=== PATIENT | male | born 1930 | race Caucasian/White ===

== ENCOUNTER → 2018-01-13 | Outpatient (CLI) | payer MEDICARE ==
[~2018-01-13] MED LIST: ACIDOPHILUS1 EAC1 PO; ALDACTONE25 MG PO; ALLOPURINOL100 MG PO; ASCORBIC ACID500 MG PO; BENADRYL25 M1 PO; BISAC-EVAC10 MG PR; BUMETANIDE1 MG PO; CALCIUM 500+D1 EACH PO; CARVEDILOL6.25 MG PO; CEFTRIAXON2 GM/50 ML IV; COLCHICINE PO; COREG3.125 MG PO; COUMADIN5 MG PO; DIFLUCAN100 MG PO; DIGOXIN PO; DIGOXIN125 MCG PO; DOCUSATE SODIU100 MG PO; DOK100 MG PO; ENOXAPARIN SQ; ERGOCALCIF8000 UNIT/ PO; FAMOTIDINE20 MG PO; FINASTERIDE5 MG PO; FUROSEMIDE40 MG PO; LACTULOSE20 GM/30 M PO; LIDOCAINE PATCH TOP; MAALOX ADVANCE770 ML PO; METOPROLOL TART25 MG PO; MIDODRINE HCL2.5 MG PO; MULTIVITAMINS1 EAC8 PO; NORCO 10-325 T1 EACH PO; NORCO 5-325 TA1 EACH PO; PEPCID20 MG PO; POTASSIUM CHLO20 ME1 PO; PROBIOTIC & AC1 EACH PO; RIFAMPIN300 MG PO; SENNOSIDES8.6 MG; TAMSULOSIN HCL0.4 MG PO; TORSEMIDE10 MG PO; ULTRAM 50MG50 MG PO; WARFARIN SODIUM2 MG PO; Z.0.ALDACTONE25 MG PO; Z.0.ALLOPURINOL300 M PO; Z.0.BACTRIM DS TAB1 PO; Z.0.COREG25 MG PO; Z.0.COUMADIN2.5 MG PO; Z.0.COUMADIN5 MG PO; Z.0.LEVOTHYROXINE50 PO; Z.0.PROSCAR5 MG PO; Z.0.TORSEMIDE10 MG PO; [UNRECOGNIZED DRUG - OTHER] PO; [UNRECOGNIZED DRUG - OTHER] SQ
[2018-01-13 10:52] LABS: INR 2.25; PROTHROMBIN TIME 23.4 seconds (11.9-14.5)
== END ==
LOC: LAB 10:04
PROVIDERS: ATTEND Internal Medicine Cardiovascular Disease
DX: I48.2 Chronic atrial fibrillation (principal)
CPT/HCPCS: 36415; 85610

== ENCOUNTER → 2018-02-03 | Outpatient (CLI) | payer MEDICARE ==
[2018-02-03 12:08] LABS: INR 2.52; PROTHROMBIN TIME 25.5 seconds (11.9-14.5)
== END ==
LOC: LAB 11:29
PROVIDERS: ATTEND Internal Medicine Cardiovascular Disease
DX: I48.2 Chronic atrial fibrillation (principal)
CPT/HCPCS: 36415; 85610

== ENCOUNTER → 2018-03-26 | Outpatient (CLI) | payer MEDICARE ==
[2018-03-26 12:09] LABS: INR 1.56
== END ==
LOC: LAB 11:35
PROVIDERS: ATTEND Internal Medicine Cardiovascular Disease
DX: I48.2 Chronic atrial fibrillation (principal)
CPT/HCPCS: 36415; 85610

== ENCOUNTER → 2018-04-05 | Outpatient (CLI) | payer MEDICARE ==
[2018-04-05 15:28] LABS: INR 1.68; PROTHROMBIN TIME 21.1 seconds (11.9-14.5)
== END ==
LOC: LAB 14:32
PROVIDERS: ATTEND Internal Medicine Cardiovascular Disease
DX: I48.2 Chronic atrial fibrillation (principal)
CPT/HCPCS: 36415; 85610

== ENCOUNTER → 2018-04-28 | Outpatient (CLI) | payer MEDICARE ==
[2018-04-28 12:17] LABS: INR 1.62; PROTHROMBIN TIME 20.6 seconds (11.9-14.5)
== END ==
LOC: LAB 11:31
PROVIDERS: ATTEND Internal Medicine Cardiovascular Disease
DX: I48.2 Chronic atrial fibrillation (principal)
CPT/HCPCS: 36415; 85610

== ENCOUNTER → 2018-05-28 | Outpatient (CLI) | payer MEDICARE ==
[2018-05-28 11:20] LABS: PROTHROMBIN TIME 24.2 seconds (11.9-14.5)
--- NOTE | 2018-05-28 12:51 | Diagnostic Imaging Report ---
Exam: Bilateral hip radiographs, 2 views on each side, and AP radiograph of the pelvis. Comparison: Right hip/pelvis radiographs 12/14/2016 Findings: Status post bilateral hip arthroplasty. Hardware appears intact. There is periprosthetic lucency along the shaft of the left hip femoral component, most pronounced in the medial and distal aspects. Lucency appears to be increased from partially imaged left femur on prior radiograph from 12/14/2016. No evidence of periosteal reaction. Atherosclerotic vascular calcifications. Surgical clips project over the left thigh. Diffuse osteopenia. No evidence of acute displaced fracture. Bowel gas obscures visualization of the sacrum limiting evaluation. Partially seen degenerative changes of the lower lumbar spine. Impression: No evidence of acute displaced fracture. Bilateral total hip arthroplasty changes as above. Increasing periprosthetic lucency along the femoral component of the left hip arthroplasty, which could reflect loosening in the appropriate clinical context. Infection could have a similar appearance. Signed by: Dr. Charlotte Smallwood MD on 05/28/2018 12:47 PM
== END ==
LOC: LAB 10:44
PROVIDERS: ATTEND Internal Medicine Cardiovascular Disease
DX: I48.2 Chronic atrial fibrillation (principal); Z96.643 Presence of artificial hip joint, bilateral; Z47.1 Aftercare following joint replacement surgery
CPT/HCPCS: 36415; 73521; 85610

== ENCOUNTER 2018-07-01 11:30 | Inpatient (IN) | payer MEDICARE ==
[~2018-07-01] VITALS: Ht 177.8 cm; Wt 64.0 kg
--- OUTSIDE RECORDS SUMMARY | 2018-07-01 11:37 | XMS REPORT | Continuity of Care Document ---
Author Author [facility] Interface Address Unknown Phone Unavailable Problems Problem Status Onset Date Classification Date Reported Comments Source LEFT HIP PAIN, I D Active 09/23/2015 [facility] Clostridium difficile<sup>1, 2</sup> Active 09/11/2015 Problem 05/20/2016 Problem added by Discern Expert. 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 Resolved Problem 05/20/2016 [facility] CAD - Coronary artery disease Resolved Problem 05/20/2016 [facility] [place] Gout Resolved Problem 05/20/2016 [facility] [place] Hypertension Resolved Problem 05/20/2016 [facility] Hypothyroidism Resolved Problem 05/20/2016 [facility], [facility] [place] Fracture of femur, left, closed Active Problem 05/20/2016 [facility], [place] Final: Fracture of unspecified part of neck of right femur, initial encounter for closed fracture 09/17/2015 [facility] 427 Active [facility] 427. 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 Active [facility] UNK Active [facility] PT/INR Active [facility] 402.91, 614.01 Active [facility] [place] OBS CHR BRONC W(AC) EXAC Active [facility] 403.01 Active [facility] ANGINA PECTORIS NEC/NOS Active [facility] CAD/USA,P/A ACD, AP/PPT Active [facility] COR ATH UNSP VSL NTV/GRF Active [facility] 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 Active [facility] DERMATITIS NOS Active [facility] CARDIAC DYSRHYTHMIAS NEC Active [facility] I48.2 Active [facility] CBS,PT/INR/I48.2 Active [facility] D12.5 Active [facility] ENCOUNTER FOR SCREENING FOR MALIGNANT NE Active [facility] FRACTURE OF UNSP PART OF NECK OF RIGHT F Active [facility] FRACTURE OF UNSPECIFIED PART OF BODY OF Active [facility] PAIN IN LEFT HIP Active [facility] GASTRO-ESOPHAGEAL REFLUX DISEASE WITHOUT Active [facility] OTHER FATIGUE Active [facility] HYPOTHYROIDISM, UNSPECIFIED Active [facility] I11.0, I25.10 Active [facility] N18.3/I11.0/I48.2/N40.0E03.9 Active [facility] CHRONIC KIDNEY DISEASE, STAGE 3 (MODERAT Active [facility] HYPERTENSIVE HEART DISEASE WITH HEART FA Active [facility] CHRONIC ATRIAL FIBRILLATION Active [facility] ENLARGED PROSTATE WITHOUT LOWER URINARY Active [facility] Medications Medication Details Route Status Patient Instructions Ordering Provider Order Date Source Potassium Chloride 20 MEQ Extended Release Tablet 40 mEq, 2 tab, Route: PO, Drug form: ERTAB, Daily, Dosing Weight 93.318, kg, Priority: NOW, Start date: 09/29/15 10:22:00, Duration: 30 day, Stop date: 10/29/15 9:00:00Notes: (Same as: K-Dur 20) "Do Not Crush" With food and full glass of water Inactive 09/29/2015 [facility] Rifampin 600 mg, 2 cap, Route: PO, Drug form: CAP, [id number], Dosing Weight 93.318, kg, Start date: 09/28/15 20:00:00, Duration: 30 day, Stop date: 10/27/15 20:00:00Notes: (Same as: Rifadin) No Longer Active 09/29/2015 [facility] Ceftriaxone 1 gm, Route: IVPB, [id number], Dosing Weight 93.318, kg, Start date: 09/28/15 17:30:00, Duration: 30 day, Stop date: 10/27/15 17:30:00Notes: (Same As: Rocephin). Use with 100 mL NS and infuse over 30 min MEDICATION WASTE Product Size: 1000 mg Product Wasted: ___ mg No Longer Active 09/28/2015 [facility] Acetaminophen 325 MG / Hydrocodone Bitartrate 5 MG Oral Tablet [[place] 5/325] 1 tab, PO, Q3H, PRN Pain Score 1-3, 0 Refill(s) Active 09/28/2015 [facility] Acetaminophen 325 MG / Hydrocodone Bitartrate 10 MG Oral Tablet [[place] 10/325] 1 tab, PO, Q3H, PRN Pain Score 4-6, 0 Refill(s) Active 09/28/2015 [facility] Acetaminophen 325 MG / Oxycodone Hydrochloride 10 MG Oral Tablet [Percocet 10/325] 1 tab, PO, Q3H, PRN Pain Score 7-10, 0 Refill(s) Active 09/28/2015 [facility] atropine 0.1 mg/mL injectable solution 0.5 mg=5 mL, IVP, ONCE, PRN Bradycardia, 0 Refill(s) Active 09/28/2015 [facility] hydromorphone 100 mg/100 mL-NaCl 0.9% intravenous solution 0.2 mg=0.2 mL, IV, Q2H, PRN Other -See Comment | Breakthrough Pain, level 1-5, give 15 minutes after PO pain narcotic if pain not resolved, 0 Refill(s) Active 09/28/2015 [facility] ondansetron 2 mg/mL injectable solution 4 mg=2 mL, IVP, Q6H, PRN Nausea & Vomiting, 0 Refill(s) Active 09/28/2015 [facility] rifaMPIN 300 mg oral capsule 600 mg, PO, [id number], 0 Refill(s) Active 09/28/2015 [facility] diphenhydrAMINE 25 mg oral tablet 12.5 mg=0.5 tab, PO, Q6H, PRN Itching, 0 Refill(s) Active 09/28/2015 [facility] Famotidine 20 MG Oral Tablet 20 mg=1 tab, PO, Q12H, 0 Refill(s) Active 09/28/2015 [facility] Enoxaparin 40 mg=0.4 mL, SUB-Q, [id number], 0 Refill(s) Active 09/28/2015 [facility] Please do not give Vanco prior to trough is collected Please do not give Vanco prior to trough is collected, Reminder, Drug form: MISC, Route: MISC, ONCE, 09/28/15 15:00:00, Stop date: 09/28/15 15:00:00 Inactive 09/28/2015 [facility] potassium chloride 40 mEq, 2 tab, Route: PO, Drug form: ERTAB, ONCE, Dosing Weight 93.318, kg, Start date: 09/28/15 8:35:00, Stop date: 09/28/15 8:35:00Notes: (Same as: K-Dur 20) "Do Not Crush" With food and full glass of water Inactive 09/28/2015 [facility] Pepcid 20 mg, 1 tab, Route: PO, Drug form: TAB, Q12H, Start date: 09/27/15 9:00:00, Duration: 30 day, Stop date: 10/26/15 21:00:00Notes: (Same as: Pepcid) No Longer Active 09/27/2015 [facility] Atropine 0.5 mg, 5 mL, Route: IVP, Drug form: INJ, ONCE, Dosing Weight 93.318, kg, PRN Bradycardia, Start date: 09/27/15 4:13:00 No Longer Active 09/27/2015 [facility] Nitroglycerin 0.4 MG Sublingual Tablet 0.4 mg, 1 tab, Route: SL, Drug form: TAB, Q5Min, Dosing Weight 93.318, kg, PRN Chest Pain, Start date: 09/27/15 4:13:00, Duration: 30 day, Stop date: 10/27/15 4:12:00 Inactive 09/27/2015 [facility] Vancomycin 1 gm, Route: IVPB, [id number], Dosing Weight 93.318, kg, Start date: 09/26/15 13:00:00, Duration: 30 day, Stop date: 10/25/15 16:00:00Notes: TIME CRITICAL MEDICATION (Same As: Vancocin) Infusion rate 2001 mg: infuse over 2.5 hours MEDICATION WASTE Product Size: 1000 mg Product Wasted: ___ mg No Longer Active 09/26/2015 [facility] Zofran 4 mg, 2 mL, Route: IVP, Drug form: INJ, Q6H, PRN Nausea & Vomiting, Start date: 09/25/15 18:00:00, Duration: 30 day, Stop date: 10/25/15 17:59:00Notes: (Same as: Zofran) MEDICATION WASTE Product Size: 4 mg Product Wasted: ___ mg No Longer Active 09/25/2015 [facility] cefepime 1 gm, Route: IVPB, [id number], Dosing Weight 93.318, kg, (CrCl 30 - 49 ml/min), Start date: 09/25/15 15:00:00, Duration: 30 day, Stop date: 10/25/15 3:00:00Notes: (Same As: Maxipime) MEDICATION WASTE Product Size: 1000 mg Product Wasted: ___ mg No Longer Active 09/25/2015 [facility] Lasix 80 mg, 8 mL, Route: IV, Drug form: INJ, ONCE, Dosing Weight 93.318, kg, Start date: 09/25/15 10:51:00, Stop date: 09/25/15 10:51:00Notes: (Same as: Lasix) MEDICATION WASTE Product Size: 40 mg Product Wasted: ___ mg Inactive 09/25/2015 [facility] digoxin 250 mcg (0.25 mg) oral tablet 0.25 mg, 1 tab, Route: PO, Drug form: TAB, Every Other Day, Dosing Weight 93.318, kg, Start date: 09/25/15 9:00:00, Duration: 30 day, Stop date: 10/23/15 9:00:00Notes: Take on an Empty Stomach (Same as: Lanoxin) No Longer Active 09/25/2015 [facility] Enoxaparin 40 mg, 0.4 mL, Route: SUB-Q, Drug form: INJ, [id number], Dosing Weight 93.318, kg, Start date: 09/25/15 9:00:00, Duration: 30 day, Stop date: 10/24/15 9:00:00Notes: (Same as: Lovenox) No Longer Active 09/25/2015 [facility] Vancomycin 6.67 MG/ML Injectable Solution 1 gm, Route: IVPB, Q12H, Dosing Weight 93.318, kg, Time Critical Medication, Start date: 09/25/15 1:00:00, Duration: 2 doses or times, Stop date: 09/25/15 13:00:00, Pharmacy to adjust dose for renal functionNotes: TIME CRITICAL MEDICATION (Same As: Vancocin) Infusion rate 2001 mg: infuse over 2.5 hours MEDICATION WASTE Product Size: 1000 mg Product Wasted: ___ mg Inactive 09/25/2015 [facility] Pepcid 20 mg, 2 mL, Route: IVP, Drug form: INJ, Q12H, Dosing Weight 93.318, kg, Start date: 09/24/15 21:00:00, Duration: 30 day, Stop date: 10/24/15 9:00:00Notes: (Same as: Pepcid) Can be dilute in 5-10cc NS IVP: Slow IV push over at least 2 minutes. No Longer Active 09/25/2015 [facility] Clindamycin 150 MG/ML Injectable Solution 600 mg, 50 mL, Route: IVPB, Drug form: INJ, Q6H, Dosing Weight 93.318, kg, Start date: 09/24/15 20:00:00, Duration: 3 doses or times, Stop date: 09/25/15 8:00:00 No Longer Active 09/25/2015 [facility] Propofol 10 MG/ML Injectable Suspension 1,000 mg, 100 mL, Rate: Titrate, Start Dose: 5 microgram/kg/min, Titration: 5 microgram/kg/min every 15 min, Goal(s): -1, Max Dose: 50 microgram/kg/min, Route: IV, Dosing Weight 93.318 kg, Total Volume: 100, Start date: 09/24/15 18:25:00, Duration: 30...Notes: If Diprivan - change bottle & tubing every 12 hr Per state nursing law propofol can only be given by a nurse if patient is intubated or being intubated (unless the nurse is a [employer]). Same as: Diprivan No Longer Active 09/24/2015 [facility] Zofran 4 mg, 2 mL, Route: IV, Drug form: INJ, Q6H, Dosing Weight 93.318, kg, Start date: 09/24/15 18:00:00, Duration: 4 doses or times, Stop date: 09/25/15 12:00:00Notes: (Same as: Barbara) MEDICATION WASTE Product Size: 4 mg Product Wasted: ___ mg No Longer Active 09/24/2015 [facility] metoprolol (ANES) Route: IV, Drug form: INJ, ONCE, Stop date: 09/24/15 17:04:00 Inactive 09/24/2015 [facility] neostigmine (ANES) Route: IV, Drug form: INJ, ONCE, Stop date: 09/24/15 17:04:00 Inactive 09/24/2015 [facility] glycopyrrolate (ANES) Route: IV, Drug form: INJ, ONCE, Stop date: 09/24/15 17:04:00 Inactive 09/24/2015 [facility] Docusate 100 mg, 1 cap, Route: PO, Drug form: CAP, BID, Dosing Weight 93.318, kg, Start date: 09/24/15 17:00:00, Duration: 30 day, Stop date: 10/24/15 9:00:00Notes: (Same as: Colace) (Do Not Crush) No Longer Active 09/24/2015 [facility] Diphenhydramine 12.5 mg, 0.5 tab, Route: PO, Drug form: TAB, Q6H, Dosing Weight 93.318, kg, PRN Itching, Start date: 09/24/15 16:53:00, Duration: 30 day, Stop date: 10/24/15 16:52:00 No Longer Active 09/24/2015 [facility] Acetaminophen 325 MG / Hydrocodone Bitartrate 10 MG Oral Tablet [[place] 10/325] 1 tab, Route: PO, Drug Form: TAB, Dosing Weight 93.318, kg, Q3H, PRN Pain Score 4-6, Start date: 09/24/15 16:53:00, Duration: 30 day, Stop date: 10/24/15 16:52:00Notes: Do not exceed 4gm/day of acetaminophen. (Same as: [place] 325/10) No Longer Active 09/24/2015 [facility] Dilaudid 0.5 mg, 0.5 mL, Route: IV, Drug form: INJ, Q2H, Dosing Weight 93.318, kg, PRN Other -See Comment, Start date: 09/24/15 16:53:00, Duration: 30 day, Stop date: 10/24/15 16:52:00, Breakthrough Pain, lev el 6-10, give 15 minutes after PO pain narcotic if p... No Longer Active 09/24/2015 [facility] Zofran 4 mg, Route: IV, Q6H, Dosing Weight 93.318, kg, PRN, Start date: 09/24/15 16:53:00, Duration: 30 day, Stop date: 10/24/15 16:52:00, nausea and vomiting Inactive 09/24/2015 [facility] Acetaminophen 325 MG / Hydrocodone Bitartrate 5 MG Oral Tablet [[place] 5/325] 1 tab, Route: PO, Drug Form: TAB, Dosing Weight 93.318, kg, Q3H, PRN Pain Score 1-3, Start date: 09/24/15 16:53:00, Duration: 30 day, Stop date: 10/24/15 16:52:00Notes: (Same as: [place] 325/5) Do not exceed 4gm/day of acetaminophen. No Longer Active 09/24/2015 [facility] Tranexamic Acid 1,000 mg, Route: IV, ONCE, Dosing Weight 93.318, kg, Start date: 09/24/15 16:53:00, Stop date: 09/24/15 16:53:00 Inactive 09/24/2015 [facility] Acetaminophen 325 MG / Oxycodone Hydrochloride 10 MG Oral Tablet [Percocet 10/325] 1 tab, Route: PO, Drug Form: TAB, Dosing Weight 93.318, kg, Q3H, PRN Pain Score 7-10, Start date: 09/24/15 16:53:00, Duration: 30 day, Stop date: 10/24/15 16:52:00Notes: Do not exceed 4gm/day of acetaminophen. (Same as: Percocet-10/325) No Longer Active 09/24/2015 [facility] Bisacodyl 10 mg, 1 supp, Route: WI, Drug form: SUPP, Daily, Dosing Weight 93.318, kg, PRN Constipation, Start date: 09/24/15 16:53:00, Duration: 30 day, Stop date: 10/24/15 16:52:00Notes: (Same As: Dulcolax, Bisco- Lax) No Longer Active 09/24/2015 [facility] 1/2 NS 1,000 mL 1,000 mL, Rate: 75 ml/hr, Infuse over: 13.3 hr, Route: IV, Dosing Weight 93.318 kg, Total Volume: 1,000, Start date: 09/24/15 16:53:00, Duration: 30 day, Stop date: 10/24/15 16:52:00 No Longer Active 09/24/2015 [facility] esmolol (ANES) Route: IV, Drug form: INJ, ONCE, Stop date: 09/24/15 16:30:00 Inactive 09/24/2015 [facility] phenylephrine (ANES) Route: IV, Drug form: INJ, ONCE, Stop date: 09/24/15 16:25:00 Inactive 09/24/2015 [facility] rocuronium (ANES) Route: IV, Drug form: INJ, ONCE, Stop date: 09/24/15 16:10:00 Inactive 09/24/2015 [facility] fentaNYL (ANES) Route: IV, Drug form: INJ, ONCE, Stop date: 09/24/15 15:55:00 Inactive 09/24/2015 [facility] rocuronium (ANES) Route: IV, Drug form: INJ, ONCE, Stop date: 09/24/15 15:39:00 Inactive 09/24/2015 [facility] norepinephrine (ANES) Route: IV, Drug form: INJ, ONCE, Stop date: 09/24/15 15:34:00 Inactive 09/24/2015 [facility] norepinephrine (ANES) Route: IV, Drug form: INJ, ONCE, Stop date: 09/24/15 15:13:00 Inactive 09/24/2015 [facility] clindamycin (ANES) Route: IV, Drug form: INJ, ONCE, Stop date: 09/24/15 14:41:00 Inactive 09/24/2015 [facility] ondansetron (ANES) Route: IV, Drug form: INJ, ONCE, Stop date: 09/24/15 14:41:00 Inactive 09/24/2015 [facility] Amidate (ANES) Route: IV, Drug form: INJ, ONCE, Stop date: 09/24/15 14:41:00 Inactive 09/24/2015 [facility] rocuronium (ANES) Route: IV, Drug form: INJ, ONCE, Stop date: 09/24/15 14:41:00 Inactive 09/24/2015 [facility] fentaNYL (ANES) Route: IV, Drug form: INJ, ONCE, Stop date: 09/24/15 14:41:00 Inactive 09/24/2015 [facility] lidocaine (ANES) Route: IV, Drug form: INJ, ONCE, Stop date: 09/24/15 14:41:00 Inactive 09/24/2015 [facility] Sodium Chloride 0.9% IV (ANES) (ANES) Route: IV, Total Volume: 1,000, Start date: 09/24/15 13:15:00, Stop date: 09/24/15 14:15:00 Inactive 09/24/2015 [facility] vancomycin (ANES) (ANES) Route: IV, Drug form: INJ, Start date: 09/24/15 13:06:00, Stop date: 09/24/15 14:06:00 Inactive 09/24/2015 [facility] Lactated Ringers Injection IV (ANES) (ANES) Route: IV, Total Volume: 1,000, Start date: 09/24/15 13:06:00, Stop date: 09/24/15 14:06:00 Inactive 09/24/2015 [facility] Dakins Half Strength Solution 1 appl, Route: TOP, Drug Form: SOLN, Dosing Weight 93.318, kg, Daily, NOW, Start date: 09/24/15 12:39:00, Duration: 30 day, Stop date: 10/24/15 9:00:00Notes: Note: half strength=0.25% sodium hypochlorite. No Longer Active 09/24/2015 [facility] LR IV 1,000 mL 1,000 mL, Rate: 25 ml/hr, Infuse over: 40 hr, Route: IV, Dosing Weight 93.318 kg, Total Volume: 1,000, Start date: 09/24/15 10:24:00, Duration: 2 day, Stop date: 09/26/15 10:23:00 No Longer Active 09/24/2015 [facility] Hydrochlorothiazide 25 MG Oral Tablet 25 mg, 1 tab, Route: PO, Drug form: TAB, Daily, Dosing Weight 93.318, kg, Start date: 09/24/15 9:00:00, Duration: 30 day, Stop date: 10/23/15 9:00:00Notes: (Same as: Hydrodiuril) With food. No Longer Active 09/24/2015 [facility] Furosemide 40 MG Oral Tablet [Lasix] 40 mg, 1 tab, Route: PO, Drug form: TAB, Daily, Dosing Weight 93.318, kg, Start date: 09/24/15 9:00:00, Duration: 30 day, Stop date: 10/23/15 9:00:00Notes: (Same as: Lasix) May cause GI upset. Give with food or milk. No Longer Active 09/24/2015 [facility] Finasteride 5 mg, 1 tab, Route: PO, Drug form: TAB, Daily, Dosing Weight 93.318, kg, Start date: 09/24/15 9:00:00, Duration: 30 day, Stop date: 10/23/15 9:00:00Notes: (Same as: Proscar) "Do Not Crush" Women of childbearing age should not touch or handle broken tablets No Longer Active 09/24/2015 [facility] Allopurinol 100 mg, 1 tab, Route: PO, Drug form: TAB, Daily, Dosing Weight 93.318, kg, Start date: 09/24/15 9:00:00, Duration: 30 day, Stop date: 10/23/15 9:00:00Notes: (Same as: Zyloprim) No Longer Active 09/24/2015 [facility] Vitamin D2 50,000 IntlUnit, 1 cap, Route: PO, Drug form: CAP, qWeek, Dosing Weight 93.318, kg, Start date: 09/24/15 9:00:00, Duration: 5 doses or times, Stop date: 10/22/15 9:00:00Notes: (Same as: Vitamin D) "Do Not Crush" No Longer Active 09/24/2015 [facility] Spironolactone 25 mg, 1 tab, Route: PO, Drug form: TAB, Daily, Dosing Weight 93.318, kg, Start date: 09/24/15 9:00:00, Duration: 30 day, Stop date: 10/23/15 9:00:00Notes: (Same As: Aldactone) No Longer Active 09/24/2015 [facility] Thyroxine 50 microgram, 1 tab, Route: PO, Drug form: TAB, [id number], Dosing Weight 93.318, kg, Start date: 09/24/15 6:30:00, Duration: 30 day, Stop date: 10/23/15 6:30:00Notes: Take 1 hour before or 2 hours after meal; Enteral feeds may interefere with the absorption of this medication.(Same as:Levothroid, Synthroid) No Longer Active 09/24/2015 [facility] Vancomycin 1 gm, Route: IV, ONCALL, Dosing Weight 93.318, kg, CYLINDER TESTER to OR, Start date: 09/23/15 22:00:00Notes: TIME CRITICAL MEDICATION (Same As: Vancocin) Infusion rate 2001 mg: infuse over 2.5 hours ME DICATION WASTE Product Size: 1000 mg Product Wasted: ___ mg No Longer Active 09/24/2015 [facility] Clindamycin 900 mg, 50 mL, Route: IV, Drug form: INJ, ONCALL, Dosing Weight 93.318, kg, ONCALL to OR, Start date: 09/23/15 22:00:00 No Longer Active 09/24/2015 [facility] carvedilol 6.25 mg, 2 tab, Route: PO, Drug form: TAB, Q12H, Dosing Weight 93.318, kg, Start date: 09/23/15 21:00:00, Duration: 30 day, Stop date: 10/23/15 9:00:00Notes: Give with food. (Same As: Coreg) No Longer Active 09/24/2015 [facility] Enoxaparin 40 mg, 0.4 mL, Route: SUB-Q, Drug form: INJ, [id number], Dosing Weight 93.318, kg, Start date: 09/23/15 21:00:00, Duration: 30 day, Stop date: 10/22/15 21:00:00Notes: (Same as: Lovenox) No Longer Active 09/24/2015 [facility] Metronidazole 500 MG Oral Tablet 500 mg, 1 tab, Route: PO, Drug form: TAB, [id number], Dosing Weight 93.318, kg, Start date: 09/23/15 19:00:00, Duration: 30 day, Stop date: 10/23/15 11:00:00Notes: (Same as: Flagyl) Take with food/ avoid alcohol No Longer Active 09/24/2015 [facility] Ergocalciferol [id number] UNT Oral Capsule 50,000 IntlUnit, 1 cap, Route: PO, Drug form: CAP, qWeek, Dosing Weight 93.318, kg, Start date: 09/23/15 17:00:00, Duration: 30 day, Stop date: 10/21/15 9:00:00Notes: (Same as: Vitamin D) "Do Not Crush" Inactive 09/23/2015 [facility] Vancomycin 125 mg, 2.5 mL, Route: PO, Drug form: SUSP, ABXQ6H, Dosing Weight 93.318, kg, Start date: 09/23/15 17:00:00, Stop date: 10/23/15 11:00:00Notes: TIME CRITICAL MEDICATION "DILUTE EACH DOSE WITH 30ML OF WATER OR APPLE/ORANGE JUICE PRIOR TO ADMINISTRATION" No Longer Active 09/23/2015 [facility] NovoLOG FlexPen 6 unit, 0.06 mL, Route: SUB-Q, Drug form: SOLN, TID-Before Meals, Dosing Weight 93.318, kg, PRN Blood Glucose Results, Start date: 09/23/15 16:52:00, Duration: 30 day, Stop date: 10/23/15 16:51:00Not es: Roll in palms of hands gently; Do not shake vigorously. (Same as: NovoLOG) "single patient use only" WASTE: F/P - Black; E - Municipal Trash Bin Stable for 28 days at room temperature. Expires in days from Date No Longer Active 09/23/2015 [facility] glucagon 1 mg, Route: IM, Drug form: PDR/INJ, PRN, Dosing Weight 93.318, kg, PRN Blood Glucose Results, Start date: 09/23/15 16:52:00, Duration: 30 day, Stop date: 10/23/15 16:51:00 No Longer Active 09/23/2015 [facility] Dextrose 50% Syringe 25 gm, 50 mL, Route: IVP, Drug Form: INJ, Dosing Weight 93.318, kg, PRN, PRN Blood Glucose Results, Start date: 09/23/15 16:52:00, Duration: 30 day, Stop date: 10/23/15 16:51:00 No Longer Active 09/23/2015 [facility] 1/2 NS 1,000 mL 1,000 mL, Rate: 75 ml/hr, Infuse over: 13.3 hr, Route: IV, Dosing Weight 93.318 kg, Total Volume: 1,000, Start date: 09/23/15 16:34:00, Duration: 30 day, Stop date: 10/23/15 16:33:00 No Longer Active 09/23/2015 [facility] Insulin, Aspart, Human 6 unit, Route: SUB-Q, Drug form: SOLN, TID-Before Meals, Dosing Weight 93.318, kg, PRN Blood Glucose Results, Start date: 09/23/15 16:32:00, Duration: 30 day, Stop date: 10/23/15 16:31:00 Inactive 09/23/2015 [facility] Glucagon 1 mg, Route: IM, Drug form: PDR/INJ, PRN, Dosing Weight 93.318, kg, PRN Blood Glucose Results, Start date: 09/23/15 16:32:00, Duration: 30 day, Stop date: 10/23/15 16:31:00 Inactive 09/23/2015 [facility] docusate sodium 100 mg oral capsule 100 mg, 1 cap, Route: PO, Drug form: CAP, BID, Dosing Weight 93.318, kg, PRN Constipation, Start date: 09/23/15 16:32:00, Duration: 30 day, Stop date: 10/23/15 16:31:00Notes: (Same as: Colace) (Do Not Crush) No Longer Active 09/23/2015 [facility] Bisacodyl 10 mg, 1 supp, Route: WI, Drug form: SUPP, Daily, Dosing Weight 93.318, kg, PRN Constipation, Start date: 09/23/15 16:32:00, Duration: 30 day, Stop date: 10/23/15 16:31:00Notes: (Same As: Dulcolax, Bisco- Lax) No Longer Active 09/23/2015 [facility] Trazodone Hydrochloride 50 MG Oral Tablet 50 mg, 1 tab, Route: PO, Drug form: TAB, Bedtime, Dosing Weight 93.318, kg, PRN Insomnia, Start date: 09/23/15 16:32:00, Duration: 30 day, Stop date: 10/23/15 16:31:00Notes: (Same As: Tarunyrel) No Longer Active 09/23/2015 [facility] Acetaminophen 300 MG / Codeine Phosphate 30 MG Oral Tablet 1 tab, Route: PO, Drug Form: TAB, Dosing Weight 93.318, kg, Q4H, PRN Pain Score 4-6, Start date: 09/23/15 16:31:00, Duration: 30 day, Stop date: 10/23/15 16:30:00Notes: Do not exceed 4gm/day of acetaminophen. (Same as: Tylenol with Codeine # 3) No Longer Active 09/23/2015 [facility] bisacodyl 10 mg rectal suppository 10 mg=1 supp, WI, Daily, PRN Constipation, 0 Refill(s) On Hold 09/23/2015 [facility] carvedilol 3.125 mg oral tablet 6.25 mg=2 tab, PO, Q12H, 0 Refill(s) On Hold 09/23/2015 [facility] Acetaminophen 300 MG / Codeine Phosphate 30 MG Oral Tablet 1 tab, PO, Q4H, PRN Pain Score 4-6, 0 Refill(s) On Hold 09/23/2015 [facility] allopurinol 100 mg oral tablet 100 mg=1 tab, PO, Daily, 0 Refill(s) On Hold 09/23/2015 [facility] Vancomycin 250 mg=5 mL, PO, ABXQ6H, 0 Refill(s) On Hold 09/23/2015 [facility] Trazodone Hydrochloride 50 MG Oral Tablet 50 mg=1 tab, PO, Bedtime, PRN Insomnia, 0 Refill(s) On Hold 09/23/2015 [facility] spironolactone 25 mg oral tablet 25 mg=1 tab, PO, Daily, 0 Refill(s) On Hold 09/23/2015 [facility] Insulin, Aspart, Human 15 unit, SUB-Q, TID-Before Meals, PRN Blood Glucose Results, 0 Refill(s) On Hold 09/23/2015 [facility] Hydrochlorothiazide 25 MG Oral Tablet 25 mg=1 tab, PO, Daily, 0 Refill(s) On Hold 09/23/2015 [facility] glucagon recombinant 1 mg injection 1 mg, IM, PRN, PRN Blood Glucose Results, 0 Refill(s) On Hold 09/23/2015 [facility] Furosemide 40 MG Oral Tablet [Lasix] 40 mg=1 tab, PO, Daily, 0 Refill(s) On Hold 09/23/2015 [facility] Ergocalciferol 82719 UNT Oral Capsule 50,000 IntlUnit=1 cap, PO, qWeek, 0 Refill(s) On Hold 09/23/2015 [facility] docusate sodium 100 mg oral capsule 100 mg=1 cap, PO, BID, PRN as needed for constipation, 0 Refill(s) On Hold 09/23/2015 [facility] Metronidazole 500 MG Oral Tablet 500 mg=1 tab, PO, ABXQ8H, 0 Refill(s) On Hold 09/23/2015 [facility] finasteride 5 mg oral tablet 5 mg=1 tab, PO, Daily, 0 Refill(s) On Hold 09/23/2015 [facility] levothyroxine 50 mcg (0.05 mg) oral tablet 50 microgram=1 tab, PO, Daily, 0 Refill(s) On Hold 09/23/2015 [facility] digoxin 250 mcg (0.25 mg) oral tablet 0.25 mg=1 tab, PO, Every Other Day, 0 Refill(s) On Hold 09/23/2015 [facility] Albumin Human, RESIDENTIAL 250 MG/ML Injectable Solution 25 gm, 100 mL, Route: IV, Drug form: INJ, ONCE, Dosing Weight 93.318, kg, Start date: 09/22/15 11:32:00, Stop date: 09/22/15 11:32:00Notes: Lot #: Mfg: (Same as: Plasbumin-25) "blood product derivative" WASTE: F/P - Red; E -Red MEDICATION WASTE Product Size: 25 gm Product Wasted: ___ gm Inactive 09/22/2015 [facility] heparin sodium, porcine 2500 UNT/ML Injectable Solution 5,000 unit, 1 mL, Route: SUB-Q, Drug form: INJ, Q12H, Dosing Weight 93.318, kg, Start date: 09/22/15 9:00:00, Duration: 30 day, Stop date: 10/21/15 21:00:00Notes: porcine heparin No Longer Active 09/22/2015 [facility] DO NOT GIVE HEPARIN SQ UNTIL INR <2.0 DO NOT GIVE HEPARIN SQ UNTIL INR No Longer Active 09/21/2015 [facility] potassium chloride 40 mEq, 2 tab, Route: PO, Drug form: ERTAB, BID, Dosing Weight 93.318, kg, Start date: 09/19/15 9:00:00, Duration: 3 day, Stop date: 09/21/15 17:00:00Notes: (Same as: K-Dur 20) "Do Not Crush" With food and full glass of water No Longer Active 09/19/2015 [facility] potassium chloride 40 mEq, 2 tab, Route: PO, Drug form: ERTAB, Q4H, Dosing Weight 93.318, kg, Priority: NOW, Start date: 09/19/15 7:36:00, Duration: 2 doses or times, Stop date: 09/19/15 11:30:00Notes: (Same as: K-Dur 20) "Do Not Crush" With food and full glass of water Inactive 09/19/2015 [facility] Vancomycin 250 mg, 5 mL, Route: PO, Drug form: SUSP, ABXQ6H, Dosing Weight 93.318, kg, Start date: 09/18/15 17:00:00, Duration: 30 day, Stop date: 10/18/15 11:00:00 No Longer Active 09/18/2015 [facility] Albumin Human, RESIDENTIAL 250 MG/ML Injectable Solution 25 gm, 100 mL, Route: IV, Drug form: INJ, ONCE, Dosing Weight 93.318, kg, Start date: 09/18/15 14:04:00, Stop date: 09/18/15 14:04:00Notes: Lot #: Mfg: (Same as: Plasbumin-25) "blood product derivative" WASTE: F/P - Red; E -Red MEDICATION WASTE Product Size: 25 gm Product Wasted: ___ gm Inactive 09/18/2015 [facility] pneumococcal capsular polysaccharide type 1 vaccine / pneumococcal capsular polysaccharide type 10A vaccine / pneumococcal capsular polysaccharide type 11A vaccine / pneumococcal capsular polysaccharide type 12F vaccine / pneumococcal capsular polysacchar 0.5 mL, Route: IM, Drug Form: INJ, Daily, Start date: 09/18/15 9:00:00, Duration: 1 doses or times, Stop date: 09/18/15 9:00:00Notes: (Same as: Pneumovax 23) Refrigerate Inactive 09/18/2015 [facility] Vitamin D2 50,000 IntlUnit, 1 cap, Route: PO, Drug form: CAP, qWeek, Dosing Weight 93.318, kg, Start date: 09/17/15 15:00:00, Duration: 5 doses or times, Stop date: 10/15/15 9:00:00Notes: (Same as: Vitamin D) "Do Not Crush" No Longer Active 09/17/2015 [facility] Aldactone 25 mg, 1 tab, Route: PO, Drug form: TAB, Daily, Start date: 09/17/15 14:00:00, Duration: 30 day, Stop date: 10/17/15 9:00:00Notes: (Same As: Aldactone) No Longer Active 09/17/2015 [facility] hydrochlorothiazide 25 mg oral tablet 25 mg, 1 tab, Route: PO, Drug form: TAB, Daily, Start date: 09/17/15 14:00:00, Duration: 30 day, Stop date: 10/17/15 9:00:00Notes: (Same as: Hydrodiuril) With food. No Longer Active 09/17/2015 [facility] Tylenol 650 mg, 20.3 mL, Route: PO, Drug form: LIQ, Q4H, Dosing Weight 93.318, kg, PRN Pain Score 1-3, Start date: 09/17/15 10:16:00, Duration: 30 day, Stop date: 10/17/15 10:15:00Notes: Max acetaminophen=40 00mg/day (4 gm/day). (Same as: Tylenol) No Longer Active 09/17/2015 [facility] Acetaminophen 300 MG / Codeine Phosphate 30 MG Oral Tablet 2 tab, Route: PO, Drug Form: TAB, Dosing Weight 93.318, kg, Q4H, PRN Pain Score 7-10, Start date: 09/17/15 10:15:00, Duration: 30 day, Stop date: 10/17/15 10:14:00Notes: Do not exceed 4gm/day of acetaminophen. (Same as: Tylenol with Codeine # 3) No Longer Active 09/17/2015 [facility] Furosemide 40 MG Oral Tablet [Lasix] 40 mg, 1 tab, Route: PO, Drug form: TAB, Daily, Dosing Weight 93.318, kg, Start date: 09/17/15 9:00:00, Duration: 30 day, Stop date: 10/16/15 9:00:00Notes: (Same as: Lasix) May cause GI upset. Give with food or milk. No Longer Active 09/17/2015 [facility] Hydrochlorothiazide 25 MG / Spironolactone 25 MG Oral Tablet [Aldactazide] 1 tab, Route: PO, Drug Form: TAB, Dosing Weight 93.318, kg, Daily, Start date: 09/17/15 9:00:00, Duration: 30 day, Stop date: 10/16/15 9:00:00 Inactive 09/17/2015 [facility] Lasix 20 mg, 2 mL, Route: IVP, Drug form: INJ, Daily, Dosing Weight 93.318, kg, Start date: 09/16/15 9:00:00, Duration: 30 day, Stop date: 10/15/15 9:00:00Notes: (Same as: Lasix) No Longer Active 09/16/2015 [facility] Flagyl 500 mg, 1 tab, Route: PO, Drug form: TAB, ABXQ8H, Dosing Weight 93.318, kg, Start date: 09/15/15 20:00:00, Duration: 30 day, Stop date: 10/15/15 12:00:00Notes: (Same as: Flagyl) Take with food/ avoid alcohol No Longer Active 09/16/2015 [facility] Coumadin 5 mg, 1 tab, Route: PO, Drug form: TAB, Daily, Dosing Weight 80, kg, Start date: 09/15/15 17:00:00, Duration: 30 day, Stop date: 10/14/15 17:00:00Notes: Nurse to ensure documentation of patient education per anticoagulation policy. Avoid large intake of vitamin-K containing foods diet. WASTE: F/P - P Waste Black; E - P Waste Black (Same As: Coumadin) No Longer Active 09/15/2015 [facility] Acetaminophen 300 MG / Codeine Phosphate 30 MG Oral Tablet 1 tab, Route: PO, Drug Form: TAB, Dosing Weight 93.318, kg, Q4H, PRN Pain Score 4-6, Start date: 09/15/15 10:03:00, Duration: 30 day, Stop date: 10/15/15 10:02:00Notes: Do not exceed 4gm/day of acetaminophen. (Same as: Tylenol with Codeine # 3) No Longer Active 09/15/2015 [facility] Saline Flush 0.9% 10 ml, Route: IVP, Drug Form: INJ, Dosing Weight 93.318, kg, Q12H, Start date: 09/15/15 9:00:00, Duration: 30 day, Stop date: 10/14/15 21:00:00Notes: (Same as: BD Posiflush) No Longer Active 09/15/2015 [facility] docusate sodium 100 mg oral capsule 100 mg, 1 cap, Route: PO, Drug form: CAP, BID, Dosing Weight 80, kg, PRN as needed for constipation, Start date: 09/15/15 9:00:00, Duration: 30 day, Stop date: 10/14/15 17:00:00Notes: (Same as: Colace) (Do Not Crush) No Longer Active 09/15/2015 [facility] Coreg 6.25 mg, 2 tab, Route: PO, Drug form: TAB, Q12H, Dosing Weight 80, kg, Start date: 09/15/15 9:00:00, Duration: 30 day, Stop date: 10/14/15 21:00:00Notes: Give with food. (Same As: Coreg) No Longer Active 09/15/2015 [facility] digoxin 0.25 mg, 1 tab, Route: PO, Drug form: TAB, Every Other Day, Dosing Weight 80, kg, Start date: 09/15/15 9:00:00, Duration: 30 day, Stop date: 10/13/15 9:00:00Notes: Take on an Empty Stomach (Same as: Lanoxin) No Longer Active 09/15/2015 [facility] Zyloprim 100 mg, 1 tab, Route: PO, Drug form: TAB, Daily, Dosing Weight 80, kg, Start date: 09/15/15 9:00:00, Duration: 30 day, Stop date: 10/14/15 9:00:00Notes: (Same as: Zyloprim) No Longer Active 09/15/2015 [facility] K-Dur 10 20 mEq, 1 tab, Route: PO, Drug form: ERTAB, BID, Dosing Weight 80, kg, Start date: 09/15/15 9:00:00, Stop date: 10/14/15 17:00:00Notes: (Same as: K-Dur 20) "Do Not Crush" With food and full glass of water No Longer Active 09/15/2015 [facility] Proscar 5 mg, 1 tab, Route: PO, Drug form: TAB, Daily, Dosing Weight 80, kg, Start date: 09/15/15 9:00:00, Duration: 30 day, Stop date: 10/14/15 9:00:00Notes: (Same as: Proscar) "Do Not Crush" Women of childbearing age should not touch or handle broken tablets No Longer Active 09/15/2015 [facility] Levothroid 50 microgram, 1 tab, Route: PO, Drug form: TAB, Daily, Dosing Weight 80, kg, Start date: 09/15/15 6:30:00, Duration: 30 day, Stop date: 10/14/15 6:30:00Notes: Take 1 hour before or 2 hours after meal; E nteral feeds may interefere with the absorption of this medication.(Same as:Levothroid, Synthroid) No Longer Active 09/15/2015 [facility] Flagyl 500 mg, 100 mL, Route: IVPB, Drug form: INJ, ABXQ8H, Dosing Weight 80, kg, Start date: 09/15/15 2:00:00, Duration: 30 day, Stop date: 10/14/15 18:00:00Notes: (Same as: Flagyl) Avoid alcohol. Inactive 09/15/2015 [facility] BD Normal Saline Flush 10 ml, Route: IVP, Drug Form: INJ, Dosing Weight 78.182, kg, PRN, PRN Line Flush, Start date: 09/15/15 1:52:00, Duration: 30 day, Stop date: 10/15/15 1:51:00Notes: (Same as: BD Posiflush) No Longer Active 09/15/2015 [facility] Dulcolax Laxative 10 mg, 1 supp, Route: WI, Drug form: SUPP, Daily, Dosing Weight 80, kg, PRN Constipation, Start date: 09/15/15 1:50:00, Duration: 30 day, Stop date: 10/15/15 1:49:00Notes: (Same As: Dulcolax, Bisco-Lax) No Longer Active 09/15/2015 [facility] Insulin, Aspart, Human 12 unit, 0.12 mL, Route: SUB-Q, Drug form: SOLN, TID-Before Meals, Dosing Weight 93.318, kg, PRN Blood Glucose Results, Start date: 09/15/15 0:21:00, Duration: 30 day, Stop date: 10/15/15 0:20:00Notes: Roll in palms of hands gently; Do not shake vigorously. (Same as: NovoLOG) "single patient use only" WASTE: F/P - Black; E - [employer] Trash Bin Stable for 28 days at room temperature. Expires in days from Date No Longer Active 09/15/2015 [facility] Glucagon 1 mg, Route: IM, Drug form: PDR/INJ, PRN, Dosing Weight 93.318, kg, PRN Blood Glucose Results, Start date: 09/15/15 0:21:00, Duration: 30 day, Stop date: 10/15/15 0:20:00 No Longer Active 09/15/2015 [facility] Dextrose 50% Syringe 12.5 gm, 25 mL, Route: IVP, Drug Form: INJ, Dosing Weight 93.318, kg, PRN, PRN Blood Glucose Results, Start date: 09/15/15 0:21:00, Duration: 30 day, Stop date: 10/15/15 0:20:00 No Longer Active 09/15/2015 [facility] Saline Flush 0.9% 10 ml, Route: IVP, Drug Form: INJ, Dosing Weight 93.318, kg, PRN, PRN Line Flush, Start date: 09/15/15 0:13:00, Duration: 30 day, Stop date: 10/15/15 0:12:00Notes: (Same as: BD Posiflush) Inactive 09/15/2015 [facility] Trazodone 50 mg, 1 tab, Route: PO, Drug form: TAB, Bedtime, Dosing Weight 80, kg, PRN Insomnia, Start date: 09/15/15 0:13:00, Duration: 30 day, Stop date: 10/15/15 0:12:00Notes: (Same As: Desyrel) No Longer Active 09/15/2015 [facility] Lovenox 40 mg, 0.4 mL, Route: SUB-Q, Drug form: INJ, [id number], Dosing Weight 80, kg, Start date: 09/14/15 21:00:00, Duration: 30 day, Stop date: 10/13/15 21:00:00Notes: (Same as: Lovenox) Inactive 09/15/2015 [facility] Famotidine 20 MG Oral Tablet [Pepcid] 20 mg, 1 tab, Route: PO, Drug form: TAB, Q12H, Dosing Weight 80, kg, Start date: 09/14/15 21:00:00, Duration: 30 day, Stop date: 10/14/15 9:00:00Notes: (Same as: Pepcid) Inactive 09/15/2015 [facility] metroNIDAZOLE intravenous solution 500 cb=714 mL, IVPB, ABXQ8H, 0 Refill(s) On Hold 09/14/2015 [facility] Acetaminophen 300 MG / Codeine Phosphate 30 MG Oral Tablet 1 tab, PO, Q4H, PRN Pain Score 4-6, 0 Refill(s) On Hold 09/14/2015 [facility] bisacodyl 10 mg rectal suppository 10 mg=1 supp, WI, Daily, PRN Constipation, 0 Refill(s) On Hold 09/14/2015 [facility] Acetaminophen 300 MG / Codeine Phosphate 30 MG Oral Tablet 2 tab, Route: PO, Drug Form: TAB, Dosing Weight 80, kg, Q4H, PRN Pain Score 7- 10, Start date: 09/14/15 11:19:00, Duration: 30 day, Stop date: 10/14/15 11:18:00Notes: Do not exceed 4gm/day of acetaminophen. (Same as: Tylenol with Codeine # 3) Inactive 09/14/2015 [facility] Flagyl 500 mg, 100 mL, Route: IVPB, Drug form: INJ, ABXQ8H, Dosing Weight 80, kg, Start date: 09/13/15 9:00:00, Duration: 30 day, Stop date: 10/13/15 1:00:00Notes: (Same as: Flagyl) Avoid alcohol. No Longer Active 09/13/2015 [facility] 1,000 mL 1,000 mL, Rate: 100 ml/hr, Infuse over: 10 hr, Route: IV, Dosing Weight 80 kg, Total Volume: 1,000, Start date: 09/12/15 8:03:00, Duration: 30 day, Stop date: 10/12/15 8:02:00 No Longer Active 09/12/2015 [facility] Coreg 6.25 mg, 2 tab, Route: PO, Drug form: TAB, BID, Dosing Weight 80, kg, Start date: 09/11/15 21:00:00, Duration: 30 day, Stop date: 10/11/15 9:00:00Notes: Give with food. (Same As: Coreg) No Longer Active 09/12/2015 [facility] albumin human 25 gm, 100 mL, Route: IV, Drug form: INJ, ONCE, Dosing Weight 80, kg, Start date: 09/11/15 13:45:00, Stop date: 09/11/15 13:45:00Notes: Lot #: Mfg: (Same as: Plasbumin- 25) "blood product derivative" WASTE: F/P - Red; E -Red MEDICATION WASTE Product Size: 25 gm Product Wasted: ___ gm Inactive 09/11/2015 [facility] Albumin Human, RESIDENTIAL 250 MG/ML Injectable Solution 25 gm, 100 mL, Route: IV, Drug form: INJ, ONCE, Dosing Weight 80, kg, Start date: 09/11/15 10:39:00, Stop date: 09/11/15 10:39:00Notes: Lot #: Mfg: (Same as: Plasbumin-25) "blood product derivative" WASTE: F/P - Red; E -Red MEDICATION WASTE Product Size: 25 gm Product Wasted: ___ gm Inactive 09/11/2015 [facility] Insulin, Aspart, Human 15 unit, 0.15 mL, Route: SUB-Q, Drug form: SOLN, TID-Before Meals, Dosing Weight 80, kg, PRN Blood Glucose Results, Start date: 09/11/15 10:11:00, Duration: 30 day, Stop date: 10/11/15 10:10:00Notes: Roll in palms of hands gently; Do not shake vigorously. (Same as: NovoLOG) "single patient use only" WASTE: F/P - Black; E - [employer] Trash Bin Stable for 28 days at room temperature. Expires in days from Date No Longer Active 09/11/2015 [facility] Glucagon 1 mg, Route: IM, Drug form: PDR/INJ, PRN, Dosing Weight 80, kg, PRN Blood Glucose Results, Start date: 09/11/15 10:11:00, Duration: 30 day, Stop date: 10/11/15 10:10:00 No Longer Active 09/11/2015 [facility] Dextrose 50% Syringe 12.5 gm, 25 mL, Route: IVP, Drug Form: INJ, Dosing Weight 80, kg, PRN, PRN Blood Glucose Results, Start date: 09/11/15 10:11:00, Duration: 30 day, Stop date: 10/11/15 10:10:00 No Longer Active 09/11/2015 [facility] Insulin regular 7 unit, 0.07 mL, Route: IV, Drug form: INJ, ONCE, Dosing Weight 80, kg, Start date: 09/11/15 10:07:00, Stop date: 09/11/15 10:07:00Notes: (Same as: Humulin R and NovoLIN R) WASTE: F/P - Black; E - [employer] Trash Bin (Do not shake) Inactive 09/11/2015 [facility] Docusate 100 mg, 1 cap, Route: PO, Drug form: CAP, BID, Dosing Weight 80, kg, Start date: 09/11/15 9:00:00, Duration: 30 day, Stop date: 10/10/15 17:00:00Notes: (Same as: Colace) (Do Not Crush) No Longer Active 09/11/2015 [facility] Vancomycin 6.67 MG/ML Injectable Solution 1 gm, Route: IVPB, [id number], Dosing Weight 80, kg, Time Critical Medication, Start date: 09/11/15 7:30:00, Duration: 2 doses or times, Stop date: 09/11/15 19:30:00, Pharmacy to adjust dose for renal functionNotes: TIME CRITICAL MEDICATION (Same As: Vancocin) Infusion rate 2001 mg: infuse over 2.5 hours MEDICATION WASTE Product Size: 1000 mg Product Wasted: ___ mg Inactive 09/11/2015 [facility] Warfarin 5 mg, 1 tab, Route: PO, Drug form: TAB, Daily, Dosing Weight 80, kg, Start date: 09/11/15 1:00:00, Duration: 30 day, Stop date: 10/10/15 17:00:00Notes: Nurse to ensure documentation of patient education per anticoagulation policy. Avoid large intake of vitamin-K containing foods diet. WASTE: F/P - P Waste Black; E - P Waste Black (Same As: Coumadin) No Longer Active 09/11/2015 [facility] Clindamycin 150 MG/ML Injectable Solution 600 mg, 50 mL, Route: IVPB, Drug form: INJ, ABXQ6H, Dosing Weight 80, kg, Start date: 09/11/15 1:00:00, Duration: 3 doses or times, Stop date: 09/11/15 13:00:00 Inactive 09/11/2015 [facility] Zofran 4 mg, 2 mL, Route: IV, Drug form: INJ, Q6H, Dosing Weight 80, kg, Start date: 09/11/15 0:00:00, Duration: 4 doses or times, Stop date: 09/11/15 18:00:00Notes: (Same as: Zofran) MEDICATION WASTE Product Size: 4 mg Product Wasted: ___ mg Inactive 09/11/2015 [facility] Albumin Human, RESIDENTIAL 50 MG/ML Injectable Solution 12.5 gm, 250 mL, 500 ml/hr, Route: IV, Drug Form: INJ, Dosing Weight 80, kg, ONCE, Start date: 09/10/15 22:43:00, Stop date: 09/10/15 22:43:00Notes: LOT#: Mfg: WASTE: F/P - Red; E -Red (Same as: Albuminar) "blood product derivative" Inactive 09/11/2015 [facility] neostigmine (ANES) Route: IV, Drug form: INJ, ONCE, Stop date: 09/10/15 21:35:00 Inactive 09/11/2015 [facility] ondansetron (ANES) Route: IV, Drug form: INJ, ONCE, Stop date: 09/10/15 21:35:00 Inactive 09/11/2015 [facility] furosemide (ANES) Route: IV, Drug form: INJ, ONCE, Stop date: 09/10/15 21:35:00 Inactive 09/11/2015 [facility] glycopyrrolate (ANES) Route: IV, Drug form: INJ, ONCE, Stop date: 09/10/15 21:35:00 Inactive 09/11/2015 [facility] ePHEDrine (ANES) Route: IV, Drug form: INJ, ONCE, Stop date: 09/10/15 21:32:00 Inactive 09/11/2015 [facility] phenylephrine (ANES) Route: IV, Drug form: INJ, ONCE, Stop date: 09/10/15 21:32:00 Inactive 09/11/2015 [facility] Diphenhydramine 12.5 mg, 0.5 tab, Route: PO, Drug form: TAB, Q6H, Dosing Weight 80, kg, PRN Itching, Start date: 09/10/15 21:08:00, Duration: 30 day, Stop date: 10/10/15 21:07:00 No Longer Active 09/11/2015 [facility] Bisacodyl 10 mg, 1 supp, Route: WI, Drug form: SUPP, Daily, Dosing Weight 80, kg, PRN Constipation, Start date: 09/10/15 21:08:00, Duration: 30 day, Stop date: 10/10/15 21:07:00Notes: (Same As: Dulcolax, Bisco- Lax) No Longer Active 09/11/2015 [facility] Dexamethasone 4 mg, 1 mL, Route: IV, Drug form: INJ, ONCE, Dosing Weight 80, kg, Start date: 09/10/15 21:08:00, Stop date: 09/10/15 21:08:00Notes: Concentration: 4mg/ml No Longer Active 09/11/2015 [facility] Acetaminophen 325 MG / Hydrocodone Bitartrate 5 MG Oral Tablet [[place] 5/325] 1 tab, Route: PO, Drug Form: TAB, Dosing Weight 80, kg, Q3H, PRN Pain Score 1-3, Start date: 09/10/15 21:08:00, Duration: 30 day, Stop date: 10/10/15 21:07:00Notes: Do not exceed 4gm/day of acetaminophen. (Same as: [place] 325/10) No Longer Active 09/11/2015 [facility] Dilaudid 0.5 mg, 0.5 mL, Route: IV, Drug form: INJ, Q2H, Dosing Weight 80, kg, PRN Other -See Comment, Start date: 09/10/15 21:08:00, Duration: 30 day, Stop date: 10/10/15 21:07:00, Breakthrough Pain, level 6-10, give 15 minutes after PO pain narcotic if pain... No Longer Active 09/11/2015 [facility] Zofran 4 mg, 2 mL, Route: IV, Drug form: INJ, Q6H, Dosing Weight 80, kg, PRN Nausea & Vomiting, Start date: 09/10/15 21:08:00, Duration: 30 day, Stop date: 10/10/15 21:07:00, nausea and vomitingNotes: (Same as: Zofran) MEDICATION WASTE Product Size: 4 mg Product Wasted: ___ mg No Longer Active 09/11/2015 [facility] Acetaminophen 325 MG / Hydrocodone Bitartrate 10 MG Oral Tablet [[place] 10/325] 1 tab, Route: PO, Drug Form: TAB, Dosing Weight 80, kg, Q3H, PRN Pain Score 4-6, Start date: 09/10/15 21:08:00, Duration: 30 day, Stop date: 10/10/15 21:07:00Notes: Do not exceed 4gm/day of acetaminophen. (Same as: [place] 325/10) No Longer Active 09/11/2015 [facility] Acetaminophen 325 MG / Oxycodone Hydrochloride 10 MG Oral Tablet [Percocet 10/325] 1 tab, Route: PO, Drug Form: TAB, Dosing Weight 80, kg, Q3H, PRN Pain Score 7-10, Start date: 09/10/15 21:08:00, Duration: 30 day, Stop date: 10/10/15 21:07:00Notes: Do not exceed 4gm/day of acetaminophen. (Same as: Percocet-10/325) No Longer Active 09/11/2015 [facility] 1/2 NS 1,000 mL 1,000 mL, Rate: 75 ml/hr, Infuse over: 13.3 hr, Route: IV, Dosing Weight 80 kg, Total Volume: 1,000, Start date: 09/10/15 21:08:00, Duration: 30 day, Stop date: 10/10/15 21:07:00 No Longer Active 09/11/2015 [facility] Lactated Ringers Injection IV (ANES) (ANES) Route: IV, Total Volume: 1,000, Start date: 09/10/15 20:35:00, Stop date: 09/10/15 21:35:00 Inactive 09/11/2015 [facility] rocuronium (ANES) Route: IV, Drug form: INJ, ONCE, Stop date: 09/10/15 20:21:00 Inactive 09/11/2015 [facility] propofol (ANES) Route: IV, Drug form: INJ, ONCE, Stop date: 09/10/15 20:21:00 Inactive 09/11/2015 [facility] lidocaine (ANES) Route: IV, Drug form: INJ, ONCE, Stop date: 09/10/15 20:21:00 Inactive 09/11/2015 [facility] glycopyrrolate (ANES) Route: IV, Drug form: INJ, ONCE, Stop date: 09/10/15 20:09:00 Inactive 09/11/2015 [facility] neostigmine (ANES) Route: IV, Drug form: INJ, ONCE, Stop date: 09/10/15 20:09:00 Inactive 09/11/2015 [facility] ondansetron (ANES) Route: IV, Drug form: INJ, ONCE, Stop date: 09/10/15 20:09:00 Inactive 09/11/2015 [facility] hydromorphone (ANES) Route: IV, Drug form: INJ, ONCE, Stop date: 09/10/15 20:09:00 Inactive 09/11/2015 [facility] fentaNYL (ANES) Route: IV, Drug form: INJ, ONCE, Stop date: 09/10/15 19:56:00 Inactive 09/11/2015 [facility] vancomycin (ANES) (ANES) Route: IV, Drug form: INJ, Start date: 09/10/15 19:31:00, Stop date: 09/10/15 20:31:00 Inactive 09/11/2015 [facility] Cleocin Phosphate (ANES) (ANES) Route: IV, Drug form: INJ, Start date: 09/10/15 19:11:00, Stop date: 09/10/15 20:11:00 Inactive 09/11/2015 [facility] NS 250 mL 250 mL, Rate: 25 ml/hr, Infuse over: 10 hr, Route: IV, Dosing Weight 80 kg, Total Volume: 250, Start date: 09/10/15 10:22:00, Duration: 1 day, Stop date: 09/11/15 10:21:00 Inactive 09/10/2015 [facility] Benadryl 12.5 mg, 0.25 mL, Route: IVP, Drug form: INJ, Q6H, Dosing Weight 80, kg, PRN as needed for itching, Start date: 09/10/15 9:35:00, Duration: 30 day, Stop date: 10/10/15 9:34:00Notes: (Same as: Benadryl) No Longer Active 09/10/2015 [facility] Morphine 3 mg, 1.5 mL, Route: IVP, Drug form: INJ, Q3H, Dosing Weight 78.182, kg, PRN Pain Score 7-10, Start date: 09/10/15 9:04:00, Duration: 30 day, Stop date: 10/10/15 9:03:00Notes: (Same as:MORPhine Sulfate) No Longer Active 09/10/2015 [facility] Demadex 10 mg, 1 tab, Route: PO, Drug form: TAB, Daily, Dosing Weight 80, kg, Start date: 09/10/15 9:00:00, Duration: 30 day, Stop date: 10/09/15 9:00:00Notes: (Same As: Demadex) No Longer Active 09/10/2015 [facility] Aldactone 25 mg, 1 tab, Route: PO, Drug form: TAB, Every Other Day, Dosing Weight 80, kg, Start date: 09/10/15 9:00:00, Duration: 30 day, Stop date: 10/08/15 9:00:00Notes: (Same As: Aldactone) No Longer Active 09/10/2015 [facility] Proscar 5 mg, 1 tab, Route: PO, Drug form: TAB, Daily, Dosing Weight 80, kg, Start date: 09/10/15 9:00:00, Stop date: 10/09/15 9:00:00Notes: (Same as: Proscar) "Do Not Crush" Women of childbearing age should not touch or handle broken tablets No Longer Active 09/10/2015 [facility] Digoxin 0.25 mg, 1 tab, Route: PO, Drug form: TAB, Every Other Day, Dosing Weight 80, kg, Start date: 09/10/15 9:00:00, Duration: 30 day, Stop date: 10/08/15 9:00:00Notes: Take on an Empty Stomach (Same as: Lanoxin) No Longer Active 09/10/2015 [facility] Allopurinol 100 mg, 1 tab, Route: PO, Drug form: TAB, Daily, Dosing Weight 80, kg, Start date: 09/10/15 9:00:00, Duration: 30 day, Stop date: 10/09/15 9:00:00Notes: (Same as: Zyloprim) No Longer Active 09/10/2015 [facility] Synthroid 50 microgram, 1 tab, Route: PO, Drug form: TAB, Daily, Dosing Weight 80, kg, Start date: 09/10/15 6:30:00, Duration: 30 day, Stop date: 10/09/15 6:30:00Notes: Take 1 hour before or 2 hours after meal; E nteral feeds may interefere with the absorption of this medication.(Same as:Levothroid, Synthroid) No Longer Active 09/10/2015 [facility] Vitamin K1 2.5 mg, 2.5 mL, Route: PO, Drug form: SUSP, ONCE, Dosing Weight 80, kg, Start date: 09/09/15 18:56:00, Duration: 1 doses or times, Stop date: 09/09/15 18:56:00Notes: Same as: Vitamin K, [place] Combine FILTERED phytonadione injection (total 50 mg/5 mL)with Simple Syrup (45mL) in willem bottle. Shake well prior to dispensing. Expiration: 90 days at [facility] Inactive 09/09/2015 [facility] Micro-K 10 10 mEq, 1 tab, Route: PO, Drug form: ERTAB, BID, Dosing Weight 80, kg, Start date: 09/09/15 17:00:00, Duration: 30 day, Stop date: 10/09/15 9:00:00Notes: (Same as: K-Dur 10) "Do Not Crush" With food and full glass of water No Longer Active 09/09/2015 [facility] Coreg 25 mg, 2 tab, Route: PO, Drug form: TAB, BID, Dosing Weight 80, kg, Start date: 09/09/15 17:00:00, Duration: 30 day, Stop date: 10/09/15 9:00:00Notes: Give with food. (Same As: Coreg) No Longer Active 09/09/2015 [facility] Vitamin K1 5 mg, 5 mL, Route: PO, Drug form: SUSP, ONCE, Start date: 09/09/15 13:39:00, Stop date: 09/09/15 13:39:00Notes: Same as: Vitamin K, [place] Combine FILTERED phytonadione injection (total 50 mg/5 m L)with Simple Syrup (45mL) in willem bottle. Shake well prior to dispensing. Expiration: 90 days at [facility] Inactive 09/09/2015 [facility] Vitamin K1 5 mg, 1 tab, Route: PO, Drug form: TAB, ONCE, Dosing Weight 80, kg, Start date: 09/09/15 12:05:00, Duration: 1 doses or times, Stop date: 09/09/15 12:05:00Notes: (Same as: [place]phy[place], Vitamin K) Inactive 09/09/2015 [facility] Acetaminophen 325 MG / Hydrocodone Bitartrate 5 MG Oral Tablet [[place] 5/325] 1 tab, Route: PO, Drug Form: TAB, Dosing Weight 80, kg, Q4H, PRN Pain Score 1-3, Start date: 09/09/15 10:19:00, Duration: 30 day, Stop date: 10/09/15 10:18:00Notes: (Same as: [place] 325/5) Do not exceed 4gm/day of acetaminophen. No Longer Active 09/09/2015 [facility] Acetaminophen 325 MG / Hydrocodone Bitartrate 5 MG Oral Tablet [[place] 5/325] 1 tab, Route: PO, Drug Form: TAB, Dosing Weight 80, kg, Q3H, PRN Pain Score 1-5, prn pain, Start date: 09/09/15 10:18:00, Duration: 30 day, Stop date: 10/09/15 10:17:00Notes: (Same as: [place] 325/5) Do not exceed 4gm/day of acetaminophen. Inactive 09/09/2015 [facility] Acetaminophen 325 MG / Hydrocodone Bitartrate 5 MG Oral Tablet [[place] 5/325] 1 tab, Route: PO, Drug Form: TAB, Dosing Weight 80, kg, Q3H, PRN Pain Score 1-5, prn pain, Start date: 09/09/15 9:56:00, Duration: 30 day, Stop date: 10/09/15 9:55:00Notes: (Same as: [place] 325/5) Do not exceed 4gm/day of acetaminophen. Inactive 09/09/2015 [facility] Morphine 4 mg, Route: IVP, Drug form: INJ, ONCE, Dosing Weight 78.182, kg, Priority: STAT, Start date: 09/08/15 11:04:00, Stop date: 09/08/15 11:04:00 Inactive 09/08/2015 [facility] Saline Flush 0.9% 10 ml, Route: IVP, Drug Form: INJ, Dosing Weight 78.182, kg, PRN, PRN Line Flush, Start date: 09/08/15 11:00:00, Duration: 30 day, Stop date: 10/08/15 10:59:00Notes: (Same as: BD Posiflush) No Longer Active 09/08/2015 [facility] Glucose 50 MG/ML / Sodium Chloride 0.154 MEQ/ML Injectable Solution 1,000 mL, Rate: 75 ml/hr, Infuse over: 13.3 hr, Route: IV, Dosing Weight 78.182 kg, Total Volume: 1,000, Start date: 09/08/15 11:00:00, Duration: 30 day, Stop date: 10/08/15 10:59:00 No Longer Active 09/08/2015 [facility] Morphine 4 mg, 2 mL, Route: IVP, Drug form: INJ, Q4H, Dosing Weight 78.182, kg, PRN Pain Score 7-10, Start date: 09/08/15 11:00:00, Duration: 30 day, Stop date: 10/08/15 10:59:00Notes: (Same as:MORPhine Sulfate) No Longer Active 09/08/2015 [facility] Ondansetron 4 mg, 2 mL, Route: IVP, Drug form: INJ, Q6H, Dosing Weight 78.182, kg, PRN Nausea & Vomiting, Start date: 09/08/15 11:00:00, Duration: 30 day, Stop date: 10/08/15 10:59:00Notes: (Same as: Zofran) MEDICATION WASTE Product Size: 4 mg Product Wasted: ___ mg No Longer Active 09/08/2015 [facility] Morphine 4 mg, Route: IVP, Drug form: INJ, ONCE, Dosing Weight 78.182, kg, Priority: STAT, Start date: 09/08/15 7:35:00, Stop date: 09/08/15 7:35:00 Inactive 09/08/2015 [facility] Zofran 4 mg, Route: IVP, Drug form: INJ, ONCE, Dosing Weight 78.182, kg, Priority: STAT, Start date: 09/08/15 7:20:00, Stop date: 09/08/15 7:20:00 Inactive 09/08/2015 [facility] Morphine 4 mg, Route: IVP, Drug form: INJ, ONCE, Dosing Weight 78.182, kg, Priority: STAT, Start date: 09/08/15 7:08:00, Stop date: 09/08/15 7:08:00 Inactive 09/08/2015 [facility] rosuvastatin 20 mg, Route: PO, Drug form: TAB, Bedtime, Dosing Weight 77.273, kg, Start date: 02/19/15 21:00:00, Duration: 30 day, Stop date: 03/20/15 21:00:00 Inactive 02/20/2015 [facility] Plavix 300 mg, Route: PO, Drug form: TAB, ONCE, Dosing Weight 77.273, kg, Start date: 02/19/15 10:26:00, Duration: 1 doses or times, Stop date: 02/19/15 10:26:00 Inactive 02/19/2015 [facility] Aspirin 325 MG Oral Tablet 325 mg, Route: PO, Drug form: CHEWTAB, ONCE, Dosing Weight 77.273, kg, Start date: 02/19/15 10:11:00, Stop date: 02/19/15 10:11:00 Inactive 02/19/2015 [facility] Nitroglycerin 0.4 mg, 1 tab, Route: SL, Drug form: TAB, Q5Min, Dosing Weight 77.273, kg, PRN Chest Pain, Start date: 02/19/15 10:11:00, Duration: 3 doses or times, Stop date: Limited # of timesNotes: (Same as:Nitroqu ick, Nitrostat) "Do Not Crush" Sublingual tablet No Longer Active 02/19/2015 [facility] Acetylcysteine 200 MG/ML Inhalant Solution 1,200 mg, Route: PO, BID, Dosing Weight 77.273, kg, Start date: 02/19/15 9:00:00, Duration: 30 day, Stop date: 03/20/15 17:00:00 Inactive 02/19/2015 [facility] Famotidine 20 MG Oral Tablet [Pepcid] 20 mg, 1 tab, Route: PO, Drug form: TAB, Q12H, Dosing Weight 77.273, kg, Start date: 02/19/15 9:00:00, Duration: 30 day, Stop date: 03/20/15 21:00:00Notes: (Same as: Pepcid) No Longer Active 02/19/2015 [facility] Ranexa 500 mg, PO, BID, 0 Refill(s) Active 02/19/2015 [facility] normal saline 0.9% IV 1,000 mL 1,000 mL, Rate: 50 ml/hr, Infuse over: 20 hr, Route: IV, Dosing Weight 77.273 kg, Total Volume: 1,000, Start date: 02/19/15 7:23:00, Duration: 1 day, Stop date: 02/20/15 7:22:00 No Longer Active 02/19/2015 [facility] Saline Flush 0.9% 5 ml, Route: IVP, Drug Form: INJ, Dosing Weight 77.273, kg, Q12H, Start date: 04/22/13 21:00:00, Duration: 30 day, Stop date: 05/22/13 9:00:00(Same as: BD Posiflush) Inactive [place] 04/23/2013 [facility] Saline Flush 0.9% 5 ml, Route: IVP, Drug Form: INJ, Dosing Weight 77.273, kg, PRN, PRN Line Flush, Start date: 04/22/13 11:58:00, Duration: 30 day, Stop date: 05/22/13 10:57:00(Same as: BD Posiflush) Inactive [place] 04/22/2013 [facility] acetaminophen 325 mg, 1 tab, Route: PO, Drug form: TAB, Q4H, Dosing Weight 77.273, kg, PRN Pain Score 4-6, Start date: 04/22/13 11:58:00, Duration: 30 day, Stop date: 05/22/13 11:57:00Do not exceed 4 gm/day. (Same as: Tylenol) Inactive [place] 04/22/2013 [facility] Proscar 5 mg oral tablet 5 mg, 1 tab, PO, Daily, 90 tab, Substitution Allowed, TAB Active 04/22/2013 [facility] Synthroid 50 mcg (0.05 mg) oral tablet 50 microgram, 1 tab, PO, Daily, 90 tab, Substitution Allowed, TAB Active 04/22/2013 [facility] allopurinol 100 mg oral tablet 100 mg, 1 tab, PO, Daily, Substitution Allowed, TAB Active 04/22/2013 [facility] Allergies, Adverse Reactions, Alerts Substance Category Reaction Severity Reaction type Status Date Reported Comments Source Allergy Unverified Assertion NO GENERICS Drug allergy Active [facility] Levaquin Assertion Drug allergy Active [facility] Nitroglycerin Patch Assertion Drug allergy Active [facility] penicillin Assertion Drug allergy Active [facility] Procanbid Assertion Drug allergy Active [facility] chlorhexidine containing compounds Assertion Propensity to adverse reactions to substance Active [facility] Surgical Tape<sup>1</sup> Assertion Propensity to adverse reactions to substance Active blisters [facility] Immunizations Immunization Date Given Site Status Last Updated Comments Source pneumococcal 23-valent vaccine 09/18/2015 Not Given [facility] Results Order Name Results Value Reference Range Date Interpretation Comments Source HEMATOLOGY INR 1.71 0.85 - 1.17 04/18/2016 [facility] HEMATOLOGY PT 20.4 s 12.0 - 14.7 04/18/2016 [facility] Hip 2/3 views uni DX Hip 2/3 views uni DX EXAM: XR HIP 2 VIEW DATE: 04/10/2016 1:35 PM CDT INDICATION: M79.609 Pain in unspecified limb COMPARISON: Pelvic radiograph 09/24/2015 TECHNIQUE: 2 views of the hip Laterality: Left FINDINGS: Generalized diminished bone mineral density. No acute bone abnormality. Unchanged, satisfactory appearance of left total hip arthroplasty without perihardware fracture or osteolysis. Mild arterial calcification. Multiple vascular clips. IMPRESSION: Left total hip arthroplasty without hardware complication identified. 04/10/2016 - - Read by: Sumeet Grissom MD Dictated Date/time: 04/10/16 14:42 Electronically Signed by: Sumeet Grissom MD 04/10/16 14:[address] [facility] CHEM [facility] eGFR 47 mL/min/1.73m2 03/21/2016 Result Comment: The eGFR is calculated using the CKD-EPI formula. In most young, healthy individuals the eGFR will be >90 mL/min/1.73m2. The eGFR declines with age. An eGFR of 60-89 may be normal in some populations, particularly the elderly, for whom the CKD-EPI formula has not been extensively validated. Use of the eGFR is not recommended in the following populations: Individuals with unstable creatinine concentrations, including patients and those with serious co-morbid conditions. Patients with extremes in muscle mass or diet. The data above are obtained from the National Kidney Disease Education Program (NKDEP) which additionally recommends that when the eGFR is used in patients with extremes of body mass index for purposes of drug dosing, the eGFR should be multiplied by the estimated BMI. [facility] CHEM PANEL Bili Total 0.5 mg/dL 0.2 - 1.3 03/21/2016 [facility] CHEM PANEL Alk Phos 60 unit/L 39 - 136 03/21/2016 [facility] CHEM PANEL AST 31 unit/L 0 - 37 03/21/2016 [facility] CHEM PANEL ALT 17 unit/L 0 - 65 03/21/2016 [facility] CHEM PANEL Albumin Lvl 2.8 g/dL 3.5 - 5.0 03/21/2016 [facility] CHEM PANEL Total Protein 6.3 g/dL 6.4 - 8.4 03/21/2016 [facility] CHEM PANEL Calcium Lvl 8.5 mg/dL 8.5 - 10.5 03/21/2016 [facility] CHEM PANEL CO2 26 meq/L 24 - 32 03/21/2016 [facility] CHEM PANEL Chloride Lvl 105 meq/L 95 - 109 03/21/2016 [facility] CHEM PANEL A/G Ratio 0.8 0.7 - 1.6 03/21/2016 [facility] CHEM PANEL Globulin 3.5 g/dL 2.7 - 4.2 03/21/2016 [facility] CHEM PANEL B/C Ratio 21 6 - 25 03/21/2016 [facility] CHEM PANEL AGAP 10.0 meq/L 10.0 - 20.0 03/21/2016 [facility] CHEM PANEL Sodium Lvl 137 meq/L 135 - 145 03/21/2016 [facility] CHEM PANEL Potassium Lvl 4.0 meq/L 3.5 - 5.1 03/21/2016 [facility] CHEM PANEL Creatinine Lvl 1.35 mg/dL 0.50 - 1.40 03/21/2016 [facility] CHEM PANEL BUN 29 mg/dL 7 - 22 03/21/2016 [facility] CHEM PANEL Glucose Lvl 105 mg/dL 70 - 99 03/21/2016 [facility] HEMATOLOGY INR 2.36 0.85 - 1.17 03/21/2016 [facility] HEMATOLOGY PT 26.2 s 12.0 - 14.7 03/21/2016 [facility] TOXICOLOGY Digoxin Lvl 0.6 ng/mL 0.8 - 2.0 03/21/2016 [facility] CHEM PANEL Globulin 3.8 g/dL 2.7 - 4.2 03/07/2016 [facility] CHEM PANEL A/G Ratio 0.8 0.7 - 1.6 03/07/2016 [facility] CHEM PANEL B/C Ratio 20 6 - 25 03/07/2016 [facility] CHEM PANEL AGAP 9.7 meq/L 10.0 - 20.0 03/07/2016 [facility] CHEM PANEL eGFR 45 mL/min/1.73m2 03/07/2016 Result Comment: The eGFR is calculated using the CKD-EPI formula. In most young, healthy individuals the eGFR will be >90 mL/min/1.73m2. The eGFR declines with age. An eGFR of 60-89 may be normal in some populations, particularly the elderly, for whom the CKD-EPI formula has not been extensively validated. Use of the eGFR is not recommended in the following populations: Individuals with unstable creatinine concentrations, including patients and those with serious co-morbid conditions. Patients with extremes in muscle mass or diet. The data above are obtained from the National Kidney Disease Education Program (NKDEP) which additionally recommends that when the eGFR is used in patients with extremes of body mass index for purposes of drug dosing, the eGFR should be multiplied by the estimated BMI. [facility] CHEM PANEL AST 37 unit/L 0 - 37 03/07/2016 [facility] CHEM PANEL Alk Phos 74 unit/L 39 - 136 03/07/2016 [facility] CHEM PANEL ALT 25 unit/L 0 - 65 03/07/2016 [facility] CHEM PANEL Total Protein 7.0 g/dL 6.4 - 8.4 03/07/2016 [facility] CHEM PANEL Albumin Lvl 3.2 g/dL 3.5 - 5.0 03/07/2016 [facility] CHEM PANEL CO2 30 meq/L 24 - 32 03/07/2016 [facility] CHEM PANEL Calcium Lvl 8.9 mg/dL 8.5 - 10.5 03/07/2016 [facility] CHEM PANEL Bili Total 0.4 mg/dL 0.2 - 1.3 03/07/2016 [facility] CHEM PANEL Glucose Lvl 120 mg/dL 70 - 99 03/07/2016 [facility] CHEM PANEL Chloride Lvl 102 meq/L 95 - 109 03/07/2016 [facility] CHEM PANEL Potassium Lvl 3.7 meq/L 3.5 - 5.1 03/07/2016 [facility] CHEM PANEL BUN 28 mg/dL 7 - 22 03/07/2016 [facility] CHEM PANEL Sodium Lvl 138 meq/L 135 - 145 03/07/2016 [facility] CHEM PANEL Creatinine Lvl 1.39 mg/dL 0.50 - 1.40 03/07/2016 [facility] HEMATOLOGY INR 2.04 0.85 - 1.17 03/07/2016 [facility] HEMATOLOGY PT 23.4 s 12.0 - 14.7 03/07/2016 [facility] HEMATOLOGY WBC 4.7 K/CMM 3.7 - 10.4 03/07/2016 [facility] HEMATOLOGY RBC 3.92 M/CMM 4.70 - 6.10 03/07/2016 [facility] HEMATOLOGY Hgb 11.5 g/dL 14.0 - 18.0 03/07/2016 [facility] HEMATOLOGY RDW 17.3 % 11.5 - 14.5 03/07/2016 [facility] MCHC 32.2 g/dL 32.0 - 36.0 03/07/2016 [facility] MPV 9.8 fL 7.4 - 10.4 03/07/2016 [facility] Platelet 119 K/CMM 133 - 450 03/07/2016 [facility] MCV 91.0 fL 80.0 - 94.0 03/07/2016 [facility] Hct 35.7 % 42.0 - 54.0 03/07/2016 [facility] MCH 29.3 pg 27.0 - 31.0 03/07/2016 [facility] HEMATOLOGY Eosinophils 1.4 % 0.0 - 4.0 03/07/2016 [facility] HEMATOLOGY Basophils 0.7 % 0.0 - 1.0 03/07/2016 [facility] HEMATOLOGY Lymphocytes # 1.3 K/CMM 1.0 - 5.5 03/07/2016 [facility] HEMATOLOGY Monocytes 9.1 % 2.0 - 12.0 03/07/2016 [facility] Segs-Bands # 2.9 K/CMM 1.5 - 8.1 03/07/2016 [facility] HEMATOLOGY Eosinophils # 0.1 K/CMM 0.0 - 0.5 03/07/2016 [facility] Monocytes # 0.4 K/CMM 0.0 - 0.8 03/07/2016 [facility] Lymphocytes 27.4 % 20.0 - 40.0 03/07/2016 [facility] HEMATOLOGY Segs 61.4 % 45.0 - 75.0 03/07/2016 [facility] TOXICOLOGY Digoxin Lvl 0.8 ng/mL 0.8 - 2.0 03/07/2016 [facility] CHEM PANEL eGFR 46 mL/min/1.73m2 12/12/2015 Result Comment: The eGFR is calculated using the CKD-EPI formula. In most young, healthy individuals the eGFR will be >90 mL/min/1.73m2. The eGFR declines with age. An eGFR of 60-89 may be normal in some populations, particularly the elderly, for whom the CKD-EPI formula has not been extensively validated. Use of the eGFR is not recommended in the following populations: Individuals with unstable creatinine concentrations, including patients and those with serious co-morbid conditions. Patients with extremes in muscle mass or diet. The data above are obtained from the National Kidney Disease Education Program (NKDEP) which additionally recommends that when the eGFR is used in patients with extremes of body mass index for purposes of drug dosing, the eGFR should be multiplied by the estimated BMI. [facility] CHEM PANEL Bili Total 0.5 mg/dL 0.2 - 1.3 12/12/2015 [facility] CHEM PANEL AGAP 11.9 meq/L 10.0 - 20.0 12/12/2015 [facility] CHEM PANEL B/C Ratio 17 6 - 25 12/12/2015 [facility] CHEM PANEL Globulin 3.2 g/dL 2.0 - 4.0 12/12/2015 [facility] CHEM PANEL A/G Ratio 1.0 0.7 - 1.6 12/12/2015 [facility] CHEM PANEL Albumin Lvl 3.1 g/dL 3.5 - 5.0 12/12/2015 [facility] CHEM PANEL Total Protein 6.3 g/dL 6.4 - 8.4 12/12/2015 [facility] CHEM PANEL AST 28 unit/L 0 - 37 12/12/2015 [facility] CHEM PANEL ALT 22 unit/L 0 - 65 12/12/2015 [facility] CHEM PANEL CO2 28 meq/L 24 - 32 12/12/2015 [facility] CHEM PANEL Alk Phos 65 unit/L 39 - 136 12/12/2015 [facility] CHEM PANEL Chloride Lvl 104 meq/L 95 - 109 12/12/2015 [facility] CHEM PANEL Calcium Lvl 8.5 mg/dL 8.5 - 10.5 12/12/2015 [facility] CHEM PANEL BUN 24 mg/dL 7 - 22 12/12/2015 [facility] CHEM PANEL Glucose Lvl 107 mg/dL 70 - 99 12/12/2015 [facility] CHEM PANEL Potassium Lvl 3.9 meq/L 3.5 - 5.1 12/12/2015 [facility] CHEM PANEL Creatinine Lvl 1.38 mg/dL 0.50 - 1.40 12/12/2015 [facility] CHEM PANEL Sodium Lvl 140 meq/L 135 - 145 12/12/2015 [facility] CHEM PANEL Uric Acid 5.5 mg/dL 3.8 - 8.0 12/12/2015 [facility] HEMATOLOGY PT 15.7 s 12.0 - 14.7 12/12/2015 [facility] HEMATOLOGY INR 1.22 0.85 - 1.17 12/12/2015 [facility] TOXICOLOGY Digoxin Lvl 0.9 ng/mL 0.8 - 2.0 12/12/2015 [facility] CARDIAC ENZYMES BNP 139 pg/mL <=100 pg/mL 09/29/2015 [facility] CHEM PANEL Magnesium Lvl 2.0 mg/dL 1.8 - 2.4 09/29/2015 [facility] CHEM PANEL A/G Ratio 0.9 0.7 - 1.6 09/29/2015 [facility] CHEM PANEL AGAP 9.1 meq/L 10.0 - 20.0 09/29/2015 [facility] CHEM PANEL B/C Ratio 11 6 - 25 09/29/2015 [facility] CHEM PANEL Globulin 2.5 g/dL 2.0 - 4.0 09/29/2015 [facility] CHEM PANEL eGFR 48 mL/min/1.73m2 09/29/2015 Result Comment: The eGFR is calculated using the CKD-EPI formula. In most young, healthy individuals the eGFR will be >90 mL/min/1.73m2. The eGFR declines with age. An eGFR of 60-89 may be normal in some populations, particularly the elderly, for whom the CKD-EPI formula has not been extensively validated. Use of the eGFR is not recommended in the following populations: Individuals with unstable creatinine concentrations, including patients and those with serious co-morbid conditions. Patients with extremes in muscle mass or diet. The data above are obtained from the National Kidney Disease Education Program (NKDEP) which additionally recommends that when the eGFR is used in patients with extremes of body mass index for purposes of drug dosing, the eGFR should be multiplied by the estimated BMI. [facility] CHEM PANEL Creatinine Lvl 1.33 mg/dL 0.50 - 1.40 09/29/2015 [facility] CHEM PANEL Sodium Lvl 136 meq/L 135 - 145 09/29/2015 [facility] CHEM PANEL Glucose Lvl 123 mg/dL 70 - 99 09/29/2015 [facility] CHEM PANEL BUN 15 mg/dL 7 - 22 09/29/2015 [facility] CHEM PANEL Bili Total 1.3 mg/dL 0.2 - 1.3 09/29/2015 [facility] CHEM PANEL AST 25 unit/L 0 - 37 09/29/2015 [facility] CHEM PANEL Alk Phos 81 unit/L 39 - 136 09/29/2015 [facility] CHEM PANEL ALT 28 unit/L 0 - 65 09/29/2015 [facility] CHEM PANEL Total Protein 4.8 g/dL 6.4 - 8.4 09/29/2015 [facility] CHEM PANEL Albumin Lvl 2.3 g/dL 3.5 - 5.0 09/29/2015 [facility] CHEM PANEL Chloride Lvl 98 meq/L 95 - 109 09/29/2015 [facility] CHEM PANEL CO2 32 meq/L 24 - 32 09/29/2015 [facility] CHEM PANEL Calcium Lvl 8.1 mg/dL 8.5 - 10.5 09/29/2015 [facility] CHEM PANEL Potassium Lvl 3.1 meq/L 3.5 - 5.1 09/29/2015 [facility] Hep B Core IgM Negative *NA* (09/29/15 7:33 AM) Negative 09/29/2015 [facility] Hep Bs Ag Negative *NA* (09/29/15 7:33 AM) Negative 09/29/2015 [facility] Hep C Ab Negative *NA* (09/29/15 7:33 AM) 09/29/2015 [facility] Hep A IgM Negative *NA* (09/29/15 7:33 AM) Negative 09/29/2015 [facility] TOXICOLOGY Vanco Tr TND 1600 09/28/2015 [facility] TOXICOLOGY Vanco Tr 15.1 ug/ml 09/28/2015 [facility] HEMATOLOGY PTT 37.5 s 22.9 - 35.8 09/27/2015 [facility] HEMATOLOGY INR 1.31 0.85 - 1.17 09/27/2015 [facility] HEMATOLOGY PT 16.6 s 12.0 - 14.7 09/27/2015 [facility] Abdomen AP DX Abdomen AP DX EXAM: Abdomen AP DX DATE: 09/27/2015 4:34 PM CDT INDICATION: Abdominal fullness COMPARISON: None. IMPRESSION: Nonspecific dilated gaseous bowel loops are present may reflect ileus or small bowel obstruction. No definite gross free air detected. [place] catheter is present overlying the expected region of the bladder. Postoperative left hip hemiarthroplasty is present. SL: [id number] 09/27/2015 - - Read by: Miquel Eldridge MD Dictated Date/time: 09/27/15 16:59 Electronically Signed by: Miquel Eldridge MD 09/27/15 17:00 FINAL REPORT [facility] Chest 1view DX Chest 1view DX Chest 1view DX CLINICAL HISTORY:PICC Line Placement COMPARISON: none FINDINGS: Limited AP portable study. Interval removal of NG tube and ET tube. Interval placement of right upper extremity PICC line and the tip terminates near SVC right atrial junction. Stable position of left subclavian ICD. No change in right basilar opacity, likely combination of pleural effusion and parenchymal disease. Stable cardiomediastinum. Poststernotomy changes. No acute bony abnormality is noted. Multiple EKG leads and other wires project over the patient's chest. IMPRESSION: Right upper extremity PICC line terminates near SVC right atrial junction. SL: [id number] 09/27/2015 - - Read by: Vinod Ahuja MD Dictated Date/time: 09/27/15 15:10 Electronically Signed by: Vinod Ahuja MD 09/27/15 15:12 FINAL REPORT [facility] ELECTROLYTES Potassium Lvl 3.1 meq/L 3.5 - 5.1 09/27/2015 [facility] ELECTROLYTES AGAP 10.1 meq/L 10.0 - 20.0 09/27/2015 [facility] ELECTROLYTES Sodium Lvl 136 meq/L 135 - 145 09/27/2015 [facility] Creatinine Lvl 1.36 mg/dL 0.50 - 1.40 09/27/2015 [facility] ELECTROLYTES BUN 20 mg/dL 7 - 22 09/27/2015 [facility] ELECTROLYTES Calcium Lvl 7.4 mg/dL 8.5 - 10.5 09/27/2015 [facility] ELECTROLYTES Chloride Lvl 101 meq/L 95 - 109 09/27/2015 [facility] ELECTROLYTES CO2 28 meq/L 24 - 32 09/27/2015 [facility] Glucose Lvl 106 mg/dL 70 - 99 09/27/2015 [facility] ELECTROLYTES eGFR 46 mL/min/1.73m2 09/27/2015 Result Comment: The eGFR is calculated using the CKD-EPI formula. In most young, healthy individuals the eGFR will be >90 mL/min/1.73m2. The eGFR declines with age. An eGFR of 60-89 may be normal in some populations, particularly the elderly, for whom the CKD-EPI formula has not been extensively validated. Use of the eGFR is not recommended in the following populations: Individuals with unstable creatinine concentrations, including patients and those with serious co-morbid conditions. Patients with extremes in muscle mass or diet. The data above are obtained from the National Kidney Disease Education Program (NKDEP) which additionally recommends that when the eGFR is used in patients with extremes of body mass index for purposes of drug dosing, the eGFR should be multiplied by the estimated BMI. [facility] RDW 15.2 % 11.5 - 14.5 09/27/2015 [facility] Platelet 151 K/CMM 133 - 450 09/27/2015 [facility] MPV 9.0 fL 7.4 - 10.4 09/27/2015 [facility] WBC 8.8 K/CMM 3.7 - 10.4 09/27/2015 [facility] Hgb 8.8 g/dL 14.0 - 18.0 09/27/2015 [facility] RBC 2.76 M/CMM 4.70 - 6.10 09/27/2015 [facility] MCH 31.9 pg 27.0 - 31.0 09/27/2015 [facility] MCV 95.6 fL 80.0 - 94.0 09/27/2015 [facility] MCHC 33.3 g/dL 32.0 - 36.0 09/27/2015 [facility] Hct 26.4 % 42.0 - 54.0 09/27/2015 [facility] Segs 58.7 % 45.0 - 75.0 09/27/2015 [facility] Monocytes 7.1 % 2.0 - 12.0 09/27/2015 [facility] Lymphocytes 33.1 % 20.0 - 40.0 09/27/2015 [facility] Monocytes # 0.6 K/CMM 0.0 - 0.8 09/27/2015 [facility] Eosinophils 0.6 % 0.0 - 4.0 09/27/2015 [facility] Basophils 0.5 % 0.0 - 1.0 09/27/2015 [facility] Lymphocytes # 2.9 K/CMM 1.0 - 5.5 09/27/2015 [facility] Segs-Bands # 5.2 K/CMM 1.5 - 8.1 09/27/2015 [facility] Eosinophils # 0.1 K/CMM 0.0 - 0.5 09/27/2015 [facility] ELECTROLYTES AGAP 12.7 meq/L 10.0 - 20.0 09/26/2015 [facility] ELECTROLYTES eGFR 38 mL/min/1.73m2 09/26/2015 Result Comment: The eGFR is calculated using the CKD-EPI formula. In most young, healthy individuals the eGFR will be >90 mL/min/1.73m2. The eGFR declines with age. An eGFR of 60-89 may be normal in some populations, particularly the elderly, for whom the CKD-EPI formula has not been extensively validated. Use of the eGFR is not recommended in the following populations: Individuals with unstable creatinine concentrations, including patients and those with serious co-morbid conditions. Patients with extremes in muscle mass or diet. The data above are obtained from the National Kidney Disease Education Program (NKDEP) which additionally recommends that when the eGFR is used in patients with extremes of body mass index for purposes of drug dosing, the eGFR should be multiplied by the estimated BMI. [facility] ELECTROLYTES CO2 26 meq/L 24 - 32 09/26/2015 [facility] ELECTROLYTES Chloride Lvl 101 meq/L 95 - 109 09/26/2015 [facility] ELECTROLYTES Calcium Lvl 7.2 mg/dL 8.5 - 10.5 09/26/2015 [facility] ELECTROLYTES Glucose Lvl 103 mg/dL 70 - 99 09/26/2015 [facility] ELECTROLYTES Potassium Lvl 3.7 meq/L 3.5 - 5.1 09/26/2015 [facility] ELECTROLYTES Sodium Lvl 136 meq/L 135 - 145 09/26/2015 [facility] ELECTROLYTES Creatinine Lvl 1.60 mg/dL 0.50 - 1.40 09/26/2015 [facility] ELECTROLYTES BUN 19 mg/dL 7 - 22 09/26/2015 [facility] Sed Rate 49 mm/h 0 - 15 09/26/2015 [facility] HEMATOLOGY Basophils 0.5 % 0.0 - 1.0 09/26/2015 [facility] HEMATOLOGY Segs-Bands # 5.8 K/CMM 1.5 - 8.1 09/26/2015 [facility] HEMATOLOGY Eosinophils 0.4 % 0.0 - 4.0 09/26/2015 [facility] HEMATOLOGY Monocytes 8.2 % 2.0 - 12.0 09/26/2015 [facility] HEMATOLOGY Lymphocytes 28.8 % 20.0 - 40.0 09/26/2015 [facility] HEMATOLOGY Segs 62.1 % 45.0 - 75.0 09/26/2015 [facility] HEMATOLOGY Monocytes # 0.8 K/CMM 0.0 - 0.8 09/26/2015 [facility] HEMATOLOGY Lymphocytes # 2.7 K/CMM 1.0 - 5.5 09/26/2015 [facility] HEMATOLOGY Hgb 9.5 g/dL 14.0 - 18.0 09/26/2015 [facility] HEMATOLOGY MCV 97.6 fL 80.0 - 94.0 09/26/2015 [facility] HEMATOLOGY RDW 15.8 % 11.5 - 14.5 09/26/2015 [facility] MCH 31.6 pg 27.0 - 31.0 09/26/2015 [facility] Hct 29.3 % 42.0 - 54.0 09/26/2015 [facility] MCHC 32.4 g/dL 32.0 - 36.0 09/26/2015 [facility] HEMATOLOGY RBC 3.00 M/CMM 4.70 - 6.10 09/26/2015 [facility] HEMATOLOGY WBC 9.3 K/CMM 3.7 - 10.4 09/26/2015 [facility] MPV 8.8 fL 7.4 - 10.4 09/26/2015 [facility] Platelet 143 K/CMM 133 - 450 09/26/2015 [facility] IMMUNOLOGY C-REACTIVE PROTEIN 84.7 mg/L <=2.9 mg/L 09/26/2015 [facility] MPV 9.0 fL 7.4 - 10.4 09/25/2015 [facility] RDW 15.5 % 11.5 - 14.5 09/25/2015 [facility] HEMATOLOGY Platelet 187 K/CMM 133 - 450 09/25/2015 [facility] MCV 96.6 fL 80.0 - 94.0 09/25/2015 [facility] MCH 31.0 pg 27.0 - 31.0 09/25/2015 [facility] MCHC 32.0 g/dL 32.0 - 36.0 09/25/2015 [facility] Hgb 9.8 g/dL 14.0 - 18.0 09/25/2015 [facility] Hct 30.4 % 42.0 - 54.0 09/25/2015 [facility] RBC 3.15 M/CMM 4.70 - 6.10 09/25/2015 [facility] HEMATOLOGY WBC 12.9 K/CMM 3.7 - 10.4 09/25/2015 [facility] Lymphocytes # 4.0 K/CMM 1.0 - 5.5 09/25/2015 [facility] HEMATOLOGY Eosinophils 0.2 % 0.0 - 4.0 09/25/2015 [facility] HEMATOLOGY Basophils 0.3 % 0.0 - 1.0 09/25/2015 [facility] HEMATOLOGY Segs-Bands # 7.8 K/CMM 1.5 - 8.1 09/25/2015 [facility] Monocytes # 1.0 K/CMM 0.0 - 0.8 09/25/2015 [facility] Lymphocytes 31.1 % 20.0 - 40.0 09/25/2015 [facility] Monocytes 8.1 % 2.0 - 12.0 09/25/2015 [facility] HEMATOLOGY Segs 60.3 % 45.0 - 75.0 09/25/2015 [facility] Chest 1view DX Chest 1view DX Chest 1view DX Chest 1view DX CLINICAL HISTORY:Tube placement/removal/reposition COMPARISON: 09/24/2015 FINDINGS: Limited AP portable study. Interval placement of NG tube which extends below the hemidiaphragm but tip is not visualized..The various other support lines and tubes are stable in position in comparison to previous study. No significant change in right basilar opacity. Pleural effusion at the right lung base appears mildly decreased from the previous study.. Left lung remains clear. Stable cardiomediastinum. No acute bony abnormality is noted. Multiple EKG leads and other wires project over the patient's chest. IMPRESSION: Interval placement of NG tube. The tube extends below the hemidiaphragm, but tip is not visualized. SL: [id number] 09/25/2015 - - Read by: Vinod Ahuja MD Dictated Date/time: 09/25/15 12:06 Electronically Signed by: Vinod Ahuja MD 09/25/15 12:09 FINAL REPORT [facility] BACTERIAL - SEROLOGY MRSA by PCR Negative (09/25/15 1:51 AM) 09/25/2015 [facility] Chest 1view DX Chest 1view DX EXAM: Chest radiograph HISTORY: Intubated, respiratory failure COMPARISON: 09/15/2015 at 1708 hours TECHNIQUE: Frontal view of the chest FINDINGS/IMPRESSION: New endotracheal tube in satisfactory position. COPD. No significant change in the moderate right pleural effusion and compressive atelectasis right mid and lower lung. Stable cardiomegaly, coronary artery bypass and cardiac pacemaker. New moderate gaseous distention of the stomach. SL: [id number] 09/24/2015 - - Read by: Fredy Caputo MD Dictated Date/time: 09/24/15 18:40 Electronically Signed by: Fredy Caputo MD 09/24/15 18:42 FINAL REPORT [facility] Pelvis AP DX Pelvis AP DX EXAM: Pelvis HISTORY: Assess implant position, left hip arthritis COMPARISON: 09/10/2015 TECHNIQUE: Frontal view of the lower pelvis/hips FINDINGS: The left hip arthroplasty appears in satisfactory position. No fracture or dislocation is seen. New skin addie and drainage catheter around the left hip. New Corona catheter. SL 12 09/24/2015 - - Read by: Fredy Caputo MD Dictated Date/time: 09/24/15 18:38 Electronically Signed by: Fredy Caputo MD 09/24/15 18:40 FINAL REPORT [facility] HEMATOLOGY PT 19.9 s 12.0 - 14.7 09/24/2015 [facility] HEMATOLOGY INR 1.66 0.85 - 1.17 09/24/2015 [facility] HEMATOLOGY PTT 33.8 s 22.9 - 35.8 09/24/2015 [facility] HEMATOLOGY Eosinophils # 0.1 K/CMM 0.0 - 0.5 09/24/2015 [facility] BLOOD [facility] RESULTS Antibody Scrn Negative (09/23/15 6:29 PM) 09/23/2015 [facility] BLOOD [facility] RESULTS ABO/Rh B POS 09/23/2015 [facility] BLOOD [facility] RESULTS FFP product Product available (09/23/15 4:37 PM) 09/23/2015 [facility] BLOOD [facility] RESULTS Platelet product Product available (09/23/15 4:37 PM) 09/23/2015 [facility] BLOOD [facility] RESULTS RBC product Product available (09/23/15 4:37 PM) 09/23/2015 [facility] ELECTROLYTES Chloride Lvl 100 meq/L 95 - 109 09/23/2015 [facility] ELECTROLYTES Potassium Lvl 3.9 meq/L 3.5 - 5.1 09/23/2015 [facility] ELECTROLYTES Sodium Lvl 136 meq/L 135 - 145 09/23/2015 [facility] ELECTROLYTES Creatinine Lvl 1.28 mg/dL 0.50 - 1.40 09/23/2015 [facility] ELECTROLYTES BUN 18 mg/dL 7 - 22 09/23/2015 [facility] ELECTROLYTES Calcium Lvl 8.0 mg/dL 8.5 - 10.5 09/23/2015 [facility] ELECTROLYTES CO2 29 meq/L 24 - 32 09/23/2015 [facility] ELECTROLYTES Glucose Lvl 114 mg/dL 70 - 99 09/23/2015 [facility] ELECTROLYTES eGFR 50 mL/min/1.73m2 09/23/2015 Result Comment: The eGFR is calculated using the CKD-EPI formula. In most young, healthy individuals the eGFR will be >90 mL/min/1.73m2. The eGFR declines with age. An eGFR of 60-89 may be normal in some populations, particularly the elderly, for whom the CKD-EPI formula has not been extensively validated. Use of the eGFR is not recommended in the following populations: Individuals with unstable creatinine concentrations, including patients and those with serious co-morbid conditions. Patients with extremes in muscle mass or diet. The data above are obtained from the National Kidney Disease Education Program (NKDEP) which additionally recommends that when the eGFR is used in patients with extremes of body mass index for purposes of drug dosing, the eGFR should be multiplied by the estimated BMI. [facility] ELECTROLYTES AGAP 10.9 meq/L 10.0 - 20.0 09/23/2015 [facility] Monocytes # 0.6 K/CMM 0.0 - 0.8 09/23/2015 [facility] Eosinophils # 0.2 K/CMM 0.0 - 0.5 09/23/2015 [facility] Basophils 0.3 % 0.0 - 1.0 09/23/2015 [facility] Lymphocytes # 4.2 K/CMM 1.0 - 5.5 09/23/2015 [facility] Segs-Bands # 4.9 K/CMM 1.5 - 8.1 09/23/2015 [facility] Monocytes 6.5 % 2.0 - 12.0 09/23/2015 [facility] HEMATOLOGY Eosinophils 1.5 % 0.0 - 4.0 09/23/2015 [facility] Lymphocytes 42.2 % 20.0 - 40.0 09/23/2015 [facility] Segs 49.5 % 45.0 - 75.0 09/23/2015 [facility] MCV 95.1 fL 80.0 - 94.0 09/23/2015 [facility] Hgb 10.9 g/dL 14.0 - 18.0 09/23/2015 [facility] Hct 33.0 % 42.0 - 54.0 09/23/2015 [facility] WBC 9.9 K/CMM 3.7 - 10.4 09/23/2015 [facility] RBC 3.47 M/CMM 4.70 - 6.10 09/23/2015 [facility] HEMATOLOGY Platelet 170 K/CMM 133 - 450 09/23/2015 [facility] HEMATOLOGY RDW 15.3 % 11.5 - 14.5 09/23/2015 [facility] MPV 8.9 fL 7.4 - 10.4 09/23/2015 [facility] MCH 31.6 pg 27.0 - 31.0 09/23/2015 [facility] MCHC 33.2 g/dL 32.0 - 36.0 09/23/2015 [facility] HEMATOLOGY PT 22.0 s 12.0 - 14.7 09/23/2015 [facility] HEMATOLOGY INR 1.89 0.85 - 1.17 09/23/2015 [facility] HEMATOLOGY PT 23.4 s 12.0 - 14.7 09/22/2015 [facility] HEMATOLOGY INR 2.04 0.85 - 1.17 09/22/2015 [facility] HEMATOLOGY PT 25.0 s 12.0 - 14.7 09/21/2015 [facility] INR 2.23 0.85 - 1.17 09/21/2015 [facility] ELECTROLYTES AGAP 10.8 meq/L 10.0 - 20.0 09/20/2015 [facility] ELECTROLYTES eGFR 61 mL/min/1.73m2 09/20/2015 Result Comment: The eGFR is calculated using the CKD-EPI formula. In most young, healthy individuals the eGFR will be >90 mL/min/1.73m2. The eGFR declines with age. An eGFR of 60-89 may be normal in some populations, particularly the elderly, for whom the CKD-EPI formula has not been extensively validated. Use of the eGFR is not recommended in the following populations: Individuals with unstable creatinine concentrations, including patients and those with serious co-morbid conditions. Patients with extremes in muscle mass or diet. The data above are obtained from the National Kidney Disease Education Program (NKDEP) which additionally recommends that when the eGFR is used in patients with extremes of body mass index for purposes of drug dosing, the eGFR should be multiplied by the estimated BMI. [facility] ELECTROLYTES CO2 26 meq/L 24 - 32 09/20/2015 [facility] ELECTROLYTES Calcium Lvl 7.7 mg/dL 8.5 - 10.5 09/20/2015 [facility] ELECTROLYTES Sodium Lvl 136 meq/L 135 - 145 09/20/2015 [facility] ELECTROLYTES BUN 16 mg/dL 7 - 22 09/20/2015 [facility] ELECTROLYTES Creatinine Lvl 1.09 mg/dL 0.50 - 1.40 09/20/2015 [facility] ELECTROLYTES Chloride Lvl 103 meq/L 95 - 109 09/20/2015 [facility] ELECTROLYTES Potassium Lvl 3.8 meq/L 3.5 - 5.1 09/20/2015 [facility] ELECTROLYTES Glucose Lvl 111 mg/dL 70 - 99 09/20/2015 [facility] HEMATOLOGY Hct 33.5 % 42.0 - 54.0 09/20/2015 [facility] HEMATOLOGY MCV 95.5 fL 80.0 - 94.0 09/20/2015 [facility] HEMATOLOGY Platelet 147 K/CMM 133 - 450 09/20/2015 [facility] RDW 14.8 % 11.5 - 14.5 09/20/2015 [facility] MPV 9.0 fL 7.4 - 10.4 09/20/2015 [facility] MCHC 32.7 g/dL 32.0 - 36.0 09/20/2015 [facility] MCH 31.3 pg 27.0 - 31.0 09/20/2015 [facility] RBC 3.51 M/CMM 4.70 - 6.10 09/20/2015 [facility] WBC 10.7 K/CMM 3.7 - 10.4 09/20/2015 [facility] Hgb 11.0 g/dL 14.0 - 18.0 09/20/2015 [facility] HEMATOLOGY Eosinophils # 0.1 K/CMM 0.0 - 0.5 09/20/2015 [facility] HEMATOLOGY Basophils # 0.1 K/CMM 0.0 - 0.2 09/20/2015 [facility] HEMATOLOGY Segs-Bands # 5.5 K/CMM 1.5 - 8.1 09/20/2015 [facility] HEMATOLOGY Segs 51.3 % 45.0 - 75.0 09/20/2015 [facility] HEMATOLOGY Eosinophils 1.0 % 0.0 - 4.0 09/20/2015 [facility] HEMATOLOGY Basophils 0.6 % 0.0 - 1.0 09/20/2015 [facility] HEMATOLOGY Lymphocytes # 4.4 K/CMM 1.0 - 5.5 09/20/2015 [facility] HEMATOLOGY Monocytes # 0.6 K/CMM 0.0 - 0.8 09/20/2015 [facility] HEMATOLOGY Monocytes 5.7 % 2.0 - 12.0 09/20/2015 [facility] HEMATOLOGY Lymphocytes 41.4 % 20.0 - 40.0 09/20/2015 [facility] ELECTROLYTES Chloride Lvl 105 meq/L 95 - 109 09/19/2015 [facility] ELECTROLYTES CO2 25 meq/L 24 - 32 09/19/2015 [facility] ELECTROLYTES AGAP 12.0 meq/L 10.0 - 20.0 09/19/2015 [facility] ELECTROLYTES Glucose Lvl 110 mg/dL 70 - 99 09/19/2015 [facility] ELECTROLYTES BUN 18 mg/dL 7 - 22 09/19/2015 [facility] ELECTROLYTES Calcium Lvl 7.4 mg/dL 8.5 - 10.5 09/19/2015 [facility] ELECTROLYTES Creatinine Lvl 1.07 mg/dL 0.50 - 1.40 09/19/2015 [facility] ELECTROLYTES Sodium Lvl 139 meq/L 135 - 145 09/19/2015 [facility] ELECTROLYTES Potassium Lvl 3.0 meq/L 3.5 - 5.1 09/19/2015 Result Comment: Critical Result(s) called to maik at 09/19/2015 06:00 by id. Read back OK. [facility] ELECTROLYTES eGFR 62 mL/min/1.73m2 09/19/2015 Result Comment: The eGFR is calculated using the CKD-EPI formula. In most young, healthy individuals the eGFR will be >90 mL/min/1.73m2. The eGFR declines with age. An eGFR of 60-89 may be normal in some populations, particularly the elderly, for whom the CKD-EPI formula has not been extensively validated. Use of the eGFR is not recommended in the following populations: Individuals with unstable creatinine concentrations, including patients and those with serious co-morbid conditions. Patients with extremes in muscle mass or diet. The data above are obtained from the National Kidney Disease Education Program (NKDEP) which additionally recommends that when the eGFR is used in patients with extremes of body mass index for purposes of drug dosing, the eGFR should be multiplied by the estimated BMI. [facility] MCH 31.3 pg 27.0 - 31.0 09/19/2015 [facility] RDW 14.8 % 11.5 - 14.5 09/19/2015 [facility] MPV 8.7 fL 7.4 - 10.4 09/19/2015 [facility] Platelet 156 K/CMM 133 - 450 09/19/2015 [facility] MCHC 33.2 g/dL 32.0 - 36.0 09/19/2015 [facility] Hct 31.7 % 42.0 - 54.0 09/19/2015 [facility] MCV 94.4 fL 80.0 - 94.0 09/19/2015 [facility] Hgb 10.5 g/dL 14.0 - 18.0 09/19/2015 [facility] RBC 3.36 M/CMM 4.70 - 6.10 09/19/2015 [facility] WBC 8.8 K/CMM 3.7 - 10.4 09/19/2015 [facility] Segs-Bands # 4.1 K/CMM 1.5 - 8.1 09/19/2015 [facility] Lymphocytes # 3.9 K/CMM 1.0 - 5.5 09/19/2015 [facility] Monocytes # 0.7 K/CMM 0.0 - 0.8 09/19/2015 [facility] Eosinophils # 0.1 K/CMM 0.0 - 0.5 09/19/2015 [facility] Basophils # 0.1 K/CMM 0.0 - 0.2 09/19/2015 [facility] Segs 46.2 % 45.0 - 75.0 09/19/2015 [facility] Eosinophils 1.3 % 0.0 - 4.0 09/19/2015 [facility] Basophils 0.6 % 0.0 - 1.0 09/19/2015 [facility] Lymphocytes 43.6 % 20.0 - 40.0 09/19/2015 [facility] Monocytes 8.3 % 2.0 - 12.0 09/19/2015 [facility] Basophils # 0.1 K/CMM 0.0 - 0.2 09/18/2015 [facility] Abdomen AP DX Abdomen AP DX Portable abdomen: The exam is limited by respiratory motion. The colon is distended with gas, unchanged compared to the previous day. No significant small bowel distention is seen. There is no visible pneumoperitoneum. There is no other change. [id number] 09/18/2015 - - Read by: Oscar Rayo MD Dictated Date/time: 09/18/15 09:50 Electronically Signed by: Oscar Rayo MD 09/18/15 09:51 FINAL REPORT [facility] Smudge Moderate *ABN* (09/17/15 5:19 PM) None Seen 09/17/2015 [facility] RBC Morph Normal (09/17/15 5:19 PM) 09/17/2015 [facility] Plt Morph Normal (09/17/15 5:19 PM) 09/17/2015 [facility] Bands 1.0 % 0.0 - 11.0 09/17/2015 [facility] Atypical Lymphs 2.0 % <=0.0 % 09/17/2015 [facility] Tot Cell Ct 100 09/17/2015 [facility] Myelocytes 2.0 % <=0.0 % 09/17/2015 [facility] Abdomen AP DX Abdomen AP DX Portable abdomen: The exam is significantly limited by positioning and exposure. The colon is dilated with gas. There is no significant small bowel distention. There is no visible pneumoperitoneum. 13 09/17/2015 - - Read by: Oscar Rayo MD Dictated Date/time: 09/17/15 15:52 Electronically Signed by: Oscar Rayo MD 09/17/15 15:53 FINAL REPORT [facility] Ext Lower Venous Doppler Bilat US Ext Lower Venous Doppler Bilat US VENOUS DOPPLER BILATERAL LOWER EXTREMITIES: HISTORY: Bilateral lower extremity edema. FINDINGS: Compression duplex ultrasound of the lower extremities was done from the inguinal through the infrageniculate popliteal regions. The visualized superficial and deep veins are patent and compressible without evidence of intraluminal thrombus. Satisfactory spontaneous and augmented flow is demonstrated in the visualized segments. IMPRESSION: Negative venous Doppler of the lower extremities. [id number] 09/15/2015 - - Read by: Oscar Rayo MD Dictated Date/time: 09/16/15 05:56 Electronically Signed by: Oscar Rayo MD 09/16/15 05:56 FINAL REPORT [facility] Chest 1view DX Chest 1view DX Portable chest: The pacemaker is in satisfactory position. The cardiac silhouette is enlarged. There are small bilateral pleural effusions increasing since 09/08/2015. Mild pulmonary venous congestion is noted. There is no other change. 13 09/15/2015 - - Read by: Oscar Rayo MD Dictated Date/time: 09/16/15 05:54 Electronically Signed by: Oscar Rayo MD 09/16/15 05:56 FINAL REPORT [facility] CHEM PANEL Vitamin D, 25-OH, Total 15 ng/mL 30 - 100 09/15/2015 [facility] CHEM PANEL Phosphorus 2.3 mg/dL 2.5 - 4.5 09/15/2015 [facility] CHEM PANEL Magnesium Lvl 2.1 mg/dL 1.8 - 2.4 09/15/2015 [facility] CHEM PANEL Albumin Lvl 2.3 g/dL 3.5 - 5.0 09/15/2015 [facility] HEMATOLOGY PTT 35.7 s 22.9 - 35.8 09/15/2015 [facility] IMMUNOLOGY Prealbumin 9.7 mg/dL 18.0 - 45.0 09/15/2015 [facility] SPECIAL CHEMISTRY Hgb A1C 5.9 % <=5.6 % 09/15/2015 [facility] HEMATOLOGY RBC 3.55 M/CMM 4.70 - 6.10 09/14/2015 [facility] HEMATOLOGY MCV 97.5 fL 80.0 - 94.0 09/14/2015 [facility] HEMATOLOGY Hgb 11.1 g/dL 14.0 - 18.0 09/14/2015 [facility] HEMATOLOGY Hct 34.6 % 42.0 - 54.0 09/14/2015 [facility] HEMATOLOGY MPV 10.5 fL 7.4 - 10.4 09/14/2015 [facility] HEMATOLOGY Platelet 111 K/CMM 133 - 450 09/14/2015 [facility] HEMATOLOGY WBC 8.4 K/CMM 3.7 - 10.4 09/14/2015 [facility] MCH 31.3 pg 27.0 - 31.0 09/14/2015 [facility] HEMATOLOGY RDW 14.8 % 11.5 - 14.5 09/14/2015 [facility] MCHC 32.2 g/dL 32.0 - 36.0 09/14/2015 [facility] HEMATOLOGY Monocytes # 0.5 K/CMM 0.0 - 0.8 09/14/2015 [facility] HEMATOLOGY Eosinophils # 0.1 K/CMM 0.0 - 0.5 09/14/2015 [facility] HEMATOLOGY Monocytes 5.7 % 2.0 - 12.0 09/14/2015 [facility] HEMATOLOGY Basophils 0.3 % 0.0 - 1.0 09/14/2015 [facility] HEMATOLOGY Eosinophils 0.7 % 0.0 - 4.0 09/14/2015 [facility] HEMATOLOGY Lymphocytes 45.0 % 20.0 - 40.0 09/14/2015 [facility] HEMATOLOGY Segs 48.3 % 45.0 - 75.0 09/14/2015 [facility] HEMATOLOGY Lymphocytes # 3.8 K/CMM 1.0 - 5.5 09/14/2015 [facility] HEMATOLOGY Segs-Bands # 4.0 K/CMM 1.5 - 8.1 09/14/2015 [facility] CHEM PANEL eGFR 59 mL/min/1.73m2 09/14/2015 Result Comment: The eGFR is calculated using the CKD-EPI formula. In most young, healthy individuals the eGFR will be >90 mL/min/1.73m2. The eGFR declines with age. An eGFR of 60-89 may be normal in some populations, particularly the elderly, for whom the CKD-EPI formula has not been extensively validated. Use of the eGFR is not recommended in the following populations: Individuals with unstable creatinine concentrations, including patients and those with serious co-morbid conditions. Patients with extremes in muscle mass or diet. The data above are obtained from the National Kidney Disease Education Program (NKDEP) which additionally recommends that when the eGFR is used in patients with extremes of body mass index for purposes of drug dosing, the eGFR should be multiplied by the estimated BMI. [facility] CHEM PANEL Calcium Lvl 7.5 mg/dL 8.5 - 10.5 09/14/2015 [facility] CHEM PANEL Glucose Lvl 99 mg/dL 70 - 99 09/14/2015 [facility] CHEM PANEL CO2 21 meq/L 24 - 32 09/14/2015 [facility] CHEM PANEL Potassium Lvl 3.8 meq/L 3.5 - 5.1 09/14/2015 [facility] CHEM PANEL Chloride Lvl 112 meq/L 95 - 109 09/14/2015 [facility] CHEM PANEL Creatinine Lvl 1.11 mg/dL 0.50 - 1.40 09/14/2015 [facility] CHEM PANEL Sodium Lvl 143 meq/L 135 - 145 09/14/2015 [facility] CHEM PANEL AGAP 13.8 meq/L 10.0 - 20.0 09/14/2015 [facility] CHEM PANEL BUN 36 mg/dL 7 - 22 09/14/2015 [facility] HEMATOLOGY INR 1.28 0.85 - 1.17 09/14/2015 [facility] HEMATOLOGY PT 16.3 s 12.0 - 14.7 09/14/2015 [facility] HEMATOLOGY INR 1.26 0.85 - 1.17 09/13/2015 [facility] HEMATOLOGY PT 16.1 s 12.0 - 14.7 09/13/2015 [facility] CARDIAC ENZYMES BNP 156 pg/mL <=100 pg/mL 09/13/2015 [facility] CHEM PANEL eGFR 40 mL/min/1.73m2 09/13/2015 Result Comment: The eGFR is calculated using the CKD-EPI formula. In most young, healthy individuals the eGFR will be >90 mL/min/1.73m2. The eGFR declines with age. An eGFR of 60-89 may be normal in some populations, particularly the elderly, for whom the CKD-EPI formula has not been extensively validated. Use of the eGFR is not recommended in the following populations: Individuals with unstable creatinine concentrations, including patients and those with serious co-morbid conditions. Patients with extremes in muscle mass or diet. The data above are obtained from the [employer] (NK[employer]) which additionally recommends that when the eGFR is used in patients with extremes of body mass index for purposes of drug dosing, the eGFR should be multiplied by the estimated BMI. [facility] CHEM PANEL AGAP 14.9 meq/L 10.0 - 20.0 09/13/2015 [facility] CHEM PANEL Calcium Lvl 7.9 mg/dL 8.5 - 10.5 09/13/2015 [facility] CHEM PANEL Sodium Lvl 139 meq/L 135 - 145 09/13/2015 [facility] CHEM PANEL Glucose Lvl 104 mg/dL 70 - 99 09/13/2015 [facility] CHEM PANEL Potassium Lvl 3.9 meq/L 3.5 - 5.1 09/13/2015 [facility] CHEM PANEL BUN 49 mg/dL 7 - 22 09/13/2015 [facility] CHEM PANEL Creatinine Lvl 1.55 mg/dL 0.50 - 1.40 09/13/2015 [facility] CHEM PANEL Chloride Lvl 107 meq/L 95 - 109 09/13/2015 [facility] CHEM PANEL CO2 21 meq/L 24 - 32 09/13/2015 [facility] HEMATOLOGY MCHC 32.6 g/dL 32.0 - 36.0 09/13/2015 [facility] HEMATOLOGY Platelet 115 K/CMM 133 - 450 09/13/2015 [facility] HEMATOLOGY RDW 14.7 % 11.5 - 14.5 09/13/2015 [facility] MCH 31.4 pg 27.0 - 31.0 09/13/2015 [facility] HEMATOLOGY MPV 10.6 fL 7.4 - 10.4 09/13/2015 [facility] Hct 34.1 % 42.0 - 54.0 09/13/2015 [facility] Hgb 11.1 g/dL 14.0 - 18.0 09/13/2015 [facility] MCV 96.3 fL 80.0 - 94.0 09/13/2015 [facility] RBC 3.54 M/CMM 4.70 - 6.10 09/13/2015 [facility] WBC 12.5 K/CMM 3.7 - 10.4 09/13/2015 [facility] Lymphocytes # 6.5 K/CMM 1.0 - 5.5 09/13/2015 [facility] Monocytes # 0.8 K/CMM 0.0 - 0.8 09/13/2015 [facility] Segs-Bands # 5.1 K/CMM 1.5 - 8.1 09/13/2015 [facility] Basophils 0.1 % 0.0 - 1.0 09/13/2015 [facility] Segs 40.8 % 45.0 - 75.0 09/13/2015 [facility] Lymphocytes 52.4 % 20.0 - 40.0 09/13/2015 [facility] Monocytes 6.5 % 2.0 - 12.0 09/13/2015 [facility] Eosinophils 0.2 % 0.0 - 4.0 09/13/2015 [facility] CHEM PANEL BUN 46 mg/dL 7 - 22 09/12/2015 [facility] CHEM PANEL Creatinine Lvl 1.64 mg/dL 0.50 - 1.40 09/12/2015 [facility] CHEM PANEL Glucose Lvl 133 mg/dL 70 - 99 09/12/2015 [facility] CHEM PANEL Potassium Lvl 4.0 meq/L 3.5 - 5.1 09/12/2015 [facility] CHEM PANEL Calcium Lvl 7.9 mg/dL 8.5 - 10.5 09/12/2015 [facility] CHEM PANEL eGFR 37 mL/min/1.73m2 09/12/2015 Result Comment: The eGFR is calculated using the CKD-EPI formula. In most young, healthy individuals the eGFR will be >90 mL/min/1.73m2. The eGFR declines with age. An eGFR of 60-89 may be normal in some populations, particularly the elderly, for whom the CKD-EPI formula has not been extensively validated. Use of the eGFR is not recommended in the following populations: Individuals with unstable creatinine concentrations, including patients and those with serious co-morbid conditions. Patients with extremes in muscle mass or diet. The data above are obtained from the National Kidney Disease Education Program (NKDEP) which additionally recommends that when the eGFR is used in patients with extremes of body mass index for purposes of drug dosing, the eGFR should be multiplied by the estimated BMI. [facility] CHEM PANEL Sodium Lvl 138 meq/L 135 - 145 09/12/2015 [facility] CHEM PANEL AGAP 13.0 meq/L 10.0 - 20.0 09/12/2015 [facility] CHEM PANEL Chloride Lvl 106 meq/L 95 - 109 09/12/2015 [facility] CHEM PANEL CO2 23 meq/L 24 - 32 09/12/2015 [facility] WBC 10.1 K/CMM 3.7 - 10.4 09/12/2015 [facility] MCV 97.4 fL 80.0 - 94.0 09/12/2015 [facility] Hgb 11.0 g/dL 14.0 - 18.0 09/12/2015 [facility] RBC 3.48 M/CMM 4.70 - 6.10 09/12/2015 [facility] MCHC 32.3 g/dL 32.0 - 36.0 09/12/2015 [facility] RDW 14.8 % 11.5 - 14.5 09/12/2015 [facility] MCH 31.5 pg 27.0 - 31.0 09/12/2015 [facility] Hct 33.9 % 42.0 - 54.0 09/12/2015 [facility] MPV 10.5 fL 7.4 - 10.4 09/12/2015 [facility] Platelet 80 K/CMM 133 - 450 09/12/2015 [facility] INR 1.42 0.85 - 1.17 09/12/2015 [facility] PT 17.7 s 12.0 - 14.7 09/12/2015 [facility] Monocytes 7.8 % 2.0 - 12.0 09/12/2015 [facility] Segs 59.8 % 45.0 - 75.0 09/12/2015 [facility] Lymphocytes # 3.3 K/CMM 1.0 - 5.5 09/12/2015 [facility] Monocytes # 0.8 K/CMM 0.0 - 0.8 09/12/2015 [facility] HEMATOLOGY Segs-Bands # 6.0 K/CMM 1.5 - 8.1 09/12/2015 [facility] HEMATOLOGY Lymphocytes 32.4 % 20.0 - 40.0 09/12/2015 [facility] MOLECULAR DIAGNOSTIC C difficile DNA Positive 1 *ABN* (09/11/15 10:13 PM) Negative 09/12/2015 Result Comment: "Significant Findings called to Shayna James at 1535 09/12/2015 by ss. Read Back OK." [facility] Ext Upper Venous Doppler Unilat US Ext Upper Venous Doppler Unilat US Ext Upper Venous Doppler Unilat US CLINICAL HISTORY: Pain, Limb. Left arm pain COMPARISON: none TECHNIQUE:Stacy scale imaging, compression techniques and spectral analysis were utilized to evaluate left upper extremity from the internal jugular/right subclavian junction to the proximal brachial vein. FINDINGS: The jugular, subclavian, axillary and brachial veins are well- visualized and demonstrate normal signal and compressibility. The basilic vein is normally compressible. There is no evidence to suggest intraluminal thrombus. Nonvisualization of cephalic vein. IMPRESSION: Negative left upper extremity venous Doppler. SL: AMAIRANI 09/11/2015 - - Read by: Vinod Ahuja MD Dictated Date/time: 09/11/15 19:28 Electronically Signed by: Vinod Ahuja MD 09/11/15 19:29 FINAL REPORT [facility] Forearm 2 views DX Forearm 2 views DX Forearm 2 views DX CLINICAL HISTORY: Pain and swelling FINDINGS/IMPRESSION: 2 views of the left forearm reveal no evidence for fracture or subluxation. There is generalized osteopenia. Moderate soft tissue swelling noted along ulnar aspect of the left forearm. There is questionably subcutaneous emphysema in the distal portion of the soft tissues of the left forearm. No radiopaque foreign body is visualized. Extensive degenerative change is present at the radiocarpal joint. Triangular fibrocartilage calcifications are also noted. SL: [id number] 09/11/2015 - - Read by: Vinod Ahuja MD Dictated Date/time: 09/11/15 15:54 Electronically Signed by: Vinod Ahuja MD 09/11/15 15:57 FINAL REPORT [facility] Macrocyte 1+ *ABN* (09/11/15 7:07 AM) None Seen 09/11/2015 [facility] BLOOD BANK RESULTS Platelet product Product available 3 (09/10/15 8:43 PM) 09/11/2015 Result Comment: 09/10/2015 21:07 [id number] Picked up [facility] Pelvis AP DX Pelvis AP DX Study: Pelvis AP DX Age: 85 years y/o Male Clinical Indication: Arthritis; Assess Implant Position Comparison: 09/10/2015 at 20:23 FINDINGS: The AP pelvis radiograph shows a bipolar a total hip arthroplasty on the left. The femoral and acetabular components appear in satisfactory alignment. A single caval sutures surrounds the proximal femur between the trochanters. There are some surgical clips in the proximal femoral artery region on the left. IMPRESSION: 1. Satisfactory alignment of total hip arthroplasty on the left. SL: [id number] 09/10/2015 - - Read by: James Ash MD Dictated Date/time: 09/10/15 22:32 Electronically Signed by: James Ash MD 09/10/15 22:38 FINAL REPORT [facility] Pelvis AP DX Pelvis AP DX Pelvis one view: An intraoperative sizing radiograph was taken during left total hip replacement. 09/10/2015 - - Read by: Oscar Rayo MD Dictated Date/time: 09/11/15 02:45 Electronically Signed by: Oscar Rayo MD 09/11/15 02:46 FINAL REPORT [facility] BLOOD BANK RESULTS FFP product Product available 1 (09/10/15 9:07 AM) 09/10/2015 Result Comment: 09/10/2015 09:58 ASBHAVSA called to [facility] BLOOD BANK RESULTS FFP product Product available 2 (09/10/15 9:05 AM) 09/10/2015 Result Comment: 09/10/2015 09:58 [facility]BHAVSA called to [facility] HEMATOLOGY Basophils 0.3 % 0.0 - 1.0 09/10/2015 [facility] HEMATOLOGY Eosinophils 0.6 % 0.0 - 4.0 09/10/2015 [facility] Hep B Core IgM Negative *NA* (09/09/15 4:58 PM) Negative 09/09/2015 [facility] Hep C Ab Negative *NA* (09/09/15 4:58 PM) 09/09/2015 [facility] Hep Bs Ag Negative *NA* (09/09/15 4:58 PM) Negative 09/09/2015 [facility] Hep A IgM Negative *NA* (09/09/15 4:58 PM) Negative 09/09/2015 [facility] BLOOD BANK RESULTS Antibody Scrn Negative (09/09/15 2:00 PM) 09/09/2015 [facility] BLOOD BANK RESULTS ABO/Rh B POS 09/09/2015 [facility] URINE AND STOOL UA Sq Epi None Seen 09/09/2015 [facility] URINE AND STOOL UA Color Ltyellow 09/09/2015 [facility] URINE AND STOOL UA Urobilinogen <=1.0 mg/dL 0.1 - 1.0 09/09/2015 [facility] URINE AND STOOL UA Bacteria Occasional /HPF None Seen /HPF 09/09/2015 [facility] URINE AND STOOL UA pH 5.0 5.0 - 8.0 09/09/2015 [facility] URINE AND STOOL UA Protein Negative mg/dL Negative mg/dL 09/09/2015 [facility] URINE AND STOOL UA Ketones Negative mg/dL Negative mg/dL 09/09/2015 [facility] URINE AND STOOL UA Glucose Negative mg/dL Negative mg/dL 09/09/2015 [facility] URINE AND STOOL UA Spec Grav 1.010 <=1.030 09/09/2015 [facility] URINE AND STOOL UA Nitrite Negative (09/09/15 1:45 PM) Negative 09/09/2015 [facility] URINE AND STOOL UA Leuk Est Negative (09/09/15 1:45 PM) Negative 09/09/2015 [facility] URINE AND STOOL UA Bili Negative *NA* (09/09/15 1:45 PM) Negative 09/09/2015 [facility] URINE AND STOOL UA RBC 95 /HPF 0 - 2 09/09/2015 [facility] URINE AND STOOL UA Blood Large *ABN* (09/09/15 1:45 PM) Negative 09/09/2015 [facility] URINE AND STOOL UA Turbidity Slight *ABN* (09/09/15 1:45 PM) Clear 09/09/2015 [facility] BLOOD BANK RESULTS Platelet product Product available 4 (09/09/15 1:11 PM) 09/09/2015 Result Comment: 09/10/2015 19:19 [id number] Picked up [facility] BLOOD BANK RESULTS RBC product Product available (09/09/15 1:11 PM) 09/09/2015 [facility] BLOOD BANK RESULTS FFP product Product available (09/09/15 1:11 PM) 09/09/2015 [facility] Hip wo contrast CT Hip wo contrast CT EXAM: Hip wo contrast CT DATE: 09/09/2015 1:20 PM CDT INDICATION: Fracture left hip pain. Fall. COMPARISON: Left hip radiograph of 09/08/2015. Multiple contiguous axial images of the left hip were performed without IV contrast. Coronal and sagittal reformats were performed for further evaluation. IMPRESSION: 1. Diffuse osteopenia. Acute angulated basicervical left femoral neck fracture with valgus angulation of the distal fragment. 2. The acetabulum and left hemipelvis appear grossly intact. 3. Corona catheter is present in nondistended bladder. 4. Markedly enlarged heterogeneous prostate measuring about 4.6 cm AP x 5.1 cm transverse. Please correlate with PSAs. 5. Mild sigmoid diverticulosis. 6. Surgical clips are present within the anterior left thigh. SL: [id number] 09/09/2015 - - Read by: Miquel Eldridge MD Dictated Date/time: 09/09/15 16:36 Electronically Signed by: Miquel Eldridge MD 09/09/15 16:44 FINAL REPORT [facility] HEMATOLOGY Eosinophils # 0.1 K/CMM 0.0 - 0.5 09/09/2015 [facility] PTT 31.3 s 22.9 - 35.8 09/08/2015 [facility] Eosinophils # 0.1 K/CMM 0.0 - 0.5 09/08/2015 [facility] Brain wo contrast CT Brain wo contrast CT Patient Name: SE STEWART : 1930; Age: 85 years y/o Male MR: [id number] Study: Brain wo contrast CT 09/08/2015 9:03 AM CDT Clinical Indication: Head trauma; fall. Patient on anticoagulation. Comparison: None TECHNIQUE: CT images were obtained from the foramen magnum to the vertex without the use of intravenous contrast on a multidetector CT. Coronal and sagittal reconstructions were obtained. FINDINGS: BRAIN PARENCHYMA: Stacy-white matter interfaces are preserved. Chronic appearing lacunar infarcts are seen in the right lentiform nucleus and left external capsule. No mass effect is seen. There are no intra-axial or extra-axial hemorrhage or collection. Mild chronic microangiopathic ischemic changes are seen. VENTRICLES: There is diffuse cerebral atrophy with compensatory dilatation of sulci and ventricles. The basilar cisterns are patent. ORBITS, MASTOIDS AND PARANASAL SINUSES: Post surgical changes are seen in the left lobe. Paranasal sinuses are clear. The mastoid air cells are clear. SKULL: No fracture is identified. If there is further concern for intracranial pathology or acute stroke, MRI of the brain may be performed for complete assessment. IMPRESSION: 1. No acute intracranial abnormality seen. SL: [id number] 09/08/2015 - - Read by: Wolf Motley MD Dictated Date/time: 09/08/15 09:32 Electronically Signed by: Wolf Motley MD 09/08/15 09:36 FINAL REPORT [facility] Knee 3 views DX Knee 3 views DX Patient Name: SE STEWART : 1930; Age: 85 years y/o Male MR: [id number] Study: 3 view left knee 09/08/2015 7:44 AM CDT Ordering Physician: Kizzy Baltazar DO Clinical Indication: Pain from a fall; Comparison: None Best images possible were obtained. Small effusion. No fracture identified. Narrowing of all 3 compartments of the knee with associated osteophytes in the patellofemoral joint. Chondrocalcinosis calcinosis and ligamentous/capsular calcifications are seen in the medial and lateral compartments. Linear dystrophic calcification seems to involve the distal quadriceps tendon. Scattered arterial vascular calcifications. SL: [id number] 09/08/2015 - - Read by: Wes Jackson MD Dictated Date/time: 09/08/15 08:14 Electronically Signed by: Wes Jackson MD 09/08/15 08:19 FINAL REPORT [facility] Chest 1view DX Chest 1view DX : 1930; Age: 85 years y/o Male MR: [id number] Study: Chest 1view DX 09/08/2015 7:09 AM CDT Clinical Indication: Pain Post Trauma; Comparison: Chest x-ray 08/02/2014. FINDINGS: Bilateral subsegmental atelectasis is seen. There is a small right pleural effusion. A trace left pleural effusion is seen. No pneumothorax is identified. Cardiomediastinal contours are enlarged but unchanged. Midline sternotomy wires are present. A single lead left subclavian pacemaker and its lead tip are unchanged in position. Bones are diffusely osteopenic. IMPRESSION: Small right and trace left pleural effusions. Bilateral subsegmental atelectasis. Unchanged Cardiomegaly. SL: [id number] 09/08/2015 - - Read by: Wolf Motley MD Dictated Date/time: 09/08/15 08:34 Electronically Signed by: Wolf Motley MD 09/08/15 08:35 FINAL REPORT [facility] Pelvis AP DX Pelvis AP DX : 1930; Age: 85 years y/o Male MR: [id number] Study: Pelvis AP DX, Hip 2/3 views uni DX 09/08/2015 7:09 AM CDT Clinical Indication: Pain Post Trauma; Comparison: None TECHNIQUE: AP view the pelvis. AP and frog-leg lateral views of the left hip. FINDINGS: The basicervical femoral neck fracture is seen with varix angulation. Left hip joint maintains normal alignment. Bones are diffusely osteopenic. Surgical addie are seen in the left upper thigh. Vascular calcifications are noted. IMPRESSION: Basicervical left femoral neck fracture. SL: [id number] 09/08/2015 - - Read by: Wolf Motley MD Dictated Date/time: 09/08/15 08:32 Electronically Signed by: Wolf Motley MD 09/08/15 08:34 FINAL REPORT [facility] Hip 2/3 views uni DX Hip 2/3 views uni DX : 1930; Age: 85 years y/o Male MR: [id number] Study: Pelvis AP DX, Hip 2/3 views uni DX 09/08/2015 7:09 AM CDT Clinical Indication: Pain Post Trauma; Comparison: None TECHNIQUE: AP view the pelvis. AP and frog-leg lateral views of the left hip. FINDINGS: The basicervical femoral neck fracture is seen with varix angulation. Left hip joint maintains normal alignment. Bones are diffusely osteopenic. Surgical addie are seen in the left upper thigh. Vascular calcifications are noted. IMPRESSION: Basicervical left femoral neck fracture. SL: [id number] 09/08/2015 - - Read by: Wolf Motley MD Dictated Date/time: 09/08/15 08:32 Electronically Signed by: Wolf Motley MD 09/08/15 08:34 FINAL REPORT [facility] HEMATOLOGY PT 24.0 s 12.0 - 14.7 08/21/2015 [facility] HEMATOLOGY INR 2.11 0.85 - 1.17 08/21/2015 [facility] ELECTROLYTES AGAP 9.1 meq/L 10.0 - 20.0 07/30/2015 [facility] ELECTROLYTES Calcium Lvl 8.2 mg/dL 8.5 - 10.5 07/30/2015 [facility] ELECTROLYTES BUN 26 mg/dL 7 - 22 07/30/2015 [facility] ELECTROLYTES Glucose Lvl 98 mg/dL 70 - 99 07/30/2015 [facility] ELECTROLYTES Sodium Lvl 144 meq/L 135 - 145 07/30/2015 [facility] ELECTROLYTES Chloride Lvl 107 meq/L 95 - 109 07/30/2015 [facility] ELECTROLYTES Potassium Lvl 4.1 meq/L 3.5 - 5.1 07/30/2015 [facility] ELECTROLYTES CO2 32 meq/L 24 - 32 07/30/2015 [facility] ELECTROLYTES Creatinine Lvl 1.25 mg/dL 0.50 - 1.40 07/30/2015 [facility] ELECTROLYTES eGFR 52 mL/min/1.73m2 07/30/2015 Result Comment: The eGFR is calculated using the CKD-EPI formula. In most young, healthy individuals the eGFR will be >90 mL/min/1.73m2. The eGFR declines with age. An eGFR of 60-89 may be normal in some populations, particularly the elderly, for whom the CKD-EPI formula has not been extensively validated. Use of the eGFR is not recommended in the following populations: Individuals with unstable creatinine concentrations, including patients and those with serious co-morbid conditions. Patients with extremes in muscle mass or diet. The data above are obtained from the National Kidney Disease Education Program (NKDEP) which additionally recommends that when the eGFR is used in patients with extremes of body mass index for purposes of drug dosing, the eGFR should be multiplied by the estimated BMI. [facility] HEMATOLOGY PT 25.3 s 12.0 - 14.7 07/30/2015 [facility] HEMATOLOGY INR 2.26 0.85 - 1.17 07/30/2015 [facility] SPECIAL CHEMISTRY PSA 0.11 ng/mL 0.00 - 4.00 07/30/2015 [facility] HEMATOLOGY INR 2.11 0.85 - 1.17 06/27/2015 [facility] HEMATOLOGY PT 24.0 s 12.0 - 14.7 06/27/2015 [facility] HEMATOLOGY INR 2.63 0.85 - 1.17 05/29/2015 [facility] HEMATOLOGY PT 28.4 s 12.0 - 14.7 05/29/2015 [facility] HEMATOLOGY PT 26.7 s 12.0 - 14.7 05/01/2015 [facility] HEMATOLOGY INR 2.43 0.85 - 1.17 05/01/2015 [facility] HEMATOLOGY PT 22.2 s 12.0 - 14.7 04/02/2015 [facility] HEMATOLOGY INR 1.91 0.85 - 1.17 04/02/2015 [facility] HEMATOLOGY MPV 10.5 fL 7.4 - 10.4 04/02/2015 [facility] HEMATOLOGY MCH 31.6 pg 27.0 - 31.0 04/02/2015 [facility] HEMATOLOGY MCV 98.2 fL 80.0 - 94.0 04/02/2015 [facility] HEMATOLOGY Hct 41.7 % 42.0 - 54.0 04/02/2015 [facility] HEMATOLOGY RBC 4.24 M/CMM 4.70 - 6.10 04/02/2015 [facility] HEMATOLOGY Platelet 57 K/CMM 133 - 450 04/02/2015 [facility] HEMATOLOGY RDW 14.5 % 11.5 - 14.5 04/02/2015 [facility] HEMATOLOGY Hgb 13.4 g/dL 14.0 - 18.0 04/02/2015 [facility] HEMATOLOGY MCHC 32.2 g/dL 32.0 - 36.0 04/02/2015 [facility] HEMATOLOGY WBC 6.1 K/CMM 3.7 - 10.4 04/02/2015 [facility] HEMATOLOGY Monocytes # 0.4 K/CMM 0.0 - 0.8 04/02/2015 [facility] HEMATOLOGY Eosinophils # 0.1 K/CMM 0.0 - 0.5 04/02/2015 [facility] HEMATOLOGY Eosinophils 0.9 % 0.0 - 4.0 04/02/2015 [facility] HEMATOLOGY Lymphocytes 41.4 % 20.0 - 40.0 04/02/2015 [facility] HEMATOLOGY Basophils 0.3 % 0.0 - 1.0 04/02/2015 [facility] HEMATOLOGY Lymphocytes # 2.5 K/CMM 1.0 - 5.5 04/02/2015 [facility] HEMATOLOGY Segs-Bands # 3.1 K/CMM 1.5 - 8.1 04/02/2015 [facility] HEMATOLOGY Segs 51.2 % 45.0 - 75.0 04/02/2015 [facility] HEMATOLOGY Monocytes 6.2 % 2.0 - 12.0 04/02/2015 [facility] HEMATOLOGY INR 2.11 0.85 - 1.17 03/06/2015 [facility] HEMATOLOGY PT 24.0 s 12.0 - 14.7 03/06/2015 [facility] ELECTROLYTES AGAP 11.0 meq/L 10.0 - 20.0 02/19/2015 [facility] ELECTROLYTES eGFR 49 mL/min/1.73m2 02/19/2015 Result Comment: The eGFR is calculated using the CKD-EPI formula. In most young, healthy individuals the eGFR will be >90 mL/min/1.73m2. The eGFR declines with age. An eGFR of 60-89 may be normal in some populations, particularly the elderly, for whom the CKD-EPI formula has not been extensively validated. Use of the eGFR is not recommended in the following populations: Individuals with unstable creatinine concentrations, including patients and those with serious co-morbid conditions. Patients with extremes in muscle mass or diet. The data above are obtained from the National Kidney Disease Education Program (NKDEP) which additionally recommends that when the eGFR is used in patients with extremes of body mass index for purposes of drug dosing, the eGFR should be multiplied by the estimated BMI. [facility] ELECTROLYTES Glucose Lvl 111 mg/dL 70 - 99 02/19/2015 [facility] ELECTROLYTES Sodium Lvl 139 meq/L 135 - 145 02/19/2015 [facility] ELECTROLYTES CO2 26 meq/L 24 - 32 02/19/2015 [facility] ELECTROLYTES Potassium Lvl 4.0 meq/L 3.5 - 5.1 02/19/2015 [facility] ELECTROLYTES Calcium Lvl 8.3 mg/dL 8.5 - 10.5 02/19/2015 [facility] ELECTROLYTES Chloride Lvl 106 meq/L 95 - 109 02/19/2015 [facility] ELECTROLYTES Creatinine Lvl 1.3 mg/dL 0.5 - 1.4 02/19/2015 [facility] ELECTROLYTES BUN 29 mg/dL 7 - 22 02/19/2015 [facility] HEMATOLOGY Hgb 14.2 g/dL 14.0 - 18.0 02/19/2015 [facility] CHEM PANEL Glucose Lvl 100 mg/dL 70 - 99 02/16/2015 [facility] CHEM PANEL CO2 28 meq/L 24 - 32 02/16/2015 [facility] CHEM PANEL eGFR 42 mL/min/1.73m2 02/16/2015 Result Comment: The eGFR is calculated using the CKD-EPI formula. In most young, healthy individuals the eGFR will be >90 mL/min/1.73m2. The eGFR declines with age. An eGFR of 60-89 may be normal in some populations, particularly the elderly, for whom the CKD-EPI formula has not been extensively validated. Use of the eGFR is not recommended in the following populations: Individuals with unstable creatinine concentrations, including patients and those with serious co-morbid conditions. Patients with extremes in muscle mass or diet. The data above are obtained from the National Kidney Disease Education Program (NKDEP) which additionally recommends that when the eGFR is used in patients with extremes of body mass index for purposes of drug dosing, the eGFR should be multiplied by the estimated BMI. [facility] CHEM PANEL Creatinine Lvl 1.5 mg/dL 0.5 - 1.4 02/16/2015 [facility] CHEM PANEL Calcium Lvl 8.5 mg/dL 8.5 - 10.5 02/16/2015 [facility] CHEM PANEL BUN 28 mg/dL 7 - 22 02/16/2015 [facility] CHEM PANEL Chloride Lvl 106 meq/L 95 - 109 02/16/2015 [facility] CHEM PANEL Potassium Lvl 4.1 meq/L 3.5 - 5.1 02/16/2015 [facility] CHEM PANEL Sodium Lvl 140 meq/L 135 - 145 02/16/2015 [facility] CHEM PANEL AGAP 10.1 meq/L 10.0 - 20.0 02/16/2015 [facility] Macrocyte 1+ *ABN* (02/16/15 10:16 AM) None Seen 02/16/2015 [facility] Monocytes # 0.3 K/CMM 0.0 - 0.8 02/16/2015 [facility] HEMATOLOGY Segs 53.0 % 45.0 - 75.0 02/16/2015 [facility] HEMATOLOGY Bands 0.0 % 0.0 - 11.0 02/16/2015 [facility] HEMATOLOGY Lymphocytes 39.0 % 20.0 - 40.0 02/16/2015 [facility] HEMATOLOGY Monocytes 4.0 % 2.0 - 12.0 02/16/2015 [facility] HEMATOLOGY Eosinophils 3.0 % 0.0 - 4.0 02/16/2015 [facility] HEMATOLOGY Basophils 1.0 % 0.0 - 1.0 02/16/2015 [facility] HEMATOLOGY Eosinophils # 0.2 K/CMM 0.0 - 0.5 02/16/2015 [facility] Basophils # 0.1 K/CMM 0.0 - 0.2 02/16/2015 [facility] HEMATOLOGY Atypical Lymphs 0.0 % <=0.0 % 02/16/2015 [facility] HEMATOLOGY Plt Morph Normal (02/16/15 10:16 AM) 02/16/2015 [facility] HEMATOLOGY Segs-Bands # 4.2 K/CMM 1.5 - 8.1 02/16/2015 [facility] HEMATOLOGY Lymphocytes # 3.1 K/CMM 1.0 - 5.5 02/16/2015 [facility] HEMATOLOGY Hct 45.8 % 42.0 - 54.0 02/16/2015 [facility] HEMATOLOGY Hgb 15.5 g/dL 14.0 - 18.0 02/16/2015 [facility] HEMATOLOGY MCH 33.6 pg 27.0 - 31.0 02/16/2015 [facility] MCHC 33.8 g/dL 32.0 - 36.0 02/16/2015 [facility] MCV 99.6 fL 80.0 - 94.0 02/16/2015 [facility] WBC 8.0 K/CMM 3.7 - 10.4 02/16/2015 [facility] RBC 4.59 M/CMM 4.70 - 6.10 02/16/2015 [facility] HEMATOLOGY MPV 10.8 fL 7.4 - 10.4 02/16/2015 [facility] Platelet 72 K/CMM 133 - 450 02/16/2015 [facility] RDW 14.4 % 11.5 - 14.5 02/16/2015 [facility] PTT 30.9 s 22.9 - 35.8 02/16/2015 [facility] PT 18.0 s 12.0 - 14.7 02/16/2015 [facility] HEMATOLOGY INR 1.45 0.85 - 1.17 02/16/2015 [facility] LIPIDS VLDL 20 02/16/2015 [facility] LIPIDS LDL (Calculated) 70 mg/dL <=99 mg/dL 02/16/2015 [facility] LIPIDS HDL 44 mg/dL >=61 mg/dL 02/16/2015 [facility] LIPIDS Chol 134 mg/dL <=199 mg/dL 02/16/2015 [facility] LIPIDS Trig 102 mg/dL <=149 mg/dL 02/16/2015 [facility] LIPIDS CHD Risk 3.05 4.00 - 7.30 02/16/2015 [facility] TOXICOLOGY Digoxin Lvl 0.6 ng/mL 0.8 - 2.0 02/16/2015 [facility] HEMATOLOGY INR 2.11 0.85 - 1.17 01/31/2015 [facility] HEMATOLOGY PT 24.2 s 12.0 - 14.7 01/31/2015 [facility] HEMATOLOGY INR 2.01 0.85 - 1.17 12/29/2014 [facility] HEMATOLOGY PT 23.3 s 12.0 - 14.7 12/29/2014 [facility] HEMATOLOGY PT 24.0 s 12.0 - 14.7 11/21/2014 [facility] INR 2.09 0.85 - 1.17 11/21/2014 1Interpretive Data: RECOMMENDED RANGES FOR PROTIME INR: 2.0-3.0 for most medical and surgical thromboembolic states. 2.5-3.5 for artificial heart valves and recurrent embolism. INR SHOULD BE USED ONLY FOR PATIENTS ON STABLE ANTICOAGULANT THERAPY. [facility] HEMATOLOGY PT 24.2 s 12.0 - 14.7 10/24/2014 [facility] INR 2.11 0.85 - 1.17 10/24/2014 2Interpretive Data: RECOMMENDED RANGES FOR PROTIME INR: 2.0-3.0 for most medical and surgical thromboembolic states. 2.5-3.5 for artificial heart valves and recurrent embolism. INR SHOULD BE USED ONLY FOR PATIENTS ON STABLE ANTICOAGULANT THERAPY. [facility] INR 1.77 0.85 - 1.17 09/20/2014 2Interpretive Data: RECOMMENDED RANGES FOR PROTIME INR: 2.0-3.0 for most medical and surgical thromboembolic states. 2.5-3.5 for artificial heart valves and recurrent embolism. INR SHOULD BE USED ONLY FOR PATIENTS ON STABLE ANTICOAGULANT THERAPY. [facility] HEMATOLOGY PT 21.0 s 12.0 - 14.7 09/20/2014 [facility] CHEMISTRY PSA 0.17 ng/mL 0.00 - 4.00 09/20/2014 1Interpretive Data: 0-4 ng/ml is clinically accepted reference range from the [employer] in 1997 for Total PSA. A PSA value in the range of 0.1 to 0.6 ng/mL is indeterminate if being used as an indicator of recurrent or residual disease. [facility] HEMATOLOGY INR 2.05 0.85 - 1.17 08/23/2014 4Interpretive Data: RECOMMENDED RANGES FOR PROTIME INR: 2.0-3.0 for most medical and surgical thromboembolic states. 2.5-3.5 for artificial heart valves and recurrent embolism. INR SHOULD BE USED ONLY FOR PATIENTS ON STABLE ANTICOAGULANT THERAPY. [facility] HEMATOLOGY PT 23.7 s 12.0 - 14.7 08/23/2014 [facility] CARDIAC ENZYMES BNP 97 pg/mL <=100 pg/mL 08/02/2014 3Interpretive Data: Elevated results are in line with increasing severity of congestive heart failure. Minor elevations between 100 and 300 may be seen with Myocardial Ischemia, Sodium retaining drugs, and compensated/treated heart failure. [facility] CHEM PANEL B/C Ratio 17 6 - 25 08/02/2014 [facility] CHEM PANEL Globulin 3.5 g/dL 2.0 - 4.0 08/02/2014 [facility] CHEM PANEL A/G Ratio 0.8 0.7 - 1.6 08/02/2014 [facility] CHEM PANEL AGAP 10.2 meq/L 10.0 - 20.0 08/02/2014 [facility] CHEM PANEL Sodium Lvl 136 meq/L 135 - 145 08/02/2014 [facility] CHEM PANEL Potassium Lvl 4.2 meq/L 3.5 - 5.1 08/02/2014 [facility] CHEM PANEL Chloride Lvl 102 meq/L 95 - 109 08/02/2014 [facility] CHEM PANEL eGFR 42 mL/min/1.73m2 08/02/2014 1Result Comment: The eGFR is calculated using the CKD-EPI formula. In most young, healthy individuals the eGFR will be >90 mL/min/1.73m2. The eGFR declines with age. An eGFR of 60-89 may be normal in some populations, particularly the elderly, for whom the CKD-EPI formula has not been extensively validated. Use of the eGFR is not recommended in the following populations: Individuals with unstable creatinine concentrations, including patients and those with serious co-morbid conditions. Patients with extremes in muscle mass or diet. The data above are obtained from the National Kidney Disease Education Program (NKDEP) which additionally recommends that when the eGFR is used in patients with extremes of body mass index for purposes of drug dosing, the eGFR should be multiplied by the estimated BMI. [facility] CHEM PANEL ALT 24 unit/L 0 - 65 08/02/2014 [facility] CHEM PANEL Albumin Lvl 2.7 g/dL 3.5 - 5.0 08/02/2014 [facility] CHEM PANEL Bili Total 0.6 mg/dL 0.2 - 1.3 08/02/2014 [facility] CHEM PANEL AST 30 unit/L 0 - 37 08/02/2014 [facility] CHEM PANEL Alk Phos 70 unit/L 39 - 136 08/02/2014 [facility] CHEM PANEL BUN 25 mg/dL 7 - 22 08/02/2014 [facility] CHEM PANEL Creatinine Lvl 1.5 mg/dL 0.5 - 1.4 08/02/2014 [facility] CHEM PANEL Glucose Lvl 109 mg/dL 70 - 99 08/02/2014 2Interpretive Data: Adult reference range values reflect the clinical guidelines of the [place] [employer]. [facility] CHEM PANEL Total Protein 6.2 g/dL 6.4 - 8.4 08/02/2014 [facility] CHEM PANEL Calcium Lvl 8.2 mg/dL 8.5 - 10.5 08/02/2014 [facility] CHEM PANEL CO2 28 meq/L 24 - 32 08/02/2014 [facility] HEMATOLOGY INR 2.00 0.85 - 1.17 08/02/2014 5Interpretive Data: RECOMMENDED RANGES FOR PROTIME INR: 2.0-3.0 for most medical and surgical thromboembolic states. 2.5-3.5 for artificial heart valves and recurrent embolism. INR SHOULD BE USED ONLY FOR PATIENTS ON STABLE ANTICOAGULANT THERAPY. [facility] PT 23.2 s 12.0 - 14.7 08/02/2014 [facility] Platelet 122 K/CMM 133 - 450 08/02/2014 [facility] MPV 10.5 fL 7.4 - 10.4 08/02/2014 [facility] WBC 10.6 K/CMM 3.7 - 10.4 08/02/2014 [facility] RDW 13.9 % 11.5 - 14.5 08/02/2014 [facility] Hct 44.5 % 42.0 - 54.0 08/02/2014 [facility] Hgb 14.1 g/dL 14.0 - 18.0 08/02/2014 [facility] RBC 4.52 M/CMM 4.70 - 6.10 08/02/2014 [facility] MCH 31.2 pg 27.0 - 31.0 08/02/2014 [facility] MCV 98.5 fL 80.0 - 94.0 08/02/2014 [facility] MCHC 31.7 g/dL 32.0 - 36.0 08/02/2014 [facility] Monocytes # 0.8 K/CMM 0.0 - 0.8 08/02/2014 [facility] Lymphocytes # 3.5 K/CMM 1.0 - 5.5 08/02/2014 [facility] Segs-Bands # 6.3 K/CMM 1.5 - 8.1 08/02/2014 [facility] Monocytes 7.8 % 2.0 - 12.0 08/02/2014 [facility] Lymphocytes 32.5 % 20.0 - 40.0 08/02/2014 [facility] Segs 59.3 % 45.0 - 75.0 08/02/2014 [facility] HEMATOLOGY Basophils 0.1 % 0.0 - 1.0 08/02/2014 [facility] HEMATOLOGY Eosinophils 0.3 % 0.0 - 4.0 08/02/2014 [facility] Chest 2 views Chest 2 views Examination: Chest x-ray, 2 views History: 491.21 Obstructive Chronic Bronchitis with (Acute) Exacerbation/402.91 Hypertensive Heart Disease, Unspecified, with Heart Failure Comparison: None. Findings: Median sternotomy wires are present. Left-sided pacemaking device is stable. Cardiac silhouette is mildly prominent. Mild interstitial edema with small pleural effusions, right greater than left, are seen. The osseous structures are without focal abnormality. IMPRESSION: Findings compatible with mild congestive heart failure SL: 16 08/02/2014 - - Read by: Wes Carter MD Dictated Date/time: 08/02/14 11:44 Electronically Signed by: Wes Carter MD 08/02/14 11:45 FINAL REPORT [facility] PT 22.7 s 12.0 - 14.7 06/28/2014 [facility] INR 1.95 0.85 - 1.17 06/28/2014 1Interpretive Data: RECOMMENDED RANGES FOR PROTIME INR: 2.0-3.0 for most medical and surgical thromboembolic states. 2.5-3.5 for artificial heart valves and recurrent embolism. INR SHOULD BE USED ONLY FOR PATIENTS ON STABLE ANTICOAGULANT THERAPY. [facility] ELECTROLYTES Chloride Lvl 106 meq/L 95 - 109 05/24/2014 [facility] ELECTROLYTES Sodium Lvl 144 meq/L 135 - 145 05/24/2014 [facility] ELECTROLYTES Potassium Lvl 4.0 meq/L 3.5 - 5.1 05/24/2014 [facility] ELECTROLYTES eGFR 42 mL/min/1.73m2 05/24/2014 1Result Comment: The eGFR is calculated using the CKD-EPI formula. In most young, healthy individuals the eGFR will be >90 mL/min/1.73m2. The eGFR declines with age. An eGFR of 60-89 may be normal in some populations, particularly the elderly, for whom the CKD-EPI formula has not been extensively validated. Use of the eGFR is not recommended in the following populations: Individuals with unstable creatinine concentrations, including patients and those with serious co-morbid conditions. Patients with extremes in muscle mass or diet. The data above are obtained from the National Kidney Disease Education Program (NKDEP) which additionally recommends that when the eGFR is used in patients with extremes of body mass index for purposes of drug dosing, the eGFR should be multiplied by the estimated BMI. [facility] ELECTROLYTES Calcium Lvl 8.1 mg/dL 8.5 - 10.5 05/24/2014 [facility] ELECTROLYTES CO2 30 meq/L 24 - 32 05/24/2014 [facility] ELECTROLYTES AGAP 12.0 meq/L 10.0 - 20.0 05/24/2014 [facility] ELECTROLYTES Glucose Lvl 92 mg/dL 70 - 99 05/24/2014 2Interpretive Data: Adult reference range values reflect the clinical guidelines of the [place] [employer]. [facility] ELECTROLYTES BUN 25 mg/dL 7 - 22 05/24/2014 [facility] ELECTROLYTES Creatinine Lvl 1.5 mg/dL 0.5 - 1.4 05/24/2014 [facility] HEMATOLOGY INR 2.40 0.85 - 1.17 05/24/2014 3Interpretive Data: RECOMMENDED RANGES FOR PROTIME INR: 2.0-3.0 for most medical and surgical thromboembolic states. 2.5-3.5 for artificial heart valves and recurrent embolism. INR SHOULD BE USED ONLY FOR PATIENTS ON STABLE ANTICOAGULANT THERAPY. [facility] HEMATOLOGY PT 26.9 s 12.0 - 14.7 05/24/2014 [facility] INR 2.14 0.85 - 1.17 04/27/2014 4Interpretive Data: RECOMMENDED RANGES FOR PROTIME INR: 2.0-3.0 for most medical and surgical thromboembolic states. 2.5-3.5 for artificial heart valves and recurrent embolism. INR SHOULD BE USED ONLY FOR PATIENTS ON STABLE ANTICOAGULANT THERAPY. [facility] HEMATOLOGY PT 24.5 s 12.0 - 14.7 04/27/2014 [facility] PT 24.7 s 12.0 - 14.7 03/22/2014 [facility] HEMATOLOGY INR 2.16 0.85 - 1.17 03/22/2014 1Interpretive Data: RECOMMENDED RANGES FOR PROTIME INR: 2.0-3.0 for most medical and surgical thromboembolic states. 2.5-3.5 for artificial heart valves and recurrent embolism. INR SHOULD BE USED ONLY FOR PATIENTS ON STABLE ANTICOAGULANT THERAPY. [facility] HEMATOLOGY INR 2.12 0.85 - 1.17 02/23/2014 2Interpretive Data: RECOMMENDED RANGES FOR PROTIME INR: 2.0-3.0 for most medical and surgical thromboembolic states. 2.5-3.5 for artificial heart valves and recurrent embolism. INR SHOULD BE USED ONLY FOR PATIENTS ON STABLE ANTICOAGULANT THERAPY. [facility] HEMATOLOGY PT 24.3 s 12.0 - 14.7 02/23/2014 [facility] CHEM PANEL eGFR 39 mL/min/1.73m2 01/24/2014 1Result Comment: The eGFR is calculated using the CKD-EPI formula. In most young, healthy individuals the eGFR will be >90 mL/min/1.73m2. The eGFR declines with age. An eGFR of 60-89 may be normal in some populations, particularly the elderly, for whom the CKD-EPI formula has not been extensively validated. Use of the eGFR is not recommended in the following populations: Individuals with unstable creatinine concentrations, including patients and those with serious co-morbid conditions. Patients with extremes in muscle mass or diet. The data above are obtained from the National Kid[employer] Disease Education Program (NKDEP) which additionally recommends that when the eGFR is used in patients with extremes of body mass index for purposes of drug dosing, the eGFR should be multiplied by the estimated BMI. [facility] CHEM PANEL Calcium Lvl 8.7 mg/dL 8.5 - 10.5 01/24/2014 [facility] CHEM PANEL CO2 28 meq/L 24 - 32 01/24/2014 [facility] CHEM PANEL Chloride Lvl 108 meq/L 95 - 109 01/24/2014 [facility] CHEM PANEL Creatinine Lvl 1.6 mg/dL 0.5 - 1.4 01/24/2014 [facility] CHEM PANEL Potassium Lvl 4.2 meq/L 3.5 - 5.1 01/24/2014 [facility] CHEM PANEL Sodium Lvl 143 meq/L 135 - 145 01/24/2014 [facility] CHEM PANEL BUN 29 mg/dL 7 - 22 01/24/2014 [facility] CHEM PANEL Glucose Lvl 111 mg/dL 70 - 99 01/24/2014 2Interpretive Data: Adult reference range values reflect the clinical guidelines of the [place] [employer]. [facility] CHEM PANEL AGAP 11.2 meq/L 10.0 - 20.0 01/24/2014 [facility] INR 1.95 0.85 - 1.17 01/24/2014 3Interpretive Data: RECOMMENDED RANGES FOR PROTIME INR: 2.0-3.0 for most medical and surgical thromboembolic states. 2.5-3.5 for artificial heart valves and recurrent embolism. INR SHOULD BE USED ONLY FOR PATIENTS ON STABLE ANTICOAGULANT THERAPY. [facility] HEMATOLOGY PT 21.9 s 12.0 - 14.7 01/24/2014 [facility] TOXICOLOGY Digoxin Lvl 0.5 ng/mL 0.8 - 2.0 01/24/2014 [facility] PT 22.3 s 12.0 - 14.7 12/28/2013 [facility] INR 2.00 0.85 - 1.17 12/28/2013 1Interpretive Data: RECOMMENDED RANGES FOR PROTIME INR: 2.0-3.0 for most medical and surgical thromboembolic states. 2.5-3.5 for artificial heart valves and recurrent embolism. INR SHOULD BE USED ONLY FOR PATIENTS ON STABLE ANTICOAGULANT THERAPY. [facility] HEMATOLOGY INR 2.23 0.85 - 1.17 11/30/2013 2Interpretive Data: RECOMMENDED RANGES FOR PROTIME INR: 2.0-3.0 for most medical and surgical thromboembolic states. 2.5-3.5 for artificial heart valves and recurrent embolism. INR SHOULD BE USED ONLY FOR PATIENTS ON STABLE ANTICOAGULANT THERAPY. [facility] HEMATOLOGY PT 24.3 s 12.0 - 14.7 11/30/2013 [facility] HEMATOLOGY INR 2.29 0.85 - 1.17 11/02/2013 2Interpretive Data: RECOMMENDED RANGES FOR PROTIME INR: 2.0-3.0 for most medical and surgical thromboembolic states. 2.5-3.5 for artificial heart valves and recurrent embolism. INR SHOULD BE USED ONLY FOR PATIENTS ON STABLE ANTICOAGULANT THERAPY. [facility] HEMATOLOGY PT 24.8 s 12.0 - 14.7 11/02/2013 [facility] HEMATOLOGY PT 25.0 s 12.0 - 14.7 10/05/2013 [facility] HEMATOLOGY INR 2.32 0.85 - 1.17 10/05/2013 3Interpretive Data: RECOMMENDED RANGES FOR PROTIME INR: 2.0-3.0 for most medical and surgical thromboembolic states. 2.5-3.5 for artificial heart valves and recurrent embolism. INR SHOULD BE USED ONLY FOR PATIENTS ON STABLE ANTICOAGULANT THERAPY. [facility] CHEMISTRY PSA 0.23 ng/mL 0.00 - 4.00 10/05/2013 1Interpretive Data: 0-4 ng/ml is clinically accepted reference range from the [place] [employer] in 1997 for Total PSA. A PSA value in the range of 0.1 to 0.6 ng/mL is indeterminate if being used as an indicator of recurrent or residual disease. [facility] HEMATOLOGY PROTIME 24.8 s 12.0 - 14.7 06/23/2013 [facility] HEMATOLOGY INR 2.29 0.85 - 1.17 06/23/2013 [place] 1Interpretive Data: RECOMMENDED RANGES FOR PROTIME INR: 2.0-3.0 for most medical and surgical thromboembolic states. 2.5-3.5 for artificial heart valves and recurrent embolism. INR SHOULD BE USED ONLY FOR PATIENTS ON STABLE ANTICOAGULANT THERAPY. [facility] HEMATOLOGY INR 2.04 0.85 - 1.17 05/11/2013 [place] 1Interpretive Data: RECOMMENDED RANGES FOR PROTIME INR: 2.0-3.0 for most medical and surgical thromboembolic states. 2.5-3.5 for artificial heart valves and recurrent embolism. INR SHOULD BE USED ONLY FOR PATIENTS ON STABLE ANTICOAGULANT THERAPY. [facility] HEMATOLOGY PROTIME 22.7 s 12.0 - 14.7 05/11/2013 [place] [facility] CHEMISTRY Potassium Lvl 4.4 meq/L 3.5 - 5.1 04/22/2013 Normal [facility] CHEMISTRY Sodium Lvl 142 meq/L 135 - 145 04/22/2013 Normal [facility] CHEMISTRY Chloride Lvl 105 meq/L 95 - 109 04/22/2013 Normal [facility] CHEMISTRY eGFR 42 mL/min/1.73m2 04/22/2013 1Result Comment: The eGFR is calculated using the CKD-EPI formula. In most young, healthy individuals the eGFR will be >90 mL/min/1.73m2. The eGFR declines with age. An eGFR of 60-89 may be normal in some populations, particularly the elderly, for whom the CKD-EPI formula has not been extensively validated. Use of the eGFR is not recommended in the following populations: Individuals with unstable creatinine concentrations, including patients and those with serious co-morbid conditions. Patients with extremes in muscle mass or diet. The data above are obtained from the National Kid[employer] Education Program (NKDEP) which additionally recommends that when the eGFR is used in patients with extremes of body mass index for purposes of drug dosing, the eGFR should be multiplied by the estimated BMI. [facility] CHEMISTRY Glucose Lvl 75 mg/dL 70 - 99 04/22/2013 Normal 2Interpretive Data: Adult reference range values reflect the clinical guidelines of the [place] [employer]. [facility] CHEMISTRY BUN 29 mg/dL 7 - 22 04/22/2013 [facility] CHEMISTRY Calcium Lvl 9.1 mg/dL 8.5 - 10.5 04/22/2013 Normal [facility] CHEMISTRY Creatinine Lvl 1.5 mg/dL 0.5 - 1.4 04/22/2013 [facility] CHEMISTRY CO2 28 meq/L 24 - 32 04/22/2013 Normal [facility] CHEMISTRY AGAP 13.4 meq/L 10.0 - 20.0 04/22/2013 Normal [facility] HEMATOLOGY INR 2.28 0.85 - 1.17 04/22/2013 [place] 3Interpretive Data: RECOMMENDED RANGES FOR PROTIME INR: 2.0-3.0 for most medical and surgical thromboembolic states. 2.5-3.5 for artificial heart valves and recurrent embolism. INR SHOULD BE USED ONLY FOR PATIENTS ON STABLE ANTICOAGULANT THERAPY. [facility] HEMATOLOGY aPTT 39.7 s 22.9 - 35.8 04/22/2013 [place] 4Interpretive Data: Heparin Therapeutic Range: 57 - 92 Seconds [facility] HEMATOLOGY PROTIME 24.7 s 12.0 - 14.7 04/22/2013 [facility] HEMATOLOGY Basophils 0.6 % 0.0 - 1.0 04/22/2013 Normal [facility] HEMATOLOGY Lymphocytes # 4.1 K/CMM 1.0 - 5.5 04/22/2013 Normal [facility] HEMATOLOGY Segs-Bands # 4.1 K/CMM 1.5 - 8.1 04/22/2013 Normal [facility] HEMATOLOGY Monocytes # 0.6 K/CMM 0.0 - 0.8 04/22/2013 Normal [facility] HEMATOLOGY Basophils # 0.1 K/CMM 0.0 - 0.2 04/22/2013 Normal [facility] HEMATOLOGY Eosinophils # 0.1 K/CMM 0.0 - 0.5 04/22/2013 Normal [facility] HEMATOLOGY Segs 45.9 % 45.0 - 75.0 04/22/2013 Normal [facility] HEMATOLOGY Lymphocytes 45.6 % 20.0 - 40.0 04/22/2013 HI [facility] HEMATOLOGY Eosinophils 1.2 % 0.0 - 4.0 04/22/2013 Normal [facility] HEMATOLOGY Monocytes 6.7 % 2.0 - 12.0 04/22/2013 Normal [facility] HEMATOLOGY MPV 11.0 fL 7.4 - 10.4 04/22/2013 HI [facility] HEMATOLOGY Platelet 78 K/CMM 133 - 450 04/22/2013 LOW [facility] HEMATOLOGY RDW 15.9 % 11.5 - 14.5 04/22/2013 HI [facility] HEMATOLOGY MCHC 32.0 g/dL 32.0 - 36.0 04/22/2013 Normal [facility] Hgb 14.8 g/dL 14.0 - 18.0 04/22/2013 Normal [facility] RBC X 10x6 4.78 M/CMM 4.70 - 6.10 04/22/2013 Normal [facility] HEMATOLOGY MCV 96.6 fL 80.0 - 94.0 04/22/2013 [facility] HEMATOLOGY Hct 46.1 % 42.0 - 54.0 04/22/2013 Normal [facility] MCH 30.9 pg 27.0 - 31.0 04/22/2013 Normal [facility] HEMATOLOGY WBC X 10x3 9.0 K/CMM 3.7 - 10.4 04/22/2013 Normal [facility] INR 2.20 0.85 - 1.17 04/05/2013 OR 1Interpretive Data: RECOMMENDED RANGES FOR PROTIME INR: 2.0-3.0 for most medical and surgical thromboembolic states. 2.5-3.5 for artificial heart valves and recurrent embolism. INR SHOULD BE USED ONLY FOR PATIENTS ON STABLE ANTICOAGULANT THERAPY. [facility] HEMATOLOGY PROTIME 24.0 s 12.0 - 14.7 04/05/2013 [facility] HEMATOLOGY PROTIME 24.2 s 12.0 - 14.7 03/09/2013 [facility] HEMATOLOGY INR 2.22 0.85 - 1.17 03/09/2013 OR 2Interpretive Data: RECOMMENDED RANGES FOR PROTIME INR: 2.0-3.0 for most medical and surgical thromboembolic states. 2.5-3.5 for artificial heart valves and recurrent embolism. INR SHOULD BE USED ONLY FOR PATIENTS ON STABLE ANTICOAGULANT THERAPY. [facility] HEMATOLOGY PT 22.1 s 12.0 - 14.7 02/08/[address] [facility] INR 1.93 0.85 - 1.17 02/08/2013 OR 1Interpretive Data: RECOMMENDED RANGES FOR PROTIME INR: 2.0-3.0 for most medical and surgical thromboembolic states. 2.5-3.5 for artificial heart valves and recurrent embolism. INR SHOULD BE USED ONLY FOR PATIENTS ON STABLE ANTICOAGULANT THERAPY. [facility] HEMATOLOGY INR 1.44 0.85 - 1.17 01/11/2013 [place] 2Interpretive Data: RECOMMENDED RANGES FOR PROTIME INR: 2.0-3.0 for most medical and surgical thromboembolic states. 2.5-3.5 for artificial heart valves and recurrent embolism. INR SHOULD BE USED ONLY FOR PATIENTS ON STABLE ANTICOAGULANT THERAPY. [facility] HEMATOLOGY PT 17.7 s 12.0 - 14.7 01/11/[address] [facility] PT 18.1 s 12.0 - 14.7 01/05/[address] [facility] INR 1.48 0.85 - 1.17 01/05/2013 OR 1Interpretive Data: RECOMMENDED RANGES FOR PROTIME INR: 2.0-3.0 for most medical and surgical thromboembolic states. 2.5-3.5 for artificial heart valves and recurrent embolism. INR SHOULD BE USED ONLY FOR PATIENTS ON STABLE ANTICOAGULANT THERAPY. [facility] INR 2.04 0.85 - 1.17 12/08/2012 OR 2Interpretive Data: RECOMMENDED RANGES FOR PROTIME INR: 2.0-3.0 for most medical and surgical thromboembolic states. 2.5-3.5 for artificial heart valves and recurrent embolism. INR SHOULD BE USED ONLY FOR PATIENTS ON STABLE ANTICOAGULANT THERAPY. [facility] HEMATOLOGY PT 23.1 s 12.0 - 14.7 12/08/[address] [facility] PT 19.0 s 12.0 - 14.7 11/03/[address] [facility] INR 1.58 0.85 - 1.17 11/03/2012 OR 1Interpretive Data: RECOMMENDED RANGES FOR PROTIME INR: 2.0-3.0 for most medical and surgical thromboembolic states. 2.5-3.5 for artificial heart valves and recurrent embolism. INR SHOULD BE USED ONLY FOR PATIENTS ON STABLE ANTICOAGULANT THERAPY. [facility] HEMATOLOGY INR 1.59 0.85 - 1.17 10/06/2012 [place] 1Interpretive Data: RECOMMENDED RANGES FOR PROTIME INR: 2.0-3.0 for most medical and surgical thromboembolic states. 2.5-3.5 for artificial heart valves and recurrent embolism. INR SHOULD BE USED ONLY FOR PATIENTS ON STABLE ANTICOAGULANT THERAPY. [facility] HEMATOLOGY PT 19.1 s 12.0 - 14.7 10/06/2012 [facility] HEMATOLOGY INR 1.94 0.85 - 1.17 09/14/2012 [place] 2Interpretive Data: RECOMMENDED RANGES FOR PROTIME INR: 2.0-3.0 for most medical and surgical thromboembolic states. 2.5-3.5 for artificial heart valves and recurrent embolism. INR SHOULD BE USED ONLY FOR PATIENTS ON STABLE ANTICOAGULANT THERAPY. [facility] HEMATOLOGY PT 22.2 s 12.0 - 14.7 09/14/2012 [facility] HEMATOLOGY PT 20.1 s 12.0 - 14.7 09/07/2012 [facility] HEMATOLOGY INR 1.70 0.85 - 1.17 09/07/2012 [place] 3Interpretive Data: RECOMMENDED RANGES FOR PROTIME INR: 2.0-3.0 for most medical and surgical thromboembolic states. 2.5-3.5 for artificial heart valves and recurrent embolism. INR SHOULD BE USED ONLY FOR PATIENTS ON STABLE ANTICOAGULANT THERAPY. [facility] CHEMISTRY AGAP 12.0 meq/L 10.0 - 20.0 08/26/2012 Normal [facility] CHEMISTRY Chloride Lvl 106 meq/L 95 - 109 08/26/2012 Normal [facility] CHEMISTRY Sodium Lvl 145 meq/L 135 - 145 08/26/2012 Normal [facility] CHEMISTRY Potassium Lvl 4.0 meq/L 3.5 - 5.1 08/26/2012 Normal [facility] CHEMISTRY eGFR 39 mL/min/1.73m2 08/26/2012 NA 1Result Comment: The eGFR is calculated using the CKD-EPI formula. In most young, healthy individuals the eGFR will be >90 mL/min/1.73m2. The eGFR declines with age. An eGFR of 60-89 may be normal in some populations, particularly the elderly, for whom the CKD-EPI formula has not been extensively validated. Use of the eGFR is not recommended in the following populations: Individuals with unstable creatinine concentrations, including patients and those with serious co-morbid conditions. Patients with extremes in muscle mass or diet. The data above are obtained from the National Kid[employer] Disease Education Program (NKDEP) which additionally recommends that when the eGFR is used in patients with extremes of body mass index for purposes of drug dosing, the eGFR should be multiplied by the estimated BMI. [facility] CHEMISTRY Calcium Lvl 8.8 mg/dL 8.5 - 10.5 08/26/2012 Normal [facility] CHEMISTRY Glucose Lvl 72 mg/dL 70 - 99 08/26/2012 Normal 2Interpretive Data: Adult reference range values reflect the clinical guidelines of the [place] [employer] [facility] CHEMISTRY Creatinine Lvl 1.6 mg/dL 0.5 - 1.4 08/26/2012 [facility] CHEMISTRY BUN 32 mg/dL 7 - 22 08/26/2012 [facility] CHEMISTRY CO2 31 meq/L 24 - 32 08/26/2012 Normal [facility] HEMATOLOGY Basophils # 0.1 K/CMM 0.0 - 0.2 08/26/2012 Normal [facility] HEMATOLOGY Monocytes 6.2 % 2.0 - 12.0 08/26/2012 Normal [facility] HEMATOLOGY Eosinophils 1.1 % 0.0 - 4.0 08/26/2012 Normal [facility] HEMATOLOGY Segs 50.1 % 45.0 - 75.0 08/26/2012 Normal [facility] HEMATOLOGY Eosinophils # 0.1 K/CMM 0.0 - 0.5 08/26/2012 Normal [facility] HEMATOLOGY Monocytes # 0.4 K/CMM 0.0 - 0.8 08/26/2012 Normal [facility] HEMATOLOGY Lymphocytes # 2.9 K/CMM 1.0 - 5.5 08/26/2012 Normal [facility] HEMATOLOGY Segs-Bands # 3.5 K/CMM 1.5 - 8.1 08/26/2012 Normal [facility] HEMATOLOGY Basophils 0.8 % 0.0 - 1.0 08/26/2012 Normal [facility] HEMATOLOGY Lymphocytes 41.8 % 20.0 - 40.0 08/26/2012 [facility] HEMATOLOGY INR 1.67 0.85 - 1.17 08/26/2012 [place] 3Interpretive Data: RECOMMENDED RANGES FOR PROTIME INR: 2.0-3.0 for most medical and surgical thromboembolic states. 2.5-3.5 for artificial heart valves and recurrent embolism. INR SHOULD BE USED ONLY FOR PATIENTS ON STABLE ANTICOAGULANT THERAPY. [facility] PT 19.8 s 12.0 - 14.7 08/26/[address] [facility] Platelet 84 K/CMM 133 - 450 08/26/2012 [facility] RDW 19.6 % 11.5 - 14.5 08/26/[address] [facility] MCHC 31.4 g/dL 32.0 - 36.0 08/26/2012 LOW [facility] MCH 28.0 pg 27.0 - 31.0 08/26/2012 Normal [facility] MCV 88.9 fL 80.0 - 94.0 08/26/2012 Normal [facility] MPV 11.5 fL 7.4 - 10.4 08/26/[address] [facility] WBC 7.0 K/CMM 3.7 - 10.4 08/26/2012 [facility] RBC 4.70 M/CMM 4.70 - 6.10 08/26/2012 Normal [facility] Hgb 13.1 g/dL 14.0 - 18.0 08/26/2012 [facility] Hct 41.8 % 42.0 - 54.0 08/26/2012 [facility] INR 1.82 0.85 - 1.17 07/30/2012 [place] 4Interpretive Data: RECOMMENDED RANGES FOR PROTIME INR: 2.0-3.0 for most medical and surgical thromboembolic states. 2.5-3.5 for artificial heart valves and recurrent embolism. INR SHOULD BE USED ONLY FOR PATIENTS ON STABLE ANTICOAGULANT THERAPY. [facility] HEMATOLOGY PT 21.2 s 12.0 - 14.7 07/30/[address] [facility] INR 1.63 0.85 - 1.17 02/26/2012 [place] 1Interpretive Data: RECOMMENDED RANGES FOR PROTIME INR: 2.0-3.0 for most medical and surgical thromboembolic states. 2.5-3.5 for artificial heart valves and recurrent embolism. INR SHOULD BE USED ONLY FOR PATIENTS ON STABLE ANTICOAGULANT THERAPY. [facility] HEMATOLOGY PT 19.5 s 12.0 - 14.7 02/26/[address] [facility] INR 1.51 0.85 - 1.17 01/19/2012 [place] 1Interpretive Data: RECOMMENDED RANGES FOR PROTIME INR: 2.0-3.0 for most medical and surgical thromboembolic states. 2.5-3.5 for artificial heart valves and recurrent embolism. INR SHOULD BE USED ONLY FOR PATIENTS ON STABLE ANTICOAGULANT THERAPY. [facility] HEMATOLOGY PT 18.1 s 12.0 - 14.7 01/19/[address] [facility] PT 19.1 s 12.0 - 14.7 01/02/[address] [facility] INR 1.62 0.85 - 1.17 01/02/2012 [place] 2Interpretive Data: RECOMMENDED RANGES FOR PROTIME INR: 2.0-3.0 for most medical and surgical thromboembolic states. 2.5-3.5 for artificial heart valves and recurrent embolism. INR SHOULD BE USED ONLY FOR PATIENTS ON STABLE ANTICOAGULANT THERAPY. [facility] INR 1.56 0.85 - 1.17 12/04/2011 [place] 1Interpretive Data: RECOMMENDED RANGES FOR PROTIME INR: 2.0-3.0 for most medical and surgical thromboembolic states. 2.5-3.5 for artificial heart valves and recurrent embolism.INR SHOULD BE USED ONLY FOR PATIENTS ON STABLE ANTICOAGULANT THERAPY. [facility] PT 18.6 s 12.0 - 14.7 12/04/[address] [facility] PT 16.8 s 12.0 - 14.7 11/07/[address] [facility] INR 1.37 0.85 - 1.17 11/07/2011 [place] 2Interpretive Data: RECOMMENDED RANGES FOR PROTIME INR: 2.0-3.0 for most medical and surgical thromboembolic states. 2.5-3.5 for artificial heart valves and recurrent embolism.INR SHOULD BE USED ONLY FOR PATIENTS ON STABLE ANTICOAGULANT THERAPY. [facility] INR 1.29 0.85 - 1.17 10/07/2011 [place] 1Interpretive Data: RECOMMENDED RANGES FOR PROTIME INR: 2.0-3.0 for most medical and surgical thromboembolic states. 2.5-3.5 for artificial heart valves and recurrent embolism.INR SHOULD BE USED ONLY FOR PATIENTS ON STABLE ANTICOAGULANT THERAPY. [facility] HEMATOLOGY PT 16.1 s 12.0 - 14.7 10/07/[address] [facility] INR 1.32 0.85 - 1.17 09/02/2011 [place] 1Interpretive Data: RECOMMENDED RANGES FOR PROTIME INR: 2.0-3.0 for most medical and surgical thromboembolic states. 2.5-3.5 for artificial heart valves and recurrent embolism.INR SHOULD BE USED ONLY FOR PATIENTS ON STABLE ANTICOAGULANT THERAPY. [facility] HEMATOLOGY PT 16.3 s 12.0 - 14.7 09/02/2011 [facility] HEMATOLOGY INR 1.44 0.85 - 1.17 07/31/2011 [place] 1Interpretive Data: RECOMMENDED RANGES FOR PROTIME INR: 2.0-3.0 for most medical and surgical thromboembolic states. 2.5-3.5 for artificial heart valves and recurrent embolism.INR SHOULD BE USED ONLY FOR PATIENTS ON STABLE ANTICOAGULANT THERAPY. [facility] HEMATOLOGY PT 17.5 s 12.0 - 14.7 07/31/2011 [facility] HEMATOLOGY PT 21.2 s 12.0 - 14.7 06/27/[address] [facility] INR 1.85 0.85 - 1.17 06/27/2011 [place] 1Interpretive Data: RECOMMENDED RANGES FOR PROTIME INR: 2.0-3.0 for most medical and surgical thromboembolic states. 2.5-3.5 for artificial heart valves and recurrent embolism.INR SHOULD BE USED ONLY FOR PATIENTS ON STABLE ANTICOAGULANT THERAPY. [facility] HEMATOLOGY PT 21.2 s 12.0 - 14.7 05/21/[address] [facility] INR 1.85 0.85 - 1.17 05/21/2011 [place] 1Interpretive Data: RECOMMENDED RANGES FOR PROTIME INR: 2.0-3.0 for most medical and surgical thromboembolic states. 2.5-3.5 for artificial heart valves and recurrent embolism.INR SHOULD BE USED ONLY FOR PATIENTS ON STABLE ANTICOAGULANT THERAPY. [facility] HEMATOLOGY INR 1.89 0.85 - 1.17 04/18/2011 [place] 1Interpretive Data: RECOMMENDED RANGES FOR PROTIME INR: 2.0-3.0 for most medical and surgical thromboembolic states. 2.5-3.5 for artificial heart valves and recurrent embolism.INR SHOULD BE USED ONLY FOR PATIENTS ON STABLE ANTICOAGULANT THERAPY. [facility] HEMATOLOGY PT 21.5 s 12.0 - 14.7 04/18/2011 [facility] HEMATOLOGY INR 2.07 0.85 - 1.17 03/21/2011 [place] 2Interpretive Data: RECOMMENDED RANGES FOR PROTIME INR: 2.0-3.0 for most medical and surgical thromboembolic states. 2.5-3.5 for artificial heart valves and recurrent embolism.INR SHOULD BE USED ONLY FOR PATIENTS ON STABLE ANTICOAGULANT THERAPY. [facility] HEMATOLOGY PT 23.1 s 12.0 - 14.7 03/21/2011 [facility] Vital Signs Vital Sign Value Date Comments Source Temperature Oral (F) 97.3 F 09/29/2015 [facility] Heart Rate 87 09/29/2015 [facility] Systolic (mm Hg) 116 09/29/2015 [facility] Diastolic (mm Hg) 59 09/29/2015 [facility] Respitory Rate 16 09/29/2015 [facility] Respitory Rate 18 09/29/2015 [facility] Respitory Rate 16 09/29/2015 [facility] Systolic (mm Hg) 105 09/29/2015 [facility] Diastolic (mm Hg) 56 09/29/2015 [facility] Temperature Oral (F) 97.9 F 09/29/2015 [facility] Heart Rate 85 09/29/2015 [facility] Systolic (mm Hg) 108 09/29/2015 [facility] Diastolic (mm Hg) 55 09/29/2015 [facility] Temperature Oral (F) 97.8 F 09/29/2015 [facility] Heart Rate 79 09/29/2015 [facility] Height 177.8 cm 09/25/2015 [facility] Height 177.8 cm 09/25/2015 [facility] Height 177.8 cm 09/25/2015 [facility] Weight 93.318 09/24/2015 [facility] BMI Calculated 29.52 09/24/2015 [facility] BMI Calculated 29.52 09/23/2015 [facility] Weight 93.318 09/23/2015 [facility] Diastolic (mm Hg) 75 09/23/2015 [facility] Systolic (mm Hg) 115 09/23/2015 [facility] Heart Rate 75 09/23/2015 [facility] Temperature Oral (F) 98 F 09/23/2015 [facility] Respitory Rate 18 09/23/2015 [facility] Heart Rate 81 09/23/2015 [facility] Temperature Oral (F) 98.2 F 09/23/2015 [facility] Systolic (mm Hg) 115 09/23/2015 [facility] Diastolic (mm Hg) 66 09/23/2015 [facility] Respitory Rate 18 09/23/2015 [facility] Temperature Oral (F) 97.6 F 09/22/2015 [facility] Heart Rate 75 09/22/2015 [facility] Respitory Rate 14 09/22/2015 [facility] Systolic (mm Hg) 106 09/22/2015 [facility] Diastolic (mm Hg) 63 09/22/2015 [facility] Respitory Rate 18 09/15/2015 [facility] Weight 93.318 09/15/2015 [facility] Weight 93.318 09/15/2015 [facility] BMI Calculated 29.52 09/15/2015 [facility] Height 177.8 cm 09/15/2015 [facility] Weight 93.318 09/15/2015 [facility] Heart Rate 95 09/14/2015 [facility] Systolic (mm Hg) 124 09/14/2015 [facility] Diastolic (mm Hg) 71 09/14/2015 [facility] Temperature Oral (F) 97.5 F 09/14/2015 [facility] Temperature Oral (F) 97.9 F 09/14/2015 [facility] Heart Rate 76 09/14/2015 [facility] Systolic (mm Hg) 94 09/14/2015 [facility] Diastolic (mm Hg) 58 09/14/2015 [facility] Respitory Rate 18 09/14/2015 [facility] Temperature Oral (F) 97.7 F 09/14/2015 [facility] Respitory Rate 17 09/14/2015 [facility] Systolic (mm Hg) 123 09/14/2015 [facility] Diastolic (mm Hg) 76 09/14/2015 [facility] Heart Rate 90 09/14/2015 [facility] Height 177.8 cm 09/08/2015 [facility] BMI Calculated 25.31 09/08/2015 [facility] Weight 80 09/08/2015 [facility] BMI Calculated 24.04 09/08/2015 [facility] Height 180.34 cm 09/08/2015 [facility] Weight 78.182 09/08/2015 [facility] Systolic (mm Hg) 126 02/19/2015 [facility] Diastolic (mm Hg) 75 02/19/2015 [facility] Respitory Rate 16 02/19/2015 [facility] Heart Rate 66 02/19/2015 [facility] BMI Calculated 23.76 02/19/2015 [facility] Weight 77.273 02/19/2015 [facility] Height 180.34 cm 02/19/2015 [facility] Weight 77.273 04/22/2013 [facility] Height 180.34 cm 04/22/2013 [facility] Encounters Location Location Details Encounter Type Encounter Number Reason For Visit Attending Provider ADM Date DC Date Status Source [place] [id number] 427.31 WOLF MARISCAL 03/21/2011 [facility] [place] [id number] 427.31 WOLF MARISCAL 05/21/2011 [facility] [place] [id number] 427.31 WOLF MARISCAL 06/27/2011 [facility] [place] [id number] 427.31 WOLF MARISCAL 07/31/2011 [facility] [place] [id number] 427. WOLFGhazala DICKSONARIAN 09/02/2011 Active [facility] [place] [id number] [facility] 10/07/2011 10/07/2011 [facility] [place] [id number] 427 WOLF ARIAN 11/07/2011 [facility] [place] [id number] 427.31 [facility]2012 [facility] [place] [id number] LABS [facility] 02/26/2012 Active [facility] [place] [id number] 427.31 [facility] 04/07/2012 05/06/2012 Active [facility] [id number] 402.91, 427.31, 414.01, 599.7 [facility] 04/14/2012 04/14/2012 [facility] [place] [id number] 427.31 WOLF ARIAN 06/08/2012 Active [facility] [place] [id number] PT INR WOLFGhazala DICKSONARIAN 06/24/2012 07/23/2012 Active [facility] [place] [id number] 427.31 [facility] 07/30/2012 Active [facility] [place] [id number] LABS (RECURRING) WOLF ARIAN 09/07/2012 Active [facility] [place] [id number] 427.31 [facility] 11/03/2012 Active [facility] [place] [id number] 427.31 [facility] 12/08/2012 Active [facility] [place] [id number] INR WOLF ARIAN 01/11/2013 Active [facility] [place] [id number] UNK WOLF ARIAN 03/09/2013 Active [facility] NIDIA [id number] WOLFGhazala MARISCAL 04/22/2013 04/22/2013 Active [facility] [place] [id number] 427.31 WOLFGhazala MARISCAL 05/11/2013 Active [facility] [place] [id number] 427.31 WOLFGhazala MARISCAL 06/23/2013 Active [facility] [place] [id number] 427.31 403.01 414.01 WOLFGhazala MARISCAL 08/02/2013 Active [facility] OP Recurring [id number] Wolf Mariscal 10/05/2013 11/04/2013 [facility] OP Recurring [id number] Wolf Mariscal 11/30/2013 12/30/2013 [facility] OP Recurring [id number] Wolf Mariscal 01/24/2014 02/23/2014 [facility] OP Recurring [id number] Wolf Mariscal 02/23/2014 03/25/2014 [facility] OP Recurring [id number] Wolf Mariscal 04/27/2014 05/27/2014 [facility] OP Recurring [id number] Wolf Mariscal 06/28/2014 07/28/2014 [facility] OP Recurring [id number] Wolf Mariscal 08/02/2014 09/01/2014 [facility] OP Recurring [id number] Fredy Mustafa 09/20/2014 10/20/2014 [facility] OP Recurring [id number] Wolf Mariscal 10/24/2014 11/23/2014 [facility] OP Recurring [id number] Wolf Mariscal 12/29/2014 01/28/2015 [facility] OP Recurring [id number] Wolf Mariscal 01/31/2015 03/02/2015 [facility] Outpatient [id number] Wolf Mariscal 02/16/2015 02/17/2015 [facility] Bedded Outpatient [id number] Wolf Mariscal 02/19/2015 02/19/2015 [facility] OP Recurring [id number] Wolf Mariscal 03/06/2015 03/21/2015 [facility] OP Recurring [id number] Wolf Mariscal 04/02/2015 05/02/2015 [facility] OP Recurring [id number] Wolf Mariscal 05/29/2015 06/28/2015 [facility] OP Recurring [id number] Wolf Mariscal 07/30/2015 08/29/2015 [facility] Outpatient [id number] Fredy Moon 07/30/2015 07/31/2015 [facility] Inpatient [id number] Faby Aaron 09/08/2015 09/14/2015 [facility]patient [facility]hab [id number] Patrick Escalonamore Morrell 09/15/2015 09/23/2015 [facility] Inpatient [id number] Faby Aaron 09/23/2015 09/29/2015 [facility] Outpatient [id number] Wolf Mariscal 12/12/2015 12/13/2015 [facility] Recurring [id number] Wolf Mariscal 03/07/2016 04/06/2016 [facility] Outpatient [facility] Di[facility] [id number] [facility] 04/10/2016 04/11/2016 [facility] Recurring [id number] Wolf Mariscal 04/18/2016 05/18/2016 [facility] Procedures Procedure Code Date Perfomer Comments Source ACD - Automatic cardiac defibrillator procedure [id number] 06/22/1988 [facility] ACD - Automatic cardiac defibrillator procedure [id number] 06/22/1988 [facility] CABG x 2 - Coronary artery bypass grafts x 2 [id number] [facility] CABG x 2 - Coronary artery bypass grafts x 2 [id number] [facility]
--- OUTSIDE RECORDS SUMMARY | 2018-07-01 11:38 | XMS REPORT | CCD ---
Author Author Auto Generated Organization [facility] Address Unknown Phone Unavailable Care Team Providers Care Refrigeration Person Name Role Phone Bereket Mariscal CP Allergies, Adverse Reactions, Alerts Substance Reaction Status Allergy Unverified NO GENERICS Active Levaquin Active Nitroglycerin Patch Active penicillin Active Procanbid Active Results HEMATOLOGY Most recent to oldest [Reference Range]: 1 2 3 PT [12.0-14.7 seconds] 19.1 seconds *HI* (10/06/2012 10:53:00) 22.2 seconds *HI* (09/14/2012 09:43:00) 20.1 seconds *HI* (09/07/2012 09:18:00) INR [0.85-1.17] 1.59 1 *HI* (10/06/2012 10:53:00) 1.94 2 *HI* (09/14/2012 09:43:00) 1.70 3 *HI* (09/07/2012 09:18:00) 1Interpretive Data: RECOMMENDED RANGES FOR PROTIME INR: 2.0-3.0 for most medical and surgical thromboembolic states. 2.5-3.5 for artificial heart valves and recurrent embolism. INR SHOULD BE USED ONLY FOR PATIENTS ON STABLE ANTICOAGULANT THERAPY. 2Interpretive Data: RECOMMENDED RANGES FOR PROTIME INR: 2.0-3.0 for most medical and surgical thromboembolic states. 2.5-3.5 for artificial heart valves and recurrent embolism. INR SHOULD BE USED ONLY FOR PATIENTS ON STABLE ANTICOAGULANT THERAPY. 3Interpretive Data: RECOMMENDED RANGES FOR PROTIME INR: 2.0-3.0 for most medical and surgical thromboembolic states. 2.5-3.5 for artificial heart valves and recurrent embolism. INR SHOULD BE USED ONLY FOR PATIENTS ON STABLE ANTICOAGULANT THERAPY.
--- OUTSIDE RECORDS SUMMARY | 2018-07-01 11:38 | XMS REPORT | Summary of Care ---
Author Organization Unknown Address Unknown Phone Unavailable Encounter GRAY Simon(CHIDI) [id number] Date(s): 10/05/13 - 11/03/13 [facility] [id number] Discharge Disposition: Home Physician Attending: Bereket Mariscal Reason for Visit PT INR Problem List No data available for this section Allergies, Adverse Reactions, Alerts Substance Reaction Severity Status Allergy Unverified NO GENERICS Active Levaquin Active Nitroglycerin Patch Active penicillin Active Procanbid Active Medications No data available for this section Results SPECIAL CHEMISTRY Most recent to 1 2 oldest [Reference Range]: PSA [0.00-4.00 0.23 ng/mL 1 ng/mL] (10/05/13 11:09 AM) 1Interpretive Data: 0-4 ng/ml is clinically accepted reference range from the [place] [employer] in 1997 for Total PSA. A PSA value in the range of 0.1 to 0.6 ng/mL is indeterminate if being used as an indicator of recurrent or residual disease. HEMATOLOGY Most recent to 1 2 oldest [Reference Range]: PT [12.0-14.7 24.8 seconds 25.0 seconds seconds] *HI* *HI* (11/02/13 11:46 AM) (10/05/13 11:09 AM) INR [0.85-1.17] 2.29 2 2.32 3 *HI* *HI* (11/02/13 11:46 AM) (10/05/13 11:09 AM) 2Interpretive Data: RECOMMENDED RANGES FOR PROTIME INR: [...] ONLY FOR PATIENTS ON STABLE ANTICOAGULANT THERAPY. Medications Administered During Your Visit No data available for this section Immunizations No data available for this section
--- OUTSIDE RECORDS SUMMARY | 2018-07-01 11:38 | XMS REPORT | CCD ---
Author Author Auto Generated Organization [facility] Address Unknown Phone Unavailable Care Team Providers Care Conflicts Analyst Name Role Phone Bereket Mariscal Allergies, Adverse Reactions, Alerts Substance Reaction Status Allergy Unverified NO GENERICS Active Levaquin Active Nitroglycerin Patch Active penicillin Active Procanbid Active Results HEMATOLOGY Most recent to oldest [Reference Range]: 1 PT [12.0-14.7 seconds] 21.2 seconds *HI* (05/21/2011 10:33:00) INR [0.85-1.17] 1.85 1 *HI* (05/21/2011 10:33:00) 1Interpretive Data: RECOMMENDED RANGES FOR PROTIME INR: 2.0-3.0 for most medical and surgical thromboembolic states. 2.5-3.5 for artificial heart valves and recurrent embolism.INR SHOULD BE USED ONLY FOR PATIENTS ON STABLE ANTICOAGULANT THERAPY.
--- OUTSIDE RECORDS SUMMARY | 2018-07-01 11:38 | XMS REPORT | CCD ---
Author Author Auto Generated Organization [facility] Address Unknown Phone Unavailable Care Team Providers Care Senior Property Accountant Name Role Phone Bereket Mariscla Allergies, Adverse Reactions, Alerts Substance Reaction Status Allergy Unverified NO GENERICS Active Levaquin Active Nitroglycerin Patch Active penicillin Active Procanbid Active Results HEMATOLOGY Most recent to oldest [Reference Range]: 1 PT [12.0-14.7 seconds] 16.1 seconds *HI* (10/07/2011 10:33:00) INR [0.85-1.17] 1.29 1 *HI* (10/07/2011 10:33:00) 1Interpretive Data: RECOMMENDED RANGES FOR PROTIME INR: 2.0-3.0 for most medical and surgical thromboembolic states. 2.5-3.5 for artificial heart valves and recurrent embolism.INR SHOULD BE USED ONLY FOR PATIENTS ON STABLE ANTICOAGULANT THERAPY.
--- OUTSIDE RECORDS SUMMARY | 2018-07-01 11:38 | XMS REPORT | CCD ---
Author Author Auto Generated Organization [facility] Address Unknown Phone Unavailable Care Team Providers Care Tender Labor Name Role Phone PCP, None CP Unavailable Bereket Mariscal RP Naima Mckeon CP Unavailable ChartServer, Login CP Unavailable Genie Newman CP Unavailable Allergies, Adverse Reactions, Alerts Substance Reaction Status Allergy Unverified NO GENERICS?? Active Levaquin ?? Active Nitroglycerin Patch ?? Active penicillin ?? Active Procanbid ?? Active Results HEMATOLOGY Most recent to oldest [Reference Range]: 1 2 PT [12.0-14.7 seconds] 21.5 seconds *HI* (04/18/2011 09:27:00) ?? 23.1 seconds *HI* (03/21/2011 11:00:00) ?? INR [0.85-1.17] 1.89 1 *HI* (04/18/2011 09:27:00) ?? 2.07 2 *HI* (03/21/2011 11:00:00) ?? 1Interpretive Data: RECOMMENDED RANGES FOR PROTIME INR: [...]
--- OUTSIDE RECORDS SUMMARY | 2018-07-01 11:38 | XMS REPORT | CCD ---
Author Author Auto Generated Organization [facility] Address Unknown Phone Unavailable Care Team Providers Care Firer Watertender Name Role Phone Bereket Mariscal Allergies, Adverse Reactions, Alerts Substance Reaction Status Allergy Unverified NO GENERICS Active Levaquin Active Nitroglycerin Patch Active penicillin Active Procanbid Active Results HEMATOLOGY Most recent to oldest [Reference Range]: 1 2 PT [12.0-14.7 seconds] 18.6 seconds *HI* (12/04/2011 09:34:00) 16.8 seconds *HI* (11/07/2011 09:59:00) INR [0.85-1.17] 1.56 1 *HI* (12/04/2011 09:34:00) 1.37 2 *HI* (11/07/2011 09:59:00) 1Interpretive Data: RECOMMENDED RANGES FOR PROTIME INR: [...]
--- OUTSIDE RECORDS SUMMARY | 2018-07-01 11:38 | XMS REPORT | CCD ---
Author Author Auto Generated Organization [facility] Address Unknown Phone Unavailable Care Team Providers Care Slip Injector And Applicator Name Role Phone eBreket Mariscal Allergies, Adverse Reactions, Alerts Substance Reaction Status Allergy Unverified NO GENERICS Active Levaquin Active Nitroglycerin Patch Active penicillin Active Procanbid Active Results HEMATOLOGY Most recent to oldest [Reference Range]: 1 2 PT [12.0-14.7 seconds] 18.1 seconds *HI* (01/19/2012 09:27:00) 19.1 seconds *HI* (01/02/2012 11:29:00) INR [0.85-1.17] 1.51 1 *HI* (01/19/2012 09:27:00) 1.62 2 *HI* (01/02/2012 11:29:00) 1Interpretive Data: RECOMMENDED RANGES FOR PROTIME INR: [...]
--- OUTSIDE RECORDS SUMMARY | 2018-07-01 11:38 | XMS REPORT | CCD ---
Author Author Auto Generated Organization [facility] Address Unknown Phone Unavailable Care Team Providers Care Fibre Optic Cable Splicer Name Role Phone Bereket Mariscal Allergies, Adverse Reactions, Alerts Substance Reaction Status Allergy Unverified NO GENERICS Active Levaquin Active Nitroglycerin Patch Active penicillin Active Procanbid Active Results HEMATOLOGY Most recent to oldest [Reference Range]: 1 PT [12.0-14.7 seconds] 16.3 seconds *HI* (09/02/2011 09:58:00) INR [0.85-1.17] 1.32 1 *HI* (09/02/2011 09:58:00) 1Interpretive Data: RECOMMENDED RANGES FOR PROTIME INR: 2.0-3.0 for most medical and surgical thromboembolic states. 2.5-3.5 for artificial heart valves and recurrent embolism.INR SHOULD BE USED ONLY FOR PATIENTS ON STABLE ANTICOAGULANT THERAPY.
--- OUTSIDE RECORDS SUMMARY | 2018-07-01 11:38 | XMS REPORT | CCD ---
Author Author Auto Generated Organization [facility] Address Unknown Phone Unavailable Care Team Providers Care Cop Breaker Name Role Phone Bereket Mariscal CP Allergies, Adverse Reactions, Alerts Substance Reaction Status Allergy Unverified NO GENERICS Active Levaquin Active Nitroglycerin Patch Active penicillin Active Procanbid Active Results HEMATOLOGY Most recent to oldest [Reference Range]: 1 PT [12.0-14.7 seconds] 19.0 seconds *HI* (11/03/2012 09:44:00) INR [0.85-1.17] 1.58 1 *HI* (11/03/2012 09:44:00) 1Interpretive Data: RECOMMENDED RANGES FOR PROTIME INR: 2.0-3.0 for most medical and surgical thromboembolic states. 2.5-3.5 for artificial heart valves and recurrent embolism. INR SHOULD BE USED ONLY FOR PATIENTS ON STABLE ANTICOAGULANT THERAPY.
--- OUTSIDE RECORDS SUMMARY | 2018-07-01 11:38 | XMS REPORT | CCD ---
Author Author Auto Generated Organization [facility] Address Unknown Phone Unavailable Care Team Providers Care Project Facilitator Name Role Phone Bereket Mariscal CP Allergies, Adverse Reactions, Alerts Substance Reaction Status Allergy Unverified NO GENERICS Active Levaquin Active Nitroglycerin Patch Active penicillin Active Procanbid Active Results HEMATOLOGY Most recent to oldest [Reference Range]: 1 PT [12.0-14.7 seconds] 19.5 seconds *HI* (02/26/2012 09:45:00) INR [0.85-1.17] 1.63 1 *HI* (02/26/2012 09:45:00) 1Interpretive Data: RECOMMENDED RANGES FOR PROTIME INR: 2.0-3.0 for most medical and surgical thromboembolic states. 2.5-3.5 for artificial heart valves and recurrent embolism. INR SHOULD BE USED ONLY FOR PATIENTS ON STABLE ANTICOAGULANT THERAPY.
--- OUTSIDE RECORDS SUMMARY | 2018-07-01 11:38 | XMS REPORT | Summary of Care ---
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) Gout(Confirmed) Resolved Hypertension(Confirm Resolved ed) Hypothyroidism(Confi Resolved rmed) Allergies, Adverse Reactions, Alerts Substance Reaction Severity Status Allergy Unverified NO GENERICS Active Levaquin Active Nitroglycerin Patch Active penicillin Active Procanbid Active Medications No data available for this section Results ELECTROLYTES Most recent to 1 oldest [Reference Range]: Sodium Lvl [135-145 144 mEq/L mEq/L] (07/30/15 10:54 AM) Potassium Lvl 4.1 mEq/L [3.5-5.1 mEq/L] (07/30/15 10:54 AM) Chloride Lvl [95-109 107 mEq/L mEq/L] (07/30/15 10:54 AM) CO2 [24-32 mEq/L] 32 mEq/L (07/30/15 10:54 AM) AGAP [10.0-20.0 9.1 mEq/L mEq/L] *LOW* (07/30/15 10:54 AM) CHEM PANEL Most recent to 1 oldest [Reference Range]: Creatinine Lvl 1.25 mg/dL [0.50-1.40 mg/dL] (07/30/15 10:54 AM) eGFR 52 mL/min/1.73m2 1 *NA* (07/30/15 10:54 AM) BUN [7-22 mg/dL] 26 mg/dL *HI* (07/30/15 10:54 AM) Glucose Lvl [70-99 98 mg/dL mg/dL] (07/30/15 10:54 AM) Calcium Lvl 8.2 mg/dL [8.5-10.5 mg/dL] *LOW* (07/30/15 10:54 AM) 1Result Comment: The eGFR is calculated using [...] from the National Kidney Disease Education Program ( NKDEP) which additionally recommends that when the eGFR is used in patients with extremes of body mass index for purposes of drug dosing, the eGFR should be mul tiplied by the estimated BMI. SPECIAL CHEMISTRY Most recent to 1 oldest [Reference Range]: PSA [0.00-4.00 0.11 ng/mL ng/mL] (07/30/15 10:54 AM) Immunizations No data available for this section Procedures Procedure Date Related Diagnosis Body Site ACD - Automatic cardiac defibrillator 1988 procedure CABG x 2 - Coronary artery bypass grafts x 2 Social History Social History Type Response Alcohol Never Smoking Status Former smoker; Type: Cigarettes; Exposure to Tobacco Smoke None; Cigarette Smoking Last 365 Days No; Reg Smoking Cessation Counseling Yes Assessment and Plan No data available for this section
--- OUTSIDE RECORDS SUMMARY | 2018-07-01 11:38 | XMS REPORT | CCD ---
Author Author Auto Generated Organization [facility] Address Unknown Phone Unavailable Care Team Providers Care Assistant Vice President Name Role Phone Bereket Mariscal CP Allergies, Adverse Reactions, Alerts Substance Reaction Status Allergy Unverified NO GENERICS Active Levaquin Active Nitroglycerin Patch Active penicillin Active Procanbid Active Results HEMATOLOGY Most recent to oldest [Reference Range]: 1 2 PT [12.0-14.7 seconds] 22.1 seconds *HI* (02/08/2013 09:10:00) 17.7 seconds *HI* (01/11/2013 11:28:00) INR [0.85-1.17] 1.93 1 *HI* (02/08/2013 09:10:00) 1.44 2 *HI* (01/11/2013 11:28:00) 1Interpretive Data: RECOMMENDED RANGES FOR PROTIME INR: [...]
--- OUTSIDE RECORDS SUMMARY | 2018-07-01 11:38 | XMS REPORT | CCD ---
Author Author Auto Generated Organization [facility] Address Unknown Phone Unavailable Care Team Providers Care Automatic Corn Grinder Operator Name Role Phone Bereket Mariscal CP Allergies, Adverse Reactions, Alerts Substance Reaction Status Allergy Unverified NO GENERICS Active Levaquin Active Nitroglycerin Patch Active penicillin Active Procanbid Active Results HEMATOLOGY Most recent to oldest [Reference Range]: 1 2 PT [12.0-14.7 seconds] 18.1 seconds *HI* (01/05/2013 11:46:00) 23.1 seconds *HI* (12/08/2012 10:49:00) INR [0.85-1.17] 1.48 1 *HI* (01/05/2013 11:46:00) 2.04 2 *HI* (12/08/2012 10:49:00) 1Interpretive Data: RECOMMENDED RANGES FOR PROTIME INR: [...]
--- OUTSIDE RECORDS SUMMARY | 2018-07-01 11:38 | XMS REPORT | CCD ---
Author Author Auto Generated Organization [facility] Address Unknown Phone Unavailable Care Team Providers Care Pharm Tech Name Role Phone Bereket Mariscal Allergies, Adverse Reactions, Alerts Substance Reaction Status Allergy Unverified NO GENERICS Active Levaquin Active Nitroglycerin Patch Active penicillin Active Procanbid Active Medications Medication Instructions Start Date End Date Status Proscar 5 mg oral 5 mg, 1 tab, PO, Daily, 90 tab, 04/22/2013 Ordered tablet Substitution Allowed, TAB Synthroid 50 mcg 50 microgram, 1 tab, PO, Daily, 90 04/22/2013 Ordered (0.05 mg) oral tab, Substitution Allowed, TAB tablet allopurinol 100 mg 100 mg, 1 tab, PO, Daily, 04/22/2013 Ordered oral tablet Substitution Allowed, TAB Saline Flush 0.9% 5 ml, Route: IVP, Drug Form: INJ, 04/22/2013 04/22/2013 Canceled Dosing Weight 77.273, kg, Q12H, Start date: 04/22/13 21:00:00, Duration: 30 day, Stop date: 05/22/13 9:00:00(Same as: BD Posiflush) Saline Flush 0.9% 5 ml, Route: IVP, Drug Form: INJ, 04/22/2013 04/22/2013 Discontinued Dosing Weight 77.273, kg, PRN, PRN Line Flush, Start date: 04/22/13 11:58:00, Duration: 30 day, Stop date: 05/22/13 10:57:00(Same as: BD Posiflush) acetaminophen 325 mg, 1 tab, Route: PO, Drug 04/22/2013 04/22/2013 Discontinued form: TAB, Q4H, Dosing Weight 77.273, kg, PRN Pain Score 4-6, Start date: 04/22/13 11:58:00, Duration: 30 day, Stop date: 05/22/13 11:57:00Do not exceed 4 gm/day. (Same as: Tylenol) Vital Signs Most recent to oldest [Reference Range]: 1 Height 180.34 cm (04/22/2013:43:00) Weight 77.273 kg (04/22/2013:43:00) Results CHEMISTRY Most recent to oldest [Reference Range]: 1 Sodium Lvl [135-145 mEq/L] 142 mEq/L (04/22/2013:35:00) Potassium Lvl [3.5-5.1 mEq/L] 4.4 mEq/L (04/22/201335:) Chloride Lvl [95-109 mEq/L] 105 mEq/L (04/22/201335:) CO2 [24-32 mEq/L] 28 mEq/L (04/22/201335:) AGAP [10.0-20.0 mEq/L] 13.4 mEq/L (04/22/201335:) Creatinine Lvl [0.5-1.4 mg/dL] 1.5 mg/dL *HI* (04/22/201335:) eGFR 42 mL/min/1.73m2 1 *NA* (04/22/201335:) BUN [7-22 mg/dL] 29 mg/dL *HI* (04/22/201335:) Glucose Lvl [70-99 mg/dL] 75 mg/dL 2 (04/22/201335:) Calcium Lvl [8.5-10.5 mg/dL] 9.1 mg/dL (04/22/2013:35:00) 1Result Comment: The eGFR is calculated using [...] be mul tiplied by the estimated BMI. 2Interpretive Data: Adult reference range values reflect the clinical guidelines of the [place] [employer]. HEMATOLOGY Most recent to oldest [Reference Range]: 1 WBC [3.7-10.4 K/CMM] 9.0 K/CMM (04/22/2013:) RBC [4.70-6.10 M/CMM] 4.78 M/CMM (04/22/2013) Hgb [14.0-18.0 g/dL] 14.8 g/dL (04/22/2013) Hct [42.0-54.0 %] 46.1 % (04/22/2013) MCV [80.0-94.0 fL] 96.6 fL *HI* (04/22/2013) MCH [27.0-31.0 pg] 30.9 pg (04/22/2013:) MCHC [32.0-36.0 g/dL] 32.0 g/dL (04/22/2013:) RDW [11.5-14.5 %] 15.9 % *HI* (04/22/2013) Platelet [133-450 K/CMM] 78 K/CMM *LOW* (04/22/2013:) MPV [7.4-10.4 fL] 11.0 fL *HI* (04/22/2013) Segs [45.0-75.0 %] 45.9 % (04/22/2013) Lymphocytes [20.0-40.0 %] 45.6 % *HI* (04/22/2013) Monocytes [2.0-12.0 %] 6.7 % (04/22/2013) Eosinophils [0.0-4.0 %] 1.2 % (04/22/2013 09:35:00) Basophils [0.0-1.0 %] 0.6 % (04/22/2013:35:00) Segs-Bands # [1.5-8.1 K/CMM] 4.1 K/CMM (04/22/2013:35:00) Lymphocytes # [1.0-5.5 K/CMM] 4.1 K/CMM (04/22/2013:35:00) Monocytes # [0.0-0.8 K/CMM] 0.6 K/CMM (04/22/2013:35:00) Eosinophils # [0.0-0.5 K/CMM] 0.1 K/CMM (04/22/2013:35:00) Basophils # [0.0-0.2 K/CMM] 0.1 K/CMM (04/22/2013:35:00) PT [12.0-14.7 seconds] 24.7 seconds *HI* (04/22/2013:35:00) INR [0.85-1.17] 2.28 3 *HI* (04/22/2013:35:00) PTT [22.9-35.8 seconds] 39.7 seconds 4 *HI* (04/22/2013:35:00) 3Interpretive Data: RECOMMENDED RANGES FOR PROTIME INR: 2.0-3.0 for most medical and surgical thromboembolic states. 2.5-3.5 for artificial heart valves and recurrent embolism. INR SHOULD BE USED ONLY FOR PATIENTS ON STABLE ANTICOAGULANT THERAPY. 4Interpretive Data: Heparin Therapeutic Range: 57 - 92 Seconds
--- OUTSIDE RECORDS SUMMARY | 2018-07-01 11:38 | XMS REPORT | CCD ---
Author Author Auto Generated Organization [facility] Address Unknown Phone Unavailable Care Team Providers Care Service Center Supervisor Name Role Phone Bereket Mariscal CP Allergies, Adverse Reactions, Alerts Substance Reaction Status Allergy Unverified NO GENERICS Active Levaquin Active Nitroglycerin Patch Active penicillin Active Procanbid Active Results HEMATOLOGY Most recent to oldest [Reference Range]: 1 2 PT [12.0-14.7 seconds] 24.0 seconds *HI* (04/05/2013 08:57:00) 24.2 seconds *HI* (03/09/2013 09:34:00) INR [0.85-1.17] 2.20 1 *HI* (04/05/2013 08:57:00) 2.22 2 *HI* (03/09/2013 09:34:00) 1Interpretive Data: RECOMMENDED RANGES FOR PROTIME INR: [...]
--- OUTSIDE RECORDS SUMMARY | 2018-07-01 11:38 | XMS REPORT | CCD ---
Author Author Auto Generated Organization [facility] Address Unknown Phone Unavailable Care Team Providers Care Occupational Medicine Officer Name Role Phone Bereket Mariscal CP Allergies, [...]
--- OUTSIDE RECORDS SUMMARY | 2018-07-01 11:38 | XMS REPORT | Summary of Care ---
Author Organization Unknown Address Unknown Phone Unavailable Encounter HQ Yayo_joe(CHIDI) [id number] Date(s): 11/30/13 - 12/29/13 [facility] [address] Discharge Disposition: Home Physician Attending: Bereket Mariscal MD Reason for Visit PT/INR Problem List No data available for this section Allergies, Adverse Reactions, Alerts Substance Reaction Severity Status Allergy Unverified NO GENERICS Active Levaquin Active Nitroglycerin Patch Active penicillin Active Procanbid Active Medications No data available for this section Results HEMATOLOGY Most recent to 1 2 oldest [Reference Range]: PT [12.0-14.7 22.3 seconds 24.3 seconds seconds] *HI* *HI* (12/28/13 11:02 AM) (11/30/13 10:29 AM) INR [0.85-1.17] 2.00 1 2.23 2 *HI* *HI* (12/28/13 11:02 AM) (11/30/13 10:29 AM) 1Interpretive Data: RECOMMENDED RANGES FOR PROTIME INR: [...]
--- OUTSIDE RECORDS SUMMARY | 2018-07-01 11:38 | XMS REPORT | CCD ---
Author Author Auto Generated Organization [facility] Address Unknown Phone Unavailable Care Team Providers Care Director Of Ancillary Services Name Role Phone Bereket Mariscal CP Allergies, [...]
--- OUTSIDE RECORDS SUMMARY | 2018-07-01 11:38 | XMS REPORT | CCD ---
Author Author Auto Generated Organization [facility] Address Unknown Phone Unavailable Care Team Providers Care Kiln Charger Name Role Phone Bereket Mariscal RP Allergies, Adverse Reactions, Alerts Substance Reaction Status Allergy Unverified NO GENERICS Active Levaquin Active Nitroglycerin Patch Active penicillin Active Procanbid Active Results CHEMISTRY Most recent to oldest [Reference Range]: 1 2 Sodium Lvl [135-145 mEq/L] 145 mEq/L (08/26/2012 12:57:00) Potassium Lvl [3.5-5.1 mEq/L] 4.0 mEq/L (08/26/2012 12:57:00) Chloride Lvl [95-109 mEq/L] 106 mEq/L (08/26/2012 12:57:00) CO2 [24-32 mEq/L] 31 mEq/L (08/26/2012 12:57:00) AGAP [10.0-20.0 mEq/L] 12.0 mEq/L (08/26/2012 12:57:00) Creatinine Lvl [0.5-1.4 mg/dL] 1.6 mg/dL *HI* (08/26/2012 12:57:00) eGFR 39 mL/min/1.73m2 1 *NA* (08/26/2012 12:57:00) BUN [7-22 mg/dL] 32 mg/dL *HI* (08/26/2012 12:57:00) Glucose Lvl [70-99 mg/dL] 72 mg/dL 2 (08/26/2012 12:57:00) Calcium Lvl [8.5-10.5 mg/dL] 8.8 mg/dL (08/26/2012 12:57:00) 1Result Comment: The eGFR is calculated using [...] values reflect the clinical guidelines of the [place] [employer]. HEMATOLOGY Most recent to oldest [Reference Range]: 1 2 WBC [3.7-10.4 K/CMM] 7.0 K/CMM (08/26/2012 12:57:00) RBC [4.70-6.10 M/CMM] 4.70 M/CMM (08/26/2012 12:57:00) Hgb [14.0-18.0 g/dL] 13.1 g/dL *LOW* (08/26/2012:57:00) Hct [42.0-54.0 %] 41.8 % *LOW* (08/26/2012:57:00) MCV [80.0-94.0 fL] 88.9 fL (08/26/2012:57:00) MCH [27.0-31.0 pg] 28.0 pg (08/26/2012:57:00) MCHC [32.0-36.0 g/dL] 31.4 g/dL *LOW* (08/26/2012:57:00) RDW [11.5-14.5 %] 19.6 % *HI* (08/26/2012:57:00) Platelet [133-450 K/CMM] 84 K/CMM *LOW* (08/26/2012:57:00) MPV [7.4-10.4 fL] 11.5 fL *HI* (08/26/2012:57:00) Segs [45.0-75.0 %] 50.1 % (08/26/2012 12:57:00) Lymphocytes [20.0-40.0 %] 41.8 % *HI* (08/26/2012 12:57:00) Monocytes [2.0-12.0 %] 6.2 % (08/26/2012 12:57:00) Eosinophils [0.0-4.0 %] 1.1 % (08/26/2012 12:57:00) Basophils [0.0-1.0 %] 0.8 % (08/26/2012 12:57:00) Segs-Bands # [1.5-8.1 K/CMM] 3.5 K/CMM (08/26/2012 12:57:00) Lymphocytes # [1.0-5.5 K/CMM] 2.9 K/CMM (08/26/2012 12:57:00) Monocytes # [0.0-0.8 K/CMM] 0.4 K/CMM (08/26/2012 12:57:00) Eosinophils # [0.0-0.5 K/CMM] 0.1 K/CMM (08/26/2012 12:57:00) Basophils # [0.0-0.2 K/CMM] 0.1 K/CMM (08/26/2012 12:57:00) PT [12.0-14.7 seconds] 19.8 seconds *HI* (08/26/2012 12:57:00) 21.2 seconds *HI* (07/30/2012 11:33:00) INR [0.85-1.17] 1.67 3 *HI* (08/26/2012 12:57:00) 1.82 4 *HI* (07/30/2012 11:33:00) 3Interpretive Data: RECOMMENDED RANGES FOR PROTIME INR: 2.0-3.0 for most medical and surgical thromboembolic states. 2.5-3.5 for artificial heart valves and recurrent embolism. INR SHOULD BE USED ONLY FOR PATIENTS ON STABLE ANTICOAGULANT THERAPY. 4Interpretive Data: RECOMMENDED RANGES FOR PROTIME INR: 2.0-3.0 for most medical and surgical thromboembolic states. 2.5-3.5 for artificial heart valves and recurrent embolism. INR SHOULD BE USED ONLY FOR PATIENTS ON STABLE ANTICOAGULANT THERAPY.
--- OUTSIDE RECORDS SUMMARY | 2018-07-01 11:38 | XMS REPORT | CCD ---
Author Author Auto Generated Organization [facility] Address Unknown Phone Unavailable Care Team Providers Care Marketing Data Specialist Name Role Phone Bereket Mariscal CP Allergies, [...]
--- OUTSIDE RECORDS SUMMARY | 2018-07-01 11:38 | XMS REPORT | CCD ---
Author Author Auto Generated Organization [facility] Address Unknown Phone Unavailable Care Team Providers Care Administrative Secretary Name Role Phone Bereket Mariscal CP Allergies, Adverse Reactions, Alerts Substance Reaction Status Allergy Unverified NO GENERICS Active Levaquin Active Nitroglycerin Patch Active penicillin Active Procanbid Active Results HEMATOLOGY Most recent to oldest [Reference Range]: 1 PT [12.0-14.7 seconds] 22.7 seconds *HI* (05/11/2013 10:15:00) INR [0.85-1.17] 2.04 1 *HI* (05/11/2013 10:15:00) 1Interpretive Data: RECOMMENDED RANGES FOR PROTIME INR: 2.0-3.0 for most medical and surgical thromboembolic states. 2.5-3.5 for artificial heart valves and recurrent embolism. INR SHOULD BE USED ONLY FOR PATIENTS ON STABLE ANTICOAGULANT THERAPY.
--- OUTSIDE RECORDS SUMMARY | 2018-07-01 11:38 | XMS REPORT | CCD ---
Author Author Auto Generated Organization [facility] Address Unknown Phone Unavailable Care Team Providers Care Medical Billing Assistant Name Role Phone Bereket Mariscal Allergies, Adverse Reactions, Alerts Substance Reaction Status Allergy Unverified NO GENERICS Active Levaquin Active Nitroglycerin Patch Active penicillin Active Procanbid Active Results HEMATOLOGY Most recent to oldest [Reference Range]: 1 PT [12.0-14.7 seconds] 21.2 seconds *HI* (06/27/2011 09:30:00) INR [0.85-1.17] 1.85 1 *HI* (06/27/2011 09:30:00) 1Interpretive Data: RECOMMENDED RANGES FOR PROTIME INR: 2.0-3.0 for most medical and surgical thromboembolic states. 2.5-3.5 for artificial heart valves and recurrent embolism.INR SHOULD BE USED ONLY FOR PATIENTS ON STABLE ANTICOAGULANT THERAPY.
--- OUTSIDE RECORDS SUMMARY | 2018-07-01 11:38 | XMS REPORT | CCD ---
Author Author Auto Generated Organization [facility] Address Unknown Phone Unavailable Care Team Providers Care Hairspring Vibrator Name Role Phone Bereket Mariscal CP Allergies, Adverse Reactions, Alerts Substance Reaction Status Allergy Unverified NO GENERICS Active Levaquin Active Nitroglycerin Patch Active penicillin Active Procanbid Active Results HEMATOLOGY Most recent to oldest [Reference Range]: 1 PT [12.0-14.7 seconds] 24.8 seconds *HI* (06/23/2013 11:13:00) INR [0.85-1.17] 2.29 1 *HI* (06/23/2013 11:13:00) 1Interpretive Data: RECOMMENDED RANGES FOR PROTIME INR: 2.0-3.0 for most medical and surgical thromboembolic states. 2.5-3.5 for artificial heart valves and recurrent embolism. INR SHOULD BE USED ONLY FOR PATIENTS ON STABLE ANTICOAGULANT THERAPY.
--- OUTSIDE RECORDS SUMMARY | 2018-07-01 11:38 | XMS REPORT | CCD ---
Author Author Auto Generated Organization [facility] Address Unknown Phone Unavailable Care Team Providers Care Line Walker Name Role Phone Bereket Mariscal Allergies, Adverse Reactions, Alerts Substance Reaction Status Allergy Unverified NO GENERICS Active Levaquin Active Nitroglycerin Patch Active penicillin Active Procanbid Active Results HEMATOLOGY Most recent to oldest [Reference Range]: 1 PT [12.0-14.7 seconds] 17.5 seconds *HI* (07/31/2011 09:48:00) INR [0.85-1.17] 1.44 1 *HI* (07/31/2011 09:48:00) 1Interpretive Data: RECOMMENDED RANGES FOR PROTIME INR: 2.0-3.0 for most medical and surgical thromboembolic states. 2.5-3.5 for artificial heart valves and recurrent embolism.INR SHOULD BE USED ONLY FOR PATIENTS ON STABLE ANTICOAGULANT THERAPY.
--- OUTSIDE RECORDS SUMMARY | 2018-07-01 11:38 | XMS REPORT | CCD ---
Author Author Auto Generated Organization [facility] Address Unknown Phone Unavailable Care Team Providers Care Pasteurizing Supervisor Name Role Phone Bereket Mariscal CP [...]
--- OUTSIDE RECORDS SUMMARY | 2018-07-01 11:39 | XMS REPORT | Summary of Care ---
Author Organization Unknown Address Unknown Phone Unavailable Encounter HQ Alfred(CHIDI) [id number] Date(s): 02/23/14 - 03/24/14 [facility] [address] [address] Discharge Disposition: Home Physician Attending: Bereket Mariscal MD Reason for Visit LABS Problem List No data available for this section Allergies, Adverse Reactions, Alerts Substance Reaction Severity Status Allergy Unverified NO GENERICS Active Levaquin Active Nitroglycerin Patch Active penicillin Active Procanbid Active Medications No data available for this section Results HEMATOLOGY Most recent to 1 2 oldest [Reference Range]: PT [12.0-14.7 24.7 seconds 24.3 seconds seconds] *HI* *HI* (03/22/14 11:28 AM) (02/23/14 11:00 AM) INR [0.85-1.17] 2.16 1 2.12 2 *HI* *HI* (03/22/14 11:28 AM) (02/23/14 11:00 AM) 1Interpretive Data: RECOMMENDED RANGES FOR PROTIME [...]
--- OUTSIDE RECORDS SUMMARY | 2018-07-01 11:39 | XMS REPORT | Summary of Care ---
Author Author [facility] Organization [facility] Address Unknown Phone Unavailable Encounter HQ Yayo_joe(FIN) [id number] Date(s): 03/06/15 - 03/21/15 [facility] [address] [place] [address]- Discharge Disposition: Home Attending Physician: Bereket Mariscal MD Vital Signs No data available for [...] section Results HEMATOLOGY Most recent to 1 oldest [Reference Range]: PT [12.0-14.7 24.0 seconds seconds] *HI* (03/06/15 9:41 AM) INR [0.85-1.17] 2.11 *HI* (03/06/15 9:41 AM) Immunizations No data available for this [...]
--- OUTSIDE RECORDS SUMMARY | 2018-07-01 11:39 | XMS REPORT | Summary of Care ---
Author Author [facility] Organization [facility] Address Unknown Phone Unavailable Encounter GRAY Simon(CHIDI) [id number] Date(s): 02/16/15 - 02/16/15 [facility] [address] [place] [address]- Discharge Disposition: Home Attending Physician: Bereket Mariscal MD Admitting Physician: Bereket Mariscal MD Vital Signs No data available for this section Problem List No data available for this section Allergies, Adverse Reactions, Alerts Substance Reaction Severity Status Allergy Unverified NO GENERICS Active Levaquin Active Nitroglycerin Patch Active penicillin Active Procanbid Active Medications No data available for this section Results ELECTROLYTES Most recent to 1 oldest [Reference Range]: Sodium Lvl [135-145 140 mEq/L mEq/L] (02/16/15 10:16 AM) Potassium Lvl 4.1 mEq/L [3.5-5.1 mEq/L] (02/16/15 10:16 AM) Chloride Lvl [95-109 106 mEq/L mEq/L] (02/16/15 10:16 AM) CO2 [24-32 mEq/L] 28 mEq/L (02/16/15 10:16 AM) AGAP [10.0-20.0 10.1 mEq/L mEq/L] (02/16/15 10:16 AM) CHEM PANEL Most recent to 1 oldest [Reference Range]: Creatinine Lvl 1.5 mg/dL [0.5-1.4 mg/dL] *HI* (02/16/15 10:16 AM) eGFR 42 mL/min/1.73m2 1 *NA* (02/16/15 10:16 AM) BUN [7-22 mg/dL] 28 mg/dL *HI* (02/16/15 10:16 AM) Glucose Lvl [70-99 100 mg/dL mg/dL] *HI* (02/16/15 10:16 AM) Calcium Lvl 8.5 mg/dL [8.5-10.5 mg/dL] (02/16/15 10:16 AM) 1Result Comment: The eGFR is calculated [...] be mul tiplied by the estimated BMI. LIPIDS Most recent to 1 oldest [Reference Range]: CHD Risk [4.00-7.30] 3.05 *LOW* (02/16/15 10:16 AM) Chol [<=199 mg/dL] 134 mg/dL (02/16/15 10:16 AM) Trig [<=149 mg/dL] 102 mg/dL (02/16/15 10:16 AM) HDL [>=61 mg/dL] 44 mg/dL *LOW* (02/16/15 10:16 AM) LDL (Calculated) 70 mg/dL [<=99 mg/dL] (02/16/15 10:16 AM) VLDL 20 *NA* (02/16/15 10:16 AM) TOXICOLOGY Most recent to 1 oldest [Reference Range]: Digoxin Lvl [0.8-2.0 0.6 ng/mL ng/mL] *LOW* (02/16/15 10:16 AM) HEMATOLOGY Most recent to 1 oldest [Reference Range]: WBC [3.7-10.4 K/CMM] 8.0 K/CMM (02/16/15 10:16 AM) RBC [4.70-6.10 4.59 M/CMM M/CMM] *LOW* (8/28/15 10:16 AM) Hgb [14.0-18.0 g/dL] 15.5 g/dL (02/16/15:16 AM) Hct [42.0-54.0 %] 45.8 % (02/16/15:16 AM) MCV [80.0-94.0 fL] 99.6 fL *HI* (02/16/15:16 AM) MCH [27.0-31.0 pg] 33.6 pg *HI* (02/16/15:16 AM) MCHC [32.0-36.0 33.8 g/dL g/dL] (02/16/15 10:16 AM) RDW [11.5-14.5 %] 14.4 % (02/16/15 10:16 AM) Platelet [133-450 72 K/CMM K/CMM] *LOW* (02/16/15:16 AM) MPV [7.4-10.4 fL] 10.8 fL *HI* (02/16/15 10:16 AM) Segs [45.0-75.0 %] 53.0 % (02/16/15 10:16 AM) Bands [0.0-11.0 %] 0.0 % (02/16/15:16 AM) Lymphocytes 39.0 % [20.0-40.0 %] (02/16/15 10:16 AM) Atypical Lymphs 0.0 % [<=0.0 %] (02/16/15:16 AM) Monocytes [2.0-12.0 4.0 % %] (02/16/15 10:16 AM) Eosinophils [0.0-4.0 3.0 % %] (02/16/15 10:16 AM) Basophils [0.0-1.0 1.0 % %] (02/16/15 10:16 AM) Segs-Bands # 4.2 K/CMM [1.5-8.1 K/CMM] (02/16/15 10:16 AM) Lymphocytes # 3.1 K/CMM [1.0-5.5 K/CMM] (02/16/15 10:16 AM) Monocytes # [0.0-0.8 0.3 K/CMM K/CMM] (02/16/15 10:16 AM) Eosinophils # 0.2 K/CMM [0.0-0.5 K/CMM] (02/16/15 10:16 AM) Basophils # [0.0-0.2 0.1 K/CMM K/CMM] (02/16/15 10:16 AM) Macrocyte [None 1+ Seen] *ABN* (02/16/15 10:16 AM) Plt Morph Normal (02/16/15 10:16 AM) PT [12.0-14.7 18.0 seconds seconds] *HI* (02/16/15 10:16 AM) INR [0.85-1.17] 1.45 *HI* (02/16/15 10:16 AM) PTT [22.9-35.8 30.9 seconds seconds] (02/16/15 10:16 AM) Immunizations No data available for this section Procedures No data available for this section Social History No data available for this section Assessment and Plan No data available for this section
--- OUTSIDE RECORDS SUMMARY | 2018-07-01 11:39 | XMS REPORT | Summary of Care ---
Author Author [facility] Organization [facility] Address Unknown Phone Unavailable Encounter GRAY Simon(CHIDI) [id number] Date(s): 02/19/15 - 02/19/15 [facility] [address] [place] [address]- Discharge Disposition: Home Attending Physician: Bereket Mariscal MD Referring Physician: Bereket Mariscal MD Vital Signs Most recent to 1 oldest [Reference Range]: Height 180.34 cm (02/19/15 7:02 AM) Most recent to 1 oldest [Reference Range]: Blood Pressure 126/75 mmHg [90-140/60-90 mmHg] (02/19/15 8:24 AM) Most recent to 1 oldest [Reference Range]: Respiratory Rate 16 BRMIN [14-20 BRMIN] (02/19/15 8:24 AM) Most recent to 1 oldest [Reference Range]: Peripheral Pulse 66 bpm Rate [60-100 bpm] (02/19/15 8:24 AM) Most recent to 1 oldest [Reference Range]: Weight 77.273 kg (02/19/15 7:02 AM) Most recent to 1 oldest [Reference Range]: Body Mass Index 23.76 m2 (02/19/15 7:02 AM) Problem List Condition Effective Dates Status Health Status Informant Atrial Resolved fibrillation(Confirm ed) 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) Gout(Confirmed) Resolved Hypertension(Confirm Resolved ed) Hypothyroidism(Confi Resolved rmed) Allergies, Adverse Reactions, Alerts Substance Reaction Severity Status Allergy Unverified NO GENERICS Active Levaquin Active Nitroglycerin Patch Active penicillin Active Procanbid Active Medications acetylcysteine oral solution (mg) 1,200 mg, Route: PO, BID, Dosing Weight 77.273, kg, Start date: 02/19/15 9:00:00 , Duration: 30 day, Stop date: 03/20/15 17:00:00 Start Date: 02/19/15 Stop Date: 02/19/15 Status: Discontinued aspirin 325 mg tablet 325 mg, Route: PO, Drug form: CHEWTAB, ONCE, Dosing Weight 77.273, kg, Start cynthia e: 02/19/15 10:11:00, Stop date: 02/19/15 10:11:00 Start Date: 02/19/15 Stop Date: 02/19/15 Status: Completed nitroglycerin SL Tab 0.4 mg, 1 tab, Route: SL, Drug form: TAB, Q5Min, Dosing Weight 77.273, kg, PRN C hest Pain, Start date: 02/19/15 10:11:00, Duration: 3 doses or times, Stop date: Limited # of times Notes: (Same as:Nitroquick, Nitrostat)"Do Not Crush" Sublingual tablet Start Date: 02/19/15 Stop Date: 02/20/15 Status: Discontinued normal saline 0.9% IV 1,000 mL 1,000 mL, Rate: 50 ml/hr, Infuse over: 20 hr, Route: IV, Dosing Weight 77.273 kg , Total Volume: 1,000, Start date: 02/19/15 7:23:00, Duration: 1 day, Stop date: 02/20/15 7:22:00 Start Date: 02/19/15 Stop Date: 02/20/15 Status: Completed Pepcid 20 mg oral tablet 20 mg, 1 tab, Route: PO, Drug form: TAB, Q12H, Dosing Weight 77.273, kg, Start d ate: 02/19/15 9:00:00, Duration: 30 day, Stop date: 03/20/15 21:00:00 Notes: (Same as: Pepcid) Start Date: 02/19/15 Stop Date: 02/20/15 Status: Discontinued Plavix 300 mg, Route: PO, Drug form: TAB, ONCE, Dosing Weight 77.273, kg, Start date: 0 02/19/15 10:26:00, Duration: 1 doses or times, Stop date: 02/19/15 10:26:00 Start Date: 02/19/15 Stop Date: 02/19/15 Status: Completed Ranexa 500 mg, PO, BID, 0 Refill(s) Start Date: 02/19/15 Status: Ordered rosuvastatin 20 mg, Route: PO, Drug form: TAB, Bedtime, Dosing Weight 77.273, kg, Start date: 02/19/15 21:00:00, Duration: 30 day, Stop date: 03/20/15 21:00:00 Start Date: 02/19/15 Stop Date: 02/19/15 Status: Canceled Results ELECTROLYTES Most recent to 1 oldest [Reference Range]: Sodium Lvl [135-145 139 mEq/L mEq/L] (02/19/15 1:37 PM) Potassium Lvl 4.0 mEq/L [3.5-5.1 mEq/L] (02/19/15 1:37 PM) Chloride Lvl [95-109 106 mEq/L mEq/L] (02/19/15 1:37 PM) CO2 [24-32 mEq/L] 26 mEq/L (02/19/15 1:37 PM) AGAP [10.0-20.0 11.0 mEq/L mEq/L] (02/19/15 1:37 PM) CHEM PANEL Most recent to 1 oldest [Reference Range]: Creatinine Lvl 1.3 mg/dL [0.5-1.4 mg/dL] (02/19/15 1:37 PM) eGFR 49 mL/min/1.73m2 1 *NA* (02/19/15 1:37 PM) BUN [7-22 mg/dL] 29 mg/dL *HI* (02/19/15 1:37 PM) Glucose Lvl [70-99 111 mg/dL mg/dL] *HI* (02/19/15 1:37 PM) Calcium Lvl 8.3 mg/dL [8.5-10.5 mg/dL] *LOW* (02/19/15 1:37 PM) 1Result Comment: The eGFR is calculated using [...] be mul tiplied by the estimated BMI. HEMATOLOGY Most recent to 1 oldest [Reference Range]: Hgb [14.0-18.0 g/dL] 14.2 g/dL (02/19/15 1:37 PM) Immunizations No data available for this section [...]
--- OUTSIDE RECORDS SUMMARY | 2018-07-01 11:39 | XMS REPORT | Summary of Care ---
Author Author [facility] Organization [facility] Address Unknown Phone Unavailable Encounter HQ Alfred(FIN) [id number] Date(s): 07/30/15 - 08/28/15 [facility] [address] [place] [address]- [phone] Discharge Disposition: Home Attending Physician: Bereket Mariscal [...] 1 2 oldest [Reference Range]: PT [12.0-14.7 24.0 seconds 25.3 seconds seconds] *HI* *HI* (08/21/15 10:10 AM) (07/30/15 10:54 AM) INR [0.85-1.17] 2.11 2.26 *HI* *HI* (08/21/15 10:10 AM) (07/30/15 10:54 AM) Immunizations No data available [...]
--- OUTSIDE RECORDS SUMMARY | 2018-07-01 11:39 | XMS REPORT | Summary of Care ---
Author Author [facility] Organization [facility] Address Unknown Phone Unavailable Encounter HQ Alfred(CHIDI) [id number] Date(s): 04/02/15 - 05/01/15 [facility] [address] [place] [address]- Discharge Disposition: Home Attending Physician: Bereket Mariscal [...] recent to 1 2 oldest [Reference Range]: WBC [3.7-10.4 K/CMM] 6.1 K/CMM (04/02/15 10:05 AM) RBC [4.70-6.10 4.24 M/CMM M/CMM] *LOW* (04/02/15 10:05 AM) Hgb [14.0-18.0 g/dL] 13.4 g/dL *LOW* (04/02/15 10:05 AM) Hct [42.0-54.0 %] 41.7 % *LOW* (04/02/15 10:05 AM) MCV [80.0-94.0 fL] 98.2 fL *HI* (04/02/15 10:05 AM) MCH [27.0-31.0 pg] 31.6 pg *HI* (04/02/15 10:05 AM) MCHC [32.0-36.0 32.2 g/dL g/dL] (04/02/15 10:05 AM) RDW [11.5-14.5 %] 14.5 % (04/02/15 10:05 AM) Platelet [133-450 57 K/CMM K/CMM] *LOW* (04/02/15 10:05 AM) MPV [7.4-10.4 fL] 10.5 fL *HI* (04/02/15 10:05 AM) Segs [45.0-75.0 %] 51.2 % (04/02/15 10:05 AM) Lymphocytes 41.4 % [20.0-40.0 %] *HI* (04/02/15 10:05 AM) Monocytes [2.0-12.0 6.2 % %] (04/02/15 10:05 AM) Eosinophils [0.0-4.0 0.9 % %] (04/02/15 10:05 AM) Basophils [0.0-1.0 0.3 % %] (04/02/15 10:05 AM) Segs-Bands # 3.1 K/CMM [1.5-8.1 K/CMM] (04/02/15 10:05 AM) Lymphocytes # 2.5 K/CMM [1.0-5.5 K/CMM] (04/02/15 10:05 AM) Monocytes # [0.0-0.8 0.4 K/CMM K/CMM] (04/02/15 10:05 AM) Eosinophils # 0.1 K/CMM [0.0-0.5 K/CMM] (04/02/15 10:05 AM) PT [12.0-14.7 26.7 seconds 22.2 seconds seconds] *HI* *HI* (05/01/15 9:10 AM) (04/02/15 10:05 AM) INR [0.85-1.17] 2.43 1.91 *HI* *HI* (05/01/15 9:10 AM) (04/02/15 10:05 AM) Immunizations No data available for this [...]
--- OUTSIDE RECORDS SUMMARY | 2018-07-01 11:39 | XMS REPORT | Summary of Care ---
Author Author [facility] Organization [facility] Address Unknown Phone Unavailable Encounter HQ Alfred(FIN) [id number] Date(s): 01/31/15 - 03/01/15 [facility] [address] [place] [address]- Discharge Disposition: Home Attending Physician: Bereket Mariscal [...] to 1 oldest [Reference Range]: PT [12.0-14.7 24.2 seconds seconds] *HI* (01/31/15 9:30 AM) INR [0.85-1.17] 2.11 *HI* (01/31/15 9:30 AM) Immunizations No data available for this [...]
--- OUTSIDE RECORDS SUMMARY | 2018-07-01 11:39 | XMS REPORT | Summary of Care ---
Author Organization Unknown Address Unknown Phone Unavailable Encounter HQ Yayo_joe(FIN) [id number] Date(s): 06/28/14 - 07/27/14 [facility] [address] Discharge Disposition: Home Physician Attending: Bereket Mariscal MD Reason for Visit 403.01 Problem List No data available for this section Allergies, Adverse Reactions, Alerts Substance Reaction Severity Status Allergy Unverified NO GENERICS Active Levaquin Active Nitroglycerin Patch Active penicillin Active Procanbid Active Medications No data available for this section Results HEMATOLOGY Most recent to 1 oldest [Reference Range]: PT [12.0-14.7 22.7 seconds seconds] *HI* (06/28/14 9:45 AM) INR [0.85-1.17] 1.95 1 *HI* (06/28/14 9:45 AM) 1Interpretive Data: RECOMMENDED RANGES FOR PROTIME INR: 2.0-3.0 for most medical and surgical thromboembolic states. 2.5-3.5 for artificial heart valves and recurrent embolism. INR SHOULD BE USED ONLY FOR PATIENTS ON STABLE ANTICOAGULANT THERAPY. Medications Administered During Your Visit No data available for this section Immunizations No data available for this section
--- OUTSIDE RECORDS SUMMARY | 2018-07-01 11:39 | XMS REPORT | Summary of Care ---
Author Author [facility] Organization [facility] Address Unknown Phone Unavailable Encounter HQ Yayo_joe(CHIDI) [id number] Date(s): 12/29/14 - 01/27/15 [facility] [address] [place] [address]- Discharge Disposition: Home Attending Physician: Bereket Mariscal [...] to 1 oldest [Reference Range]: PT [12.0-14.7 23.3 seconds seconds] *HI* (12/29/14 9:51 AM) INR [0.85-1.17] 2.01 *HI* (12/29/14 9:51 AM) Immunizations No data available for this section Procedures No data available for this section Social History No data available for this section Assessment and Plan No data available for this section
--- OUTSIDE RECORDS SUMMARY | 2018-07-01 11:39 | XMS REPORT | Summary of Care ---
Author Author [facility] Organization [facility] Address Unknown Phone Unavailable Encounter GRAY Simon(CHIDI) [id number] Date(s): 09/08/15 - 09/14/15 [facility] [address] [place] [address]- Final: Fracture of unspecified part of neck of right femur, initial encounter fo r closed fracture Discharge Disposition: DC/DISC TO REHAB Attending Physician: Faby Walker MD Admitting Physician: Faby Walker MD Vital Signs 1 2 3 Most recent to oldest [Reference Range]: 177.8 cm (09/08/15 2:24 PM) 180.34 cm (09/08/15 6:25 AM) Height 97.5 DegF (09/14/15 3:26 PM) 97.9 DegF (09/14/15 11:32 AM) 97.7 DegF (09/14/15 7:51 AM) Temperature Oral [96.4-99.1 DegF] 124/71 mmHg (09/14/15 3:26 PM) 94/58 mmHg (09/14/15 11:32 AM) 123/76 mmHg (09/14/15 7:51 AM) Blood Pressure [90-140/60-90 mmHg] 18 BRMIN (09/14/15 10:33 PM) 18 BRMIN (09/14/15 8:12 AM) 17 BRMIN (09/14/15 7:51 AM) Respiratory Rate [14-20 BRMIN] 95 bpm (09/14/15 3:26 PM) 76 bpm (09/14/15 11:32 AM) 90 bpm (09/14/15 7:51 AM) Peripheral Pulse Rate [60-100 bpm] 80 kg (09/08/15 2:24 PM) 78.182 kg (09/08/15 6:25 AM) Weight 25.31 m2 (09/08/15 2:24 PM) 24.04 m2 (09/08/15 6:25 AM) Body Mass Index Problem List Condition Effective Dates Status Health Status Informant Atrial Resolved fibrillation(Confirm ed) 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 Allergies, Adverse Reactions, Alerts Substance Reaction Severity Status Allergy Unverified NO GENERICS Active Levaquin Active Nitroglycerin Patch Active penicillin Active Procanbid Active Medications 1/2 NS 1,000 mL 1,000 mL, Rate: 75 ml/hr, Infuse over: 13.3 hr, Route: IV, Dosing Weight 80 kg, Total Volume: 1,000, Start date: 09/10/15 21:08:00, Duration: 30 day, Stop date: 10/10/15 21:07:00 Start Date: 09/10/15 Stop Date: 09/12/15 Status: Discontinued acetaminophen-codeine 300 mg-30 mg oral tablet 2 tab, Route: PO, Drug Form: TAB, Dosing Weight 80, kg, Q4H, PRN Pain Score 7-10 , Start date: 09/14/15 11:19:00, Duration: 30 day, Stop date: 10/14/15 11:18:00 Notes: Do not exceed 4gm/day of acetaminophen. (Same as: Tylenol with Codeine # 3) Start Date: 09/14/15 Stop Date: 09/14/15 Status: Discontinued acetaminophen-codeine 300 mg-30 mg oral tablet 1 tab, Route: PO, Drug Form: TAB, Dosing Weight 80, kg, Q4H, PRN Pain Score 4-6, Start date: 09/14/15 11:19:00, Duration: 30 day, Stop date: 10/14/15 11:18:00 Notes: Do not exceed 4gm/day of acetaminophen. (Same as: Tylenol with Codeine # 3) Start Date: 09/14/15 Stop Date: 09/14/15 Status: Discontinued acetaminophen-codeine 300 mg-30 mg oral tablet 1 tab, PO, Q4H, PRN Pain Score 4-6, 0 Refill(s) Start Date: 09/14/15 Status: Suspended albumin human 25 gm, 100 mL, Route: IV, Drug form: INJ, ONCE, Dosing Weight 80, kg, Start date : 09/11/15 13:45:00, Stop date: 09/11/15 13:45:00 Notes: Lot #: Mfg: (Same as: Plasbumin-25)"blood pr oduct derivative"WASTE: F/P - Red; E -Red MEDICATION WASTE Product Size: 25 gmProduct Wasted: ___ gm Start Date: 09/11/15 Stop Date: 09/11/15 Status: Completed albumin human 25% intravenous solution 25 gm, 100 mL, Route: IV, Drug form: INJ, ONCE, Dosing Weight 80, kg, Start date : 09/11/15 10:39:00, Stop date: 09/11/15 10:39:00 Notes: Lot #: Mfg: (Same as: Plasbumin-25)"blood pr oduct derivative"WASTE: F/P - Red; E -Red MEDICATION WASTE Product Size: 25 gmProduct Wasted: ___ gm Start Date: 09/11/15 Stop Date: 09/11/15 Status: Voided With Results albumin human 5% intravenous solution 12.5 gm, 250 mL, 500 ml/hr, Route: IV, Drug Form: INJ, Dosing Weight 80, kg, ONC E, Start date: 09/10/15 22:43:00, Stop date: 09/10/15 22:43:00 Notes: LOT#: Mfg: WASTE: F/P - Red; E -Red (Same a s: Albuminar)"blood product derivative" Start Date: 09/10/15 Stop Date: 09/10/15 Status: Completed Aldactone 25 mg, 1 tab, Route: PO, Drug form: TAB, Every Other Day, Dosing Weight 80, kg, Start date: 09/10/15 9:00:00, Duration: 30 day, Stop date: 10/08/15 9:00:00 Notes: (Same As: Aldactone) Start Date: 09/10/15 Stop Date: 09/11/15 Status: Discontinued allopurinol 100 mg, 1 tab, Route: PO, Drug form: TAB, Daily, Dosing Weight 80, kg, Start cynthia e: 09/10/15 9:00:00, Duration: 30 day, Stop date: 10/09/15 9:00:00 Notes: (Same as: Zyloprim) Start Date: 09/10/15 Stop Date: 09/14/15 Status: Discontinued Benadryl 12.5 mg, 0.25 mL, Route: IVP, Drug form: INJ, Q6H, Dosing Weight 80, kg, PRN as needed for itching, Start date: 09/10/15 9:35:00, Duration: 30 day, Stop date: 0 10/10/15 9:34:00 Notes: (Same as: Benadryl) Start Date: 09/10/15 Stop Date: 09/14/15 Status: Discontinued bisacodyl 10 mg, 1 supp, Route: NV, Drug form: SUPP, Daily, Dosing Weight 80, kg, PRN Cons tipation, Start date: 09/10/15 21:08:00, Duration: 30 day, Stop date: 10/10/15 2 1:07:00 Notes: (Same As: Dulcolax, Bisco-Lax) Start Date: 09/10/15 Stop Date: 09/14/15 Status: Discontinued bisacodyl 10 mg rectal suppository 10 mg=1 supp, NV, Daily, PRN Constipation, 0 Refill(s) Start Date: 09/14/15 Status: Suspended Cleocin Phosphate (ANES) (ANES) Route: IV, Drug form: INJ, Start date: 09/10/15 19:11:00, Stop date: 09/10/15 20 :11:00 Start Date: 09/10/15 Stop Date: 09/10/15 Status: Completed clindamycin (SCIP) 600 mg, 50 mL, Route: IVPB, Drug form: INJ, ABXQ6H, Dosing Weight 80, kg, Start date: 09/11/15 1:00:00, Duration: 3 doses or times, Stop date: 09/11/15 13:00:00 Start Date: 09/11/15 Stop Date: 09/11/15 Status: Completed Coreg 6.25 mg, 2 tab, Route: PO, Drug form: TAB, BID, Dosing Weight 80, kg, Start date : 09/11/15 21:00:00, Duration: 30 day, Stop date: 10/11/15 9:00:00 Notes: Give with food. (Same As: Coreg) Start Date: 09/11/15 Stop Date: 09/14/15 Status: Discontinued Coreg 25 mg, 2 tab, Route: PO, Drug form: TAB, BID, Dosing Weight 80, kg, Start date: 09/09/15 17:00:00, Duration: 30 day, Stop date: 10/09/15 9:00:00 Notes: Give with food. (Same As: Coreg) Start Date: 09/09/15 Stop Date: 09/11/15 Status: Discontinued Demadex 10 mg, 1 tab, Route: PO, Drug form: TAB, Daily, Dosing Weight 80, kg, Start date : 09/10/15 9:00:00, Duration: 30 day, Stop date: 10/09/15 9:00:00 Notes: (Same As: Demadex) Start Date: 09/10/15 Stop Date: 09/12/15 Status: Discontinued dexamethasone 4 mg, 1 mL, Route: IV, Drug form: INJ, ONCE, Dosing Weight 80, kg, Start date: 0 09/10/15 21:08:00, Stop date: 09/10/15 21:08:00 Notes: Concentration: 4mg/ml Start Date: 09/10/15 Stop Date: 09/11/15 Status: Discontinued dexamethasone 2 mg, 0.5 tab, Route: PO, Drug form: TAB, ONCE, Dosing Weight 80, kg, Start date : 09/10/15 21:08:00, Stop date: 09/10/15 21:08:00 Notes: Give with food.(Same As: Decadron) Start Date: 09/10/15 Stop Date: 09/11/15 Status: Discontinued dexamethasone 4 mg, 1 tab, Route: PO, Drug form: TAB, ONCE, Dosing Weight 80, kg, Start date: 09/10/15 21:08:00, Stop date: 09/10/15 21:08:00 Notes: Give with food.(Same As: Decadron) Start Date: 09/10/15 Stop Date: 09/11/15 Status: Discontinued dexamethasone 10 mg, 2.5 mL, Route: IV, Drug form: INJ, ONCE, Dosing Weight 80, kg, Start date : 09/10/15 21:08:00, Stop date: 09/10/15 21:08:00 Notes: Concentration: 4mg/ml Start Date: 09/10/15 Stop Date: 09/10/15 Status: Completed Dextrose 5% with 0.9% NaCl IV 1,000 mL 1,000 mL, Rate: 75 ml/hr, Infuse over: 13.3 hr, Route: IV, Dosing Weight 78.182 kg, Total Volume: 1,000, Start date: 09/08/15 11:00:00, Duration: 30 day, Stop d ate: 10/08/15 10:59:00 Start Date: 09/08/15 Stop Date: 09/12/15 Status: Discontinued Dextrose 50% Syringe 12.5 gm, 25 mL, Route: IVP, Drug Form: INJ, Dosing Weight 80, kg, PRN, PRN Blood Glucose Results, Start date: 09/11/15 10:11:00, Duration: 30 day, Stop date: 10:10:00 Start Date: 09/11/15 Stop Date: 09/14/15 Status: Discontinued Dextrose 50% Syringe 25 gm, 50 mL, Route: IVP, Drug Form: INJ, Dosing Weight 80, kg, PRN, PRN Blood G lucose Results, Start date: 09/11/15 10:11:00, Duration: 30 day, Stop date: 09/21 07/07 10:10:00 Start Date: 09/11/15 Stop Date: 09/14/15 Status: Discontinued digoxin 0.25 mg, 1 tab, Route: PO, Drug form: TAB, Every Other Day, Dosing Weight 80, kg , Start date: 09/10/15 9:00:00, Duration: 30 day, Stop date: 10/08/15 9:00:00 Notes: Take on an Empty Stomach (Same as: Lanoxin) Start Date: 09/10/15 Stop Date: 09/14/15 Status: Discontinued Dilaudid 0.5 mg, 0.5 mL, Route: IV, Drug form: INJ, Q2H, Dosing Weight 80, kg, PRN Other -See Comment, Start date: 09/10/15 21:08:00, Duration: 30 day, Stop date: 21:07:00, Breakthrough Pain, level 6-10, give 15 minutes after PO pain narcot ic if pain... Start Date: 09/10/15 Stop Date: 09/14/15 Status: Discontinued Dilaudid 0.2 mg, 0.2 mL, Route: IV, Drug form: INJ, Q2H, Dosing Weight 80, kg, PRN Other -See Comment, Start date: 09/10/15 21:08:00, Duration: 30 day, Stop date: 21:07:00, Breakthrough Pain, level 1-5, give 15 minutes after PO pain narcoti c if pain n... Start Date: 09/10/15 Stop Date: 09/14/15 Status: Discontinued diphenhydrAMINE 12.5 mg, 0.5 tab, Route: PO, Drug form: TAB, Q6H, Dosing Weight 80, kg, PRN Itch ing, Start date: 09/10/15 21:08:00, Duration: 30 day, Stop date: 10/10/15 21:07: 00 Start Date: 09/10/15 Stop Date: 09/14/15 Status: Discontinued docusate 100 mg, 1 cap, Route: PO, Drug form: CAP, BID, Dosing Weight 80, kg, Start date: 09/11/15 9:00:00, Duration: 30 day, Stop date: 10/10/15 17:00:00 Notes: (Same as: Colace) (Do Not Crush) Start Date: 09/11/15 Stop Date: 09/14/15 Status: Discontinued ePHEDrine (ANES) Route: IV, Drug form: INJ, ONCE, Stop date: 09/10/15 21:32:00 Start Date: 09/10/15 Stop Date: 09/10/15 Status: Completed fentaNYL (ANES) Route: IV, Drug form: INJ, ONCE, Stop date: 09/10/15 19:56:00 Start Date: 09/10/15 Stop Date: 09/10/15 Status: Completed Flagyl 500 mg, 100 mL, Route: IVPB, Drug form: INJ, ABXQ8H, Dosing Weight 80, kg, Start date: 09/13/15 9:00:00, Duration: 30 day, Stop date: 10/13/15 1:00:00 Notes: (Same as: Flagyl) Avoid alcohol. Start Date: 09/13/15 Stop Date: 09/14/15 Status: Discontinued furosemide (ANES) Route: IV, Drug form: INJ, ONCE, Stop date: 09/10/15 21:35:00 Start Date: 09/10/15 Stop Date: 09/10/15 Status: Completed glucagon 1 mg, Route: IM, Drug form: PDR/INJ, PRN, Dosing Weight 80, kg, PRN Blood Glucos e Results, Start date: 09/11/15 10:11:00, Duration: 30 day, Stop date: 10/11/15 10:10:00 Start Date: 09/11/15 Stop Date: 09/14/15 Status: Discontinued glycopyrrolate (ANES) Route: IV, Drug form: INJ, ONCE, Stop date: 09/10/15 21:35:00 Start Date: 09/10/15 Stop Date: 09/10/15 Status: Completed glycopyrrolate (ANES) Route: IV, Drug form: INJ, ONCE, Stop date: 09/10/15 20:09:00 Start Date: 09/10/15 Stop Date: 09/10/15 Status: Completed hydromorphone (ANES) Route: IV, Drug form: INJ, ONCE, Stop date: 09/10/15 20:09:00 Start Date: 09/10/15 Stop Date: 09/10/15 Status: Completed insulin aspart 15 unit, 0.15 mL, Route: SUB-Q, Drug form: SOLN, TID-Before Meals, Dosing Weight 80, kg, PRN Blood Glucose Results, Start date: 09/11/15 10:11:00, Duration: 30 day, Stop date: 10/11/15 10:10:00 Notes: Roll in palms of hands gently; Do not shake vigorously. (Same as: Jamin Gill)"single patient use only"WASTE: F/P - Black; E - Municipal Trash Bin Stable f or 28 days at room temperature.Expires in days from Date Start Date: 09/11/15 Stop Date: 09/14/15 Status: Discontinued insulin aspart 9 unit, 0.09 mL, Route: SUB-Q, Drug form: SOLN, TID-Before Meals, Dosing Weight 80, kg, PRN Blood Glucose Results, Start date: 09/11/15 10:11:00, Duration: 30 d ay, Stop date: 10/11/15 10:10:00 Notes: Roll in palms of hands gently; Do not shake vigorously. (Same as: Jamin Gill)"single patient use only"WASTE: F/P - Black; E - Municipal Trash Bin Stable f or 28 days at room temperature.Expires in days from Date Start Date: 09/11/15 Stop Date: 09/14/15 Status: Discontinued insulin aspart 12 unit, 0.12 mL, Route: SUB-Q, Drug form: SOLN, TID-Before Meals, Dosing Weight 80, kg, PRN Blood Glucose Results, Start date: 09/11/15 10:11:00, Duration: 30 day, Stop date: 10/11/15 10:10:00 Notes: Roll in palms of hands gently; Do not shake vigorously. (Same as: Jamin Gill)"single patient use only"WASTE: F/P - Black; E - Municipal Trash Bin Stable f or 28 days at room temperature.Expires in days from Date Start Date: 09/11/15 Stop Date: 09/14/15 Status: Discontinued insulin aspart 3 unit, 0.03 mL, Route: SUB-Q, Drug form: SOLN, TID-Before Meals, Dosing Weight 80, kg, PRN Blood Glucose Results, Start date: 09/11/15 10:11:00, Duration: 30 d ay, Stop date: 10/11/15 10:10:00 Notes: Roll in palms of hands gently; Do not shake vigorously. (Same as: Jamin Gill)"single patient use only"WASTE: F/P - Black; E - Municipal Trash Bin Stable f or 28 days at room temperature.Expires in days from Date Start Date: 09/11/15 Stop Date: 09/14/15 Status: Discontinued insulin aspart 6 unit, 0.06 mL, Route: SUB-Q, Drug form: SOLN, TID-Before Meals, Dosing Weight 80, kg, PRN Blood Glucose Results, Start date: 09/11/15 10:11:00, Duration: 30 d ay, Stop date: 10/11/15 10:10:00 Notes: Roll in palms of hands gently; Do not shake vigorously. (Same as: Jamin Gill)"single patient use only"WASTE: F/P - Black; E - Municipal Trash Bin Stable f or 28 days at room temperature.Expires in days from Date Start Date: 09/11/15 Stop Date: 09/14/15 Status: Discontinued Insulin regular 7 unit, 0.07 mL, Route: IV, Drug form: INJ, ONCE, Dosing Weight 80, kg, Start da te: 09/11/15 10:07:00, Stop date: 09/11/15 10:07:00 Notes: (Same as: Humulin R and NovoLIN R)WASTE: F/P - Black; E - Municipal Trash Bin (Do not shake) Start Date: 09/11/15 Stop Date: 09/11/15 Status: Completed Lactated Ringers Injection IV (ANES) (ANES) Route: IV, Total Volume: 1,000, Start date: 09/10/15 20:35:00, Stop date: 21:35:00 Start Date: 09/10/15 Stop Date: 09/10/15 Status: Completed lidocaine (ANES) Route: IV, Drug form: INJ, ONCE, Stop date: 09/10/15 20:21:00 Start Date: 09/10/15 Stop Date: 09/10/15 Status: Completed Lovenox 40 mg, 0.4 mL, Route: SUB-Q, Drug form: INJ, [id number], Dosing Weight 80, kg, Sta rt date: 09/14/15 21:00:00, Duration: 30 day, Stop date: 10/13/15 21:00:00 Notes: (Same as: Lovenox) Start Date: 09/14/15 Stop Date: 09/14/15 Status: Canceled metroNIDAZOLE intravenous solution 500 gf=522 mL, IVPB, ABXQ8H, 0 Refill(s) Start Date: 09/14/15 Status: Suspended Micro-K 10 10 mEq, 1 tab, Route: PO, Drug form: ERTAB, BID, Dosing Weight 80, kg, Start cynthia e: 09/09/15 17:00:00, Duration: 30 day, Stop date: 10/09/15 9:00:00 Notes: (Same as: K-Dur 10)"Do Not Crush" With food and full glass of water Start Date: 09/09/15 Stop Date: 09/14/15 Status: Discontinued morphine Sulfate 4 mg, Route: IVP, Drug form: INJ, ONCE, Dosing Weight 78.182, kg, Priority: STAT , Start date: 09/08/15 7:35:00, Stop date: 09/08/15 7:35:00 Start Date: 09/08/15 Stop Date: 09/08/15 Status: Completed morphine Sulfate 3 mg, 1.5 mL, Route: IVP, Drug form: INJ, Q3H, Dosing Weight 78.182, kg, PRN Carlos n Score 7-10, Start date: 09/10/15 9:04:00, Duration: 30 day, Stop date: 6 9:03:00 Notes: (Same as:MORPhine Sulfate) Start Date: 09/10/15 Stop Date: 09/14/15 Status: Discontinued morphine Sulfate 4 mg, Route: IVP, Drug form: INJ, ONCE, Dosing Weight 78.182, kg, Priority: STAT , Start date: 09/08/15 11:04:00, Stop date: 09/08/15 11:04:00 Start Date: 09/08/15 Stop Date: 09/08/15 Status: Completed morphine Sulfate 4 mg, Route: IVP, Drug form: INJ, ONCE, Dosing Weight 78.182, kg, Priority: STAT , Start date: 09/08/15 7:08:00, Stop date: 09/08/15 7:08:00 Start Date: 09/08/15 Stop Date: 09/08/15 Status: Completed morphine Sulfate 4 mg, 2 mL, Route: IVP, Drug form: INJ, Q4H, Dosing Weight 78.182, kg, PRN Pain Score 7-10, Start date: 09/08/15 11:00:00, Duration: 30 day, Stop date: 10/08/15 10:59:00 Notes: (Same as:MORPhine Sulfate) Start Date: 09/08/15 Stop Date: 09/10/15 Status: Discontinued neostigmine (ANES) Route: IV, Drug form: INJ, ONCE, Stop date: 09/10/15 21:35:00 Start Date: 09/10/15 Stop Date: 09/10/15 Status: Completed neostigmine (ANES) Route: IV, Drug form: INJ, ONCE, Stop date: 09/10/15 20:09:00 Start Date: 09/10/15 Stop Date: 09/10/15 Status: Completed [place] 10/325 oral tablet 1 tab, Route: PO, Drug Form: TAB, Dosing Weight 80, kg, Q3H, PRN Pain Score 4-6, Start date: 09/10/15 21:08:00, Duration: 30 day, Stop date: 10/10/15 21:07:00 Notes: Do not exceed 4gm/day of acetaminophen. (Same as: [place] 325/10) Start Date: 09/10/15 Stop Date: 09/11/15 Status: Discontinued [place] 5/325 oral tablet 1 tab, Route: PO, Drug Form: TAB, Dosing Weight 80, kg, Q3H, PRN Pain Score 1-3, Start date: 09/10/15 21:08:00, Duration: 30 day, Stop date: 10/10/15 21:07:00 Notes: Do not exceed 4gm/day of acetaminophen. (Same as: [place] 325/10) Start Date: 09/10/15 Stop Date: 09/14/15 Status: Discontinued [place] 5/325 oral tablet 1 tab, Route: PO, Drug Form: TAB, Dosing Weight 80, kg, Q3H, PRN Pain Score 1-5, prn pain, Start date: 09/09/15 9:56:00, Duration: 30 day, Stop date: 10/09/15 9 :55:00 Notes: (Same as: [place] 325/5) Do not exceed 4gm/day of acetaminophen. Start Date: 09/09/15 Stop Date: 09/09/15 Status: Discontinued [place] 5/325 oral tablet 1 tab, Route: PO, Drug Form: TAB, Dosing Weight 80, kg, Q4H, PRN Pain Score 1-3, Start date: 09/09/15 10:19:00, Duration: 30 day, Stop date: 10/09/15 10:18:00 Notes: (Same as: [place] 325/5) Do not exceed 4gm/day of acetaminophen. Start Date: 09/09/15 Stop Date: 09/14/15 Status: Discontinued [place] 5/325 oral tablet 1 tab, Route: PO, Drug Form: TAB, Dosing Weight 80, kg, Q3H, PRN Pain Score 1-5, prn pain, Start date: 09/09/15 10:18:00, Duration: 30 day, Stop date: 10/09/15 10:17:00 Notes: (Same as: [place] 325/5) Do not exceed 4gm/day of acetaminophen. Start Date: 09/09/15 Stop Date: 09/09/15 Status: Discontinued NS 1,000 mL 1,000 mL, Rate: 100 ml/hr, Infuse over: 10 hr, Route: IV, Dosing Weight 80 kg, T otal Volume: 1,000, Start date: 09/12/15 8:03:00, Duration: 30 day, Stop date: 0 10/12/15 8:02:00 Start Date: 09/12/15 Stop Date: 09/14/15 Status: Discontinued NS 250 mL 250 mL, Rate: 25 ml/hr, Infuse over: 10 hr, Route: IV, Dosing Weight 80 kg, Tota l Volume: 250, Start date: 09/10/15 10:22:00, Duration: 1 day, Stop date: 10:21:00 Start Date: 09/10/15 Stop Date: 09/10/15 Status: Discontinued ondansetron 4 mg, 2 mL, Route: IVP, Drug form: INJ, Q6H, Dosing Weight 78.182, kg, PRN Nause a & Vomiting, Start date: 09/08/15 11:00:00, Duration: 30 day, Stop date: 10/08/15 10:59:00 Notes: (Same as: Barbara) MEDICATION WASTE Product Size: 4 mgProduct Was dannie: ___ mg Start Date: 09/08/15 Stop Date: 09/10/15 Status: Discontinued ondansetron (ANES) Route: IV, Drug form: INJ, ONCE, Stop date: 09/10/15 21:35:00 Start Date: 09/10/15 Stop Date: 09/10/15 Status: Completed ondansetron (ANES) Route: IV, Drug form: INJ, ONCE, Stop date: 09/10/15 20:09:00 Start Date: 09/10/15 Stop Date: 09/10/15 Status: Completed Pepcid 20 mg oral tablet 20 mg, 1 tab, Route: PO, Drug form: TAB, Q12H, Dosing Weight 80, kg, Start date: 09/14/15 21:00:00, Duration: 30 day, Stop date: 10/14/15 9:00:00 Notes: (Same as: Pepcid) Start Date: 09/14/15 Stop Date: 09/14/15 Status: Canceled Percocet 10/325 oral tablet 1 tab, Route: PO, Drug Form: TAB, Dosing Weight 80, kg, Q3H, PRN Pain Score 7-10 , Start date: 09/10/15 21:08:00, Duration: 30 day, Stop date: 10/10/15 21:07:00 Notes: Do not exceed 4gm/day of acetaminophen. (Same as: Percocet-10/325) Start Date: 09/10/15 Stop Date: 09/14/15 Status: Discontinued phenylephrine (ANES) Route: IV, Drug form: INJ, ONCE, Stop date: 09/10/15 21:32:00 Start Date: 09/10/15 Stop Date: 09/10/15 Status: Completed propofol (ANES) Route: IV, Drug form: INJ, ONCE, Stop date: 09/10/15 20:21:00 Start Date: 09/10/15 Stop Date: 09/10/15 Status: Completed Proscar 5 mg, 1 tab, Route: PO, Drug form: TAB, Daily, Dosing Weight 80, kg, Start date: 09/10/15 9:00:00, Stop date: 10/09/15 9:00:00 Notes: (Same as: Proscar) "Do Not Crush"Women of childbearing age should not kaycee ch or handle broken tablets Start Date: 09/10/15 Stop Date: 09/14/15 Status: Discontinued rocuronium (ANES) Route: IV, Drug form: INJ, ONCE, Stop date: 09/10/15 20:21:00 Start Date: 09/10/15 Stop Date: 09/10/15 Status: Completed Saline Flush 0.9% 10 ml, Route: IVP, Drug Form: INJ, Dosing Weight 78.182, kg, PRN, PRN Line Flush , Start date: 09/08/15 11:00:00, Duration: 30 day, Stop date: 10/08/15 10:59:00 Notes: (Same as: BD Posiflush) Start Date: 09/08/15 Stop Date: 09/14/15 Status: Discontinued Synthroid 50 microgram, 1 tab, Route: PO, Drug form: TAB, Daily, Dosing Weight 80, kg, Sta rt date: 09/10/15 6:30:00, Duration: 30 day, Stop date: 10/09/15 6:30:00 Notes: Take 1 hour before or 2 hours after meal; Enteral feeds may interefere wi th the absorption of this medication.(Same as:Levothroid, Synthroid) Start Date: 09/10/15 Stop Date: 09/14/15 Status: Discontinued vancomycin (ANES) (ANES) Route: IV, Drug form: INJ, Start date: 09/10/15 19:31:00, Stop date: 09/10/15 20 :31:00 Start Date: 09/10/15 Stop Date: 09/10/15 Status: Completed vancomycin (SCIP) + Sodium Chloride 0.9% IV 250 mL 1 gm, Route: IVPB, [id number], Dosing Weight 80, kg, Time Critical Medication, Star t date: 09/11/15 7:30:00, Duration: 2 doses or times, Stop date: 09/11/15 19:30: 00, Pharmacy to adjust dose for renal function Notes: TIME CRITICAL MEDICATION(Same As: Vancocin)Infusion rate< 1000 mg: infuse over 1 [id number] - 1500 mg: infuse over 1.5 [id number] - 2000 mg: infuse over 2 hours> 2001 mg: infuse over 2.5 hours MEDICATION WASTE Product Size: 1000 mgProduct Wasted: ___ mg Start Date: 09/11/15 Stop Date: 09/11/15 Status: Completed Vitamin K1 5 mg, 5 mL, Route: PO, Drug form: SUSP, ONCE, Start date: 09/09/15 13:39:00, Sto p date: 09/09/15 13:39:00 Notes: Same as: Vitamin K, MephytonCombine FILTERED phytonadione injection (tot al 50 mg/5 mL)with Simple Syrup (45mL) in willem bottle. Shake well prior to dis pensing.Expiration: 90 days at [facility] Start Date: 09/09/15 Stop Date: 09/09/15 Status: Completed Vitamin K1 5 mg, 1 tab, Route: PO, Drug form: TAB, ONCE, Dosing Weight 80, kg, Start date: 09/09/15 12:05:00, Duration: 1 doses or times, Stop date: 09/09/15 12:05:00 Notes: (Same as: Mephyton, Vitamin K) Start Date: 09/09/15 Stop Date: 09/09/15 Status: Deleted Vitamin K1 2.5 mg, 2.5 mL, Route: PO, Drug form: SUSP, ONCE, Dosing Weight 80, kg, Start da te: 09/09/15 18:56:00, Duration: 1 doses or times, Stop date: 09/09/15 18:56:00 Notes: Same as: Vitamin K, MephytonCombine FILTERED phytonadione injection (tot al 50 mg/5 mL)with Simple Syrup (45mL) in willem bottle. Shake well prior to dis pensing.Expiration: 90 days at [facility] Start Date: 09/09/15 Stop Date: 09/09/15 Status: Completed warfarin 5 mg, 1 tab, Route: PO, Drug form: TAB, Daily, Dosing Weight 80, kg, Start date: 09/11/15 1:00:00, Duration: 30 day, Stop date: 10/10/15 17:00:00 Notes: Nurse to ensure documentation of patient education per anticoagulation po licy.Avoid large intake of vitamin-K containing foods diet.WASTE: F/P - P Waste Black; E - P Waste Black(Same As: Coumadin) Start Date: 09/11/15 Stop Date: 09/14/15 Status: Discontinued Zofran 4 mg, 2 mL, Route: IV, Drug form: INJ, Q6H, Dosing Weight 80, kg, PRN Nausea & Vomiting, Start date: 09/10/15 21:08:00, Duration: 30 day, Stop date: 10/10/15 21:07:00, nausea and vomiting Notes: (Same as: Zofran) MEDICATION WASTE Product Size: 4 mgProduct Was dannie: ___ mg Start Date: 09/10/15 Stop Date: 09/11/15 Status: Discontinued Zofran 4 mg, 2 mL, Route: IV, Drug form: INJ, Q6H, Dosing Weight 80, kg, Start date: 0:00:00, Duration: 4 doses or times, Stop date: 09/11/15 18:00:00 Notes: (Same as: Zofran) MEDICATION WASTE Product Size: 4 mgProduct Was dannie: ___ mg Start Date: 09/11/15 Stop Date: 09/11/15 Status: Completed Zofran 4 mg, Route: IVP, Drug form: INJ, ONCE, Dosing Weight 78.182, kg, Priority: STAT , Start date: 09/08/15 7:20:00, Stop date: 09/08/15 7:20:00 Start Date: 09/08/15 Stop Date: 09/08/15 Status: Completed Results BLOOD BANK RESULTS 1 2 3 Most recent to oldest [Reference Range]: B POS *Unknown* (09/09/15 2:00 PM) ABO/Rh Negative (09/09/15 2:00 PM) Antibody Scrn Product available 1 (09/10/15 9:07 AM) Product available 2 (09/10/15 9:05 AM) Product available (09/09/15 1:11 PM) FFP product Product available 3 (09/10/15 8:43 PM) Product available 4 (09/09/15 1:11 PM) Platelet product Product available (09/09/15 1:11 PM) RBC product 1Result Comment: 09/10/2015 09:58 BETOVSA called to shaka 2Result Comment: 09/10/2015 09:58 ASBHAVSA called to shaka 3Result Comment: 09/10/2015 21:07 [id number] Picked up 4Result Comment: 09/10/2015 19:19 [id number] Picked up ELECTROLYTES 1 2 3 Most recent to oldest [Reference Range]: 143 mEq/L (09/14/15 7:32 AM) 139 mEq/L (09/13/15 4:18 AM) 138 mEq/L (09/12/15 4:33 AM) Sodium Lvl [135-145 mEq/L] 3.8 mEq/L (09/14/15 7:32 AM) 3.9 mEq/L (09/13/15 4:18 AM) 4.0 mEq/L (09/12/15 4:33 AM) Potassium Lvl [3.5-5.1 mEq/L] 112 mEq/L *HI* (09/14/15 7:32 AM) 107 mEq/L (09/13/15 4:18 AM) 106 mEq/L (09/12/15 4:33 AM) Chloride Lvl [95-109 mEq/L] 21 mEq/L *LOW* (09/14/15 7:32 AM) 21 mEq/L *LOW* (09/13/15 4:18 AM) 23 mEq/L *LOW* (09/12/15 4:33 AM) CO2 [24-32 mEq/L] 13.8 mEq/L (09/14/15 7:32 AM) 14.9 mEq/L (09/13/15 4:18 AM) 13.0 mEq/L (09/12/15 4:33 AM) AGAP [10.0-20.0 mEq/L] CHEM PANEL 1 2 3 Most recent to oldest [Reference Range]: 1.11 mg/dL (3/25/16 7:32 AM) 1.55 mg/dL *HI* (09/13/15 4:18 AM) 1.64 mg/dL *HI* (09/12/15 4:33 AM) Creatinine Lvl [0.50-1.40 mg/dL] 59 mL/min/1.73m2 1 *NA* (09/14/15 7:32 AM) 40 mL/min/1.73m2 2 *NA* (09/13/15 4:18 AM) 37 mL/min/1.73m2 3 *NA* (09/12/15 4:33 AM) eGFR 36 mg/dL *HI* (09/14/15 7:32 AM) 49 mg/dL *HI* (09/13/15 4:18 AM) 46 mg/dL *HI* (09/12/15 4:33 AM) BUN [7-22 mg/dL] 99 mg/dL (09/14/15 7:32 AM) 104 mg/dL *HI* (09/13/15 4:18 AM) 133 mg/dL *HI* (09/12/15 4:33 AM) Glucose Lvl [70-99 mg/dL] 7.5 mg/dL *LOW* (09/14/15 7:32 AM) 7.9 mg/dL *LOW* (09/13/15 4:18 AM) 7.9 mg/dL *LOW* (09/12/15 4:33 AM) Calcium Lvl [8.5-10.5 mg/dL] 1Result Comment: The eGFR is calculated using [...] be mul tiplied by the estimated BMI. 2Result Comment: The eGFR is calculated using the [...] be mul tiplied by the estimated BMI. 3Result Comment: The eGFR is calculated using the [...] be mul tiplied by the estimated BMI. CARDIAC ENZYMES 1 2 3 Most recent to oldest [Reference Range]: 156 pg/mL *HI* (09/13/15 4:18 AM) BNP [<=100 pg/mL] URINE AND STOOL 1 2 3 Most recent to oldest [Reference Range]: Slight *ABN* (09/09/15 1:45 PM) UA Turbidity [Clear] Ltyellow *NA* (09/09/15 1:45 PM) UA Color 5.0 (09/09/15 1:45 PM) UA pH [5.0-8.0] 1.010 (09/09/15 1:45 PM) UA Spec Grav [<=1.030] Negative mg/dL *NA* (09/09/15 1:45 PM) UA Glucose [Negative mg/dL] Large *ABN* (09/09/15 1:45 PM) UA Blood [Negative] Negative mg/dL *NA* (09/09/15 1:45 PM) UA Ketones [Negative mg/dL] Negative mg/dL (09/09/15 1:45 PM) UA Protein [Negative mg/dL] <=1.0 mg/dL *NA* (09/09/15 1:45 PM) UA Urobilinogen [0.1-1.0 mg/dL] Negative *NA* (09/09/15 1:45 PM) UA Bili [Negative] Negative (09/09/15 1:45 PM) UA Leuk Est [Negative] Negative (09/09/15 1:45 PM) UA Nitrite [Negative] 95 /HPF *HI* (09/09/15 1:45 PM) UA RBC [0-2 /HPF] Occasional /HPF *NA* (09/09/15 1:45 PM) UA Bacteria [None Seen /HPF] None Seen *NA* (09/09/15 1:45 PM) UA Sq Epi IMMUNOLOGY 1 2 3 Most recent to oldest [Reference Range]: Negative *NA* (09/09/15 4:58 PM) Hep Bs Ag [Negative] Negative *NA* (09/09/15 4:58 PM) Hep B Core IgM [Negative] Negative *NA* (09/09/15 4:58 PM) Hep A IgM [Negative] Negative *NA* (09/09/15 4:58 PM) Hep C Ab HEMATOLOGY 1 2 3 Most recent to oldest [Reference Range]: 8.4 K/CMM (09/14/15 12:00 PM) 12.5 K/CMM *HI* (09/13/15 4:18 AM) 10.1 K/CMM (09/12/15 4:33 AM) WBC [3.7-10.4 K/CMM] 3.55 M/CMM *LOW* (09/14/15 12:00 PM) 3.54 M/CMM *LOW* (09/13/15 4:18 AM) 3.48 M/CMM *LOW* (09/12/15 4:33 AM) RBC [4.70-6.10 M/CMM] 11.1 g/dL *LOW* (09/14/15 12:00 PM) 11.1 g/dL *LOW* (09/13/15 4:18 AM) 11.0 g/dL *LOW* (09/12/15 4:33 AM) Hgb [14.0-18.0 g/dL] 34.6 % *LOW* (09/14/15 12:00 PM) 34.1 % *LOW* (09/13/15 4:18 AM) 33.9 % *LOW* (09/12/15 4:33 AM) Hct [42.0-54.0 %] 97.5 fL *HI* (09/14/15 12:00 PM) 96.3 fL *HI* (09/13/15 4:18 AM) 97.4 fL *HI* (09/12/15 4:33 AM) MCV [80.0-94.0 fL] 31.3 pg *HI* (09/14/15 12:00 PM) 31.4 pg *HI* (09/13/15 4:18 AM) 31.5 pg *HI* (09/12/15 4:33 AM) MCH [27.0-31.0 pg] 32.2 g/dL (09/14/15 12:00 PM) 32.6 g/dL (09/13/15 4:18 AM) 32.3 g/dL (09/12/15 4:33 AM) MCHC [32.0-36.0 g/dL] 14.8 % *HI* (09/14/15 12:00 PM) 14.7 % *HI* (09/13/15 4:18 AM) 14.8 % *HI* (09/12/15 4:33 AM) RDW [11.5-14.5 %] 111 K/CMM *LOW* (09/14/15 12:00 PM) 115 K/CMM *LOW* (09/13/15 4:18 AM) 80 K/CMM *LOW* (09/12/15 4:33 AM) Platelet [133-450 K/CMM] 10.5 fL *HI* (09/14/15 12:00 PM) 10.6 fL *HI* (09/13/15 4:18 AM) 10.5 fL *HI* (09/12/15 4:33 AM) MPV [7.4-10.4 fL] 48.3 % (09/14/15 12:00 PM) 40.8 % *LOW* (09/13/15 4:18 AM) 59.8 % (09/12/15 4:33 AM) Segs [45.0-75.0 %] 45.0 % *HI* (09/14/15 12:00 PM) 52.4 % *HI* (09/13/15 4:18 AM) 32.4 % (09/12/15 4:33 AM) Lymphocytes [20.0-40.0 %] 5.7 % (09/14/15 12:00 PM) 6.5 % (09/13/15 4:18 AM) 7.8 % (09/12/15 4:33 AM) Monocytes [2.0-12.0 %] 0.7 % (09/14/15 12:00 PM) 0.2 % (09/13/15 4:18 AM) 0.6 % (09/10/15 5:56 AM) Eosinophils [0.0-4.0 %] 0.3 % (09/14/15 12:00 PM) 0.1 % (09/13/15 4:18 AM) 0.3 % (09/10/15 5:56 AM) Basophils [0.0-1.0 %] 4.0 K/CMM (09/14/15 12:00 PM) 5.1 K/CMM (09/13/15 4:18 AM) 6.0 K/CMM (09/12/15 4:33 AM) Segs-Bands # [1.5-8.1 K/CMM] 3.8 K/CMM (09/14/15 12:00 PM) 6.5 K/CMM *HI* (09/13/15 4:18 AM) 3.3 K/CMM (09/12/15 4:33 AM) Lymphocytes # [1.0-5.5 K/CMM] 0.5 K/CMM (09/14/15 12:00 PM) 0.8 K/CMM (09/13/15 4:18 AM) 0.8 K/CMM (09/12/15 4:33 AM) Monocytes # [0.0-0.8 K/CMM] 0.1 K/CMM (09/14/15 12:00 PM) 0.1 K/CMM (09/09/15 7:11 AM) 0.1 K/CMM (09/08/15 7:24 AM) Eosinophils # [0.0-0.5 K/CMM] 1+ *ABN* (09/11/15 7:07 AM) Macrocyte [None Seen] 16.3 seconds *HI* (09/14/15 7:32 AM) 16.1 seconds *HI* (09/13/15 9:55 AM) 17.7 seconds *HI* (09/12/15 4:33 AM) PT [12.0-14.7 seconds] 1.28 *HI* (09/14/15 7:32 AM) 1.26 *HI* (09/13/15 9:55 AM) 1.42 *HI* (09/12/15 4:33 AM) INR [0.85-1.17] 31.3 seconds (09/08/15 7:24 AM) PTT [22.9-35.8 seconds] MOLECULAR DIAGNOSTIC 1 2 3 Most recent to oldest [Reference Range]: Positive 1 *ABN* (09/11/15 10:13 PM) C difficile DNA [Negative] 1Result Comment: "Significant Findings called to Shayna James at 1535 09/12/2015 by ss. Read Back OK." Immunizations No data available for this section [...] Smoking Cessation Counseling Yes Assessment and Plan Extracted from: Title: Ortho PN POD#4 Author: Low Ha MD Date: 09/14/15 Progress Daily [facility] Completed: Aug, 12:40 by Low Ha MD RM: 240 - 1P, SE [id number] (: 1930) M Attending: [facility] Walker [facility]: Service: Internal Medicine Reason for Admission: FEMORAL NECK FX Working DRG: Major joint replacement or reattachment of lower extremity w/o SNF Code status: Full Code [Ordered]Current diet: Isolation: Contact [Ordered] Allergies: Allergy Unverified(NO GENERICS), Procanbid, penicillin, Levaquin, Nitroglycerin Patch SUBJECTIVE minimal pain, no complaints OBJECTIVE incision CDI, multiple blisters from adhesives LT I m/l/p/d/fdws +GS TA FHL EHL CR brisk no clinical signs of DVT ASSESSMENT & EXAM s/p Left LESTER 2/2 femur neck fracture PLAN & TREATMENT flagyl for c-dif VSS, Hg stable, acute blood loss anemia chronic thrombocytopenia 2/2 cirrhosis coumadin for DVT prophylaxis OOB w/ PT woundcare for blisters no further orthopedic issues will sign off, please call w/ ?'s 24hr Labs 09/13 1200 WBC8.4 RBC3.55 L Hgb11.1 L Hct34.6 L MCV97.5 H MCH31.3 H MCHC32.2 RDW14.8 H Kfzqkzgz014 L MPV10.5 H Segs48.3 Monocytes5.7 Xbhkgzegaab45.0 H Eosinophils0.7 Basophils0.3 Segs-Bands #4.0 Lymphocytes #3.8 Monocytes #0.5 Eosinophils #0.1 09/13 1109 Glucose RKG155 H 09/13 0732 Glucose Lvl99 BUN36 H Creatinine Lvl1.11 Sodium Tkp056 Potassium Lvl3.8 Chloride Asp651 H CO221 L AGAP13.8 Calcium Lvl7.5 L eGFR59 PT16.3 H INR1.28 H 09/13 0602 Glucose POC91 09/12 2336 Glucose WZK761 H 09/12 1554 Glucose BPN648 H 09/12 0418 STQ699 H VitalsTmp(F)DvahaBQNFMhR2HNW1 09/13 11:3297.96096/58--93--- 09/13 10:28 93 2.0L/m 09/13 09:49----90 09/13 08:12 1897 36% 09/13 07:5197.268500/441062--- 24 Hr Tmax: 98.3F (36.83c) at 09/12 20:15Vital Signs are the last 5 in the past 48 hours. DateWt(kg)Wt(lb)Ht(cm)Ht(in)Method 09/07 (initial) 78.18 172.00Estimated 80.34 71.00Stated I&ORecordInOutBal 08/2523hr Tot 340 0 340 08/2423hr Tot 300 575 -275 Medications (22) Active Scheduled Meds (9): 09/10/15 allopurinol 100 mg PO Daily 09/11/15 carvedilol (Coreg) 6.25 mg PO BID 09/10/15 digoxin 0.25 mg PO Every Other Day 09/11/15 docusate 100 mg PO BID 09/10/15 finasteride (Proscar) 5 mg PO Daily 09/10/15 levothyroxine (Synthroid) 50 microgram PO Daily 09/13/15 metroNIDAZOLE (Flagyl) 500 mg IVPB ABXQ8H 200 ml/hr 09/09/15 potassium chloride (Micro-K 10) 10 mEq PO BID 09/11/15 warfarin 5 mg PO Daily Unscheduled Meds: None PRN Meds (12): 09/11/15 Dextrose 50% in Water IV (Dextrose 50% Syringe) 12.5 gm IVP PRN 09/11/15 Dextrose 50% in Water IV (Dextrose 50% Syringe) 25 gm IVP PRN 09/14/15 acetaminophen-codeine (acetaminophen-codeine 300 mg-30 mg oral tablet) 1 tab PO Q4H 09/14/15 acetaminophen-codeine (acetaminophen-codeine 300 mg-30 mg oral tablet) 2 tab PO Q4H 09/10/15 bisacodyl 10 mg NV Daily 09/11/15 glucagon 1 mg IM PRN 09/11/15 insulin aspart 3 unit SUB-Q TID-Before Meals 09/11/15 insulin aspart 6 unit SUB-Q TID-Before Meals 09/11/15 insulin aspart 9 unit SUB-Q TID-Before Meals 09/11/15 insulin aspart 12 unit SUB-Q TID-Before Meals 09/11/15 insulin aspart 15 unit SUB-Q TID-Before Meals 09/08/15 sodium chloride (Saline Flush 0.9%) 10 ml IVP PRN One Time Meds: None Continuous Infusions (1): 09/12/15 Sodium Chloride 0.9% IV 1,000 mL (NS 1,000 mL) 1,000 mL 100 ml/hr Extracted from: Title: Clinical Document Author: Low Ha MD Date: 09/14/15 LESTER Op Dication Date: 09/10/2015 Location: [facility] [place] main OR Attending: Low Ha MD Pre-op dx: Left hip osteoarthritis, Left displaced femur neck fracture Post-op dx: above Procedure: Left total hip arthroplasty Anesthesiologist :Denisha Gu Anesthesia: Casket Coverer: [place] EBL: 200 cc UOP: see anesthesia note IVF: see anesthesia note Transfusion: 1 unit platelets given intra-op Implants: Manuel Instrumentation Femur Stem: 10, SSF+, C-TPR Femur Head: 28 mm (-2.5), 54 mm (48G) MDM Acetabulum Cup: 62 mm, G Acetabulum Liner: 48 mm G TORx screws*3 Dall Miles cable Clinical Indications: Patient is a 85 yo male s/p mechanical GLF resulting in a displaced left basi- cervical femur neck fracture. Patient has underling left hip osteoarthritis evidencesd by bone on bon articulation of the femur acetabular joint. INtra- operative examination demonstrates destruction of cartilage surfaces of acetabulum and femur head. Patient understands the risks, benefits, rational, and rehabilitation process inherent with a total hip arthroplasty. Patient expressed understanding that risks include but not limited to bleeding, pain, infection, damage to nearby structures: vessels, tendons, nerves and ligaments. Possibility of hardware failure, loosening, fracture, leg length discrepancy, dislocation, and need for revision surgery. The patient also understands the risks of blood clots in the legs and lungs, stroke, heart-attack, and in the emily-operative period. The patient agreed and gave consent to surgery as indicated. Patient also understands the risks of transfusion including possible transmission of a communicable disease and transfusion reaction. Patient understood these risks and gave consent for transfusion as indicated. Procedure Note: Positioning: Patient brought into the OR and placed supine on the OR table. After successful anesthetic was applied, a jovel was placed. The patient was then placed in the lateral decubitus position with Left hip up. The operative extremity was prepped and draped free in the standard fashion. A surgical time out was completed confirming the surgical site, identity, procedure and confirmation of IV antibiotic infusion. Approach: A lateral incision was centered over the greater trochanter with a 10 blade scalpel and dissection was taken to the gluteal fascia. The fascia was incised with cautery and tolentino scissors and the charnley retractor was placed. The piriformis tendon was identified, tagged, and released off its insertion of the grater trochanter. A T shaped arthrotomy was created in the posterior capsule included the short external rotators in a continuous sleeve. Intra-operative examination demonstrates basi-cervical fracture with single non=displaced hairline fracture extension to the calcar. Osteotomy was revised with oscillation saw. Head was removed with corkscrew. The femur was retracted anteriorly after releasing the anterior and inferior capsule. The labrum and pulvinar was resected allowing visualization of the acetabulum. Acetabulum: We began reaming in a medial fashion with a 44 mm reamer until we touched down on the cotyloid fossa. We then increased reaming in 1 or 2 mm increments reapproximating the patient s natural anteversion and abduction until we achieved a size 61 mm. We then impacted the definitive implant in approximate 40-45 deg abduction and 20-30 deg anteversion. Three acetabular screws were placed followed by the definitive liner. Femur: We then approached the proximal femur by releasing the anterior femur and resecting residual soft tissue from the interior of the greater trochanter. Given the non displaced fracture as described above, a single cable was passed along calcar to prevent further fracture propgation. We then resected the lateral femoral neck cortex, identified the intramedullary canal with starting reamer, and removed the residual cortex with the trochanteric reamer. The distal shaft was then widened with increasing straight reamers in 0.5 mm increments until we achieved cortical chatter. The proximal femur was then broached with increasing sizes until we achieved a press fit. We reapproximated the patient s natural femoral anteversion and steadily applied lateral pressure. The calcar planer then revised the femur neck cut. Trialing/Balancing/X-ray: An AP pelvis xray confirmed accurate postioning of the acetabular and femoral components. Minimal residual leg length descrepancy grossly and radiographically with a -2.5 head. The construct was trialed with a -2.5 head. The hip was stable in the sleeping position. It was able to achieve 45 degrees of internal rotation with the hip flexed to 90 degrees and resting adduction. There was no posterior impingement with terminal extension and external rotation. Implantation: The femoral broach was removed, canal was irrigated, then impacted the definitive femur stem. We examined the calcar and found there was no fracture. The definitive femur head was implanted. Closure: We irrigated the entire operative field with 2 liter normal saline fluid. The posterior capsule was repaired. The piriformis tendon was reapproximated to the gluteus medius at its insertion on the greater trochanter. The gluteal fascia was then closed All deep sutures were #1 ethibonds. Keshia s fascia was closed with O-vicryls. Skin was closed with inverted subcutaneous 2-O vicryls and a running 4-O monocryl. The wound was dressed with dermabond, adaptic, telfa, and tape. Laminar flow exhaust suits were worn for the entire procedure. A surgical virtual office assistant was required for the entire procedure. The virtual office assistant was required for positioning, retraction, implant sizing/implantation, and closure. The assist decreased surgical time and therfore emily-operative morbidity. Post-op Dispo: Patient will be admitted to the floor, receive 24 hours of intravenous antibiotics, and DVT prophylaxis. The patient can weight bear as tolerated with posterior hip precautions. Extracted from: Title: Clinical Document Author: Faby Walker MD Date: 09/08/15 [id number]
--- OUTSIDE RECORDS SUMMARY | 2018-07-01 11:39 | XMS REPORT | Summary of Care ---
Author Organization Unknown Address Unknown Phone Unavailable Encounter HQ Yayo_joe(FIN) [id number] Date(s): 08/02/14 - 08/31/14 [facility] [address] [place] [address]- Discharge Disposition: Home Physician Attending: Bereket Mariscal MD Vital Signs No data available for this section Problem List No data available for this section Allergies, Adverse Reactions, Alerts Substance Reaction Severity Status Allergy Unverified NO GENERICS Active Levaquin Active Nitroglycerin Patch Active penicillin Active Procanbid Active Medications No data available for this section Results ELECTROLYTES Most recent to 1 2 oldest [Reference Range]: Sodium Lvl [135-145 136 mEq/L mEq/L] (08/02/14 11:44 AM) Potassium Lvl 4.2 mEq/L [3.5-5.1 mEq/L] (08/02/14 11:44 AM) Chloride Lvl [95-109 102 mEq/L mEq/L] (08/02/14 11:44 AM) CO2 [24-32 mEq/L] 28 mEq/L (08/02/14 11:44 AM) AGAP [10.0-20.0 10.2 mEq/L mEq/L] (08/02/14 11:44 AM) CHEM PANEL Most recent to 1 2 oldest [Reference Range]: Creatinine Lvl 1.5 mg/dL [0.5-1.4 mg/dL] *HI* (08/02/14 11:44 AM) eGFR 42 mL/min/1.73m2 1 *NA* (08/02/14 11:44 AM) BUN [7-22 mg/dL] 25 mg/dL *HI* (08/02/14 11:44 AM) B/C Ratio [6-25] 17 (08/02/14 11:44 AM) Glucose Lvl [70-99 109 mg/dL 2 mg/dL] *HI* (08/02/14 AM) Total Protein 6.2 g/dL [6.4-8.4 g/dL] *LOW* (08/02/1444 AM) Albumin Lvl [3.5-5.0 2.7 g/dL g/dL] *LOW* (08/02/14 AM) Globulin [2.0-4.0 3.5 g/dL g/dL] (08/02/14 AM) A/G Ratio [0.7-1.6] 0.8 (08/02/14 AM) Calcium Lvl 8.2 mg/dL [8.5-10.5 mg/dL] *LOW* (08/02/14 AM) ALT [0-65 unit/L] 24 unit/L (08/02/14 AM) AST [0-37 unit/L] 30 unit/L (08/02/1444 AM) Alk Phos [39-136 70 unit/L unit/L] (08/02/1444 AM) Bili Total [0.2-1.3 0.6 mg/dL mg/dL] (08/02/14:44 AM) 1Result Comment: The eGFR is calculated [...] values reflect the clinical guidelines of the [place] [employer]. CARDIAC ENZYMES Most recent to 1 2 oldest [Reference Range]: BNP [<=100 pg/mL] 97 pg/mL 3 (08/02/14 11:44 AM) 3Interpretive Data: Elevated results are in line with increasing severity of congestive heart failure. Minor elevations between 100 and 300 may be seen with Myocardial Ischemia, Sodium retaining drugs, and compensated/treated heart failure. HEMATOLOGY Most recent to 1 2 oldest [Reference Range]: WBC [3.7-10.4 K/CMM] 10.6 K/CMM *HI* (08/02/1444 AM) RBC [4.70-6.10 4.52 M/CMM M/CMM] *LOW* (08/02/14) Hgb [14.0-18.0 g/dL] 14.1 g/dL (08/02/14 AM) Hct [42.0-54.0 %] 44.5 % (08/02/14 AM) MCV [80.0-94.0 fL] 98.5 fL *HI* (08/02/14 AM) MCH [27.0-31.0 pg] 31.2 pg *HI* (08/02/14 AM) MCHC [32.0-36.0 31.7 g/dL g/dL] *LOW* (08/02/1444 AM) RDW [11.5-14.5 %] 13.9 % (08/02/1444 AM) Platelet [133-450 122 K/CMM K/CMM] *LOW* (08/02/1444 AM) MPV [7.4-10.4 fL] 10.5 fL *HI* (08/02/1444 AM) Segs [45.0-75.0 %] 59.3 % (08/02/1444 AM) Lymphocytes 32.5 % [20.0-40.0 %] (08/02/1444 AM) Monocytes [2.0-12.0 7.8 % %] (08/02/1444 AM) Eosinophils [0.0-4.0 0.3 % %] (08/02/1444 AM) Basophils [0.0-1.0 0.1 % %] (08/02/14 11:44 AM) Segs-Bands # 6.3 K/CMM [1.5-8.1 K/CMM] (08/02/14 11:44 AM) Lymphocytes # 3.5 K/CMM [1.0-5.5 K/CMM] (08/02/14 11:44 AM) Monocytes # [0.0-0.8 0.8 K/CMM K/CMM] (08/02/14 11:44 AM) PT [12.0-14.7 23.7 seconds 23.2 seconds seconds] *HI* *HI* (08/23/14 10:09 AM) (08/02/14 11:44 AM) INR [0.85-1.17] 2.05 4 2.00 5 *HI* *HI* (08/23/14 10:09 AM) (08/02/14 11:44 AM) 4Interpretive Data: RECOMMENDED RANGES FOR PROTIME INR: 2.0-3.0 for most medical and surgical thromboembolic states. 2.5-3.5 for artificial heart valves and recurrent embolism. INR SHOULD BE USED ONLY FOR PATIENTS ON STABLE ANTICOAGULANT THERAPY. 5Interpretive Data: RECOMMENDED RANGES FOR PROTIME INR: 2.0-3.0 for most medical and surgical thromboembolic states. 2.5-3.5 for artificial heart valves and recurrent embolism. INR SHOULD BE USED ONLY FOR PATIENTS ON STABLE ANTICOAGULANT THERAPY. Immunizations No data available for this section Procedures No data available for this section Social History No data available for this section Assessment and Plan No data available for this section
--- OUTSIDE RECORDS SUMMARY | 2018-07-01 11:39 | XMS REPORT | Summary of Care ---
Author Author [facility] Organization [facility] Address Unknown Phone Unavailable Encounter HQ Yayo_joe(FIN) [id number] Date(s): 05/29/15 - 06/27/15 [facility] [address] [place] [address]- Discharge Disposition: Home Attending Physician: Bereket Mariscal [...] oldest [Reference Range]: PT [12.0-14.7 24.0 seconds 28.4 seconds seconds] *HI* *HI* (06/27/15 9:43 AM) (05/29/15 9:54 AM) INR [0.85-1.17] 2.11 2.63 *HI* *HI* (06/27/15 9:43 AM) (05/29/15 9:54 AM) Immunizations No data available for this [...]
--- OUTSIDE RECORDS SUMMARY | 2018-07-01 11:39 | XMS REPORT | Summary of Care ---
Author Organization Unknown Address Unknown Phone Unavailable Encounter HQ Yvanr_joe(FIN) [id number] Date(s): 09/20/14 - 10/19/14 [facility] [address] [place] [address]- [phone] Discharge Disposition: Home Physician Attending: Fredy Mustafa MD Vital Signs No data available for this section Problem List No data available for this section Allergies, Adverse Reactions, Alerts Substance Reaction Severity Status Allergy Unverified NO GENERICS Active Levaquin Active Nitroglycerin Patch Active penicillin Active Procanbid Active Medications No data available for this section Results SPECIAL CHEMISTRY Most recent to 1 oldest [Reference Range]: PSA [0.00-4.00 0.17 ng/mL 1 ng/mL] (09/20/14 1:51 PM) 1Interpretive Data: 0-4 ng/ml is clinically accepted reference range from the [place] [employer] in 1997 for Total PSA. A PSA value in the range of 0.1 to 0.6 ng/mL is indeterminate if being used as an indicator of recurrent or residual disease. HEMATOLOGY Most recent to 1 oldest [Reference Range]: PT [12.0-14.7 21.0 seconds seconds] *HI* (09/20/14 1:51 PM) INR [0.85-1.17] 1.77 2 *HI* (09/20/14 1:51 PM) 2Interpretive Data: RECOMMENDED RANGES FOR PROTIME INR: [...]
--- OUTSIDE RECORDS SUMMARY | 2018-07-01 11:39 | XMS REPORT | Summary of Care ---
Author Organization Unknown Address Unknown Phone Unavailable Encounter HQ Alfred(CHIDI) [id number] Date(s): 01/24/14 - 02/22/14 [facility] [address] Discharge Disposition: Home Physician Attending: Bereket Mariscal MD Reason for Visit LABS Problem List No data available for this section Allergies, Adverse Reactions, Alerts Substance Reaction Severity Status Allergy Unverified NO GENERICS Active Levaquin Active Nitroglycerin Patch Active penicillin Active Procanbid Active Medications No data available for this section Results ELECTROLYTES Most recent to 1 oldest [Reference Range]: Sodium Lvl [135-145 143 mEq/L mEq/L] (01/24/14 11:18 AM) Potassium Lvl 4.2 mEq/L [3.5-5.1 mEq/L] (01/24/14 11:18 AM) Chloride Lvl [95-109 108 mEq/L mEq/L] (01/24/14 11:18 AM) CO2 [24-32 mEq/L] 28 mEq/L (01/24/14 11:18 AM) AGAP [10.0-20.0 11.2 mEq/L mEq/L] (01/24/14 11:18 AM) CHEM PANEL Most recent to 1 oldest [Reference Range]: Creatinine Lvl 1.6 mg/dL [0.5-1.4 mg/dL] *HI* (01/24/14 11:18 AM) eGFR 39 mL/min/1.73m2 1 *NA* (01/24/14 11:18 AM) BUN [7-22 mg/dL] 29 mg/dL *HI* (01/24/14 11:18 AM) Glucose Lvl [70-99 111 mg/dL 2 mg/dL] *HI* (01/24/14 11:18 AM) Calcium Lvl 8.7 mg/dL [8.5-10.5 mg/dL] (01/24/14 11:18 AM) 1Result Comment: The eGFR is calculated [...] values reflect the clinical guidelines of the [place] [employer]. TOXICOLOGY Most recent to 1 oldest [Reference Range]: Digoxin Lvl [0.8-2.0 0.5 ng/mL ng/mL] *LOW* (01/24/14 11:18 AM) HEMATOLOGY Most recent to 1 oldest [Reference Range]: PT [12.0-14.7 21.9 seconds seconds] *HI* (01/24/14 11:18 AM) INR [0.85-1.17] 1.95 3 *HI* (01/24/14 11:18 AM) 3Interpretive Data: RECOMMENDED RANGES FOR PROTIME INR: 2.0-3.0 for most medical and surgical thromboembolic states. 2.5-3.5 for artificial heart valves and recurrent embolism. INR SHOULD BE USED ONLY FOR PATIENTS ON STABLE ANTICOAGULANT THERAPY. Medications Administered During Your Visit No data available for this section Immunizations No data available for this section
--- OUTSIDE RECORDS SUMMARY | 2018-07-01 11:39 | XMS REPORT | Summary of Care ---
Author Organization Unknown Address Unknown Phone Unavailable Encounter HQ Alfred(CHIDI) [id number] Date(s): 04/27/14 - 05/26/14 [facility] [address] Discharge Disposition: Home Physician Attending: Bereket Mariscal MD Reason for Visit PT/INR Problem List No data available for this section Allergies, Adverse Reactions, Alerts Substance Reaction Severity Status Allergy Unverified NO GENERICS Active Levaquin Active Nitroglycerin Patch Active penicillin Active Procanbid Active Medications No data available for this section Results ELECTROLYTES Most recent to 1 2 oldest [Reference Range]: Sodium Lvl [135-145 144 mEq/L mEq/L] (05/24/14 12:22 PM) Potassium Lvl 4.0 mEq/L [3.5-5.1 mEq/L] (05/24/14 12:22 PM) Chloride Lvl [95-109 106 mEq/L mEq/L] (05/24/14 12:22 PM) CO2 [24-32 mEq/L] 30 mEq/L (05/24/14 12:22 PM) AGAP [10.0-20.0 12.0 mEq/L mEq/L] (05/24/14 12:22 PM) CHEM PANEL Most recent to 1 2 oldest [Reference Range]: Creatinine Lvl 1.5 mg/dL [0.5-1.4 mg/dL] *HI* (05/24/14 12:22 PM) eGFR 42 mL/min/1.73m2 1 *NA* (05/24/14 12:22 PM) BUN [7-22 mg/dL] 25 mg/dL *HI* (05/24/14 12:22 PM) Glucose Lvl [70-99 92 mg/dL 2 mg/dL] (05/24/14 12:22 PM) Calcium Lvl 8.1 mg/dL [8.5-10.5 mg/dL] *LOW* (05/24/14 12:22 PM) 1Result Comment: The eGFR is calculated [...] values reflect the clinical guidelines of the [place] [employer]. HEMATOLOGY Most recent to 1 2 oldest [Reference Range]: PT [12.0-14.7 26.9 seconds 24.5 seconds seconds] *HI* *HI* (05/24/14 9:41 AM) (04/27/14 9:32 AM) INR [0.85-1.17] 2.40 3 2.14 4 *HI* *HI* (05/24/14 9:41 AM) (04/27/14 9:32 AM) 3Interpretive Data: RECOMMENDED RANGES FOR PROTIME [...]
--- OUTSIDE RECORDS SUMMARY | 2018-07-01 11:39 | XMS REPORT | Summary of Care ---
Author Organization Unknown Address Unknown Phone Unavailable Encounter HQ Yvanr_joe(FIN) [id number] Date(s): 10/24/14 - 11/22/14 [facility] [address] [place] [address]- [phone] Discharge Disposition: Home Physician Attending: Bereket Mariscal [...] oldest [Reference Range]: PT [12.0-14.7 24.0 seconds 24.2 seconds seconds] *HI* *HI* (11/21/14 9:15 AM) (10/24/14 9:41 AM) INR [0.85-1.17] 2.09 1 2.11 2 *HI* *HI* (11/21/14 9:15 AM) (10/24/14 9:41 AM) 1Interpretive Data: RECOMMENDED RANGES FOR PROTIME [...]
--- OUTSIDE RECORDS SUMMARY | 2018-07-01 11:40 | XMS REPORT | Summary of Care ---
Author Author Mireille Bell M.A. Organization Unknown Address Unknown Phone Unavailable Care Team Providers Care Bottom Turning Lathe Tender Name Role Phone SIM MOLINA M.D. Unavailable Unavailable Unavailable Unavailable Functional Status Name Dates Details Functional status health issues are not documented Status: Name Dates Details Cognitive status health issues are not documented Status: Problems Name Dates Details Localized osteoarthrosis of left hip (715.35, M16.12) Status: Active Infection and inflammatory reaction due to internal left knee prosthesis, subsequent encounter (996.66, T84.54XD) Status: Active Limb pain (729.5, M79.609) Status: Active Closed fracture of midcervical section of femur, left, sequela (905.3, S72.032S) Status: Active Medications Name Dates Details Medications not documented Allergies and Adverse Reactions Name Dates Details Levaquin (Allergy) Status: Active Macrobid (Allergy) Status: Active nitroglycerin (Allergy) Status: Active Penicillins (Allergy) Status: Active Procanbid (Allergy) Status: Active Rocephin (Allergy) Status: Active Procedures Procedure Dates Details Procedures not documented Immunization Name Dates Details Immunizations not documented Social History Name Dates Details Unknown if ever smoked Vital Signs Date Test Result Details [id number] Height 70 in Status: Weight 152 lb Status: Body Mass Index Calculated 21.81 kg/m2 Status: Body Surface Area Calculated 1.86 m2 Status: Results Date Description Value Details Results not documented Plan of Care Name Dates Details Planned Observations Planned Goals not documented Interventions Provided Labs/Procedures/Imaging* [U] XRAY HIP UNILATERAL MIN 2 VWS LEFT [id number]; Done: 10 Sep 2017 Instructions Name Dates Details Instructions not documented Encounters Appointment; SIM MOLINA M.D. Encounter Diagnosis: Problem not documented On: 17-Oct-2015 10:15 Appointment; SIM MOLINA M.D. Encounter Diagnosis: Problem not documented On: 19-Oct-2015 10:45 Appointment; SIM MOLINA M.D. Encounter Diagnosis: Problem not documented On: 24-Oct-2015 11:30 Appointment; SIM MOLINA M.D. Encounter Diagnosis: Problem not documented On: 23-Nov-2015 9:30 Appointment; SIM MOLINA M.D. Encounter Diagnosis: Problem not documented On: 10-Jan-2016 9:00 Appointment; SIM MOLINA M.D. Encounter Diagnosis: Problem not documented On: 09-Apr-2016 13:00 Appointment; SIM MOLINA M.D. Encounter Diagnosis: Problem not documented On: 10-Apr-2016 13:00 Appointment; SIM MOLINA M.D. Encounter Diagnosis: Problem not documented On: 21-May-2016 13:30 Appointment; SIM MOLINA M.D. Encounter Diagnosis: Problem not documented On: 10-Sep-2017 14:15
--- OUTSIDE RECORDS SUMMARY | 2018-07-01 11:40 | XMS REPORT | Summary of Care ---
Author Author [facility] Organization [facility] Address Unknown Phone Unavailable Encounter HQ Yayo_joe(FIN) [id number] Date(s): 03/07/16 - 04/05/16 [facility] [address] [place] [address]- [phone] Discharge Disposition: Home or Self Care Attending Physician: Bereket Mariscal MD Vital Signs [...] Severity Status Allergy Unverified NO GENERICS Active chlorhexidine containing Active compounds Levaquin Active Nitroglycerin Patch Active penicillin Active Procanbid Active Surgical Tape1 Active 1blisters Medications No data available for this section Results ELECTROLYTES Most recent to 1 2 oldest [Reference Range]: Sodium Lvl [135-145 137 mEq/L 138 mEq/L mEq/L] (03/21/16 9:00 AM) (03/07/16 10:03 AM) Potassium Lvl 4.0 mEq/L 3.7 mEq/L [3.5-5.1 mEq/L] (03/21/16 9:00 AM) (03/07/16 10:03 AM) Chloride Lvl [95-109 105 mEq/L 102 mEq/L mEq/L] (03/21/16 9:00 AM) (03/07/16 10:03 AM) CO2 [24-32 mEq/L] 26 mEq/L 30 mEq/L (03/21/16 9:00 AM) (03/07/16 10:03 AM) AGAP [10.0-20.0 10.0 mEq/L 9.7 mEq/L mEq/L] (03/21/16 9:00 AM) *LOW* (03/07/16 10:03 AM) CHEM PANEL Most recent to 1 2 oldest [Reference Range]: Creatinine Lvl 1.35 mg/dL 1.39 mg/dL [0.50-1.40 mg/dL] (03/21/16 9:00 AM) (03/07/16 10:03 AM) eGFR 47 mL/min/1.73m2 1 45 mL/min/1.73m2 2 *NA* *NA* (03/21/16 9:00 AM) (03/07/16 10:03 AM) BUN [7-22 mg/dL] 29 mg/dL 28 mg/dL *HI* *HI* (03/21/16 9:00 AM) (03/07/16 10:03 AM) B/C Ratio [6-25] 21 20 (03/21/16 9:00 AM) (03/07/16 10:03 AM) Glucose Lvl [70-99 105 mg/dL 120 mg/dL mg/dL] *HI* *HI* (03/21/16 9:00 AM) (03/07/16 10:03 AM) Total Protein 6.3 g/dL 7.0 g/dL [6.4-8.4 g/dL] *LOW* (03/07/16 10:03 AM) (03/21/16 9:00 AM) Albumin Lvl [3.5-5.0 2.8 g/dL 3.2 g/dL g/dL] *LOW* *LOW* (03/21/16 9:00 AM) (03/07/16 10:03 AM) Globulin [2.7-4.2 3.5 g/dL 3.8 g/dL g/dL] (03/21/16 9:00 AM) (03/07/16 10:03 AM) A/G Ratio [0.7-1.6] 0.8 0.8 (03/21/16 9:00 AM) (03/07/16 10:03 AM) Calcium Lvl 8.5 mg/dL 8.9 mg/dL [8.5-10.5 mg/dL] (03/21/16 9:00 AM) (03/07/16 10:03 AM) ALT [0-65 unit/L] 17 unit/L 25 unit/L (03/21/16 9:00 AM) (03/07/16 10:03 AM) AST [0-37 unit/L] 31 unit/L 37 unit/L (03/21/16 9:00 AM) (03/07/16 10:03 AM) Alk Phos [39-136 60 unit/L 74 unit/L unit/L] (03/21/16 9:00 AM) (03/07/16 10:03 AM) Bili Total [0.2-1.3 0.5 mg/dL 0.4 mg/dL mg/dL] (03/21/16 9:00 AM) (03/07/16 10:03 AM) 1Result Comment: The eGFR is calculated [...] be mul tiplied by the estimated BMI. TOXICOLOGY Most recent to 1 2 oldest [Reference Range]: Digoxin Lvl [0.8-2.0 0.6 ng/mL 0.8 ng/mL ng/mL] *LOW* (03/07/16 10:03 AM) (03/21/16 9:00 AM) HEMATOLOGY Most recent to 1 2 oldest [Reference Range]: WBC [3.7-10.4 K/CMM] 4.7 K/CMM (03/07/16 10:03 AM) RBC [4.70-6.10 3.92 M/CMM M/CMM] *LOW* (03/07/16 10:03 AM) Hgb [14.0-18.0 g/dL] 11.5 g/dL *LOW* (03/07/16 10:03 AM) Hct [42.0-54.0 %] 35.7 % *LOW* (03/07/16 10:03 AM) MCV [80.0-94.0 fL] 91.0 fL (03/07/16 10:03 AM) MCH [27.0-31.0 pg] 29.3 pg (03/07/16 10:03 AM) MCHC [32.0-36.0 32.2 g/dL g/dL] (03/07/16 10:03 AM) RDW [11.5-14.5 %] 17.3 % *HI* (03/07/16 10:03 AM) Platelet [133-450 119 K/CMM K/CMM] *LOW* (03/07/16 10:03 AM) MPV [7.4-10.4 fL] 9.8 fL (03/07/16 10:03 AM) Segs [45.0-75.0 %] 61.4 % (03/07/16 10:03 AM) Lymphocytes 27.4 % [20.0-40.0 %] (03/07/16 10:03 AM) Monocytes [2.0-12.0 9.1 % %] (03/07/16 10:03 AM) Eosinophils [0.0-4.0 1.4 % %] (03/07/16 10:03 AM) Basophils [0.0-1.0 0.7 % %] (03/07/16 10:03 AM) Segs-Bands # 2.9 K/CMM [1.5-8.1 K/CMM] (03/07/16 10:03 AM) Lymphocytes # 1.3 K/CMM [1.0-5.5 K/CMM] (03/07/16 10:03 AM) Monocytes # [0.0-0.8 0.4 K/CMM K/CMM] (03/07/16 10:03 AM) Eosinophils # 0.1 K/CMM [0.0-0.5 K/CMM] (03/07/16 10:03 AM) PT [12.0-14.7 26.2 seconds 23.4 seconds seconds] *HI* *HI* (03/21/16 9:00 AM) (03/07/16 10:03 AM) INR [0.85-1.17] 2.36 2.04 *HI* *HI* (03/21/16 9:00 AM) (03/07/16 10:03 AM) Immunizations Not Given Vaccine Date Status Refusal Reason pneumococcal 23-valent vaccine 09/18/15 Not Given Permanently Refused Procedures Procedure Date Related Diagnosis Body Site ACD - Automatic cardiac defibrillator 1989 procedure CABG x 2 - Coronary artery bypass grafts x 2 Social History Social History Type Response Alcohol Never Smoking Status Former smoker; Type: Cigarettes; Exposure to Tobacco Smoke None; Cigarette Smoking Last 365 Days No; Reg Smoking Cessation Counseling Yes Assessment and Plan No data available for this section
--- OUTSIDE RECORDS SUMMARY | 2018-07-01 11:40 | XMS REPORT | Summary of Care ---
Author Author [facility] Organization [facility] Address Unknown Phone Unavailable Encounter HQ Alfred(FIN) [id number] Date(s): 04/18/16 - 05/17/16 [facility] [address] [place] [address]- [phone] Discharge Disposition: Home or Self Care Attending [...] Hypertension(Confirm Resolved ed) Hypothyroidism(Confi Resolved rmed) 1stool, - 2Problem added by Discern Expert. Allergies, Adverse Reactions, Alerts Substance Reaction Severity Status Allergy Unverified NO GENERICS Active chlorhexidine containing Active compounds Levaquin Active Nitroglycerin Patch Active penicillin Active Procanbid Active Surgical Tape1 Active 1blisters Medications No data available for this section Results HEMATOLOGY Most recent to 1 oldest [Reference Range]: PT [12.0-14.7 20.4 seconds seconds] *HI* (04/18/16 10:51 AM) INR [0.85-1.17] 1.71 *HI* (04/18/16 10:51 AM) Immunizations Not Given Vaccine Date Status [...]
--- OUTSIDE RECORDS SUMMARY | 2018-07-01 11:40 | XMS REPORT | Summary of Care ---
Author Author [facility] Organization [facility] Address Unknown Phone Unavailable Encounter [facility] Alfred(CHIDI) [id number] Date(s): 09/14/15 - 09/23/15 [facility] [id number] [address] Discharge Disposition: Home Attending Physician: Patrick Griffin MD Admitting Physician: Patrick Griffin MD Vital Signs Most recent to 1 2 3 4 oldest [Reference Range]: Height 177.8 cm (09/14/15 9:14 PM) Current Weight 78.295 kg (09/21/15 9:20 AM) Temperature Oral 98 DegF 98.2 DegF 97.6 DegF [96.4-99.1 DegF] (09/23/15 9:06 AM) (09/22/15 8:23 PM) (09/22/15 6:01 PM) Blood Pressure 115/66 mmHg 106/63 mmHg [90-140/60-90 mmHg] (09/22/15 8:23 PM) (09/22/15 6:01 PM) Systolic Blood 115 mmHg Pressure [90-140 (09/23/15 9:06 AM) mmHg] Diastolic Blood 75 mmHg Pressure [60-90 (09/23/15 9:06 AM) mmHg] Respiratory Rate 18 BRMIN 18 BRMIN 14 BRMIN [14-20 BRMIN] (09/23/15 9:06 AM) (09/22/15 8:23 PM) (09/22/15 6:01 PM) Peripheral Pulse 75 bpm 81 bpm 75 bpm Rate [60-100 bpm] (09/23/15 9:06 AM) (09/22/15 8:23 PM) (09/22/15 6:01 PM) Weight 93.318 kg 93.318 kg 93.318 kg 93.318 kg (09/14/15 9:17 PM) (09/14/15 9:15 PM) (09/14/15 9:14 PM) (09/14/15 9:14 PM) Body Mass Index 29.52 m2 (09/14/15 9:14 PM) Problem List Condition Effective Dates Status Health [...] Procanbid Active Surgical Tape1 Active 1blisters Medications DO NOT GIVE HEPARIN SQ UNTIL INR <2.0 DO NOT GIVE HEPARIN SQ UNTIL INR <2.0, 1, Drug form: MISC, Route: MISC, Q12H, 09/21/15 16:08:00, Stop date: 10/21/15 20:30:00 Start Date: 09/21/15 Stop Date: 09/23/15 Status: Transfer/Canceled acetaminophen-codeine 300 mg-30 mg oral tablet 1 tab, PO, Q4H, PRN Pain Score 4-6, 0 Refill(s) Start Date: 09/23/15 Status: Suspended acetaminophen-codeine 300 mg-30 mg oral tablet 2 tab, PO, Q4H, PRN Pain Score 7-10, 0 Refill(s) Start Date: 09/23/15 Status: Suspended acetaminophen-codeine 300 mg-30 mg oral tablet 1 tab, Route: PO, Drug Form: TAB, Dosing Weight 93.318, kg, Q4H, PRN Pain Score 4-6, Start date: 09/15/15 10:03:00, Duration: 30 day, Stop date: 10/15/15 10:02: 00 Notes: Do not exceed 4gm/day of acetaminophen. (Same as: Tylenol with Codeine # 3) Start Date: 09/15/15 Stop Date: 09/23/15 Status: Transfer/Canceled acetaminophen-codeine 300 mg-30 mg oral tablet 2 tab, Route: PO, Drug Form: TAB, Dosing Weight 93.318, kg, Q4H, PRN Pain Score 7-10, Start date: 09/17/15 10:15:00, Duration: 30 day, Stop date: 10/17/15 10:14 :00 Notes: Do not exceed 4gm/day of acetaminophen. (Same as: Tylenol with Codeine # 3) Start Date: 09/17/15 Stop Date: 09/23/15 Status: Transfer/Canceled albumin human 25% intravenous solution 25 gm, 100 mL, Route: IV, Drug form: INJ, ONCE, Dosing Weight 93.318, kg, Start date: 09/22/15 11:32:00, Stop date: 09/22/15 11:32:00 Notes: Lot #: Mfg: (Same as: Plasbumin-25)"blood pr oduct derivative"WASTE: F/P - Red; E -Red MEDICATION WASTE Product Size: 25 gmProduct Wasted: ___ gm Start Date: 09/22/15 Stop Date: 09/22/15 Status: Completed albumin human 25% intravenous solution 25 gm, 100 mL, Route: IV, Drug form: INJ, ONCE, Dosing Weight 93.318, kg, Start date: 09/18/15 14:04:00, Stop date: 09/18/15 14:04:00 Notes: Lot #: Mfg: (Same as: Plasbumin-25)"blood pr oduct derivative"WASTE: F/P - Red; E -Red MEDICATION WASTE Product Size: 25 gmProduct Wasted: ___ gm Start Date: 09/18/15 Stop Date: 09/18/15 Status: Completed Aldactazide 25 mg-25 mg oral tablet 1 tab, Route: PO, Drug Form: TAB, Dosing Weight 93.318, kg, Daily, Start date: 0 09/17/15 9:00:00, Duration: 30 day, Stop date: 10/16/15 9:00:00 Start Date: 09/17/15 Stop Date: 09/17/15 Status: Deleted Aldactone 25 mg, 1 tab, Route: PO, Drug form: TAB, Daily, Start date: 09/17/15 14:00:00, D uration: 30 day, Stop date: 10/17/15 9:00:00 Notes: (Same As: Aldactone) Start Date: 09/17/15 Stop Date: 09/23/15 Status: Transfer/Canceled allopurinol 100 mg oral tablet 100 mg=1 tab, PO, Daily, 0 Refill(s) Start Date: 09/23/15 Status: Suspended BD Normal Saline Flush 10 ml, Route: IVP, Drug Form: INJ, Dosing Weight 78.182, kg, PRN, PRN Line Flush , Start date: 09/15/15 1:52:00, Duration: 30 day, Stop date: 10/15/15 1:51:00 Notes: (Same as: BD Posiflush) Start Date: 09/15/15 Stop Date: 09/23/15 Status: Transfer/Canceled bisacodyl 10 mg rectal suppository 10 mg=1 supp, ID, Daily, PRN Constipation, 0 Refill(s) Start Date: 09/23/15 Status: Suspended carvedilol 3.125 mg oral tablet 6.25 mg=2 tab, PO, Q12H, 0 Refill(s) Start Date: 09/23/15 Status: Suspended Coreg 6.25 mg, 2 tab, Route: PO, Drug form: TAB, Q12H, Dosing Weight 80, kg, Start cynthia e: 09/15/15 9:00:00, Duration: 30 day, Stop date: 10/14/15 21:00:00 Notes: Give with food. (Same As: Coreg) Start Date: 09/15/15 Stop Date: 09/23/15 Status: Transfer/Canceled Coumadin 5 mg, 1 tab, Route: PO, Drug form: TAB, Daily, Dosing Weight 80, kg, Start date: 09/15/15 17:00:00, Duration: 30 day, Stop date: 10/14/15 17:00:00 Notes: Nurse to ensure documentation of patient education per anticoagulation po licy.Avoid large intake of vitamin-K containing foods diet.WASTE: F/P - P Waste Black; E - P Waste Black(Same As: Coumadin) Start Date: 09/15/15 Stop Date: 09/23/15 Status: Transfer/Canceled Dextrose 50% Syringe 12.5 gm, 25 mL, Route: IVP, Drug Form: INJ, Dosing Weight 93.318, kg, PRN, PRN B lood Glucose Results, Start date: 09/15/15 0:21:00, Duration: 30 day, Stop date: 10/15/15 0:20:00 Start Date: 09/15/15 Stop Date: 09/23/15 Status: Transfer/Canceled Dextrose 50% Syringe 25 gm, 50 mL, Route: IVP, Drug Form: INJ, Dosing Weight 93.318, kg, PRN, PRN Blo od Glucose Results, Start date: 09/15/15 0:21:00, Duration: 30 day, Stop date: 0 10/15/15 0:20:00 Start Date: 09/15/15 Stop Date: 09/23/15 Status: Transfer/Canceled digoxin 0.25 mg, 1 tab, Route: PO, Drug form: TAB, Every Other Day, Dosing Weight 80, kg , Start date: 09/15/15 9:00:00, Duration: 30 day, Stop date: 10/13/15 9:00:00 Notes: Take on an Empty Stomach (Same as: Lanoxin) Start Date: 09/15/15 Stop Date: 09/23/15 Status: Transfer/Canceled digoxin 250 mcg (0.25 mg) oral tablet 0.25 mg=1 tab, PO, Every Other Day, 0 Refill(s) Start Date: 09/23/15 Status: Suspended docusate sodium 100 mg oral capsule 100 mg, 1 cap, Route: PO, Drug form: CAP, BID, Dosing Weight 80, kg, PRN as need ed for constipation, Start date: 09/15/15 9:00:00, Duration: 30 day, Stop date: 10/14/15 17:00:00 Notes: (Same as: Colace) (Do Not Crush) Start Date: 09/15/15 Stop Date: 09/23/15 Status: Transfer/Canceled docusate sodium 100 mg oral capsule 100 mg=1 cap, PO, BID, PRN as needed for constipation, 0 Refill(s) Start Date: 09/23/15 Status: Suspended Dulcolax Laxative 10 mg, 1 supp, Route: ID, Drug form: SUPP, Daily, Dosing Weight 80, kg, PRN Cons tipation, Start date: 09/15/15 1:50:00, Duration: 30 day, Stop date: 10/15/15 1: 49:00 Notes: (Same As: Dulcolax, Bisco-Lax) Start Date: 09/15/15 Stop Date: 09/23/15 Status: Transfer/Canceled ergocalciferol 50,000 intl units oral capsule 50,000 IntlUnit=1 cap, PO, qWeek, 0 Refill(s) Start Date: 09/23/15 Status: Suspended finasteride 5 mg oral tablet 5 mg=1 tab, PO, Daily, 0 Refill(s) Start Date: 09/23/15 Status: Suspended Flagyl 500 mg, 1 tab, Route: PO, Drug form: TAB, ABXQ8H, Dosing Weight 93.318, kg, Star t date: 09/15/15 20:00:00, Duration: 30 day, Stop date: 10/15/15 12:00:00 Notes: (Same as: Flagyl) Take with food/ avoid alcohol Start Date: 09/15/15 Stop Date: 09/23/15 Status: Transfer/Canceled Flagyl 500 mg, 100 mL, Route: IVPB, Drug form: INJ, ABXQ8H, Dosing Weight 80, kg, Start date: 09/15/15 2:00:00, Duration: 30 day, Stop date: 10/14/15 18:00:00 Notes: (Same as: Flagyl) Avoid alcohol. Start Date: 09/15/15 Stop Date: 09/15/15 Status: Discontinued glucagon 1 mg, Route: IM, Drug form: PDR/INJ, PRN, Dosing Weight 93.318, kg, PRN Blood Gl ucose Results, Start date: 09/15/15 0:21:00, Duration: 30 day, Stop date: 0:20:00 Start Date: 09/15/15 Stop Date: 09/23/15 Status: Transfer/Canceled glucagon recombinant 1 mg injection 1 mg, IM, PRN, PRN Blood Glucose Results, 0 Refill(s) Start Date: 09/23/15 Status: Suspended heparin 5000 units/mL injectable solution 5,000 unit, 1 mL, Route: SUB-Q, Drug form: INJ, Q12H, Dosing Weight 93.318, kg, Start date: 09/22/15 9:00:00, Duration: 30 day, Stop date: 10/21/15 21:00:00 Notes: porcine heparin Start Date: 09/22/15 Stop Date: 09/23/15 Status: Transfer/Canceled hydrochlorothiazide 25 mg oral tablet 25 mg, 1 tab, Route: PO, Drug form: TAB, Daily, Start date: 09/17/15 14:00:00, D uration: 30 day, Stop date: 10/17/15 9:00:00 Notes: (Same as: Hydrodiuril) With food. Start Date: 09/17/15 Stop Date: 09/23/15 Status: Transfer/Canceled hydrochlorothiazide 25 mg oral tablet 25 mg=1 tab, PO, Daily, 0 Refill(s) Start Date: 09/23/15 Status: Suspended insulin aspart 12 unit, 0.12 mL, Route: SUB-Q, Drug form: SOLN, TID-Before Meals, Dosing Weight 93.318, kg, PRN Blood Glucose Results, Start date: 09/15/15 0:21:00, Duration: 30 day, Stop date: 10/15/15 0:20:00 Notes: Roll in palms of hands gently; Do not shake vigorously. (Same as: NovoLO G)"single patient use only"WASTE: F/P - Black; E - Municipal Trash Bin Stable f or 28 days at room temperature.Expires in days from Date Start Date: 09/15/15 Stop Date: 09/23/15 Status: Transfer/Canceled insulin aspart 6 unit, 0.06 mL, Route: SUB-Q, Drug form: SOLN, TID-Before Meals, Dosing Weight 93.318, kg, PRN Blood Glucose Results, Start date: 09/15/15 0:21:00, Duration: 3 0 day, Stop date: 10/15/15 0:20:00 Notes: Roll in palms of hands gently; Do not shake vigorously. (Same as: Jamin Gill)"single patient use only"WASTE: F/P - Black; E - Municipal Trash Bin Stable f or 28 days at room temperature.Expires in days from Date Start Date: 09/15/15 Stop Date: 09/23/15 Status: Transfer/Canceled insulin aspart 9 unit, 0.09 mL, Route: SUB-Q, Drug form: SOLN, TID-Before Meals, Dosing Weight 93.318, kg, PRN Blood Glucose Results, Start date: 09/15/15 0:21:00, Duration: 3 0 day, Stop date: 10/15/15 0:20:00 Notes: Roll in palms of hands gently; Do not shake vigorously. (Same as: Jamin Gill)"single patient use only"WASTE: F/P - Black; E - Municipal Trash Bin Stable f or 28 days at room temperature.Expires in days from Date Start Date: 09/15/15 Stop Date: 09/23/15 Status: Transfer/Canceled insulin aspart 15 unit, 0.15 mL, Route: SUB-Q, Drug form: SOLN, TID-Before Meals, Dosing Weight 93.318, kg, PRN Blood Glucose Results, Start date: 09/15/15 0:21:00, Duration: 30 day, Stop date: 10/15/15 0:20:00 Notes: Roll in palms of hands gently; Do not shake vigorously. (Same as: Jamin Gill)"single patient use only"WASTE: F/P - Black; E - Municipal Trash Bin Stable f or 28 days at room temperature.Expires in days from Date Start Date: 09/15/15 Stop Date: 09/23/15 Status: Transfer/Canceled insulin aspart 3 unit, 0.03 mL, Route: SUB-Q, Drug form: SOLN, TID-Before Meals, Dosing Weight 93.318, kg, PRN Blood Glucose Results, Start date: 09/15/15 0:21:00, Duration: 3 0 day, Stop date: 10/15/15 0:20:00 Notes: Roll in palms of hands gently; Do not shake vigorously. (Same as: Jamin Gill)"single patient use only"WASTE: F/P - Black; E - Municipal Trash Bin Stable f or 28 days at room temperature.Expires in days from Date Start Date: 09/15/15 Stop Date: 09/23/15 Status: Transfer/Canceled insulin aspart 15 unit, SUB-Q, TID-Before Meals, PRN Blood Glucose Results, 0 Refill(s) Start Date: 09/23/15 Status: Suspended insulin aspart 12 unit, SUB-Q, TID-Before Meals, PRN Blood Glucose Results, 0 Refill(s) Start Date: 09/23/15 Status: Suspended insulin aspart 6 unit, SUB-Q, TID-Before Meals, PRN Blood Glucose Results, 0 Refill(s) Start Date: 09/23/15 Status: Suspended insulin aspart 9 unit, SUB-Q, TID-Before Meals, PRN Blood Glucose Results, 0 Refill(s) Start Date: 09/23/15 Status: Suspended K-Dur 10 20 mEq, 1 tab, Route: PO, Drug form: ERTAB, BID, Dosing Weight 80, kg, Start cynthia e: 09/15/15 9:00:00, Stop date: 10/14/15 17:00:00 Notes: (Same as: K-Dur 20)"Do Not Crush" With food and full glass of water Start Date: 09/15/15 Stop Date: 09/19/15 Status: Discontinued Lasix 20 mg, 2 mL, Route: IVP, Drug form: INJ, Daily, Dosing Weight 93.318, kg, Start date: 09/16/15 9:00:00, Duration: 30 day, Stop date: 10/15/15 9:00:00 Notes: (Same as: Lasix) Start Date: 09/16/15 Stop Date: 09/17/15 Status: Discontinued Lasix 40 mg oral tablet 40 mg=1 tab, PO, Daily, 0 Refill(s) Start Date: 09/23/15 Status: Suspended Lasix 40 mg oral tablet 40 mg, 1 tab, Route: PO, Drug form: TAB, Daily, Dosing Weight 93.318, kg, Start date: 09/17/15 9:00:00, Duration: 30 day, Stop date: 10/16/15 9:00:00 Notes: (Same as: Lasix) May cause GI upset. Give with food or milk. Start Date: 09/17/15 Stop Date: 09/23/15 Status: Transfer/Canceled Levothroid 50 microgram, 1 tab, Route: PO, Drug form: TAB, Daily, Dosing Weight 80, kg, Sta rt date: 09/15/15 6:30:00, Duration: 30 day, Stop date: 10/14/15 6:30:00 Notes: Take 1 hour before or 2 hours after meal; Enteral feeds may interefere wi th the absorption of this medication.(Same as:Levothroid, Synthroid) Start Date: 09/15/15 Stop Date: 09/23/15 Status: Transfer/Canceled levothyroxine 50 mcg (0.05 mg) oral tablet 50 microgram=1 tab, PO, Daily, 0 Refill(s) Start Date: 09/23/15 Status: Suspended metroNIDAZOLE 500 mg oral tablet 500 mg=1 tab, PO, ABXQ8H, 0 Refill(s) Start Date: 09/23/15 Status: Suspended pneumococcal 23-valent vaccine 0.5 mL, Route: IM, Drug Form: INJ, Daily, Start date: 09/18/15 9:00:00, Duration : 1 doses or times, Stop date: 09/18/15 9:00:00 Notes: (Same as: Pneumovax 23) Refrigerate Start Date: 09/18/15 Stop Date: 09/18/15 Status: Completed potassium chloride 40 mEq, 2 tab, Route: PO, Drug form: ERTAB, Q4H, Dosing Weight 93.318, kg, Prior ity: NOW, Start date: 09/19/15 7:36:00, Duration: 2 doses or times, Stop date: 0 09/19/15 11:30:00 Notes: (Same as: K-Dur 20)"Do Not Crush" With food and full glass of water Start Date: 09/19/15 Stop Date: 09/19/15 Status: Completed potassium chloride 40 mEq, 2 tab, Route: PO, Drug form: ERTAB, BID, Dosing Weight 93.318, kg, Start date: 09/19/15 9:00:00, Duration: 3 day, Stop date: 09/21/15 17:00:00 Notes: (Same as: K-Dur 20)"Do Not Crush" With food and full glass of water Start Date: 09/19/15 Stop Date: 09/21/15 Status: Completed Proscar 5 mg, 1 tab, Route: PO, Drug form: TAB, Daily, Dosing Weight 80, kg, Start date: 09/15/15 9:00:00, Duration: 30 day, Stop date: 10/14/15 9:00:00 Notes: (Same as: Proscar) "Do Not Crush"Women of childbearing age should not kaycee ch or handle broken tablets Start Date: 09/15/15 Stop Date: 09/23/15 Status: Transfer/Canceled Saline Flush 0.9% 10 ml, Route: IVP, Drug Form: INJ, Dosing Weight 93.318, kg, Q12H, Start date: 0 09/15/15 9:00:00, Duration: 30 day, Stop date: 10/14/15 21:00:00 Notes: (Same as: BD Posiflush) Start Date: 09/15/15 Stop Date: 09/17/15 Status: Discontinued Saline Flush 0.9% 10 ml, Route: IVP, Drug Form: INJ, Dosing Weight 93.318, kg, PRN, PRN Line Flush , Start date: 09/15/15 0:13:00, Duration: 30 day, Stop date: 10/15/15 0:12:00 Notes: (Same as: BD Posiflush) Start Date: 09/15/15 Stop Date: 09/15/15 Status: Discontinued spironolactone 25 mg oral tablet 25 mg=1 tab, PO, Daily, 0 Refill(s) Start Date: 09/23/15 Status: Suspended trazodone 50 mg, 1 tab, Route: PO, Drug form: TAB, Bedtime, Dosing Weight 80, kg, PRN Inso mnia, Start date: 09/15/15 0:13:00, Duration: 30 day, Stop date: 10/15/15 0:12:0 0 Notes: (Same As: Desyrel) Start Date: 09/15/15 Stop Date: 09/23/15 Status: Transfer/Canceled trazodone 50 mg oral tablet 50 mg=1 tab, PO, Bedtime, PRN Insomnia, 0 Refill(s) Start Date: 09/23/15 Status: Suspended Tylenol 650 mg, 20.3 mL, Route: PO, Drug form: LIQ, Q4H, Dosing Weight 93.318, kg, PRN P ain Score 1-3, Start date: 09/17/15 10:16:00, Duration: 30 day, Stop date: 10/16 10:15:00 Notes: Max kpzstkgcpoewz=9469mg/day (4 gm/day). (Same as: Tylenol) Start Date: 09/17/15 Stop Date: 09/23/15 Status: Transfer/Canceled vancomycin 250 mg, 5 mL, Route: PO, Drug form: SUSP, ABXQ6H, Dosing Weight 93.318, kg, Star t date: 09/18/15 17:00:00, Duration: 30 day, Stop date: 10/18/15 11:00:00 Start Date: 09/18/15 Stop Date: 09/23/15 Status: Transfer/Canceled vancomycin 250 mg=5 mL, PO, ABXQ6H, 0 Refill(s) Start Date: 09/23/15 Status: Suspended Vitamin D2 50,000 IntlUnit, 1 cap, Route: PO, Drug form: CAP, qWeek, Dosing Weight 93.318, kg, Start date: 09/17/15 15:00:00, Duration: 5 doses or times, Stop date: 9:00:00 Notes: (Same as: Vitamin D) "Do Not Crush" Start Date: 09/17/15 Stop Date: 09/23/15 Status: Transfer/Canceled Zyloprim 100 mg, 1 tab, Route: PO, Drug form: TAB, Daily, Dosing Weight 80, kg, Start cynthia e: 09/15/15 9:00:00, Duration: 30 day, Stop date: 10/14/15 9:00:00 Notes: (Same as: Chidi) Start Date: 09/15/15 Stop Date: 09/23/15 Status: Transfer/Canceled Results ELECTROLYTES 1 2 3 Most recent to oldest [Reference Range]: 136 mEq/L (09/23/15 5:09 AM) 136 mEq/L (09/20/15 7:02 AM) 139 mEq/L (09/19/15 5:17 AM) Sodium Lvl [135-145 mEq/L] 3.9 mEq/L (09/23/15 5:09 AM) 3.8 mEq/L (09/20/15 7:02 AM) 3.0 mEq/L 1 *CRIT* (09/19/15 5:17 AM) Potassium Lvl [3.5-5.1 mEq/L] 100 mEq/L (09/23/15 5:09 AM) 103 mEq/L (09/20/15 7:02 AM) 105 mEq/L (09/19/15 5:17 AM) Chloride Lvl [95-109 mEq/L] 29 mEq/L (09/23/15 5:09 AM) 26 mEq/L (09/20/15 7:02 AM) 25 mEq/L (09/19/15 5:17 AM) CO2 [24-32 mEq/L] 10.9 mEq/L (09/23/15 5:09 AM) 10.8 mEq/L (09/20/15 7:02 AM) 12.0 mEq/L (09/19/15 5:17 AM) AGAP [10.0-20.0 mEq/L] 1Result Comment: Critical Result(s) called to maik at 09/19/2015 06:00 by id. Read back OK. CHEM PANEL 1 2 3 Most recent to oldest [Reference Range]: 1.28 mg/dL (09/23/15 5:09 AM) 1.09 mg/dL (09/20/15 7:02 AM) 1.07 mg/dL (09/19/15 5:17 AM) Creatinine Lvl [0.50-1.40 mg/dL] 50 mL/min/1.73m2 1 *NA* (09/23/15 5:09 AM) 61 mL/min/1.73m2 2 *NA* (09/20/15 7:02 AM) 62 mL/min/1.73m2 3 *NA* (09/19/15 5:17 AM) eGFR 18 mg/dL (09/23/15 5:09 AM) 16 mg/dL (09/20/15 7:02 AM) 18 mg/dL (09/19/15 5:17 AM) BUN [7-22 mg/dL] 114 mg/dL *HI* (09/23/15 5:09 AM) 111 mg/dL *HI* (09/20/15 7:02 AM) 110 mg/dL *HI* (09/19/15 5:17 AM) Glucose Lvl [70-99 mg/dL] 2.3 g/dL *LOW* (09/15/15 6:56 AM) Albumin Lvl [3.5-5.0 g/dL] 8.0 mg/dL *LOW* (09/23/15 5:09 AM) 7.7 mg/dL *LOW* (09/20/15 7:02 AM) 7.4 mg/dL *LOW* (09/19/15 5:17 AM) Calcium Lvl [8.5-10.5 mg/dL] 2.3 mg/dL *LOW* (09/15/15 6:56 AM) Phosphorus [2.5-4.5 mg/dL] 2.1 mg/dL (09/15/15 6:56 AM) Magnesium Lvl [1.8-2.4 mg/dL] 15 ng/mL *LOW* (09/15/15 6:56 AM) Vitamin D, 25-OH, Total [30-100 ng/mL] 1Result Comment: The eGFR is calculated using [...] tiplied by the estimated BMI. SPECIAL CHEMISTRY 1 2 3 Most recent to oldest [Reference Range]: 5.9 % *HI* (09/15/15 6:56 AM) Hgb A1C [<=5.6 %] IMMUNOLOGY 1 2 3 Most recent to oldest [Reference Range]: 9.7 mg/dL *LOW* (09/15/15 6:56 AM) Prealbumin [18.0-45.0 mg/dL] HEMATOLOGY 1 2 3 Most recent to oldest [Reference Range]: 9.9 K/CMM (09/23/15 5:09 AM) 10.7 K/CMM *HI* (09/20/15 7:02 AM) 8.8 K/CMM (09/19/15:17 AM) WBC [3.7-10.4 K/CMM] 3.47 M/CMM *LOW* (09/23/15 5:09 AM) 3.51 M/CMM *LOW* (09/20/15 7:02 AM) 3.36 M/CMM *LOW* (09/19/15:17 AM) RBC [4.70-6.10 M/CMM] 10.9 g/dL *LOW* (09/23/15 5:09 AM) 11.0 g/dL *LOW* (09/20/15:02 AM) 10.5 g/dL *LOW* (09/19/15:17 AM) Hgb [14.0-18.0 g/dL] 33.0 % *LOW* (09/23/15 5:09 AM) 33.5 % *LOW* (09/20/15 7:02 AM) 31.7 % *LOW* (09/19/15 5:17 AM) Hct [42.0-54.0 %] 95.1 fL *HI* (09/23/15 5:09 AM) 95.5 fL *HI* (09/20/15 7:02 AM) 94.4 fL *HI* (09/19/15:17 AM) MCV [80.0-94.0 fL] 31.6 pg *HI* (09/23/15 5:09 AM) 31.3 pg *HI* (09/20/15 7:02 AM) 31.3 pg *HI* (09/19/15 5:17 AM) MCH [27.0-31.0 pg] 33.2 g/dL (09/23/15 5:09 AM) 32.7 g/dL (09/20/15 7:02 AM) 33.2 g/dL (09/19/15:17 AM) MCHC [32.0-36.0 g/dL] 15.3 % *HI* (09/23/15 5:09 AM) 14.8 % *HI* (09/20/15 7:02 AM) 14.8 % *HI* (09/19/15:17 AM) RDW [11.5-14.5 %] 170 K/CMM (09/23/15 5:09 AM) 147 K/CMM (09/20/15 7:02 AM) 156 K/CMM (09/19/15:17 AM) Platelet [133-450 K/CMM] 8.9 fL (09/23/15 5:09 AM) 9.0 fL (09/20/15 7:02 AM) 8.7 fL (09/19/15:17 AM) MPV [7.4-10.4 fL] 49.5 % (09/23/15 5:09 AM) 51.3 % (09/20/15 7:02 AM) 46.2 % (09/19/15:17 AM) Segs [45.0-75.0 %] 1.0 % (09/17/15 5:19 PM) Bands [0.0-11.0 %] 42.2 % *HI* (09/23/15 5:09 AM) 41.4 % *HI* (09/20/15 7:02 AM) 43.6 % *HI* (09/19/15:17 AM) Lymphocytes [20.0-40.0 %] 2.0 % *HI* (09/17/15 5:19 PM) Atypical Lymphs [<=0.0 %] 6.5 % (09/23/15 5:09 AM) 5.7 % (09/20/15 7:02 AM) 8.3 % (09/19/15:17 AM) Monocytes [2.0-12.0 %] 1.5 % (09/23/15 5:09 AM) 1.0 % (09/20/15 7:02 AM) 1.3 % (09/19/15:17 AM) Eosinophils [0.0-4.0 %] 0.3 % (09/23/15 5:09 AM) 0.6 % (09/20/15 7:02 AM) 0.6 % (09/19/15:17 AM) Basophils [0.0-1.0 %] 2.0 % *HI* (09/17/15 5:19 PM) Myelocytes [<=0.0 %] 4.9 K/CMM (09/23/15 5:09 AM) 5.5 K/CMM (09/20/15 7:02 AM) 4.1 K/CMM (09/19/15 5:17 AM) Segs-Bands # [1.5-8.1 K/CMM] 4.2 K/CMM (09/23/15 5:09 AM) 4.4 K/CMM (09/20/15 7:02 AM) 3.9 K/CMM (09/19/15 5:17 AM) Lymphocytes # [1.0-5.5 K/CMM] 0.6 K/CMM (09/23/15 5:09 AM) 0.6 K/CMM (09/20/15 7:02 AM) 0.7 K/CMM (09/19/15 5:17 AM) Monocytes # [0.0-0.8 K/CMM] 0.2 K/CMM (09/23/15 5:09 AM) 0.1 K/CMM (09/20/15 7:02 AM) 0.1 K/CMM (09/19/15 5:17 AM) Eosinophils # [0.0-0.5 K/CMM] 0.1 K/CMM (09/20/15 7:02 AM) 0.1 K/CMM (09/19/15 5:17 AM) 0.1 K/CMM (09/18/15 9:40 AM) Basophils # [0.0-0.2 K/CMM] 100 *NA* (09/17/15 5:19 PM) Tot Cell Ct Normal (09/17/15 5:19 PM) RBC Morph Moderate *ABN* (09/17/15 5:19 PM) Smudge [None Seen] Normal (09/17/15 5:19 PM) Plt Morph 22.0 seconds *HI* (09/23/15 5:09 AM) 23.4 seconds *HI* (09/22/15 6:50 AM) 25.0 seconds *HI* (09/21/15 2:28 PM) PT [12.0-14.7 seconds] 1.89 *HI* (09/23/15 5:09 AM) 2.04 *HI* (09/22/15 6:50 AM) 2.23 *HI* (09/21/15 2:28 PM) INR [0.85-1.17] 35.7 seconds (09/15/15 6:56 AM) PTT [22.9-35.8 seconds] Immunizations Vaccine Date Refusal Reason pneumococcal 23-valent vaccine 09/18/15 Permanently Refused Procedures Procedure Date Related Diagnosis Body Site ACD - Automatic cardiac defibrillator 1988 procedure CABG x 2 - Coronary artery bypass grafts x 2 Social History Social History Type Response Alcohol Never Smoking Status Former smoker; Type: Cigarettes; Exposure to Tobacco Smoke None; Cigarette Smoking Last 365 Days No; Reg Smoking Cessation Counseling Yes Assessment and Plan Extracted from: Title: Ortho Author: Low Ha MD Date: 09/23/15 Progress Daily [facility] Completed: Sep, 12:47 by Low Ha MD RM: 257 - 1P, SE [id number], [id number] (: 1930) M Attending: Patrick Griffin MDPhone: Service: Physical Med/Rehab Service Reason for Admission: L FEMUR FX Working DRG: None Documented Code status: Full Code [Ordered]Current diet: Isolation: None Documented Allergies: Allergy Unverified(NO GENERICS), Procanbid, penicillin, Levaquin, Nitroglycerin Patch SUBJECTIVE minima pain in left hip AMB w/ assistance OBJECTIVE multiple weeping blisters incision, sero-sanguinous drainge, 1 cm area of dehisence NVID no clinial signs of DVT ASSESSMENT & EXAM s/p Left LESTER 2/2 femur neck fracture skin 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 Diff dx/d post op PLAN & TREATMENT on flagyl H.9 Plt: 170 INR: 1.89 type and cross for 2 units FFP, platelets, prbc plavix has been held for 4 days coumadin held for 4 days Plan for Left wound excisional debridement and irrigation, if infection tracts deep then will proceed with modular exchange with deep irrigation and excisional debridement. Intra-op Cx. PICC line post op if infection tracts deep. Risks and Benefits d/w patient and . Will plan for a second discussion prior to procedure NPO x meds at [place] 24hr Labs 09/22 0509 Glucose Hrm706 H BUN18 Creatinine Lvl1.28 Sodium Lfr106 Potassium Lvl3.9 Chloride Erj954 CO229 AGAP10.9 Calcium Lvl8.0 L eGFR50 WBC9.9 RBC3.47 L Hgb10.9 L Hct33.0 L MCV95.1 H MCH31.6 H MCHC33.2 RDW15.3 H Ycefksva071 MPV8.9 Segs49.5 Monocytes6.5 Yimoridkeno09.2 H Eosinophils1.5 Basophils0.3 Segs-Bands #4.9 Lymphocytes #4.2 Monocytes #0.6 Eosinophils #0.2 PT22.0 H INR1.89 H VitalsTmp(F)[id number] 09/22 09:[id number]/[id number]------ 09/22 08:18----82 09/21 20:[id number]--- 09/21 18:[id number]--- 09/21 09:1397.311393/[id number]--- 24 Hr Tmax: 98.2F (36.78c) at 09/21 20:23Vital Signs are the last 5 in the past 48 hours. DateWt(kg)Wt(lb)Ht(cm)Ht(in)Method 09/20 78.30 172.25Measured 09/13 (initial) 93.32 205.30Measured 77.80 70.00Estimated I&ORecordInOutBal 09/323hr Tot 5 0 5 09/223hr Tot 800 750 50 Medications (30) Active Scheduled Meds (14): 09/15/15 allopurinol (Zyloprim) 100 mg PO Daily 09/15/15 carvedilol (Coreg) 6.25 mg PO Q12H 09/15/15 digoxin 0.25 mg PO Every Other Day 09/17/15 ergocalciferol (Vitamin D2) 50,000 IntlUnit PO qWeek 09/15/15 finasteride (Proscar) 5 mg PO Daily 09/17/15 furosemide (Lasix 40 mg oral tablet) 40 mg PO Daily 09/22/15 heparin (heparin 5000 units/mL injectable solution) 5,000 unit SUB-Q Q12H 09/17/15 hydrochlorothiazide (hydrochlorothiazide 25 mg oral tablet) 25 mg PO Daily 09/15/15 levothyroxine (Levothroid) 50 microgram PO Daily 09/15/15 metroNIDAZOLE (Flagyl) 500 mg PO ABXQ8H 09/21/15 non-formulary (DO NOT GIVE HEPARIN SQ UNTIL INR <2.0) MISC Q12H 09/17/15 spironolactone (Aldactone) 25 mg PO Daily 09/18/15 vancomycin 250 mg PO ABXQ6H 09/20/15 (Suspended) warfarin (Coumadin) 5 mg PO Daily Unscheduled Meds: None PRN Meds (15): 09/15/15 Dextrose 50% in Water IV (Dextrose 50% Syringe) 12.5 gm IVP PRN 09/15/15 Dextrose 50% in Water IV (Dextrose 50% Syringe) 25 gm IVP PRN 09/15/15 acetaminophen-codeine (acetaminophen-codeine 300 mg-30 mg oral tablet) 1 tab PO Q4H 09/17/15 acetaminophen-codeine (acetaminophen-codeine 300 mg-30 mg oral tablet) 2 tab PO Q4H 09/17/15 acetaminophen (Tylenol) 650 mg PO Q4H 09/15/15 bisacodyl (Dulcolax Laxative) 10 mg ID Daily 09/15/15 docusate (docusate sodium 100 mg oral capsule) 100 mg PO BID 09/15/15 glucagon 1 mg IM PRN 09/15/15 insulin aspart 3 unit SUB-Q TID-Before Meals 09/15/15 insulin aspart 6 unit SUB-Q TID-Before Meals 09/15/15 insulin aspart 9 unit SUB-Q TID-Before Meals 09/15/15 insulin aspart 12 unit SUB-Q TID-Before Meals 09/15/15 insulin aspart 15 unit SUB-Q TID-Before Meals 09/15/15 sodium chloride (BD Normal Saline Flush) 10 ml IVP PRN 09/15/15 trazodone 50 mg PO Bedtime One Time Meds (1): 09/22/15 (Completed) albumin human (albumin human 25% intravenous solution) 25 gm IV ONCE 100 ml/hr Continuous Infusions: None
--- OUTSIDE RECORDS SUMMARY | 2018-07-01 11:40 | XMS REPORT | Summary of Care ---
Author Author [facility] Organization [facility] Address Unknown Phone Unavailable Encounter HQ Alfred(CHIDI) [id number] Date(s): 12/12/15 - 12/12/15 [facility] [address] [place] [address]- [phone] Discharge Disposition: Home Attending Physician: Bereket Mariscal [...] Resolved Hypertension(Confirm Resolved ed) Hypothyroidism(Confi Resolved rmed) 1st, 09-11-15 2Problem added by Discern Expert. Allergies, Adverse Reactions, Alerts Substance Reaction Severity Status Allergy Unverified NO GENERICS Active chlorhexidine containing Active compounds Levaquin Active Nitroglycerin Patch Active penicillin Active Procanbid Active Surgical Tape1 Active 1blisters Medications No data available for this section Results ELECTROLYTES Most recent to 1 oldest [Reference Range]: Sodium Lvl [135-145 140 mEq/L mEq/L] (12/12/15 10:57 AM) Potassium Lvl 3.9 mEq/L [3.5-5.1 mEq/L] (12/12/15 10:57 AM) Chloride Lvl [95-109 104 mEq/L mEq/L] (12/12/15 10:57 AM) CO2 [24-32 mEq/L] 28 mEq/L (12/12/15 10:57 AM) AGAP [10.0-20.0 11.9 mEq/L mEq/L] (12/12/15 10:57 AM) CHEM PANEL Most recent to 1 oldest [Reference Range]: Creatinine Lvl 1.38 mg/dL [0.50-1.40 mg/dL] (12/12/15 10:57 AM) eGFR 46 mL/min/1.73m2 1 *NA* (12/12/15 10:57 AM) BUN [7-22 mg/dL] 24 mg/dL *HI* (12/12/15 10:57 AM) B/C Ratio [6-25] 17 (12/12/15 10:57 AM) Glucose Lvl [70-99 107 mg/dL mg/dL] *HI* (12/12/15 10:57 AM) Uric Acid [3.8-8.0 5.5 mg/dL mg/dL] (12/12/15 10:57 AM) Total Protein 6.3 g/dL [6.4-8.4 g/dL] *LOW* (12/12/15 10:57 AM) Albumin Lvl [3.5-5.0 3.1 g/dL g/dL] *LOW* (12/12/15 10:57 AM) Globulin [2.0-4.0 3.2 g/dL g/dL] (12/12/15 10:57 AM) A/G Ratio [0.7-1.6] 1.0 (12/12/15 10:57 AM) Calcium Lvl 8.5 mg/dL [8.5-10.5 mg/dL] (12/12/15 10:57 AM) ALT [0-65 unit/L] 22 unit/L (12/12/15 10:57 AM) AST [0-37 unit/L] 28 unit/L (12/12/15 10:57 AM) Alk Phos [39-136 65 unit/L unit/L] (12/12/15 10:57 AM) Bili Total [0.2-1.3 0.5 mg/dL mg/dL] (12/12/15 10:57 AM) 1Result Comment: The eGFR is calculated [...] estimated BMI. TOXICOLOGY Most recent to 1 oldest [Reference Range]: Digoxin Lvl [0.8-2.0 0.9 ng/mL ng/mL] (12/12/15 10:57 AM) HEMATOLOGY Most recent to 1 oldest [Reference Range]: PT [12.0-14.7 15.7 seconds seconds] *HI* (12/12/15 10:57 AM) INR [0.85-1.17] 1.22 *HI* (12/12/15 10:57 AM) Immunizations Not Given Vaccine Date Status [...]
--- OUTSIDE RECORDS SUMMARY | 2018-07-01 11:40 | XMS REPORT | Summary of Care ---
Author Author [facility] Organization [facility] Address Unknown Phone Unavailable Encounter [facility] Alfred(CHIDI) [id number] Date(s): 09/23/15 - 09/29/15 [facility] [address] [place] [address]- Discharge Disposition: Assisted Care Attending Physician: Faby Walker MD Admitting Physician: Faby Walker MD Vital Signs 1 2 3 Most recent to oldest [Reference Range]: 177.8 cm (09/25/15 10:32 AM) 177.8 cm (09/25/15 7:33 AM) 177.8 cm (09/25/15 2:41 AM) Height 97.3 DegF (09/29/15 1:05 PM) 97.9 DegF (09/29/15 8:59 AM) 97.8 DegF (09/29/15 3:43 AM) Temperature Oral [96.4-99.1 DegF] 116/59 mmHg (09/29/15 1:05 PM) 105/56 mmHg (09/29/15 8:59 AM) 108/55 mmHg (09/29/15 3:43 AM) Blood Pressure [90-140/60-90 mmHg] 16 BRMIN (09/29/15 1:05 PM) 18 BRMIN (09/29/15 10:00 AM) 16 BRMIN (09/29/15 8:59 AM) Respiratory Rate [14-20 BRMIN] 87 bpm (09/29/15 1:05 PM) 85 bpm (09/29/15 8:59 AM) 79 bpm (09/29/15 3:43 AM) Peripheral Pulse Rate [60-100 bpm] 93.318 kg (09/24/15 8:05 AM) 93.318 kg (09/23/15 3:46 PM) Weight 29.52 m2 (09/24/15 8:05 AM) 29.52 m2 (09/23/15 3:46 PM) Body Mass Index Problem List Condition Effective [...] Procanbid Active Surgical Tape1 Active 1blisters Medications 1/2 NS 1,000 mL 1,000 mL, Rate: 75 ml/hr, Infuse over: 13.3 hr, Route: IV, Dosing Weight 93.318 kg, Total Volume: 1,000, Start date: 09/24/15 16:53:00, Duration: 30 day, Stop d ate: 10/24/15 16:52:00 Start Date: 09/24/15 Stop Date: 09/26/15 Status: Discontinued 1/2 NS 1,000 mL 1,000 mL, Rate: 75 ml/hr, Infuse over: 13.3 hr, Route: IV, Dosing Weight 93.318 kg, Total Volume: 1,000, Start date: 09/23/15 16:34:00, Duration: 30 day, Stop d ate: 10/23/15 16:33:00 Start Date: 09/23/15 Stop Date: 09/26/15 Status: Discontinued acetaminophen-codeine 300 mg-30 mg oral tablet 1 tab, Route: PO, Drug Form: TAB, Dosing Weight 93.318, kg, Q4H, PRN Pain Score 4-6, Start date: 09/23/15 16:31:00, Duration: 30 day, Stop date: 10/23/15 16:30: 00 Notes: Do not exceed 4gm/day of acetaminophen. (Same as: Tylenol with Codeine # 3) Start Date: 09/23/15 Stop Date: 09/29/15 Status: Discontinued acetaminophen-codeine 300 mg-30 mg oral tablet 2 tab, Route: PO, Drug Form: TAB, Dosing Weight 93.318, kg, Q4H, PRN Pain Score 7-10, Start date: 09/23/15 16:31:00, Duration: 30 day, Stop date: 10/23/15 16:30 :00 Notes: Do not exceed 4gm/day of acetaminophen. (Same as: Tylenol with Codeine # 3) Start Date: 09/23/15 Stop Date: 09/29/15 Status: Discontinued allopurinol 100 mg, 1 tab, Route: PO, Drug form: TAB, Daily, Dosing Weight 93.318, kg, Start date: 09/24/15 9:00:00, Duration: 30 day, Stop date: 10/23/15 9:00:00 Notes: (Same as: Zyloprim) Start Date: 09/24/15 Stop Date: 09/29/15 Status: Discontinued Amidate (ANES) Route: IV, Drug form: INJ, ONCE, Stop date: 09/24/15 14:41:00 Start Date: 09/24/15 Stop Date: 09/24/15 Status: Completed atropine 0.5 mg, 5 mL, Route: IVP, Drug form: INJ, ONCE, Dosing Weight 93.318, kg, PRN Br adycardia, Start date: 09/27/15 4:13:00 Start Date: 09/27/15 Stop Date: 09/29/15 Status: Discontinued atropine 0.1 mg/mL injectable solution 0.5 mg=5 mL, IVP, ONCE, PRN Bradycardia, 0 Refill(s) Start Date: 09/28/15 Status: Ordered bisacodyl 10 mg, 1 supp, Route: OR, Drug form: SUPP, Daily, Dosing Weight 93.318, kg, PRN Constipation, Start date: 09/24/15 16:53:00, Duration: 30 day, Stop date: 16:52:00 Notes: (Same As: Dulcolax, Bisco-Lax) Start Date: 09/24/15 Stop Date: 09/29/15 Status: Discontinued bisacodyl 10 mg, 1 supp, Route: OR, Drug form: SUPP, Daily, Dosing Weight 93.318, kg, PRN Constipation, Start date: 09/23/15 16:32:00, Duration: 30 day, Stop date: 16:31:00 Notes: (Same As: Dulcolax, Bisco-Lax) Start Date: 09/23/15 Stop Date: 09/29/15 Status: Discontinued carvedilol 6.25 mg, 2 tab, Route: PO, Drug form: TAB, Q12H, Dosing Weight 93.318, kg, Start date: 09/23/15 21:00:00, Duration: 30 day, Stop date: 10/23/15 9:00:00 Notes: Give with food. (Same As: Coreg) Start Date: 09/23/15 Stop Date: 09/29/15 Status: Discontinued cefepime + Sodium Chloride 0.9% IV 100 mL 1 gm, Route: IVPB, [id number], Dosing Weight 93.318, kg, (CrCl 30 - 49 ml/min), Sta rt date: 09/25/15 15:00:00, Duration: 30 day, Stop date: 10/25/15 3:00:00 Notes: (Same As: Maxipime) MEDICATION WASTE Product Size: 1000 mgProduc t Wasted: ___ mg Start Date: 09/25/15 Stop Date: 09/28/15 Status: Discontinued cefTRIAXone + Sodium Chloride 0.9% IV 100 mL 1 gm, Route: IVPB, [id number], Dosing Weight 93.318, kg, Start date: 09/28/15 17:30 :00, Duration: 30 day, Stop date: 10/27/15 17:30:00 Notes: (Same As: Rocephin).Use with 100 mL NS and infuse over 30 min MEDICA TION WASTE Product Size: 1000 mgProduct Wasted: ___ mg Start Date: 09/28/15 Stop Date: 09/29/15 Status: Discontinued clindamycin 900 mg, 50 mL, Route: IV, Drug form: INJ, ONCALL, Dosing Weight 93.318, kg, ONCA LL to OR, Start date: 09/23/15 22:00:00 Start Date: 09/23/15 Stop Date: 09/25/15 Status: Completed clindamycin (ANES) Route: IV, Drug form: INJ, ONCE, Stop date: 09/24/15 14:41:00 Start Date: 09/24/15 Stop Date: 09/24/15 Status: Completed clindamycin (SCIP) 600 mg, 50 mL, Route: IVPB, Drug form: INJ, Q6H, Dosing Weight 93.318, kg, Start date: 09/24/15 20:00:00, Duration: 3 doses or times, Stop date: 09/25/15 8:00:00 Start Date: 09/24/15 Stop Date: 09/25/15 Status: Completed Dakins Half Strength Solution 1 appl, Route: TOP, Drug Form: SOLN, Dosing Weight 93.318, kg, Daily, NOW, Start date: 09/24/15 12:39:00, Duration: 30 day, Stop date: 10/24/15 9:00:00 Notes: Note: half strength=0.25% sodium hypochlorite. Start Date: 09/24/15 Stop Date: 09/28/15 Status: Discontinued Dextrose 50% Syringe 25 gm, 50 mL, Route: IVP, Drug Form: INJ, Dosing Weight 93.318, kg, PRN, PRN Blo od Glucose Results, Start date: 09/23/15 16:52:00, Duration: 30 day, Stop date: 10/23/15 16:51:00 Start Date: 09/23/15 Stop Date: 09/29/15 Status: Discontinued Dextrose 50% Syringe 12.5 gm, 25 mL, Route: IVP, Drug Form: INJ, Dosing Weight 93.318, kg, PRN, PRN B lood Glucose Results, Start date: 09/23/15 16:52:00, Duration: 30 day, Stop date : 10/23/15 16:51:00 Start Date: 09/23/15 Stop Date: 09/29/15 Status: Discontinued digoxin 250 mcg (0.25 mg) oral tablet 0.25 mg, 1 tab, Route: PO, Drug form: TAB, Every Other Day, Dosing Weight 93.318 , kg, Start date: 09/25/15 9:00:00, Duration: 30 day, Stop date: 10/23/15 9:00:0 0 Notes: Take on an Empty Stomach (Same as: Lanoxin) Start Date: 09/25/15 Stop Date: 09/26/15 Status: Discontinued Dilaudid 0.5 mg, 0.5 mL, Route: IV, Drug form: INJ, Q2H, Dosing Weight 93.318, kg, PRN Ot her -See Comment, Start date: 09/24/15 16:53:00, Duration: 30 day, Stop date: 16:52:00, Breakthrough Pain, level 6-10, give 15 minutes after PO pain na rcotic if p... Start Date: 09/24/15 Stop Date: 09/29/15 Status: Discontinued Dilaudid 0.2 mg, 0.2 mL, Route: IV, Drug form: INJ, Q2H, Dosing Weight 93.318, kg, PRN Ot her -See Comment, Start date: 09/24/15 16:53:00, Duration: 30 day, Stop date: 16:52:00, Breakthrough Pain, level 1-5, give 15 minutes after PO pain aliya cotic if pa... Start Date: 09/24/15 Stop Date: 09/29/15 Status: Discontinued diphenhydrAMINE 12.5 mg, 0.5 tab, Route: PO, Drug form: TAB, Q6H, Dosing Weight 93.318, kg, PRN Itching, Start date: 09/24/15 16:53:00, Duration: 30 day, Stop date: 10/24/15 16 :52:00 Start Date: 09/24/15 Stop Date: 09/29/15 Status: Discontinued diphenhydrAMINE 25 mg oral tablet 12.5 mg=0.5 tab, PO, Q6H, PRN Itching, 0 Refill(s) Start Date: 09/28/15 Status: Ordered docusate 100 mg, 1 cap, Route: PO, Drug form: CAP, BID, Dosing Weight 93.318, kg, Start d ate: 09/24/15 17:00:00, Duration: 30 day, Stop date: 10/24/15 9:00:00 Notes: (Same as: Colace) (Do Not Crush) Start Date: 09/24/15 Stop Date: 09/29/15 Status: Discontinued docusate sodium 100 mg oral capsule 100 mg, 1 cap, Route: PO, Drug form: CAP, BID, Dosing Weight 93.318, kg, PRN Con stipation, Start date: 09/23/15 16:32:00, Duration: 30 day, Stop date: 10/23/15 16:31:00 Notes: (Same as: Colace) (Do Not Crush) Start Date: 09/23/15 Stop Date: 09/29/15 Status: Discontinued enoxaparin 40 mg, 0.4 mL, Route: SUB-Q, Drug form: INJ, [id number], Dosing Weight 93.318, kg, Start date: 09/23/15 21:00:00, Duration: 30 day, Stop date: 10/22/15 21:00:00 Notes: (Same as: Lovenox) Start Date: 09/23/15 Stop Date: 09/24/15 Status: Discontinued enoxaparin 40 mg=0.4 mL, SUB-Q, [id number], 0 Refill(s) Start Date: 09/28/15 Status: Ordered enoxaparin 40 mg, 0.4 mL, Route: SUB-Q, Drug form: INJ, [id number], Dosing Weight 93.318, kg, Start date: 09/25/15 9:00:00, Duration: 30 day, Stop date: 10/24/15 9:00:00 Notes: (Same as: Lovenox) Start Date: 09/25/15 Stop Date: 09/29/15 Status: Discontinued ergocalciferol 50,000 intl units oral capsule 50,000 IntlUnit, 1 cap, Route: PO, Drug form: CAP, qWeek, Dosing Weight 93.318, kg, Start date: 09/23/15 17:00:00, Duration: 30 day, Stop date: 10/21/15 9:00:00 Notes: (Same as: Vitamin D) "Do Not Crush" Start Date: 09/23/15 Stop Date: 09/23/15 Status: Deleted esmolol (ANES) Route: IV, Drug form: INJ, ONCE, Stop date: 09/24/15 16:30:00 Start Date: 09/24/15 Stop Date: 09/24/15 Status: Completed famotidine 20 mg oral tablet 20 mg=1 tab, PO, Q12H, 0 Refill(s) Start Date: 09/28/15 Status: Ordered fentaNYL (ANES) Route: IV, Drug form: INJ, ONCE, Stop date: 09/24/15 14:41:00 Start Date: 09/24/15 Stop Date: 09/24/15 Status: Completed fentaNYL (ANES) Route: IV, Drug form: INJ, ONCE, Stop date: 09/24/15 15:55:00 Start Date: 09/24/15 Stop Date: 09/24/15 Status: Completed finasteride 5 mg, 1 tab, Route: PO, Drug form: TAB, Daily, Dosing Weight 93.318, kg, Start d ate: 09/24/15 9:00:00, Duration: 30 day, Stop date: 10/23/15 9:00:00 Notes: (Same as: Proscar) "Do Not Crush"Women of childbearing age should not kaycee ch or handle broken tablets Start Date: 09/24/15 Stop Date: 09/29/15 Status: Discontinued glucagon 1 mg, Route: IM, Drug form: PDR/INJ, PRN, Dosing Weight 93.318, kg, PRN Blood Gl ucose Results, Start date: 09/23/15 16:52:00, Duration: 30 day, Stop date: 10/22 16:51:00 Start Date: 09/23/15 Stop Date: 09/29/15 Status: Discontinued glucagon 1 mg, Route: IM, Drug form: PDR/INJ, PRN, Dosing Weight 93.318, kg, PRN Blood Gl ucose Results, Start date: 09/23/15 16:32:00, Duration: 30 day, Stop date: 10/22 16:31:00 Start Date: 09/23/15 Stop Date: 09/23/15 Status: Deleted glycopyrrolate (ANES) Route: IV, Drug form: INJ, ONCE, Stop date: 09/24/15 17:04:00 Start Date: 09/24/15 Stop Date: 09/24/15 Status: Completed hydrochlorothiazide 25 mg oral tablet 25 mg, 1 tab, Route: PO, Drug form: TAB, Daily, Dosing Weight 93.318, kg, Start date: 09/24/15 9:00:00, Duration: 30 day, Stop date: 10/23/15 9:00:00 Notes: (Same as: Hydrodiuril) With food. Start Date: 09/24/15 Stop Date: 09/29/15 Status: Discontinued hydromorphone 100 mg/100 mL-NaCl 0.9% intravenous solution 0.2 mg=0.2 mL, IV, Q2H, PRN Other -See Comment | Breakthrough Pain, level 1-5, g annamaria 15 minutes after PO pain narcotic if pain not resolved, 0 Refill(s) Start Date: 09/28/15 Status: Ordered hydromorphone 100 mg/100 mL-NaCl 0.9% intravenous solution 0.5 mg=0.5 mL, IV, Q2H, PRN Other -See Comment | Breakthrough Pain, level 6-10, give 15 minutes after PO pain narcotic if pain not resolved, 0 Refill(s) Start Date: 09/28/15 Status: Ordered insulin aspart 6 unit, Route: SUB-Q, Drug form: SOLN, TID-Before Meals, Dosing Weight 93.318, k g, PRN Blood Glucose Results, Start date: 09/23/15 16:32:00, Duration: 30 day, S top date: 10/23/15 16:31:00 Start Date: 09/23/15 Stop Date: 09/23/15 Status: Deleted insulin aspart 9 unit, Route: SUB-Q, Drug form: SOLN, TID-Before Meals, Dosing Weight 93.318, k g, PRN Blood Glucose Results, Start date: 09/23/15 16:32:00, Duration: 30 day, S top date: 10/23/15 16:31:00 Start Date: 09/23/15 Stop Date: 09/23/15 Status: Deleted insulin aspart 12 unit, Route: SUB-Q, Drug form: SOLN, TID-Before Meals, Dosing Weight 93.318, kg, PRN Blood Glucose Results, Start date: 09/23/15 16:32:00, Duration: 30 day, Stop date: 10/23/15 16:31:00 Start Date: 09/23/15 Stop Date: 09/23/15 Status: Deleted insulin aspart 15 unit, Route: SUB-Q, Drug form: SOLN, TID-Before Meals, Dosing Weight 93.318, kg, PRN Blood Glucose Results, Start date: 09/23/15 16:32:00, Duration: 30 day, Stop date: 10/23/15 16:31:00 Start Date: 09/23/15 Stop Date: 09/23/15 Status: Deleted Lactated Ringers Injection IV (ANES) (ANES) Route: IV, Total Volume: 1,000, Start date: 09/24/15 13:06:00, Stop date: 14:06:00 Start Date: 09/24/15 Stop Date: 09/24/15 Status: Completed Lasix 80 mg, 8 mL, Route: IV, Drug form: INJ, ONCE, Dosing Weight 93.318, kg, Start da te: 09/25/15 10:51:00, Stop date: 09/25/15 10:51:00 Notes: (Same as: Lasix) MEDICATION WASTE Product Size: 40 mgProduct Was dannie: ___ mg Start Date: 09/25/15 Stop Date: 09/25/15 Status: Completed Lasix 40 mg oral tablet 40 mg, 1 tab, Route: PO, Drug form: TAB, Daily, Dosing Weight 93.318, kg, Start date: 09/24/15 9:00:00, Duration: 30 day, Stop date: 10/23/15 9:00:00 Notes: (Same as: Lasix) May cause GI upset. Give with food or milk. Start Date: 09/24/15 Stop Date: 09/29/15 Status: Discontinued levothyroxine 50 microgram, 1 tab, Route: PO, Drug form: TAB, [id number], Dosing Weight 93.318, kg , Start date: 09/24/15 6:30:00, Duration: 30 day, Stop date: 10/23/15 6:30:00 Notes: Take 1 hour before or 2 hours after meal; Enteral feeds may interefere wi th the absorption of this medication.(Same as:Levothroid, Synthroid) Start Date: 09/24/15 Stop Date: 09/29/15 Status: Discontinued lidocaine (ANES) Route: IV, Drug form: INJ, ONCE, Stop date: 09/24/15 14:41:00 Start Date: 09/24/15 Stop Date: 09/24/15 Status: Completed LR IV 1,000 mL 1,000 mL, Rate: 25 ml/hr, Infuse over: 40 hr, Route: IV, Dosing Weight 93.318 kg , Total Volume: 1,000, Start date: 09/24/15 10:24:00, Duration: 2 day, Stop date : 09/26/15 10:23:00 Start Date: 09/24/15 Stop Date: 09/26/15 Status: Completed metoprolol (ANES) Route: IV, Drug form: INJ, ONCE, Stop date: 09/24/15 17:04:00 Start Date: 09/24/15 Stop Date: 09/24/15 Status: Completed metroNIDAZOLE 500 mg oral tablet 500 mg, 1 tab, Route: PO, Drug form: TAB, [id number], Dosing Weight 93.318, kg, Star t date: 09/23/15 19:00:00, Duration: 30 day, Stop date: 10/23/15 11:00:00 Notes: (Same as: Flagyl) Take with food/ avoid alcohol Start Date: 09/23/15 Stop Date: 09/25/15 Status: Discontinued neostigmine (ANES) Route: IV, Drug form: INJ, ONCE, Stop date: 09/24/15 17:04:00 Start Date: 09/24/15 Stop Date: 09/24/15 Status: Completed nitroglycerin 0.4 mg sublingual tablet 0.4 mg, 1 tab, Route: SL, Drug form: TAB, Q5Min, Dosing Weight 93.318, kg, PRN C hest Pain, Start date: 09/27/15 4:13:00, Duration: 30 day, Stop date: 10/27/15 4 :12:00 Start Date: 09/27/15 Stop Date: 09/27/15 Status: Deleted [place] 10/325 oral tablet 1 tab, Route: PO, Drug Form: TAB, Dosing Weight 93.318, kg, Q3H, PRN Pain Score 4-6, Start date: 09/24/15 16:53:00, Duration: 30 day, Stop date: 10/24/15 16:52: 00 Notes: Do not exceed 4gm/day of acetaminophen. (Same as: [place]land 325/10) Start Date: 09/24/15 Stop Date: 09/29/15 Status: Discontinued [place] 10/325 oral tablet 1 tab, PO, Q3H, PRN Pain Score 4-6, 0 Refill(s) Start Date: 09/28/15 Status: Ordered [place] 5/325 oral tablet 1 tab, Route: PO, Drug Form: TAB, Dosing Weight 93.318, kg, Q3H, PRN Pain Score 1-3, Start date: 09/24/15 16:53:00, Duration: 30 day, Stop date: 10/24/15 16:52: 00 Notes: (Same as: [place]land 325/5) Do not exceed 4gm/day of acetaminophen. Start Date: 09/24/15 Stop Date: 09/29/15 Status: Discontinued [place] 5/325 oral tablet 1 tab, PO, Q3H, PRN Pain Score 1-3, 0 Refill(s) Start Date: 09/28/15 Status: Ordered norepinephrine (ANES) Route: IV, Drug form: INJ, ONCE, Stop date: 09/24/15 15:13:00 Start Date: 09/24/15 Stop Date: 09/24/15 Status: Completed norepinephrine (ANES) Route: IV, Drug form: INJ, ONCE, Stop date: 09/24/15 15:34:00 Start Date: 09/24/15 Stop Date: 09/24/15 Status: Completed NovoLOG FlexPen 6 unit, 0.06 mL, Route: SUB-Q, Drug form: SOLN, TID-Before Meals, Dosing Weight 93.318, kg, PRN Blood Glucose Results, Start date: 09/23/15 16:52:00, Duration: 30 day, Stop date: 10/23/15 16:51:00 Notes: Roll in palms of hands gently; Do not shake vigorously. (Same as: NovoLO G)"single patient use only"WASTE: F/P - Black; E - Municipal Trash Bin Stable f or 28 days at room temperature.Expires in days from Date Start Date: 09/23/15 Stop Date: 09/29/15 Status: Discontinued NovoLOG FlexPen 3 unit, 0.03 mL, Route: SUB-Q, Drug form: SOLN, TID-Before Meals, Dosing Weight 93.318, kg, PRN Blood Glucose Results, Start date: 09/23/15 16:52:00, Duration: 30 day, Stop date: 10/23/15 16:51:00 Notes: Roll in palms of hands gently; Do not shake vigorously. (Same as: Jamin Gill)"single patient use only"WASTE: F/P - Black; E - Municipal Trash Bin Stable f or 28 days at room temperature.Expires in days from Date Start Date: 09/23/15 Stop Date: 09/29/15 Status: Discontinued NovoLOG FlexPen 15 unit, 0.15 mL, Route: SUB-Q, Drug form: SOLN, TID-Before Meals, Dosing Weight 93.318, kg, PRN Blood Glucose Results, Start date: 09/23/15 16:52:00, Duration: 30 day, Stop date: 10/23/15 16:51:00 Notes: Roll in palms of hands gently; Do not shake vigorously. (Same as: Jamin Gill)"single patient use only"WASTE: F/P - Black; E - Municipal Trash Bin Stable f or 28 days at room temperature.Expires in days from Date Start Date: 09/23/15 Stop Date: 09/29/15 Status: Discontinued NovoLOG FlexPen 12 unit, 0.12 mL, Route: SUB-Q, Drug form: SOLN, TID-Before Meals, Dosing Weight 93.318, kg, PRN Blood Glucose Results, Start date: 09/23/15 16:52:00, Duration: 30 day, Stop date: 10/23/15 16:51:00 Notes: Roll in palms of hands gently; Do not shake vigorously. (Same as: Jamin Gill)"single patient use only"WASTE: F/P - Black; E - Municipal Trash Bin Stable f or 28 days at room temperature.Expires in days from Date Start Date: 09/23/15 Stop Date: 09/29/15 Status: Discontinued NovoLOG FlexPen 9 unit, 0.09 mL, Route: SUB-Q, Drug form: SOLN, TID-Before Meals, Dosing Weight 93.318, kg, PRN Blood Glucose Results, Start date: 09/23/15 16:52:00, Duration: 30 day, Stop date: 10/23/15 16:51:00 Notes: Roll in palms of hands gently; Do not shake vigorously. (Same as: NovoLO G)"single patient use only"WASTE: F/P - Black; E - Municipal Trash Bin Stable f or 28 days at room temperature.Expires in days from Date Start Date: 09/23/15 Stop Date: 09/29/15 Status: Discontinued ondansetron (ANES) Route: IV, Drug form: INJ, ONCE, Stop date: 09/24/15 14:41:00 Start Date: 09/24/15 Stop Date: 09/24/15 Status: Completed ondansetron 2 mg/mL injectable solution 4 mg=2 mL, IVP, Q6H, PRN Nausea & Vomiting, 0 Refill(s) Start Date: 09/28/15 Status: Ordered Pepcid 20 mg, 2 mL, Route: IVP, Drug form: INJ, Q12H, Dosing Weight 93.318, kg, Start d ate: 09/24/15 21:00:00, Duration: 30 day, Stop date: 10/24/15 9:00:00 Notes: (Same as: Pepcid)Can be dilute in 5-10cc NS IVP: Slow IV push over at le ast 2 minutes. Start Date: 09/24/15 Stop Date: 09/27/15 Status: Discontinued Pepcid 20 mg, 1 tab, Route: PO, Drug form: TAB, Q12H, Start date: 09/27/15 9:00:00, Dur ation: 30 day, Stop date: 10/26/15 21:00:00 Notes: (Same as: Pepcid) Start Date: 09/27/15 Stop Date: 09/29/15 Status: Discontinued Percocet 10/325 oral tablet 1 tab, Route: PO, Drug Form: TAB, Dosing Weight 93.318, kg, Q3H, PRN Pain Score 7-10, Start date: 09/24/15 16:53:00, Duration: 30 day, Stop date: 10/24/15 16:52 :00 Notes: Do not exceed 4gm/day of acetaminophen. (Same as: Percocet-10/325) Start Date: 09/24/15 Stop Date: 09/29/15 Status: Discontinued Percocet 10/325 oral tablet 1 tab, PO, Q3H, PRN Pain Score 7-10, 0 Refill(s) Start Date: 09/28/15 Status: Ordered phenylephrine (ANES) Route: IV, Drug form: INJ, ONCE, Stop date: 09/24/15 16:25:00 Start Date: 09/24/15 Stop Date: 09/24/15 Status: Completed Please do not give Vanco prior to trough is collected Please do not give Vanco prior to trough is collected, Reminder, Drug form: MISC , Route: MISC, ONCE, 09/28/15 15:00:00, Stop date: 09/28/15 15:00:00 Start Date: 09/28/15 Stop Date: 09/28/15 Status: Completed potassium chloride 40 mEq, 2 tab, Route: PO, Drug form: ERTAB, ONCE, Dosing Weight 93.318, kg, Star t date: 09/28/15 8:35:00, Stop date: 09/28/15 8:35:00 Notes: (Same as: K-Dur 20)"Do Not Crush" With food and full glass of water Start Date: 09/28/15 Stop Date: 09/28/15 Status: Completed potassium chloride 20 mEq oral tablet, extended release 40 mEq, 2 tab, Route: PO, Drug form: ERTAB, Daily, Dosing Weight 93.318, kg, Adilia ority: NOW, Start date: 09/29/15 10:22:00, Duration: 30 day, Stop date: 10/29/15 9:00:00 Notes: (Same as: K-Dur 20)"Do Not Crush" With food and full glass of water Start Date: 09/29/15 Stop Date: 09/29/15 Status: Discontinued propofol 10 mg/mL (Titrate.) IV 1,000 mg 1,000 mg, 100 mL, Rate: Titrate, Start Dose: 5 microgram/kg/min, Titration: 5 mi crogram/kg/min every 15 min, Goal(s): -1, Max Dose: 50 microgram/kg/min, Route: IV, Dosing Weight 93.318 kg, Total Volume: 100, Start date: 09/24/15 18:25:00, D uration: 30... Notes: If Diprivan - change bottle & tubing every 12 hrPer state nursing law propofol can only be given by a nurse if patient is intubated or being intubated (unless the nurse is a WASTE/MATERIALS EXCHANGE SPECIALIST). Same as: Diprivan Start Date: 09/24/15 Stop Date: 09/26/15 Status: Discontinued rifaMPIN 600 mg, 2 cap, Route: PO, Drug form: CAP, [id number], Dosing Weight 93.318, kg, Sta rt date: 09/28/15 20:00:00, Duration: 30 day, Stop date: 10/27/15 20:00:00 Notes: (Same as: Rifadin) Start Date: 09/28/15 Stop Date: 09/29/15 Status: Discontinued rifaMPIN 300 mg oral capsule 600 mg, PO, [id number], 0 Refill(s) Start Date: 09/28/15 Status: Ordered rocuronium (ANES) Route: IV, Drug form: INJ, ONCE, Stop date: 09/24/15 14:41:00 Start Date: 09/24/15 Stop Date: 09/24/15 Status: Completed rocuronium (ANES) Route: IV, Drug form: INJ, ONCE, Stop date: 09/24/15 16:10:00 Start Date: 09/24/15 Stop Date: 09/24/15 Status: Completed rocuronium (ANES) Route: IV, Drug form: INJ, ONCE, Stop date: 09/24/15 15:39:00 Start Date: 09/24/15 Stop Date: 09/24/15 Status: Completed Sodium Chloride 0.9% IV (ANES) (ANES) Route: IV, Total Volume: 1,000, Start date: 09/24/15 13:15:00, Stop date: 14:15:00 Start Date: 09/24/15 Stop Date: 09/24/15 Status: Completed spironolactone 25 mg, 1 tab, Route: PO, Drug form: TAB, Daily, Dosing Weight 93.318, kg, Start date: 09/24/15 9:00:00, Duration: 30 day, Stop date: 10/23/15 9:00:00 Notes: (Same As: Aldactone) Start Date: 09/24/15 Stop Date: 09/29/15 Status: Discontinued tranexamic acid 1,000 mg, Route: IV, ONCE, Dosing Weight 93.318, kg, Start date: 09/24/15 16:53: 00, Stop date: 09/24/15 16:53:00 Start Date: 09/24/15 Stop Date: 09/24/15 Status: Discontinued trazodone 50 mg oral tablet 50 mg, 1 tab, Route: PO, Drug form: TAB, Bedtime, Dosing Weight 93.318, kg, PRN Insomnia, Start date: 09/23/15 16:32:00, Duration: 30 day, Stop date: 10/23/15 6:31:00 Notes: (Same As: Desyrel) Start Date: 09/23/15 Stop Date: 09/29/15 Status: Discontinued vancomycin 125 mg, 2.5 mL, Route: PO, Drug form: SUSP, [id number], Dosing Weight 93.318, kg, St art date: 09/23/15 17:00:00, Stop date: 10/23/15 11:00:00 Notes: TIME CRITICAL MEDICATION"DILUTE EACH DOSE WITH 30ML OF WATER OR APPLE/ORA NGE JUICE PRIOR TO ADMINISTRATION" Start Date: 09/23/15 Stop Date: 09/29/15 Status: Discontinued vancomycin (ANES) (ANES) Route: IV, Drug form: INJ, Start date: 09/24/15 13:06:00, Stop date: 09/24/15 14 :06:00 Start Date: 09/24/15 Stop Date: 09/24/15 Status: Completed vancomycin (SCIP) + Sodium Chloride 0.9% IV 250 mL 1 gm, Route: IVPB, Q12H, Dosing Weight 93.318, kg, Time Critical Medication, Sta rt date: 09/25/15 1:00:00, Duration: 2 doses or times, Stop date: 09/25/15 13:00 :00, Pharmacy to adjust dose for renal function Notes: TIME CRITICAL MEDICATION(Same As: Vancocin)Infusion rate< 1000 mg: infuse over 1 [id number] - 1500 mg: infuse over 1.5 [id number] - 2000 mg: infuse over 2 hours> 2001 mg: infuse over 2.5 hours MEDICATION WASTE Product Size: 1000 mgProduct Wasted: ___ mg Start Date: 09/25/15 Stop Date: 09/25/15 Status: Completed vancomycin + Sodium Chloride 0.9% IV 250 mL 1 gm, Route: IVPB, [id number], Dosing Weight 93.318, kg, Start date: 09/26/15 13:00 :00, Duration: 30 day, Stop date: 10/25/15 16:00:00 Notes: TIME CRITICAL MEDICATION(Same As: Vancocin)Infusion rate< 1000 mg: infuse over 1 [id number] - 1500 mg: infuse over 1.5 [id number] - 2000 mg: infuse over 2 hours> 2001 mg: infuse over 2.5 hours MEDICATION WASTE Product Size: 1000 mgProduct Wasted: ___ mg Start Date: 09/26/15 Stop Date: 09/28/15 Status: Discontinued vancomycin + Sodium Chloride 0.9% IV 250 mL 1 gm, Route: IV, ONCALL, Dosing Weight 93.318, kg, 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, Start date: 22:00:00 Notes: TIME CRITICAL MEDICATION(Same As: Vancocin)Infusion rate< 1000 mg: infuse over 1 [id number] - 1500 mg: infuse over 1.5 [id number] - 2000 mg: infuse over 2 hours> 2001 mg: infuse over 2.5 hours MEDICATION WASTE Product Size: 1000 mgProduct Wasted: ___ mg Start Date: 09/23/15 Stop Date: 09/25/15 Status: Completed Vitamin D2 50,000 IntlUnit, 1 cap, Route: PO, Drug form: CAP, qWeek, Dosing Weight 93.318, kg, Start date: 09/24/15 9:00:00, Duration: 5 doses or times, Stop date: 6 9:00:00 Notes: (Same as: Vitamin D) "Do Not Crush" Start Date: 09/24/15 Stop Date: 09/29/15 Status: Discontinued Zofran 4 mg, 2 mL, Route: IV, Drug form: INJ, Q6H, Dosing Weight 93.318, kg, Start date : 09/24/15 18:00:00, Duration: 4 doses or times, Stop date: 09/25/15 12:00:00 Notes: (Same as: Zofran) MEDICATION WASTE Product Size: 4 mgProduct Was dannie: ___ mg Start Date: 09/24/15 Stop Date: 09/25/15 Status: Completed Zofran 4 mg, Route: IV, Q6H, Dosing Weight 93.318, kg, PRN, Start date: 09/24/15 16:53: 00, Duration: 30 day, Stop date: 10/24/15 16:52:00, nausea and vomiting Start Date: 09/24/15 Stop Date: 09/24/15 Status: Deleted Zofran 4 mg, 2 mL, Route: IVP, Drug form: INJ, Q6H, PRN Nausea & Vomiting, Start date: 09/25/15 18:00:00, Duration: 30 day, Stop date: 10/25/15 17:59:00 Notes: (Same as: Zofran) MEDICATION WASTE Product Size: 4 mgProduct Was dannie: ___ mg Start Date: 09/25/15 Stop Date: 09/29/15 Status: Discontinued Results BLOOD BANK RESULTS 1 2 3 Most recent to oldest [Reference Range]: B POS *Unknown* (09/23/15 6:29 PM) ABO/Rh Negative (09/23/15 6:29 PM) Antibody Scrn Product available (09/23/15 4:37 PM) FFP product Product available (09/23/15 4:37 PM) Platelet product Product available (09/23/15 4:37 PM) RBC product ELECTROLYTES 1 2 3 Most recent to oldest [Reference Range]: 136 mEq/L (09/29/15 7:33 AM) 136 mEq/L (09/27/15 5:14 AM) 136 mEq/L (09/26/15 5:14 AM) Sodium Lvl [135-145 mEq/L] 3.1 mEq/L *LOW* (09/29/15 7:33 AM) 3.1 mEq/L *LOW* (09/27/15 5:14 AM) 3.7 mEq/L (09/26/15 5:14 AM) Potassium Lvl [3.5-5.1 mEq/L] 98 mEq/L (09/29/15 7:33 AM) 101 mEq/L (09/27/15 5:14 AM) 101 mEq/L (09/26/15 5:14 AM) Chloride Lvl [95-109 mEq/L] 32 mEq/L (09/29/15:33 AM) 28 mEq/L (09/27/15 5:14 AM) 26 mEq/L (09/26/15 5:14 AM) CO2 [24-32 mEq/L] 9.1 mEq/L *LOW* (09/29/15:33 AM) 10.1 mEq/L (09/27/15 5:14 AM) 12.7 mEq/L (09/26/15 5:14 AM) AGAP [10.0-20.0 mEq/L] CHEM PANEL 1 2 3 Most recent to oldest [Reference Range]: 1.33 mg/dL (09/29/15 7:33 AM) 1.36 mg/dL (09/27/15 5:14 AM) 1.60 mg/dL *HI* (09/26/15:14 AM) Creatinine Lvl [0.50-1.40 mg/dL] 48 mL/min/1.73m2 1 *NA* (09/29/15 7:33 AM) 46 mL/min/1.73m2 2 *NA* (09/27/15:14 AM) 38 mL/min/1.73m2 3 *NA* (09/26/15 5:14 AM) eGFR 15 mg/dL (09/29/15 7:33 AM) 20 mg/dL (09/27/15 5:14 AM) 19 mg/dL (09/26/15 5:14 AM) BUN [7-22 mg/dL] 11 (09/29/15 7:33 AM) B/C Ratio [6-25] 123 mg/dL *HI* (09/29/15 7:33 AM) 106 mg/dL *HI* (09/27/15 5:14 AM) 103 mg/dL *HI* (09/26/15 5:14 AM) Glucose Lvl [70-99 mg/dL] 4.8 g/dL *LOW* (09/29/15 7:33 AM) Total Protein [6.4-8.4 g/dL] 2.3 g/dL *LOW* (09/29/15 7:33 AM) Albumin Lvl [3.5-5.0 g/dL] 2.5 g/dL (09/29/15 7:33 AM) Globulin [2.0-4.0 g/dL] 0.9 (09/29/15 7:33 AM) A/G Ratio [0.7-1.6] 8.1 mg/dL *LOW* (09/29/15 7:33 AM) 7.4 mg/dL *LOW* (09/27/15 5:14 AM) 7.2 mg/dL *LOW* (09/26/15 5:14 AM) Calcium Lvl [8.5-10.5 mg/dL] 2.0 mg/dL (09/29/15 7:33 AM) Magnesium Lvl [1.8-2.4 mg/dL] 28 unit/L (09/29/15 7:33 AM) ALT [0-65 unit/L] 25 unit/L (09/29/15 7:33 AM) AST [0-37 unit/L] 81 unit/L (09/29/15 7:33 AM) Alk Phos [39-136 unit/L] 1.3 mg/dL (09/29/15 7:33 AM) Bili Total [0.2-1.3 mg/dL] 1Result Comment: The eGFR is calculated [...] 3 Most recent to oldest [Reference Range]: 139 pg/mL *HI* (09/29/15 7:33 AM) BNP [<=100 pg/mL] TOXICOLOGY 1 2 3 Most recent to oldest [Reference Range]: 1600 *NA* (09/28/15 3:31 PM) Vanco Tr TND 15.1 ug/ml *NA* (09/28/15 3:31 PM) Vanco Tr IMMUNOLOGY 1 2 3 Most recent to oldest [Reference Range]: 84.7 mg/L *HI* (09/26/15 5:14 AM) CRP [<=2.9 mg/L] Negative *NA* (09/29/15 7:33 AM) Hep Bs Ag [Negative] Negative *NA* (09/29/15 7:33 AM) Hep B Core IgM [Negative] Negative *NA* (09/29/15 7:33 AM) Hep A IgM [Negative] Negative *NA* (09/29/15 7:33 AM) Hep C Ab HEMATOLOGY 1 2 3 Most recent to oldest [Reference Range]: 8.8 K/CMM (09/27/15 4:30 AM) 9.3 K/CMM (09/26/15 5:14 AM) 12.9 K/CMM *HI* (09/25/15 7:45 AM) WBC [3.7-10.4 K/CMM] 2.76 M/CMM *LOW* (09/27/15 4:30 AM) 3.00 M/CMM *LOW* (09/26/15 5:14 AM) 3.15 M/CMM *LOW* (09/25/15 7:45 AM) RBC [4.70-6.10 M/CMM] 8.8 g/dL *LOW* (09/27/15 4:30 AM) 9.5 g/dL *LOW* (09/26/15 5:14 AM) 9.8 g/dL *LOW* (09/25/15 7:45 AM) Hgb [14.0-18.0 g/dL] 26.4 % *LOW* (09/27/15 4:30 AM) 29.3 % *LOW* (09/26/15 5:14 AM) 30.4 % *LOW* (09/25/15 7:45 AM) Hct [42.0-54.0 %] 95.6 fL *HI* (09/27/15 4:30 AM) 97.6 fL *HI* (09/26/15 5:14 AM) 96.6 fL *HI* (09/25/15 7:45 AM) MCV [80.0-94.0 fL] 31.9 pg *HI* (09/27/15 4:30 AM) 31.6 pg *HI* (09/26/15 5:14 AM) 31.0 pg (09/25/15 7:45 AM) MCH [27.0-31.0 pg] 33.3 g/dL (09/27/15 4:30 AM) 32.4 g/dL (09/26/15 5:14 AM) 32.0 g/dL (09/25/15 7:45 AM) MCHC [32.0-36.0 g/dL] 15.2 % *HI* (09/27/15 4:30 AM) 15.8 % *HI* (09/26/15 5:14 AM) 15.5 % *HI* (09/25/15 7:45 AM) RDW [11.5-14.5 %] 151 K/CMM (09/27/15 4:30 AM) 143 K/CMM (09/26/15 5:14 AM) 187 K/CMM (09/25/15 7:45 AM) Platelet [133-450 K/CMM] 9.0 fL (09/27/15 4:30 AM) 8.8 fL (09/26/15 5:14 AM) 9.0 fL (09/25/15 7:45 AM) MPV [7.4-10.4 fL] 58.7 % (09/27/15 4:30 AM) 62.1 % (09/26/15 5:14 AM) 60.3 % (09/25/15 7:45 AM) Segs [45.0-75.0 %] 33.1 % (09/27/15 4:30 AM) 28.8 % (09/26/15 5:14 AM) 31.1 % (09/25/15 7:45 AM) Lymphocytes [20.0-40.0 %] 7.1 % (09/27/15 4:30 AM) 8.2 % (09/26/15 5:14 AM) 8.1 % (09/25/15 7:45 AM) Monocytes [2.0-12.0 %] 0.6 % (09/27/15 4:30 AM) 0.4 % (09/26/15 5:14 AM) 0.2 % (09/25/15 7:45 AM) Eosinophils [0.0-4.0 %] 0.5 % (09/27/15 4:30 AM) 0.5 % (09/26/15 5:14 AM) 0.3 % (09/25/15 7:45 AM) Basophils [0.0-1.0 %] 5.2 K/CMM (09/27/15 4:30 AM) 5.8 K/CMM (09/26/15 5:14 AM) 7.8 K/CMM (09/25/15 7:45 AM) Segs-Bands # [1.5-8.1 K/CMM] 2.9 K/CMM (09/27/15 4:30 AM) 2.7 K/CMM (09/26/15 5:14 AM) 4.0 K/CMM (09/25/15 7:45 AM) Lymphocytes # [1.0-5.5 K/CMM] 0.6 K/CMM (09/27/15 4:30 AM) 0.8 K/CMM (09/26/15 5:14 AM) 1.0 K/CMM *HI* (09/25/15 7:45 AM) Monocytes # [0.0-0.8 K/CMM] 0.1 K/CMM (09/27/15 4:30 AM) 0.1 K/CMM (09/24/15 5:51 AM) Eosinophils # [0.0-0.5 K/CMM] 49 mm/hr *HI* (09/26/15 5:14 AM) Sed Rate [0-15 mm/hr] 16.6 seconds *HI* (09/27/15 3:37 PM) 19.9 seconds *HI* (09/24/15 9:05 AM) PT [12.0-14.7 seconds] 1.31 *HI* (09/27/15 3:37 PM) 1.66 *HI* (09/24/15 9:05 AM) INR [0.85-1.17] 37.5 seconds *HI* (09/27/15 3:37 PM) 33.8 seconds (09/24/15 5:51 AM) PTT [22.9-35.8 seconds] BACTERIAL - SEROLOGY 1 2 3 Most recent to oldest [Reference Range]: Negative (09/25/15 1:51 AM) MRSA by PCR Immunizations Vaccine Date Refusal Reason pneumococcal 23-valent [...] Yes Assessment and Plan Extracted from: Title: Clinical Document Author: Bebeto Beatty MD Date: 09/29/15 [facility] INFECTIOUS DISEASES PROGRESS NOTE Annabelle LITTLE M.D. SYED W. HASAN, M.D. RFC: HA Revision C.diff SUBJECTIVE: INTERVAL HISTORY: Continues on abx. ROS: Left knee pain PMFH: Reviewed OBJECTIVE: PHYSICAL EXAMINATION: VitalsTmp(F)[id number] 09/28 13:[id number]/[id number]--- 09/28 10:00 1897 21% 09/28 08:5997.120168/382573--- 09/28 03:4397.034164/057246--- 09/27 23:2798.014834/953500--- 24 Hr Tmax: 98.6F (37.00c) at 09/27 23:27Vital Signs are the last 5 in the past 48 hours. GEN: No acute distress HEENT: No thrush or erythema; Moist membranes LUNG: Clear to auscultation bilaterally; No wheeze, rhonchi, or crackles HEART: RRR; +S1/S2; No murmurs, rubs, or gallops ABD: +BS; distended but soft EXT: L Hip dressing saturated Lines, Tubes, and Drains: 09/27/2015 14:37 Central Lines: Basilic vein, right PICC 09/24/2015 18:15 Surgical Drains: Hemovac Drain Left ANTIMICROBIALS: Ceftriaxone # + Rifampin Vancomycin PO # / MEDICATIONS: Scheduled Meds (15): 09/24/15 allopurinol 100 mg PO Daily 09/23/15 carvedilol 6.25 mg PO Q12H 09/28/15 cefTRIAXone + Sodium Chloride 0.9% IV 100 mL 1 gm IVPB [id number] 200 ml/hr 09/24/15 docusate 100 mg PO BID 09/25/15 enoxaparin 40 mg SUB-Q [id number] 09/24/15 ergocalciferol (Vitamin D2) 50,000 IntlUnit PO qWeek 09/27/15 famotidine (Pepcid) 20 mg PO Q12H 09/24/15 finasteride 5 mg PO Daily 09/24/15 furosemide (Lasix 40 mg oral tablet) 40 mg PO Daily 09/24/15 hydrochlorothiazide (hydrochlorothiazide 25 mg oral tablet) 25 mg PO Daily 09/24/15 levothyroxine 50 microgram PO Q630AM 09/29/15 potassium chloride (potassium chloride 20 mEq oral tablet, extended release) 40 mEq PO Daily 09/28/15 rifaMPIN 600 mg PO [id number] 09/24/15 spironolactone 25 mg PO Daily 09/23/15 vancomycin 125 mg PO ABXQ6H Allergies (7) ActiveReaction Surgical TapeNone documented chlorhexidine containing compoundsNone documented Allergy UnverifiedNO GENERICS ProcanbidNone documented penicillinNone documented LevaquinNone documented Nitroglycerin PatchNone documented LABORATORY (Reviewed): Labs (Last four charted values) WBC 8.8(SEP 26)9.3(SEP 25)H 12.9(SEP 24)H 22.8(SEP 23) Hgb L 8.8(SEP 26)L 9.5(SEP 25)L 9.8(SEP 24)L 10.5(SEP 23) Hct L 26.4(SEP 26)L 29.3(SEP 25)L 30.4(SEP 24)L 32.9(SEP 23) Plt 151(SEP 26)143(SEP 06)187(SEP 05)244(SEP 23) Na 136(SEP 28)136(SEP 26)136(SEP 25)137(SEP 24) K L 3.1(SEP 28)L 3.1(SEP 26)3.7(SEP 25)3.9(SEP 24) CO2 32(SEP 28)28(SEP 26)26(SEP 25)27(SEP 24) Cl 98(SEP 28)101(SEP 26)101(SEP 25)102(SEP 24) Cr 1.33(SEP 28)1.36(SEP 26)H 1.60(SEP 25)1.31(SEP 24) BUN 15(SEP 28)20(SEP 26)19(SEP 25)16(SEP 24) Glucose Random H 123(SEP 28)H 106(SEP 26)H 103(SEP 25)H 125(SEP 24) Mg 2.0(SEP 28) Ca L 8.1(SEP 28)L 7.4(SEP 26)L 7.2(SEP 25)L 7.4(SEP 24) PT H 16.6(SEP 26)H 19.9(SEP 23) INR H 1.31(SEP 26)H 1.66(SEP 23) PTT H 37.5(SEP 26)33.8(SEP 23)Alk Phos: 81 unit/L (09/29/15 08:07:) A/G Ratio: 0.9 (09/29/15 08:07:) ALT: 28 unit/L (09/29/15 08:07:17) Albumin Lvl: 2.3 g/dL (09/29/15 08:07:17) Bili Total: 1.3 mg/dL (09/29/15 08:07:17) Total Protein: 4.8 g/dL (09/29/15 08:07:17) Globulin: 2.5 g/dL (09/29/15 08:07:17) AST: 25 unit/L (09/29/15 08:07:17) Sed Rate: 49 mm/hr (09/26/15 07:32:41) No qualifying data available. MICROBIOLOGY (Reviewed): 09/17 Blood: Neg 09/23 Body Fluid/Tissue: NGTD IMAGING (Reviewed): 09/23 CXR: New endotracheal tube in satisfactory position. COPD. No significant change in the moderate right pleural effusion and compressive atelectasis right mid and lower lung. Stable cardiomegaly, coronary artery bypass and cardiac pacemaker. New moderate gaseous distention of the stomach. 09/23 Pelvis: The left hip arthroplasty appears in satisfactory position. No fracture or dislocation is seen. New skin addie and drainage catheter around the left hip. New Corona catheter. 09/26 Abd: Nonspecific dilated gaseous bowel loops are present may reflect ileus or small bowel obstruction. No definite gross free air detected. ASSESSMENT/PLAN: 85 yo WM presents with: * Acute Traumatic Left Femoral Neck Fracture s/p LESTER * Early Prosthetic Left LESTER Joint Infection s/p Revision/Modular Exchange * C.diff Colitis * TOYIN * Leukocytosis, Improving * Ileus - Afebrile. - Cultures remain negative. - Continue ceftriaxone and rifampin empirically. - Continue PO vancomycin for C.diff to complete 14 day course. - Plan for LTACH to complete 4-6 weeks of IV abx therapy. - Monitor weekly CBC and CMP, ESR, and CRP.
--- OUTSIDE RECORDS SUMMARY | 2018-07-01 11:40 | XMS REPORT ---
Author Author [facility] Address Unknown Phone Unavailable Care Team Providers Care Furniture Technician Name Role Phone WOLF DON Unavailable Unavailable Problems This patient has no known problems. Allergies, Adverse Reactions, Alerts This patient has no known allergies or adverse reactions. Medications This patient has no known medications. Results Test Description Test Time Test Comments Text Results Atomic Results Result Comments HIPS BILAT TWO VWS(+/- PELVIS) 2018-05-28 12:41:00 [place] [id number] Patient Name: SE STEWART MR #: [id number] : 1930 Age/Sex: 87/M Req #: [id number] Adm Physician: Ordered by: WOLF DON MD Report #: [id number] Location: LAB Room/Bed: Procedure: [id number] DX/HIPS BILAT TWO VWS(+/- PELVIS) Exam Date: Exam Time: REPORT STATUS: Signed Exam: Bilateral hip radiographs, 2 views on each side, and AP radiograph of the pelvis. Comparison: Right hip/pelvis radiographs 12/14/2016 Findings: Status post bilateral hip arthroplasty. Hardware appears intact. There is periprosthetic lucency along the shaft of the left hip femoral component, most pronounced in the medial and distal aspects. Lucency appears to be increased from partially imaged left femur on prior radiograph from 12/14/2016. No evidence of periosteal reaction. Atherosclerotic vascular calcifications. Surgical clips project over the left thigh. Diffuse osteopenia. No evidence of acute displaced fracture. Bowel gas obscures visualization of the sacrum limiting evaluation. Partially seen degenerative changes of the lower lumbar spine. Impression: No evidence of acute displaced fracture. Bilateral total hip arthroplasty changes as above. Increasing periprosthetic lucency along the femoral component of the left hip arthroplasty, which could reflect loosening in the appropriate clinical context. Infection could have a similar appearance. Signed by: Dr. Cipriano Kim MD on 05/28/2018 12:47 PM Dictated By: CIPRIANO KIM MD [id number] Transcribed By: JOHNSON on 05/28/18 1247 COPY TO: WOLF DON MD
--- OUTSIDE RECORDS SUMMARY | 2018-07-01 11:40 | XMS REPORT | Summary of Care ---
Author Author [facility] Outpatient Imaging [facility] Outpatient [facility] Address Unknown Phone Unavailable Encounter GRAY Simon(FIN) [id number] Date(s): 04/10/16 - 04/10/16 [facility] Outpatient Imaging [facility] [address] [facility], [address] [place] [phone] Discharge Disposition: Home or Self Care Attending Physician: Low Ha MD Vital Signs No data available for [...] No data available for this section Results No data available for this section Immunizations Not Given Vaccine Date Status Refusal [...]
[2018-07-01] MEDS ORDERED: CEFEPIME 1GM/NS 0.9% 50 ML 50 ML IV STA (11:47)
[2018-07-01] MEDS ORDERED: VANCOMYCIN 1GM/NS 250 ML 250 ML IV ONE (12:30)
[2018-07-01 12:57] LABS: BASOPHILS % 0.5 % (0.0-1.0); EOSINOPHILS # (AUTO) 0.1 (0.0-0.4); EOSINOPHILS % 1.3 % (0.0-6.0); HEMATOCRIT 47.4 % (38.2-49.6); HEMOGLOBIN 15.5 g/dL (14.0-18.0); LYMPHOCYTES % 35.9 % (18.0-39.1); MEAN CORPUSCULAR HGB CONC 32.7 g/dL (31-35); MEAN CORPUSCULAR VOLUME 97.9 fL (81-99); MONOCYTES # (AUTO) 0.5 (0.2-0.8); MONOCYTES % 6.2 % (4.4-11.3); NEUTROPHILS # (AUTO) 4.6 (2.1-6.9); NEUTROPHILS % 55.6 % (38.7-80.0); PLATELET COUNT 120 x10e3/uL (140-360); RED BLOOD COUNT 4.84 x10e6/uL (4.3-5.7); RED CELL DISTRIBUTION WIDTH 14.2 % (11.7-14.4)
[2018-07-01 13:16] LABS: ALBUMIN 3.9 g/dL (3.5-5.0); ALBUMIN/GLOBULIN RATIO 1.3 (0.8-2.0); ANION GAP 16.7 mmol/L (8-16); CREATININE, SERUM 2.8 mg/dL (0.72-1.25); POTASSIUM 4.7 mmol/L (3.5-5.1)
[2018-07-01 13:21] LABS: CALCIUM 13.5 mg/dL (8.4-10.2)
[2018-07-01 13:22] LABS: CREATINE KINASE MB 1.3 ng/mL (0-5.0)
--- NOTE | 2018-07-01 13:22 | NUR ---
ARNIE FROM LAB CALLED TO REPORT CRITICAL CA+ 13.5. INFORMED DR. RAMSEY WELL PRIMARY NURSE LISBETH NAVARRO.
[2018-07-01 13:36] LABS: B-TYPE NATRIURETIC PEPTIDE2 140.7 pg/mL (0-100)
--- NOTE | 2018-07-01 14:13 | Diagnostic Imaging Report ---
Examination: Single AP view of the chest. COMPARISON: 12/24/2016 INDICATION: Wheezing DISCUSSION: Left subclavian approach implantable cardiac device body and leads are unchanged in position. The lungs are reasonably well inflated. Bibasilar opacities likely represent atelectasis. No gross consolidation, pleural effusion, or pneumothorax. Stable mild enlargement of the cardiac silhouette with median sternotomy wires. No overt pulmonary edema. No acute osseous abnormalities. IMPRESSION: Patchy bibasilar opacities likely reflect atelectasis. Stable cardiomegaly and postsurgical changes of the mediastinum without vascular decompensation. Signed by: Dr. Oscar Sanchez M.D. on 07/01/2018 2:09 PM
--- NOTE | 2018-07-01 15:15 | Diagnostic Imaging Report ---
EXAMINATION: CT scan of the left hip without contrast. TECHNIQUE: Spiral CT images of the left hip were performed from the iliac crest to the proximal femoral shaft without intravenous contrast. Coronal and sagittal reformatted images were available. COMPARISON: Left hip radiograph 05/28/2018 CLINICAL HISTORY:Left hip infection DISCUSSION: ABSENCE OF INTRAVENOUS CONTRAST DECREASES SENSITIVITY FOR DETECTION OF FOCAL LESIONS AND VASCULAR PATHOLOGY. Bones: Postsurgical changes of total left hip arthroplasty. Orthopedic hardware results in extensive beam hardening artifact, limiting evaluation of the adjacent bone cortex and soft tissues. The bones are diffusely osteopenic. No acute displaced fracture or dislocation. As seen on the comparison radiographs, there is lucency surrounding the prosthetic cement along the distal margin of the prosthesis, as well as a small amount of periosteal reaction along the proximal femoral shaft. Heterotopic ossification is noted along the lesser trochanter. Hardware is intact with unchanged position relative to prior radiographs. Joints: Extensive beam hardening artifact from the hip prosthesis precludes evaluation for joint effusion. Pelvic viscera: The partially visualized urinary bladder is unremarkable superiorly. The inferior pelvic viscera is poorly evaluated secondary to extensive beam hardening artifact. Atherosclerotic calcification of the iliac arterial system partially visualized. IMPRESSION: Limited evaluation of bones and soft tissues secondary to extensive beam hardening artifact. Lucency primarily along the distal aspect of the left hip prosthesis with adjacent periosteal reaction of the lateral femoral shaft. Findings may indicate hardware loosening or infection in the appropriate clinical context. 3 phase nuclear medicine bone scan followed by nuclear medicine white blood cell scan may be of benefit for further evaluation. Presence of left hip joint effusion cannot be ascertained secondary to extensive beam hardening artifact related to the prosthesis. Signed by: Dr. Oscar Sanchez M.D. on 07/01/2018 3:12 PM
--- NOTE | 2018-07-01 15:36 | NUR ---
Repoer given by me to LISBETH Myers, pt stable at time of transfer
--- NOTE | 2018-07-01 15:51 | Consultation ---
DATE OF CONSULTATION: July 01, 2018 INFECTIOUS DISEASE CONSULTATION REASON FOR CONSULTATION: Osteomyelitis, infected hip. HISTORY OF PRESENT ILLNESS: Mr. Rios, who is an 87-year-old gentleman, very fragile, has complicated medical history. He does have history of osteoarthritis and had several surgeries on his hips and bilateral total hip replacement. The left had more problems with it, more than usual. The patient also has history of recurrent UTI. The patient has history of hypertension, coronary artery disease, and chronic kidney disease. He is coming into the hospital because his noted he has been having drainage from his left hip. I asked her to come to be admitted, but she has some issues to take care of him. But apparently the patient in the last few days has been getting progressively worse. He is getting weaker and lethargic, so she decided to bring him to the hospital. In the emergency room, he was evaluated. He is quite lethargic. Laboratory data reviewed. Patient is going to be admitted, and infectious disease was consulted. The patient has history of coronary artery disease and congestive heart failure. He does see Dr. Bereket Mariscal as an outpatient. He also has chronic kidney disease and recurrent UTI. He is well known to Dr. Fredy Mustafa. Patient is going to be admitted. PAST HISTORY: Patient has history of congestive heart failure, history of hip fracture before, history of anasarca, history of CABG, atrial fibrillation. He had CABG in 2015. MEDICATIONS: List reviewed. ALLERGIES: NICOTINE PATCH AND PENICILLIN. LABORATORY DATA: White count is 8.35, hemoglobin 15.5. Sodium 132, potassium 4.7, creatinine 2.8. Calcium 13.5. PHYSICAL EXAMINATION GENERAL: He is alert but very weak. VITALS: Stable, currently afebrile. Temperature 96.8. Heart rate 88, irregularly irregular. Respirations 18. HEENT: Normocephalic. Does not appear to be icteric. NECK: Supple. CHEST: Clear bilateral. COR: S1 and S2. No murmur. ABDOMEN: Soft. LEFT HIP: There is dehiscence of the wound. There is some drainage noted on the dressing. 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 He has had multiple hip replacement and surgery. I would suggest to obtain a CT without contrast. Obtain wound cultures, sed rate and C-reactive protein. Will give him 1 gram of vancomycin. Will consult Dr. Cagle from renal service. He probably will need to go to an LTAC for long-term IV antibiotic and wound care. Patient is DNR. His prognosis overall is poor. Will discuss with Dr. Bereket Mariscal about his heart condition. We will follow. Job#: [id number]
--- NOTE | 2018-07-01 17:26 | NUR ---
Recvd patient from ER, assisted him to bed, un cleared low voice while he speak, transfer to bedside commode with 1person assist, at bed side, o2 sat 90 in room air, connected to O2 2L with cont pulse ox, denies any pain this time, redness on sacrum, scabs on right side of neck
[2018-07-01 17:29] VITALS: BP 107/71
[2018-07-01 17:34] VITALS: BP 107/71
[2018-07-01] MEDS ORDERED: AZTREONAM (AZACTAM) 1 GM in WATER STERILE 10ML VIAL 10 ML IV SCH (18:00)
[2018-07-01] MEDS: SODIUM CHLORIDE 0.9% 1000ML 1,000 ML IV SCH (18:05)
--- NOTE | 2018-07-01 18:06 | NUR ---
Talked to Dr Beyer regarding consult, new orders recvd
--- NOTE | 2018-07-01 18:30 | NUR ---
patient refused to be turn, his said he usually sleep straight in bed, assisted him use bed side commode
[2018-07-01] MEDS: AZTREONAM 1 GM/NS 50 ML 50 ML IV SCH (18:33)
--- NOTE | 2018-07-01 19:10 | NUR ---
REPORT RECEIVED FROM OFF GOING NURSE, IV INFUSING PER ORDER, O2 NC WORN, HOB ELEVATED, FAMILY AT BEDSIDE, BED ALARM ACTIVATED, CALL LIGHT IN REACH, PT RESTING IN BED WITH EYES CLOSED, NO DISTRESS NOTED
[2018-07-01 20:00] VITALS: BP 109/65
--- NOTE | 2018-07-01 20:20 | NUR ---
STAFF ATTEMPTING TO DRAW BLOOD FOR ORDERED LABS, PT REFUSING, STATES "NO...IV BEEN STUCK 2O XS ALREADY", PT GIVEN EDUCATION, PT CONTINUES TO REFUSE
[2018-07-01] MEDS: CEFEPIME 1GM/NS 0.9% 50 ML 50 ML IV SCH (20:47)
[2018-07-02] VITALS (8 sets, daily range): BP systolic 111–125; BP diastolic 56–75
[2018-07-02] MEDS: AZTREONAM 1 GM/NS 50 ML 50 ML IV SCH ×2 (00:30→05:19)
[2018-07-02] MEDS: SODIUM CHLORIDE 0.9% 1000ML 1,000 ML IV SCH ×3 (04:00→23:00)
--- NOTE | 2018-07-02 05:21 | NUR ---
PT RESTING IN BED WITH EYES CLOSED, NO DISTRESS NOTED, CALL LIGHT IN REACH
[2018-07-02 06:58] LABS: CREATINE KINASE MB 1.5 ng/mL (0-5.0)
--- NOTE | 2018-07-02 07:04 | NUR ---
RECEIVED PATIENT RESTING IN BED. NO ACUTE DISTRESS NOTED. CALL LIGHT WITHIN REACH. BED IN THE LOWEST POSITION.
[2018-07-02] MEDS ORDERED: ACETAMINOPHEN 325 MG TAB PO PRN (07:30)
[2018-07-02] MEDS ORDERED: TRAMADOL HCL 50 MG TAB PO PRN (07:30)
[2018-07-02] MEDS ORDERED: MORPHINE SULFATE INJ 4 MG/ML INJ 1ML IV PRN ×2 (07:30→08:15)
[2018-07-02] MEDS ORDERED: DIGOXIN 0.125 MG TAB PO SCH (07:30)
[2018-07-02] MEDS ORDERED: HYDROCODONE/APAP 5MG-325MG TAB PO PRN (07:30)
[2018-07-02] MEDS ORDERED: MAGNESIUM/ALUMINUM/SIMETHICONE 30 ML UDC PO PRN (07:30)
[2018-07-02] MEDS ORDERED: ONDANSETRON HCL INJ 2MG/ML 2ML 2 MG/ML VIAL IV PRN (07:30)
[2018-07-02 07:34] LABS: BASOPHILS % 0.3 % (0.0-1.0); EOSINOPHILS # (AUTO) 0.1 (0.0-0.4); EOSINOPHILS % 0.9 % (0.0-6.0); HEMATOCRIT 40.2 % (38.2-49.6); HEMOGLOBIN 13.1 g/dL (14.0-18.0); LYMPHOCYTES % 26.3 % (18.0-39.1); MEAN CORPUSCULAR HEMOGLOBIN 32.5 pg (28-32); MEAN CORPUSCULAR HGB CONC 32.6 g/dL (31-35); MEAN CORPUSCULAR VOLUME 99.8 fL (81-99); MONOCYTES # (AUTO) 0.6 (0.2-0.8); MONOCYTES % 7.3 % (4.4-11.3); NEUTROPHILS % 64.8 % (38.7-80.0); PLATELET COUNT 100 x10e3/uL (140-360); RED BLOOD COUNT 4.03 x10e6/uL (4.3-5.7); RED CELL DISTRIBUTION WIDTH 14.1 % (11.7-14.4)
[2018-07-02 07:39] LABS: INR 2.68; PROTHROMBIN TIME 30.5 seconds (11.9-14.5)
[2018-07-02 07:48] LABS: ANION GAP 17.2 mmol/L (8-16); CALCIUM 11.7 mg/dL (8.4-10.2); CREATININE, SERUM 2.35 mg/dL (0.72-1.25); POTASSIUM 4.2 mmol/L (3.5-5.1)
[2018-07-02] MEDS ORDERED: MIDODRINE 2.5 MG TAB PO SCH (09:00)
[2018-07-02] MEDS ORDERED: SPIRONOLACTONE 25 MG TAB PO SCH (09:00)
[2018-07-02] MEDS ORDERED: TORSEMIDE 10 MG TAB PO SCH (09:00)
[2018-07-02] MEDS ORDERED: MIDODRINE HCL 5 MG TABLET PO SCH (09:00)
--- NOTE | 2018-07-02 09:01 | History and Physical ---
CHIEF COMPLAINT: Hypercalcemia and weak. HPI: Information recurrently is being obtained from the consultants, as well as the ER note as the patient is demented and there is no family at bedside. This is an 87-year-old male very weak, fragile, demented at baseline, who has had osteoarthritis several surgeries related to his bilateral hips due to total hip replacements with infections. Currently, on IV antibiotic therapy and being managed by ID. Also, has a history of hypertension and CAD. Came in due to worsening drainage seen on the left hip area concerning for chronic osteomyelitis. Patient was also found to have hypercalcemia as well on labs. Patient was admitted and the appropriate consultants were consulted to evaluate the patient closely. Patient was evaluated at bedside at this time, but the patient is so demented and there is no family. Information is currently being obtained from the notes on the chart. REVIEW OF SYSTEMS: Pertinent positives are unable to obtain due to the patient's baseline dementia,. but has a history of dementia and has bilateral chronic osteomyelitis of the hip. ALLERGIES: NITRO PATCH, NITROFURANTOIN, PENICILLIN, ADHESIVE TAPE, ALCOHOL, ROCEPHIN, CHLORHEXIDINE, LEVAQUIN, PROBENECID, PROCAINAMIDE. HOME MEDICATIONS 1. Allopurinol 100 mg daily. 2. Coreg 3.125 mg daily. 3. Digoxin 0.125 mg p.o.daily. 4. Pepcid 20 mg daily. 5. Finasteride 5 mg daily. 6. Levothyroxine 50 mcg daily. 7. Midodrine 2.5 mg daily. 8. Spironolactone 25 mg b.i.d. 9. Tamsulosin 0.4 mg daily. 10. Torsemide 10 mg p.o. b.i.d. 11. Warfarin 5 mg daily. PAST MEDICAL HISTORY: CHF, dementia, hypertension, chronic osteomyelitis of the hips, hyperuricemia, hypothyroidism. SURGICAL HISTORY: Has had a total hip arthroplasty in the past with chronic infections. FAMILY HISTORY: Hypertension or diabetes. SOCIAL HISTORY: No drugs. No alcohol. Does not smoke. He is demented. PHYSICAL EXAMINATION VITAL SIGNS: Temperature is 95.9, pulse 80, respiratory rate is 20, blood pressure 125/67, and pulse ox 96% on 2 L nasal cannula. GENERAL: Not in acute distress. He is not alert or oriented on exam. He was awake. HEENT: Head is normocephalic and atraumatic. Eyes: Pupils equal, round and reactive to light bilaterally. Extraocular movements intact bilaterally. NECK: Supple. Good range of motion. Throat with no evidence of any erythema or exudates in the posterior pharynx. Has poor dentition. PULMONARY: Clear to auscultation bilaterally. No wheezing. No rales. No rhonchi. No crackles appreciated. CARDIOVASCULAR: Positive S1 and S2. No murmurs, rubs or gallops appreciated. ABDOMEN: Soft, nondistended and nontender to palpation. Bowel sounds present. MUSCULOSKELETAL: Strength is 5/5 throughout. No evidence of any muscle deficit on examination. No weakness appreciated. NEUROLOGICAL: Cranial nerves II-XII are grossly intact. No evidence of any neurological deficits on exam. SKIN: Intact. Warm to touch. Good cap refill. PSYCHIATRIC: Normal affect and mood. EXTREMITIES: No edema. Good range of motion throughout. LAB FINDINGS: Show a white count of 7.7, hemoglobin 13, hematocrit 40, platelets of 100,000. Coagulation: PT 30, INR 2.6. His chemistry from yesterday shows sodium 132, potassium 4.7, chloride 92, bicarb 20, anion gap of 16, BUN 74, creatinine is 2.8, glucose is 118. Lactic acid is 19 which is appropriate and normal. Calcium is 13.5. LFTs were normal. Troponins were negative. Albumin was 3.9. BNP 140. MICROBIOLOGY: Blood cultures are pending. IMAGING STUDIES: Chest x-ray shows patchy bibasilar opacities likely reflecting atelectasis. Hip CT shows presence of left hip joint effusion. Cannot be certain secondary to extensive hardening artifact related to the prosthesis. May have underlying infection, which I will discuss with ID closely. IMPRESSION 1. Concerns for chronic osteomyelitis of the hip. 2. History of coronary artery disease. 3. Hypercalcemia. 4. Acute kidney injury secondary to dehydration leading to hypercalcemia. 5. Atrial fibrillation. 6. History of congestive heart failure. PLAN: At this time, ID has been consulted. Patient has been started on IV antibiotics due to chronic osteomyelitis. Will follow with ID recommendations. In relation to his AFib, cardiology was consulted. He also has a history of BPH and urology was consulted. We are going to resume same home medications for now. Continue with aggressive IV fluid hydration at 75 mL per hour of normal saline and monitor closely. I am going to get repeat labs now to see where the calcium is. In the event the calcium is elevated, we will give him a dose of Lasix to help get the high calcium out. Resume same home medications. He is on warfarin for DVT prophylaxis and history of atrial fibrillation. Will start him on a regular diet. Follow the philatelic consultant's recommendations. The patient will likely benefit from LTAC in which I already put an order in with case management. The patient's problems are very chronic. Otherwise, will continue with same plan of care. Job#: [id number] RITESH
[2018-07-02] MEDS: ALLOPURINOL 100 MG TAB PO SCH (09:06)
[2018-07-02] MEDS: CARVEDILOL 3.125 MG TAB PO SCH (09:07)
[2018-07-02] MEDS: FINASTERIDE 5 MG TAB PO SCH (09:07)
[2018-07-02] MEDS: LEVOTHYROXINE SODIUM 75 MCG TAB PO SCH ×2 (09:07→23:06)
[2018-07-02] MEDS: LACTOBACILLUS ACIDOPHILUS CAPSULE PO SCH ×2 (09:07→17:04)
[2018-07-02] MEDS: TAMSULOSIN HCL 0.4 MG CAP PO SCH (09:07)
[2018-07-02] MEDS: FAMOTIDINE 20 MG TAB PO SCH (09:07)
[2018-07-02] MEDS ORDERED: FUROSEMIDE INJ 10 MG/ML 4 ML VIAL IV ONE (09:45)
[2018-07-02] MEDS ORDERED: [UNRECOGNIZED DRUG - OTHER] PO (10:50)
[2018-07-02] MEDS ORDERED: MYRBETRIQ25 MG PO (10:50)
[2018-07-02] MEDS ORDERED: [UNRECOGNIZED DRUG - OTHER] PO (10:53)
[2018-07-02] MEDS ORDERED: GLUCOSAMINE CH1 EAC1 PO (10:53)
--- NOTE | 2018-07-02 11:10 | NUR ---
IV STARTED LEAKING, DC'D WITH TIP INTACT. LEAD NEURODIAGNOSTIC TECHNOLOGIST ATTEMPTED TO START A NEW DIVYA, PER THEY WOULD LIKE TO TALK TO THE DOCTOR ABOUT A PICC LINE INSTEAD OF A PERIPHERAL IV. MAGGIE AGUIRRE WITH DR. SIMENTAL HERE AND ORDER GIVEN FOR A CENTRAL LINE PLACEMENT.
[2018-07-02 12:55] LABS: CREATINE KINASE MB 1.7 ng/mL (0-5.0)
--- NOTE | 2018-07-02 13:16 | NUR ---
Nutrition Intervention Note RD Recommendation(s) for Physician: -Rec liberalizing diet to regular to promote PO intake -Rec Ensure Compact with each meal to increase protein-calorie intake -Encourage PO and hydration The patient meets criteria for MODERATE protein-calorie malnutrition. Plan of Care: RD following, monitoring for tolerance and adequacy, ONS rec Nutrition reason for involvement: Nutrition Risk Trigger MST RD Assessment 07/02 Chart reviewed. Pt was discussed during rounds. 87yo M, who is admitted for weakness. Visited pt in the room. Friend on bedside to provide hx as pt has dementia. Per friend, pt has had poor appetite for long period time. No GI complains noted at this time. LBM unknown, none recorded on chart. Pt has denture but no chewing or swallowing difficulty observed. Pt has some signs of muscle and fat loss upon NFPA (see below). Renal function has improved since admission. BG is stable. BP is good. Communicated RD rec to LISBETH Simmons during rounds. Will continue to monitor and follow. Principal Problems/Diagnoses: chronic osteomyelitis of the hip PMH: hypertension, CAD, bilateral chronic osteomyelitis of the hip, dementia GI: abdomen non-tender, LBM 07/01 Skin: dry, loose skin, no pressure wound noted by chart Labs: (07/02) BUN 73 H, Creatinine 2.35 H, Ca 11.7 H Meds: probiotics, pepcid, NaCl Ht: 70in Wt: 140lb BMI: 20.1kg/m2 IBW: 166lb Malnutrition Evaluation (07/02/18) The patient meets criteria for MODERATE protein-calorie malnutrition. Energy intake: <75% of estimated energy requirements for >3 months Weight loss: Unknown. Fat loss: Moderate some protrusion of clavicle, some loss of fat over triceps Muscle loss: Moderate some temporal depression Supporting Evidence: Fluid accumulation: unable to evaluate Functional Status: measurably reduced Nutrition Prescription (Diet Order): Renal diet Diet Adequacy: Not meeting calorie needs, Not meeting protein needs Diet Education Needs Assessment: Diet education not indicated. Nutrition Care Level: mod Nutrition Diagnosis: Inadequate oral intake related to chronic medical condition as evidenced by loss of appetite for 2 years and poor PO intake. Goal: Patient will meet 75-100% of estimated needs by follow up Progress: N/A Interventions: General healthful diet, Commercial beverage Monitoring/Evaluation: Total energy intake, Total protein intake, diet, Liquid supplement, Weight change Signed: Cherelle Orellana, MS, RD, LD
--- NOTE | 2018-07-02 14:26 | NUR ---
PER DR. JULIO SKINNER TO USE RIGHT FEMORAL LINE.
--- NOTE | 2018-07-02 15:23 | Diagnostic Imaging Report ---
Procedure: Right common femoral vein central venous catheter placement with ultrasound guidance paraffin plant sweater operator: Dr. Charlotte Smallwood Pre-operative diagnosis: Requiring central venous access Post-operative diagnosis: Status post central venous access Conscious Sedation: None Additional Medications: 5 cc Lidocaine 1% for local anesthesia Fluoroscopy time: 0 Dose-area Product: 0 mGycm2. Frontal Air Kerma: 0 Contrast used: 0 Estimated blood loss: None. Specimens: None. Implants: 7 [place] x 20 cm triple-lumen central venous catheter DISCUSSION: Informed consent was obtained and documented in the medical record. The patient was placed in the supine position. Preliminary sonographic evaluation of the bilateral neck demonstrated thrombosed right and left internal jugular veins and a patent right common femoral vein. The right groin was then prepped and draped in a standard sterile fashion. Subsequently, 1% lidocaine was infiltrated into the skin and subcutaneous tissues for local anesthesia. Then under continuous sonographic guidance, a micropuncture needle was advanced into the right common femoral vein. A permanent sonographic image was stored in the medical record. An .018'' wire was placed and upsized to an .035'' Amplatz wire using micropuncture sheath. The .035'' wire was advanced centrally with continuous cardiac rhythm monitoring. The micropuncture sheath was removed. The tract was dilated. Then, a 7 [place], 20 cm triple-lumen non-tunneled central venous catheter was advanced over the wire. The wire was then removed. Each lumen was tested and showed adequate bidirectional flow. The catheter was secured to the skin with Monocryl, flushed with sterile saline, and covered by a sterile dressing. The patient tolerated the procedure well without immediate complication. FINDINGS: Thrombosed bilateral internal jugular veins. Patent right common femoral vein. IMPRESSION: Placement of a 7 [place] x 16 cm triple-lumen central venous catheter by a right common femoral vein approach with ultrasound guidance. Thrombosed bilateral internal jugular veins. Signed by: Dr. Charlotte Smallwood MD on 07/02/2018 3:20 PM
--- NOTE | 2018-07-02 15:23 | Diagnostic Imaging Report ---
Procedure: Right common femoral vein central venous catheter placement with ultrasound guidance national van owner operator: Dr. Charlotte Smallwood Pre-operative diagnosis: Requiring central venous access Post-operative diagnosis: Status post central venous access Conscious Sedation: None Additional Medications: 5 cc Lidocaine 1% for local anesthesia Fluoroscopy time: 0 Dose-area Product: 0 mGycm2. Frontal Air Kerma: 0 Contrast used: 0 Estimated blood loss: None. Specimens: None. Implants: 7 Marshallese x 20 cm triple-lumen central venous catheter DISCUSSION: Informed consent was obtained and documented in the medical record. The patient was placed in the supine position. Preliminary sonographic evaluation of the bilateral neck demonstrated thrombosed right and left internal jugular veins and a patent right common femoral vein. The right groin was then prepped and draped in a standard sterile fashion. Subsequently, 1% lidocaine was infiltrated into the skin and subcutaneous tissues for local anesthesia. Then under continuous sonographic guidance, a micropuncture needle was advanced into the right common femoral vein. A permanent sonographic image was stored in the medical record. An .018'' wire was placed and upsized to an .035'' Amplatz wire using micropuncture sheath. The .035'' wire was advanced centrally with continuous cardiac rhythm monitoring. The micropuncture sheath was removed. The tract was dilated. Then, a 7 Marshallese, 20 cm triple-lumen non-tunneled central venous catheter was advanced over the wire. The wire was then removed. Each lumen was tested and showed adequate bidirectional flow. The catheter was secured to the skin with Monocryl, flushed with sterile saline, and covered by a sterile dressing. The patient tolerated the procedure well without immediate complication. FINDINGS: Thrombosed bilateral internal jugular veins. Patent right common femoral vein. IMPRESSION: Placement of a 7 Marshallese x 16 cm triple-lumen central venous catheter by a right common femoral vein approach with ultrasound guidance. Thrombosed bilateral internal jugular veins. Signed by: Dr. Charlotte Smallwood MD on 07/02/2018 3:20 PM
[2018-07-02] MEDS ORDERED: PROPOFOL IV EMULSION 10 MG/ML 20 ML VIAL ONE (15:27)
[2018-07-02] MEDS ORDERED: LIDOCAINE HCL 2% LOCAL INJ 5 ML SDV VIAL INJ ONE (15:27)
[2018-07-02] MEDS: VANCOMYCIN 1GM/NS 250 ML 250 ML IV SCH (15:50)
[2018-07-02] MEDS ORDERED: WARFARIN SOD 5 MG TAB PO SCH (17:00)
[2018-07-02] MEDS: CEFEPIME 1GM/NS 0.9% 50 ML 50 ML IV SCH (18:28)
--- NOTE | 2018-07-02 18:52 | Diagnostic Imaging Report ---
Bone Scan, three-phase Reason for exam: 87 M with painful left hip prosthesis; suspect infection. Has bilateral hip prostheses. Left arthroplasty in 08/2015 and right hip arthroplasty in 2017 Radiopharmaceutical: Tc-99m MDP 26 mCi Comparison: CT left hip 07/01/2018 Following intravenous administration of the radiopharmaceutical, dynamic flow and immediate blood pool images followed by delayed spot images were obtained of the hips and proximal thighs. Flow and blood pool images show diffusely symmetric distribution of tracer activity to the hips and proximal thighs. The 2-hour delayed images show increased tracer activity along the sides of the distal portion of the femoral component of the left hip prosthesis although not surrounding the tip. There is also increased tracer activity at the greater and lesser trochanters of the left hip. The acetabular components of both prostheses and the femoral component of the right are unremarkable. No abnormal accumulation of tracer is seen in the soft tissues of either hip or proximal thigh. Impression: Absence of focal accumulation of tracer around the left hip prosthesis on flow and blood pool images suggests that infection is not present but this should be followed with an indium-labeled WBC scan with concurrent marrow scan. Loosening of the femoral component.of the left hip prosthesis cannot be excluded although the tracer uptake at the distal portion of the femoral component is more typical of infection than loosening. Signed by: Dr. Olesya Lobo M.D. on 07/02/2018 6:49 PM
--- NOTE | 2018-07-02 19:10 | NUR ---
REPORT RECEIVED FROM OFF GOING NURSE, PT RESTING IN BED WITH EYES CLOSED, NO DISTRESS NOTED, O2 NC WORN, BED LOCKED AND LOW, CONT PULSE OX WORN, IV INFUSING PER ORDER, CALL LIGHT IN REACH
--- NOTE | 2018-07-02 19:26 | NUR ---
REPORT GIVEN TO ONCOMING NURSE. PATIENT IS RESTING IN BED. NO ACUTE DISTRESS NOTED. CALL LIGHT WITHIN REACH. BED IN THE LOWEST POSITION.
[2018-07-03] VITALS (8 sets, daily range): BP systolic 107–127; BP diastolic 58–65
[2018-07-03 05:23] LABS: BASOPHILS % 0.4 % (0.0-1.0); EOSINOPHILS # (AUTO) 0.1 (0.0-0.4); EOSINOPHILS % 0.9 % (0.0-6.0); HEMOGLOBIN 12.1 g/dL (14.0-18.0); LYMPHOCYTES # (AUTO) 1.9 (1.0-3.2); MEAN CORPUSCULAR HEMOGLOBIN 32.4 pg (28-32); MEAN CORPUSCULAR HGB CONC 32.7 g/dL (31-35); MEAN CORPUSCULAR VOLUME 98.9 fL (81-99); MONOCYTES # (AUTO) 0.5 (0.2-0.8); MONOCYTES % 6.8 % (4.4-11.3); NEUTROPHILS # (AUTO) 4.5 (2.1-6.9); NEUTROPHILS % 64.5 % (38.7-80.0); PLATELET COUNT 88 x10e3/uL (140-360); RED BLOOD COUNT 3.74 x10e6/uL (4.3-5.7); RED CELL DISTRIBUTION WIDTH 14.4 % (11.7-14.4)
--- NOTE | 2018-07-03 05:45 | NUR ---
PT RESTING IN BED WITH EYES CLOSED, NO DISTRESS NOTED, PT OPENS EYES UPON APPROACH, IV INFUSING PER ORDER, RIGHT FEMORAL CENTRAL INTACT WITH NO COMPLICATIONS NOTED, BED ALARM ACTIVATED, BED LOCKED AND LOW, CALL LIGHT IN REACH, INSTRUCTED TO CALL WITH NEEDS
[2018-07-03 05:48] LABS: ANION GAP 14.4 mmol/L (8-16); CREATININE, SERUM 1.89 mg/dL (0.72-1.25); POTASSIUM 3.4 mmol/L (3.5-5.1)
--- NOTE | 2018-07-03 07:00 | NUR ---
RECEIVED PATIENT RESTING IN BED, NO ACUTE DISTRESS NOTED. CALL LIGHT WITHIN REACH. BED IN THE LOWEST POSITION.
[2018-07-03] MEDS ORDERED: BUPIVACAINE 0.25% 30ML SDV INJ ONE (08:03)
[2018-07-03] MEDS ORDERED: LIDOCAINE 1% W/EPINEPHRINE 20 ML VIAL ONE (08:03)
--- NOTE | 2018-07-03 08:05 | NUR ---
PATIENT OFF THE UNIT FOR PROCEDURE.
[2018-07-03] MEDS ORDERED: MUPIROCIN 2% OINT 22 GM TUBE ONE (08:54)
[2018-07-03] MEDS ORDERED: DIGOXIN 0.125 MG TAB PO SCH (09:00)
--- NOTE | 2018-07-03 09:35 | NUR ---
PATIENT BACK TO UNIT FROM OR.
[2018-07-03] MEDS: SODIUM CHLORIDE 0.9% 1000ML 1,000 ML IV SCH ×2 (09:48→20:22)
[2018-07-03] MEDS: FAMOTIDINE 20 MG TAB PO SCH (09:48)
[2018-07-03] MEDS: LACTOBACILLUS ACIDOPHILUS CAPSULE PO SCH ×2 (09:48→17:00)
[2018-07-03] MEDS: FINASTERIDE 5 MG TAB PO SCH (09:49)
[2018-07-03] MEDS: TAMSULOSIN HCL 0.4 MG CAP PO SCH (09:49)
[2018-07-03] MEDS: CARVEDILOL 3.125 MG TAB PO SCH (09:49)
[2018-07-03] MEDS: ALLOPURINOL 100 MG TAB PO SCH (09:49)
--- NOTE | 2018-07-03 10:04 | NUR ---
ST NOTE: Order for BSE acknowledged, to be completed today. Handoff to LISBETH Simmons
--- NOTE | 2018-07-03 13:33 | NUR ---
CALLED DR. GAN TO NOTIFY THE RECOMMENDATIONS OF SPEECH THERAPY TO KEEP PATIENT NPO AND DO A MBS. NO SHABANA COLLINS.
--- NOTE | 2018-07-03 14:08 | Progress Note ---
DATE: July 03, 2018 SUBJECTIVE: Patient is at baseline. He respond when he is awake, but he is very cachectic on examination. is at bedside. We discussed about code status and they have agreed to make him DNR/DNI. Order has been placed. VITAL SIGNS: Temperature is 97.3, pulse 90, respiratory rate is 18, blood pressure 127/60, pulse ox 93% on room air. LAB FINDINGS: Show white count 7, hemoglobin 12, hematocrit is 37, platelets 88. Coagulation: PT 30, INR of 2.6. Chemistry: Sodium 139, potassium 3.4, chloride 107, bicarb 21, anion gap of 14, BUN 63, creatinine is 1.8, calcium is 11. LFTs were normal. BNP was 140. MICROBIOLOGY: Blood cultures, no growth. IMAGING STUDIES: Bone scan shows absence of focal accumulation of the chest around the left hip and blood flow imaging suggest the infection did not present, but should be followed with WBC scan. PHYSICAL EXAMINATION GENERAL: He is alert, but not as cooperative on examination. HEENT: Head is normocephalic and atraumatic. Eyes: Pupils equal, round and reactive to light bilaterally. Extraocular movements intact bilaterally. NECK: Supple. Good range of motion. Throat with no evidence of any erythema or exudates in the posterior pharynx. Has poor dentition. PULMONARY: Clear to auscultation bilaterally. No wheezing, no rales, no rhonchi, no crackles appreciated. CARDIOVASCULAR: Positive S1 and S2. No murmurs, rubs, or gallops appreciated. ABDOMEN: Soft, nondistended, nontender to palpation. Bowel sounds present. MUSCULOSKELETAL: Unable to assess. He is at baseline, noncooperative. NEUROLOGICAL: Unable to assess. SKIN: Intact. Warm to touch. Good capillary refill. PSYCHIATRIC: Has dementia. Unable to assess fully. EXTREMITIES: No edema. Good range of motion throughout. IMPRESSION 1. Concerns for chronic osteomyelitis of the left hip. 2. History of coronary artery disease. 3. Hypercalcemia, which is improving with IV hydration and fluids. 4. Atrial fibrillation. 5. Acute kidney injury secondary to dehydration and hypercalcemia. 6. History of congestive heart failure. 7. Severe protein-calorie malnutrition. PLAN: At this time, patient had a bone scan, which did not show evidence of any osteomyelitis. We will discuss this with ID. The patient will likely need WBC scan. Continue with IV antibiotics. PICC line has been placed. His calcium is improving. We will continue with IV fluid hydration. Repeat labs in the morning. Resume same medications. He is on warfarin for DVT prophylaxis. Again INR for the morning. He is likely benefit of LTAC. I had a long discussion with the at bedside with nurse present. At this time, she has agreed to place her DNR/DNI. She actually has appropriate with her and now we are going to make copies and taking it to the chart. DNR/DNI has been placed into the computer system and abide by the patient's wishes. I will continue to follow with wig sales consultant as well. Job#: [id number] PUN
--- NOTE | 2018-07-03 15:46 | NUR ---
PATIENT REFUSES DUBHOFF TUBE. NURSE EXPLAINED PATIENT AND THE NEED FOR IT. PATIENT STILL REFUSING. DR. GAN NOTIFIED, PER DR. GAN KEEP PATIENT NPO AND ORDER PPN.
[2018-07-03] MEDS: WARFARIN SOD 2.5 MG TAB PO SCH (17:00)
[2018-07-03] MEDS ORDERED: DEXTROSE 10% 1,000 ML IV PRN (17:00)
[2018-07-03] MEDS: CEFEPIME 1GM/NS 0.9% 50 ML 50 ML IV SCH (17:49)
--- NOTE | 2018-07-03 18:20 | Consultation ---
DATE OF CONSULTATION: July 02, [address] Cagle. HISTORY OF PRESENT ILLNESS: This 87-year-old patient was kindly referred for cardiac evaluation. The patient was admitted because of deterioration of his altered mental status, becoming more obtunded and also the patient's noted drainage on the left hip area where he had the previous surgical repair of a hip fracture. The patient was also noted to have an abscess on the neck which will be addressed by Dr. Sotelo and drainage of the abscess is scheduled for the 03 of July. According to the , the abscess developed after a central venous line in the neck area became either infiltrated or was falling out while he was in LTAC. The patient's cardiac history is significant in a way that he had double aortocoronary bypass procedure in 1988 and required stenting of the left anterior descending branch in January of 2015. The patient also has chronic atrial fibrillation and required a pacemaker implantation in 2005 and a redo was done in 2012. The patient also has long history of prostate problems and is seen by Dr. Mustafa. He has a history of gout; thrombocytopenia; hypothyroidism; macular degeneration; cirrhosis of the liver; degenerative joint disease, particularly involving his right knee; chronic renal insufficiency; squamous cell carcinoma of the earlobes. PAST HISTORY: Reveals that he had a cholecystectomy, TURP, appendectomy, bilateral hip replacement, and as mentioned above, aortocoronary bypass procedure. ALLERGIES: PATIENT IS ALLERGIC TO PENICILLIN, CEPHALOSPORINS, LEVAQUIN, PRONESTYL, MACROBID, NITROGLYCERIN PATCH, AND ADHESIVE TAPE. SOCIAL HISTORY: Negative. FAMILY HISTORY: Noncontributory. ADDITIONAL REVIEW OF SYSTEMS: Can only obtain partially since patient is quite obtunded and showing evidence of altered mental status. However, he denies any chest pain or shortness of breath with nodding. PHYSICAL EXAMINATION VITAL SIGNS: Reveals a blood pressure of 110/60. NECK: Carotid pulses are present. There is a mass on the neck related to the abscess which I mentioned in the present illness. LUNGS: Reveal decreased breath sounds but there are no rales and no wheezes. CARDIOVASCULAR: Reveals a normal apical impulse. Rhythm is irregularly irregular with a rate of 98 per minute. There is no S3. There is no rub. ABDOMEN: Soft. There is no tenderness or organomegaly. EXTREMITIES: Pulses cannot be palpated, however, both feet are warm, and there is only mild edema. NEUROLOGIC: Does not reveal any localizing motor defect. IMPRESSION 1. Chronic atherosclerotic and hypertensive cardiovascular disease with chronic systolic congestive heart failure and chronic atrial fibrillation. 2. Permanent pacemaker in place. 3. Neck abscess and infected left hip surgical location. 4. Altered mental status. 5. Acute kidney injury superimposed on chronic renal insufficiency. 6. Cirrhosis of liver. 7. Hypothyroidism. 8. Prostatism. 9. Gout. 10. Thrombocytopenia. PLAN: Because of the significant elevation of the patient's creatinine, I would recommend to discontinue this patient's digoxin which he has been taking every 3 days to control his heart rate and help with his congestive heart failure. Also, I will reduce the patient's warfarin dose from 5 mg to 2.5 mg since the patient is requiring some surgical intervention and also is on multiple antibiotics which certainly could influence the patient's coagulation. Thank you very much for letting me see this very nice patient. Job#: [id number] MATILDE
--- NOTE | 2018-07-03 19:03 | NUR ---
REPORT GIVEN TO ONCOMING NURSE, PATIENT IS RESTING IN BED. RESPIRATIONS EVEN AND UNLABORED. CALL LIGHT WITHIN REACH. BED IN THE LOWEST POSITION. BED ALARM ON.
--- NOTE | 2018-07-03 19:05 | NUR ---
REPORT RECEIVED FROM OFF GOING NURSE, PT RESTING IN BED WITH EYES CLOSED, IV INFUSING PER ORDER, CALL LIGHT IN REACH, BED ALARM ACTIVATED
[2018-07-03] MEDS: LEVOTHYROXINE SODIUM 75 MCG TAB PO SCH (20:27)
[2018-07-04] VITALS (8 sets, daily range): BP systolic 111–136; BP diastolic 54–76
[2018-07-04] MEDS: SODIUM CHLORIDE 0.9% 1000ML 1,000 ML IV SCH ×2 (03:50→17:45)
[2018-07-04 04:54] LABS: CALCIUM IONIZED 1.5 mmol/L (1.09-1.30)
--- NOTE | 2018-07-04 05:05 | NUR ---
PT RESTING IN BED ALERT IN PREVIOUSLY NOTED CONDITION, IV INFUSING PER ORDER, BED ALARM ACTIVATED, BED LOCKED AND LOW, CALL LIGHTIN REACH, INSTRUCTED TO CALL WITH NEEDS, NO NEEDS VOICED AT THIS TIME
[2018-07-04 05:07] LABS: BASOPHILS % 0.3 % (0.0-1.0); EOSINOPHILS # (AUTO) 0.1 (0.0-0.4); EOSINOPHILS % 0.9 % (0.0-6.0); HEMATOCRIT 34.9 % (38.2-49.6); HEMOGLOBIN 11.4 g/dL (14.0-18.0); LYMPHOCYTES # (AUTO) 1.5 (1.0-3.2); LYMPHOCYTES % 25.3 % (18.0-39.1); MEAN CORPUSCULAR HEMOGLOBIN 32.9 pg (28-32); MEAN CORPUSCULAR HGB CONC 32.7 g/dL (31-35); MEAN CORPUSCULAR VOLUME 100.6 fL (81-99); MONOCYTES # (AUTO) 0.4 (0.2-0.8); MONOCYTES % 7.4 % (4.4-11.3); NEUTROPHILS # (AUTO) 3.8 (2.1-6.9); NEUTROPHILS % 65.6 % (38.7-80.0); PLATELET COUNT 93 x10e3/uL (140-360); RED BLOOD COUNT 3.47 x10e6/uL (4.3-5.7); RED CELL DISTRIBUTION WIDTH 14.3 % (11.7-14.4)
[2018-07-04 05:14] LABS: ALBUMIN 2.6 g/dL (3.5-5.0); ANION GAP 13.4 mmol/L (8-16); BILIRUBIN,DIRECT 0.3 mg/dL (0.0-0.5); CALCIUM 10.5 mg/dL (8.4-10.2); CREATININE, SERUM 1.47 mg/dL (0.72-1.25); MAGNESIUM 1.9 MG/DL (1.3-2.1); PHOSPHORUS 2.4 MG/DL (2.3-4.7); POTASSIUM 3.4 mmol/L (3.5-5.1)
[2018-07-04 05:31] LABS: INR 2.34; PROTHROMBIN TIME 27.4 seconds (11.9-14.5)
--- NOTE | 2018-07-04 07:00 | NUR ---
RECEIVED PATIENT RESTING IN BED. RESPIRATIONS EVEN AND UNLABORED. NO ACUTE DISTRESS NOTED. CALL LIGHT WITHIN REACH. BED IN THE LOWEST POSITION. BED ALARM ON.
[2018-07-04] MEDS: FAMOTIDINE 20 MG TAB PO SCH (07:30)
[2018-07-04] MEDS: LACTOBACILLUS ACIDOPHILUS CAPSULE PO SCH (08:00)
[2018-07-04] MEDS: FINASTERIDE 5 MG TAB PO SCH (09:00)
[2018-07-04] MEDS: TAMSULOSIN HCL 0.4 MG CAP PO SCH (09:00)
[2018-07-04] MEDS: ALLOPURINOL 100 MG TAB PO SCH (09:00)
[2018-07-04] MEDS: CARVEDILOL 3.125 MG TAB PO SCH (09:00)
--- NOTE | 2018-07-04 10:02 | NUR ---
PATIENT'S EDUCATED YESTERDAY BY SPEECH THERAPY TO NOT GIVE PATIENT ANYTHING BY MOUTH EXCEPT FOR ICE CHIPS FOR MOUTH MOISTENING. AGAIN RE-EDUCATED ON BEING NPO TODAY.
--- NOTE | 2018-07-04 11:52 | NUR ---
RN AND STANTON TRIED TO TURN PATIENT, HE REFUSED.
--- NOTE | 2018-07-04 13:41 | Progress Note ---
DATE: July 04, 2018 MEDICINE PROGRESS NOTE SUBJECTIVE: Patient is still at baseline. He refuses NG tube from yesterday. also refuses it. He also refused a PEG tube as well. I had a long discussion with them about hospice services and she seems to be open to the idea. I will also start him on TPN later today. This was discussed with the nursing staff. VITAL SIGNS: Temperature 97.3, pulse 76, respiratory rate is 20, blood pressure 119/54, pulse ox 94% on room air. LAB FINDINGS: Show white count 5.7, hemoglobin 11.4, hematocrit is 35, platelets of 93. Coagulation: PT 27, INR 2.3. Chemistries: Sodium 141, potassium 3.4, chloride 112, bicarb 19, anion gap of 13, BUN is 50, creatinine is 1.47, glucose is 86, calcium is 10.5. MICROBIOLOGY: Blood cultures were negative. IMAGING STUDIES: None. PHYSICAL EXAMINATION GENERAL: Not in acute distress, alert and oriented x3. Cooperative on examination. HEENT: Head is normocephalic and atraumatic. Eyes: Pupils equal, round and reactive to light bilaterally. Extraocular movements intact bilaterally. NECK: Supple. Good range of motion. Throat with no evidence of any erythema or exudates in the posterior pharynx. Has poor dentition. PULMONARY: Clear to auscultation bilaterally. No wheezing, no rales, no rhonchi, no crackles appreciated. CARDIOVASCULAR: Positive S1 and S2. No murmurs, rubs, or gallops appreciated. ABDOMEN: Soft, nondistended, nontender to palpation. Bowel sounds present. MUSCULOSKELETAL: Strength is 5/5 throughout. No evidence of any musculoskeletal deficit on examination. No weakness appreciated. NEUROLOGICAL: Cranial nerves II through XII grossly intact. No evidence of any neurological deficits on exam. SKIN: Intact. Warm to touch. Good capillary refill. PSYCHIATRIC: Normal affect and mood. EXTREMITIES: No edema. Good range of motion throughout. IMPRESSION 1. Concern for chronic osteomyelitis of the left hip. 2. History of coronary artery disease. 3. Hypercalcemia, improving with IV fluid hydration. 4. Atrial fibrillation. 5. Acute kidney injury secondary to dehydration and hypercalcemia. 6. History of congestive heart failure. 7. Severe protein-calorie malnutrition. 8. Hypokalemia. PLAN: At this time, continue with IV antibiotics per ID recommendations. I will place a PICC line order, the one in the legs can be removed. I know he has underlying CKD. Patient's prognosis is poor and so he needs a PICC line which would make no difference in this patient's care in the event that the family does not even want dialysis, in the event he does need it. I had a long discussion with the and she understands that PICC line is the best option for him. I also discussed with her about hospice in which she seems to be interested in that option. I will go ahead and contact case management to have a few companies themselves with the family as well as the patient to determine the next plan of care. He is on warfarin for DVT prophylaxis. INR is 2.3. We will get a.m. labs. Continue with IV TPN for nutrition. He is DNR/DNI now. Job#: [id number] PAVITHRA
--- NOTE | 2018-07-04 14:26 | NUR ---
REQUEST RECEIVED TO SPEAK W PT AND ABOUT HOSPICE. NOT IN THE PT'S ROOM. PT IS LEGALLY BLIND AND UNALBE TO SIGN CHOICE LETTER. CALL MADE TO SAMANTA @ [phone]; NO ANSWER. CALLED [phone]; NO ANSWER. LEFT [facility] CONTACT INFO. Addendum: 07/04/18 at 1444 by Karie Taylor CM NOTIFIED BEDSIDE LAKSHMI BOB.
--- NOTE | 2018-07-04 14:32 | NUR ---
PER DR. GAN, INFORM DR. DON ABOUT PATIENT'S SCHEDULED COUMADIN BECAUSE PATIENT IS NPO DUE ASPIRATING AND FAILING BEDSIDE SWALLOW. INFORMED DR. DON, NO NEW ORDERS RECEIVED.
--- NOTE | 2018-07-04 14:39 | NUR ---
NOTIFIED DR. GAN OF POTASSIUM LEVEL OF 3.4, PER DR. GAN IT WILL BE REPLACED WITH TPN.
[2018-07-04] MEDS: VANCOMYCIN 1GM/NS 250 ML 250 ML IV SCH (15:53)
[2018-07-04] MEDS: WARFARIN SOD 2.5 MG TAB PO SCH (17:00)
[2018-07-04] MEDS: CEFEPIME 1GM/NS 0.9% 50 ML 50 ML IV SCH (17:45)
--- NOTE | 2018-07-04 18:55 | Diagnostic Imaging Report ---
Examination: Single AP view of the chest. COMPARISON: Portable chest 06/28/2018 INDICATION: PICC line placement IMPRESSION: 1. Lines and Tubes: Interval placement of right-sided PICC line, with distal tip projecting in the mid to distal SVC. 2. Otherwise, no significant interval change. Signed by: Dr. Abisai Mg M.D. on 07/04/2018 6:51 PM
--- NOTE | 2018-07-04 19:27 | NUR ---
PT IS RESTING IN BED WITH FAMILY AT BEDSIDE. NO RESPIRATORY DISTRESS NOTED. BED IN THE LOWEST POSITION, LOCKED, AND CALL LIGHT WITHIN REACH. WILL CONTINUE TO MONITOR.
--- NOTE | 2018-07-04 19:29 | NUR ---
REPORT GIVEN TO ONCOMING NURSE. PATIENT IS IN STABLE CONDITION. NO ACUTE DISTRESS NOTED. AT BEDSIDE. CALL LIGHT WITHIN REACH. BED IN THE LOWEST POSITION.
[2018-07-04] MEDS ORDERED: CENTRAL TPN FORMULA 1 BAG IV SCH (20:00)
--- NOTE | 2018-07-04 21:01 | NUR ---
PER DR GAN FEMORAL CATHETER CAN BE REMOVE. WILL CONTINUE TO MONITOR.
--- NOTE | 2018-07-04 21:28 | NUR ---
FEMORAL CATHETER REMOVED WITH TIP INTACT. PT TOLERATED PROCEDURE WELL. WILL CONTINUE TO MONITOR.
[2018-07-05] VITALS (7 sets, daily range): BP systolic 95–148; BP diastolic 47–74
[2018-07-05] MEDS: SODIUM CHLORIDE 0.9% 1000ML 1,000 ML IV SCH (05:02)
[2018-07-05 06:01] LABS: BASOPHILS % 0.5 % (0.0-1.0); EOSINOPHILS # (AUTO) 0.1 (0.0-0.4); EOSINOPHILS % 1.3 % (0.0-6.0); HEMATOCRIT 35.2 % (38.2-49.6); HEMOGLOBIN 11.5 g/dL (14.0-18.0); LYMPHOCYTES # (AUTO) 1.3 (1.0-3.2); LYMPHOCYTES % 24.1 % (18.0-39.1); MEAN CORPUSCULAR HGB CONC 32.7 g/dL (31-35); MEAN CORPUSCULAR VOLUME 101.1 fL (81-99); MONOCYTES # (AUTO) 0.4 (0.2-0.8); MONOCYTES % 7.5 % (4.4-11.3); NEUTROPHILS # (AUTO) 3.7 (2.1-6.9); NEUTROPHILS % 65.9 % (38.7-80.0); PLATELET COUNT 87 x10e3/uL (140-360); RED BLOOD COUNT 3.48 x10e6/uL (4.3-5.7); RED CELL DISTRIBUTION WIDTH 14.4 % (11.7-14.4)
[2018-07-05 06:12] LABS: INR 1.88; PROTHROMBIN TIME 23.1 seconds (11.9-14.5)
[2018-07-05 06:28] LABS: ALBUMIN 2.3 g/dL (3.5-5.0); ALBUMIN/GLOBULIN RATIO 0.9 (0.8-2.0); ANION GAP 9.3 mmol/L (8-16); CREATININE, SERUM 1.23 mg/dL (0.72-1.25); POTASSIUM 3.3 mmol/L (3.5-5.1)
--- NOTE | 2018-07-05 06:58 | NUR ---
PT IS RESTING IN BED. NO RESPIRATORY DISTRESS NOTED. BED IN LOWEST POSITION, LOCKED, AND CALL LIGHT WITHIN REACH. WALKING ROUNDS COMPLETED WITH ONCOMING NURSE.
--- NOTE | 2018-07-05 07:25 | NUR ---
RECD PT IN BED RESTING NO S/S DISCOMORT,APPLIED O2 2L SATS AT 91%,PT ON SPECIALTY
[2018-07-05] MEDS ORDERED: POTASSIUM CHLORIDE 20MEQ/100ML 200 ML IV ONE (09:15)
--- NOTE | 2018-07-05 10:17 | Progress Note ---
DATE: July 05, 2018 MEDICINE PROGRESS NOTE SUBJECTIVE: Patient is at baseline with no changes. He is scheduled for a barium swallow later today. PICC line was placed. Femoral catheter was removed yesterday. He is on TPN. We are going to stop IV fluids. Hospice companies are supposed to come talk to the family about Hospice choices in the event he changes his mind and he wants to go on Hospice. The patient does not want any further treatment. OBJECTIVE VITAL SIGNS: Temperature is 96.5, pulse is 83, respiratory rate is 20, blood pressure is 102/74, pulse ox 94% 2 L nasal cannula. GENERAL: Not in acute distress. Alert and oriented times 1. HEENT: Head is normocephalic and atraumatic. Eyes: Pupils equal, round and reactive to light bilaterally. Extraocular movements intact bilaterally. NECK: Supple. Good range of motion. Throat with no evidence of any erythema or exudates in the posterior pharynx. Has poor dentition. PULMONARY: Clear to auscultation bilaterally. No wheezing. No rales. No rhonchi. No crackles appreciated. CARDIOVASCULAR: Positive S1 and S2. No murmurs, rubs or gallops appreciated. ABDOMEN: Soft, nondistended and nontender to palpation. Bowel sounds present. MUSCULOSKELETAL: Strength is 5/5 throughout. No evidence of any muscle deficit on examination. No weakness appreciated. NEUROLOGICAL: Cranial nerves II-XII are grossly intact. No evidence of any neurological deficits on exam. SKIN: Intact. Warm to touch. Good cap refill. PSYCHIATRIC: Normal affect and mood. EXTREMITIES: No edema. Good range of motion throughout. LABS: White count 5.5, hemoglobin 11.5, hematocrit 35, and platelets of 87,000. Coagulation: PT 23, INR 1.88. Chemistry: Sodium 142, potassium 3.3, chloride 116, bicarb 20, anion gap of 9, BUN is 40, creatinine 1.2, glucose 178. Calcium is 10. MICROBIOLOGY: Blood cultures are negative. IMPRESSION 1. Concern for chronic osteomyelitis of the left hip. 2. History of coronary artery disease. 3. Hypercalcemia, improved with intravenous hydration. 4. Atrial fibrillation. 5. Acute kidney injury secondary to dehydration and hypercalcemia, resolving. 6. History of coronary artery disease. 7. Severe protein calorie malnutrition. 8. Hypokalemia. 9. Hospice candidate. PLAN: At this time, continue with IV antibiotics in which ID is following closely. PICC line has been ordered. Femoral catheter was removed yesterday. PICC line was placed on yesterday. Will get a.m. labs. I discussed the case with the yesterday about Hospice, and she was agreeable to have a couple of Hospice companies come talk with her. I discussed this with the nursing staff today to go ahead and get Hospice arranged for them to talk with the family. His INR is 1.88, which I will defer anticoagulation to cardiology. He is on IV TPN for nutrition. Stop IV fluids and DNR/DNI. Will continue with same plan of care and follow up with the final recommendations from the family. Job#: [id number] RITESH
--- NOTE | 2018-07-05 12:00 | NUR ---
ASSISTED PT UP TO BSC TOLERATED WELL,MOD ASSIST
--- NOTE | 2018-07-05 12:46 | Consultation ---
DATE OF CONSULTATION: July 02, 2018 PHYSICIAN REQUESTING THE CONSULTATION: Dr. Kallie Beyer. Consultation requested of Shilpa Sotelo MD, Plastic Surgery. CHIEF COMPLAINT: Right neck abscess. HISTORY: The patient is an 87-year-old male and a history is taken from the family member. The family member states that the patient had a central line placed in the right side of the neck as far back as 2016. The reason for the central line was venous access for prolonged antibiotic therapy because of a hip replacement that got infected. The family member further states that when the central line was no longer needed, it was removed from the right neck. Since 2017, there has been a persistent draining sinus in the region of the right neck. The patient was admitted for other medical reasons; however, infectious disease requested that the plastic surgery team get involved in evaluating the patient for this persistent draining sinus. On persistent physical exam, there is a 2.5-cm area of granulomatous tissue with a central nidus of what seems to be seropurulent draining material. The subcutaneous portion of the area is without pulsations and is without ecchymotic area. There is no surrounding erythema and no signs consistent with a surrounding cellulitis. IMPRESSION: A localized abscess with a possible sinus connected to the deeper vasculature. PLAN: I have explained my findings to the patient and the family in detail. In order to fix this situation, I have recommended that the patient go to the OR tomorrow morning and I will excise the entire area and explore it more deeply to see how deep the draining sinus goes. If it is self-limiting, it can be removed en bloc and then the wound sutured up as there are no current signs of infection. The family is on board with this and the patient will be consented and kept n.p.o. after midnight. Thank you for allowing me to participate in the care of your patient. Job#: [id number] KAYKAY
--- NOTE | 2018-07-05 12:56 | Operative Report ---
DATE OF PROCEDURE: July 03, 2018 PREOPERATIVE DIAGNOSIS: Abscess right neck secondary to indwelling central venous catheter. POSTOPERATIVE DIAGNOSIS: Abscess right neck secondary to indwelling central venous catheter. PROCEDURE: Excision of right neck abscess en bloc with primary closure. ANESTHESIA: MAC sedation/local. HISTORY: The patient is an 87-year-old male who has a persistent draining sinus of the right lower neck from where a central venous catheter had been placed in 2017. The risks, benefits, alternatives were discussed with the patient and the family. They are prepared to undergo the procedure as outlined. DETAILS OF PROCEDURE: Patient was marked preoperatively in the holding area. He was brought to the operating theater and, after the induction of adequate IV sedation, he was prepped and draped in a supine position. A time-out was performed. The area around the draining sinus was marked out and then infiltrated with 1% Xylocaine with epinephrine. A total of 12 mL was used. After waiting appropriate amount of time for maximum vasoconstrictive effect, the incision through the skin and subcutaneous tissues was performed approximately 1.5 cm away from the area of the localized abscess. The incision was then carried down to the deep subcutaneous tissue. The dissection beneath the area of the sinus track was noted to be without extension into the deep subcutaneous tissue. Therefore, the entire area was removed en bloc. The wound was then irrigated with bacteriostatic saline. It was made hemostatic using the electrocautery. There did not appear to be any infected tissue, devitalized tissue, and a primary closure was then effected using 4-0 nylon in a running cuticular fashion. Bactroban ointment and a sterile dressing were then applied. Patient was returned to recovery room in satisfactory condition and then returned back to his hospital bed for further care and treatment. Job#: [id number] KAYKAY
--- NOTE | 2018-07-05 14:01 | Diagnostic Imaging Report ---
PROCEDURE: X-RAY MODIFIED BARIUM SWALLOW COMPARISON: None. INDICATION: Failed bedside swallow Radiation Details: Fluoroscopy time: 2.2 minutes Cumulative dose: 7.75 mGy Dose area product: 2.03 Gy.cm2 DISCUSSION: Fluoroscopic examination was performed in conjunction with speech pathology during swallowing a variety of thin and thick liquid consistencies. Provided images demonstrate laryngeal penetration and aspiration. Vallecular and pyriform sinus residue is noted. CONCLUSION: Modified barium swallow demonstrating laryngeal penetration and aspiration. Please refer to the speech pathology report for further details. Signed by: Dr. Charlotte Smallwood MD on 07/05/2018 1:55 PM
--- NOTE | 2018-07-05 15:39 | NUR ---
ATTEMPTED TO CALL SAMANTA LEFT MESSAGE TO RETURN CALL [phone] AND [phone] CALLED AND SPOKE WITH JASBIR VICTORIA [phone] AND LET KNOW REACHING OUT TO DISCUSS HOSPICE OPTIONS.
--- NOTE | 2018-07-05 16:15 | Progress Note ---
DATE: INFECTIOUS DISEASE PROGRESS NOTE SUBJECTIVE: Mr. Rios continues to deteriorate slowly. Apparently the problem now he is aspirating, and I had a very long discussion with the about him. The patient with no new complaints, but he is weak. PHYSICAL EXAMINATION GENERAL: He is alert, does not seem to be in acute distress. VITAL SIGNS: Stable. Currently afebrile, but he is weak. IMPRESSION 1. Pain in the hip. Concerned about osteomyelitis versus loosening of the hardware. Will get an indium scan. Continue the IV antibiotic. 2. Recurrent aspiration probably secondary to a stroke. The patient's is thinking about hospice. Will have hospice talk to her. In the meantime, continue the IV antibiotic for the time-being. 3. Debility. 4. Chronic kidney disease. Will follow. Job#: [id number] EV
--- NOTE | 2018-07-05 16:32 | NUR ---
Nutrition Intervention Note RD Recommendation(s) for Physician: -Current standard central TPN @50mL/hr with addition of 25g lipids (M, W, F), providing 948kcal, 60g protein and 1200mL fluids. meeting 77% est calorie needs and 100% est protein needs -BMP, Phos, Mg repeat daily; prealbumin, LFT repeat weekly -Obtain daily weight -NPO is recommended per RD -Consider feeding tube placement for usp nutrition -Rec continuous TF with Jevity 1.2 @ 45mL/hr providing 1296kcal, 60g protein, and 872mL H2O. -Rec free water flushes of 30mL q 4hr, additional per MD discretion -Pending hospice status The patient meets criteria for MODERATE protein-calorie malnutrition. Plan of Care: RD following, monitoring for tolerance and adequacy Nutrition reason for involvement: Follow up, new on TPN RD Assessment 07/05 Chart reviewed. Pt was discussed during rounds. MBS showed laryngeal penetration and aspiration. Pt is new on TPN. No Phos and Mg drawn for today. No GI consult. No abd/pel imaging obtained. No contraindication for EN. Visited pt in the room. presented on bedside; explained purpose of TPN. No GI complains noted. TPN currently meeting 77% of est calorie needs and 100% est protein needs. Will continue to monitor and follow. 07/02 Chart reviewed. Pt was discussed during rounds. 87yo M, who is admitted for weakness. Visited pt in the room. Friend on bedside to provide hx as pt has dementia. Per friend, pt has had poor appetite for long period time. No GI complains noted at this time. LBM unknown, none recorded on chart. Pt has denture but no chewing or swallowing difficulty observed. Pt has some signs of muscle and fat loss upon NFPA (see below). Renal function has improved since admission. BG is stable. BP is good. Communicated RD rec to LISBETH Simmons during rounds. Will continue to monitor and follow. Principal Problems/Diagnoses: chronic osteomyelitis of the hip PMH: hypertension, CAD, bilateral chronic osteomyelitis of the hip, dementia GI: abdomen flat, soft, tender, flatus present, LBM 07/05 liquid stool Skin: dry, loose skin, no pressure wound noted by chart Labs: (07/05) Na 134 L, BUN 87 H, Creatinine 4.07 H, Ca 7.9 L, Mg 2.7 H (07/02) BUN 73 H, Creatinine 2.35 H, Ca 11.7 H Meds: reviewed Ht: 70in Wt: 108lb 07/05 BMI: 19.8kg/m2 IBW: 166lb Malnutrition Evaluation (07/02/18) The patient meets criteria for MODERATE protein-calorie malnutrition. Energy intake: <75% of estimated energy requirements for >3 months Weight loss: Unknown. Fat loss: Moderate some protrusion of clavicle, some loss of fat over triceps Muscle loss: Moderate some temporal depression Supporting Evidence: Fluid accumulation: unable to evaluate Functional Status: measurably reduced Nutrition Prescription (Diet Order): NPO (TPN) Estimated Nutritional Needs: Calories: 1225 1470kcal(25-30kcal/kg/d) Weight used : Actual BW 49kg Protein : 49 74g (1-1.5g/kg/d) Weight used: Actual BW - 49kg Diet Adequacy: meeting calorie needs, meeting protein needs Diet Education Needs Assessment: Diet education indicated. Family is educated on purpose of TPN. Nutrition Care Level: high (New TPN) Nutrition Diagnosis: Inadequate oral intake related to current medical status as evidenced by pt requiring TPN as main source of nutrition. Goal: Patient will meet 75-100% of estimated needs by follow up Progress: Goal met Interventions: IVF, prescription meds Monitoring/Evaluation: Total energy intake, Total protein intake, labs, weight change, I&O Signed: Cherelle Orellana, MS, RD, LD
[2018-07-05] MEDS: WARFARIN SOD 2.5 MG TAB PO SCH (17:00)
[2018-07-05] MEDS: ENOXAPARIN SOD INJ 40 MG/0.4 ML SYR SC SCH (17:00)
--- NOTE | 2018-07-05 17:45 | NUR ---
PT TRYING TO GET OUT O BED WITHOUT ASSIST INSTRUCTED PT TO CALL FOR ASSIST,BED ALARM ON
[2018-07-05] MEDS: CEFEPIME 1GM/NS 0.9% 50 ML 50 ML IV SCH (18:00)
--- NOTE | 2018-07-05 18:15 | NUR ---
PT RESTING NO DISTRESS NOTED,O2 2L NC IN PLACE
--- NOTE | 2018-07-05 19:05 | NUR ---
Patient visited in room during nursing rounds. Patient alert and oriented x2-3. Pt tends to forget recent information and needs to frequently be re-oriented. TPN infusing via PICC on Right upper arm per MD order. and [id number] at bedside visiting. Bed alarm on. Pt on DNR care. Will monitor closely.
[2018-07-05] MEDS ORDERED: CENTRAL TPN FORMULA 1 BAG IV SCH (20:00)
[2018-07-06] VITALS (7 sets, daily range): BP systolic 109–132; BP diastolic 59–89
--- NOTE | 2018-07-06 05:30 | NUR ---
Patient asleep. HOB elevated 30 degrees. TPN infusing. Bed alarm on.
[2018-07-06 06:00] LABS: BASOPHILS % 0.3 % (0.0-1.0); EOSINOPHILS # (AUTO) 0.1 (0.0-0.4); EOSINOPHILS % 1.1 % (0.0-6.0); HEMATOCRIT 37.9 % (38.2-49.6); HEMOGLOBIN 12.4 g/dL (14.0-18.0); LYMPHOCYTES # (AUTO) 1.6 (1.0-3.2); LYMPHOCYTES % 24.2 % (18.0-39.1); MEAN CORPUSCULAR HEMOGLOBIN 32.9 pg (28-32); MEAN CORPUSCULAR HGB CONC 32.7 g/dL (31-35); MEAN CORPUSCULAR VOLUME 100.5 fL (81-99); MONOCYTES # (AUTO) 0.5 (0.2-0.8); MONOCYTES % 7.3 % (4.4-11.3); NEUTROPHILS # (AUTO) 4.4 (2.1-6.9); NEUTROPHILS % 66.2 % (38.7-80.0); PLATELET COUNT 95 x10e3/uL (140-360); RED BLOOD COUNT 3.77 x10e6/uL (4.3-5.7); RED CELL DISTRIBUTION WIDTH 14.6 % (11.7-14.4)
[2018-07-06 06:25] LABS: ALBUMIN 2.5 g/dL (3.5-5.0); ANION GAP 10.5 mmol/L (8-16); CALCIUM 10.7 mg/dL (8.4-10.2); CREATININE, SERUM 1.18 mg/dL (0.72-1.25); POTASSIUM 3.5 mmol/L (3.5-5.1)
--- NOTE | 2018-07-06 07:30 | NUR ---
PT UP IN BED NO DISTRESS NOTED,O2 SATS 93%,O2 2L NC APPLIED.DENIES PAIN
--- NOTE | 2018-07-06 10:20 | NUR ---
SPOKE WITH ABOUT DIFFERENT RESOURCES IN COMMUNITY. ABLE TO GIVE SENIOR RESOURCE GUIDE AND NEW LIFESTYLES FOR SENIORS FOR RESOURCES IN COMMUNITY. SPOKE ABOUT HOSPICE AND OPTION AVAILABLE TO HER. SHE STATES THAT DR SALVADOR TOLD HER HE CAN GO TO [facility] SO THAT IS WHAT SHE WANTS TO DO RIGHT NOW AND THEN WILL DECIDE LATER IF SHE WANTS TO GO THE HOSPICE ROUTE. GAVE CARD FOR FURTHER QUESTIONS IF NEEDED AND LET KNOW HOURS AND DAYS AVAILABLE. ADVISED CM OF WISHES.
--- NOTE | 2018-07-06 11:31 | Progress Note ---
DATE: July 06, 2018 INTERNAL MEDICINE PROGRESS NOTE SUBJECTIVE: is now refusing hospice services. She instead wants to go to [facility]. We are already arranging for [facility] on continuous IV antibiotics and TPN. Patient also failed his modified barium swallow. OBJECTIVE VITAL SIGNS: Temperature 96.5, pulse 86, respiratory rate is 18, blood pressure 113/86, pulse ox 93% on room air. LAB FINDINGS: Show a white count of 6.5, hemoglobin 12.4, hematocrit is 38, platelets of 95. COAGULATION: PT 23, INR is 1.88. CHEMISTRY: Has been reviewed and is stable. His calcium is 10.7. PHYSICAL EXAMINATION GENERAL: Not in acute distress. Alert, oriented x1, cooperative on examination. HEENT: Head: Normocephalic, atraumatic. Eyes: Pupils equally round and reactive to light bilaterally. Extraocular movements intact bilaterally. Neck was supple with good range of motion. Throat: No evidence of any erythema or exudates in the posterior pharynx. Has poor dentition. PULMONARY: Clear to auscultation bilaterally. No wheezing, no rales, no rhonchi, no crackles appreciated. CARDIOVASCULAR: Positive S1/S2. No murmurs, rubs or gallops appreciated. ABDOMEN: Soft, nondistended, nontender to palpation. Bowel sounds present. MUSCULOSKELETAL: Strength is 5/5 throughout. No evidence of any musculoskeletal deficit on examination. No weakness appreciated. NEUROLOGICAL: Cranial nerves 2-12 grossly intact. No evidence of any neurological deficit on exam. SKIN: Intact. Warm to touch. Good capillary refill. PSYCHIATRIC: Normal affect and mood. EXTREMITIES: No edema. Good range of motion throughout. IMPRESSION 1. Concerns for chronic osteomyelitis of the left hip. 2. History of coronary artery disease. 3. Hypercalcemia, slightly increased today. 4. Atrial fibrillation. 5. Acute kidney injury secondary to dehydration and hypercalcemia. 6. Severe protein calorie malnutrition. 7. Hypokalemia. 8. Hospice candidate. PLAN: At this time he failed his modified barium swallow. He is on IV TPN. They have discussed this with Infectious Disease, and it seems that they have agreed to go [facility] for continuous IV antibiotics and this will give her a chance, the , to make further decisions in terms of hospice services. Otherwise, will continue the same plan of care. In relation to his Coumadin, I am going to defer this to Cardiology as the patient cannot take anything orally by mouth in which he failed miserably in terms of his diet. He will be n.p.o. for now. Will stop IV fluids. He is DNR/DNI. I have discussed the plan of care with the nursing staff, Case Management and the at bedside. Job#: [id number] EV
--- NOTE | 2018-07-06 12:56 | NUR ---
ORDERS FOR LTAC CHOSE [facility] CHOICE LETTER SIGNED AND ON CHART NNEKA WITH [facility] NOTIFIED OF CONSULT MOT INITIATED AND PLACED IN [facility] PLAN TRANSFER THIS EVENING
[2018-07-06] MEDS ORDERED: SODIUM CHLORIDE 0.9% 250ML 250 ML ONE (14:53)
[2018-07-06] MEDS: VANCOMYCIN 1GM/NS 250 ML 250 ML IV SCH (16:00)
[2018-07-06] MEDS: ENOXAPARIN SOD INJ 40 MG/0.4 ML SYR SC SCH (17:29)
[2018-07-06] MEDS: CEFEPIME 1GM/NS 0.9% 50 ML 50 ML IV SCH (17:30)
--- NOTE | 2018-07-06 18:09 | NUR ---
pt up in bed no distress noted,denies pain.
--- NOTE | 2018-07-06 19:10 | NUR ---
Patient visited in room during nursing rounds. Patient alert and oriented x2-3. Pt tends to forget recent information and needs to frequently be re-oriented. TPN infusing via PICC on Right upper arm per MD order. and [id number] at bedside visiting. Bed alarm on. Pt on DNR care. Patient scheduled to be transferred to [facility] per MD order. Transfer to commence after new TPN bag started at 2000 tonight.
[2018-07-06] MEDS ORDERED: CENTRAL TPN FORMULA 1 BAG IV SCH (20:00)
--- NOTE | 2018-07-06 20:35 | NUR ---
New TPN bag started and connected to PICC line on right upper arm. Master Glazier aware and called EMT transport for pending discharge transfer to [facility].
--- NOTE | 2018-07-06 21:30 | NUR ---
EMT crew on the unit. Report given regarding patient medical history and transfer destination. EMT aware pt is DNR in-patient but FULL CODE en route in ambulance.
--- NOTE | 2018-07-06 21:42 | NUR ---
Patient escorted by EMT crew via stretcher while TPN continuously infusing. and brother in law accompanying patient to [facility] [place], [place]. Patient left unit and hospital in stable condition.
--- NOTE | 2018-07-06 23:39 | NUR ---
SPOKE TO [facility] WITH [facility]. CONFIRMATION #[id number]. ARRANGED FOR BED PROTOTYPE MACHINIST.
--- NOTE | 2018-07-08 08:32 | Discharge Summary ---
FINAL DISCHARGE DIAGNOSES 1. Chronic osteomyelitis of the left hip. 2. History of coronary artery disease. 3. Hypercalcemia, improved. 4. Atrial fibrillation. 5. Acute kidney injury secondary to dehydration and hypercalcemia. 6. Severe protein-calorie malnutrition. 7. Hypokalemia. 8. Hospice candidate. 9. Failure to thrive. CONSULTANTS: Infectious disease, cardiology and plastic surgery. VITAL SIGNS: Temperature is 97, pulse 91, respiratory rate is 18, blood pressure 123/61, and pulse ox 94% on room air. LAB FINDINGS: White count 6.5, hemoglobin 12.4, hematocrit is 38, and platelets of 95,000. Coagulation: PT 23, INR 1.88. Chemistry: Sodium 144, potassium 3.5, chloride 118, bicarb 20, anion gap of 17, BUN 33, creatinine is 1.1, glucose is 135, and calcium is 10.7. LFTs were normal. Albumin was 2.5. PTH was 5. Vancomycin trough 15. MICROBIOLOGY: Blood cultures: No growth after 5 days. IMAGING STUDIES: Chest x-ray: Patchy bibasilar opacities likely reflects atelectasis. cardiomegaly with postsurgical changes without vascular decompensation. Hip CT shows lucency along the distal aspect of the left prosthesis with adjacent periosteal reaction of the lateral femoral shaft. Findings may indicate concern for underlying infection. Had a PICC line placed. Bone scan: Absence of local accumulation of the tracer around the left hip prosthesis on the flow and blood pool imaging suggests that infection is not present, but should be followed with WBC scan. Modified barium swallow: Patient has some evidence of penetration and aspiration. HOSPITAL COURSE: This is an 87-year-old male with multiple comorbidities, very debilitated, failure to thrive, severely ill, came in due to worsening left hip pain and concerns for underlying infection. Patient was treated for underlying chronic osteomyelitis. Patient has several imaging studies concerning for chronic osteomyelitis. ID was consulted. Patient was on IV antibiotics. Patient had a PICC line placed and IV antibiotics to continue at [facility]. We had plastic surgery consulted for excision of the right neck abscess with primary closure that was performed on July 06, 2018. Patient did well postprocedure. Cardiology was consulted with continuation of his atrial fibrillation medications and monitoring him very closely. In further discussion, the initially agreed to hospice services but then changed her mind and wants to continue to think about it. So, at this time, the patient will be discharged to [facility]. Continue with IV antibiotic therapy while there until she is able to think about the goals of care on her . He was started on IV TPN for nutrition when he failed the modified barium swallow. On discharge, vital signs stable were stable, labs reviewed and stable. Patient seen and evaluated and examined thoroughly on the day of discharge with no other complaints. Patient verbalized understanding and agreed to plan of care, to follow up accordingly as an outpatient with the primary care physician in 1 week and the consultants as described above in 2 weeks' time. MEDICATIONS: See med reconciliation form. [facility] CONDITION: Guarded. In the event of any worsening symptoms, the patient advised to come back to the ED for further evaluation. Discharge summary took greater than 35 minutes. BARBARA GAN MD Job#: [id number]
== END 2018-07-06 21:49 | DRG 853 ==
LOC: ER 11:30 → ERHOLD 15:07 → MED/SURG3 15:39 → OBSVTOIN 07-02 16:23
PROVIDERS: ADMIT Internal Medicine; ATTEND Internal Medicine
PROC: 02HV33Z Insertion of Infusion Device into Superior Vena Cava, Percutaneous Approach (ICD-10-PCS; 2018-07-02)
PROC: 02HV33Z Insertion of Infusion Device into Superior Vena Cava, Percutaneous Approach (ICD-10-PCS; 2018-07-04)
PROC: 0JB40ZZ Excision of Right Neck Subcutaneous Tissue and Fascia, Open Approach (ICD-10-PCS; principal; 2018-07-05)
DX: A41.9 Sepsis, unspecified organism (principal); E43 Unspecified severe protein-calorie malnutrition; M86.652 Other chronic osteomyelitis, left thigh; N17.9 Acute kidney failure, unspecified; L02.11 Cutaneous abscess of neck; T82.898A Other specified complication of vascular prosthetic devices, implants and grafts, initial encounter; I13.0 Hypertensive heart and chronic kidney disease with heart failure and stage 1 through stage 4 chronic kidney disease, or unspecified chronic kidney disease; I50.22 Chronic systolic (congestive) heart failure; N18.4 Chronic kidney disease, stage 4 (severe); I50.32 Chronic diastolic (congestive) heart failure; I25.10 Atherosclerotic heart disease of native coronary artery without angina pectoris; E83.52 Hypercalcemia; Z79.01 Long term (current) use of anticoagulants; E86.0 Dehydration; R62.7 Adult failure to thrive; Z68.20 Body mass index [BMI] 20.0-20.9, adult; M16.0 Bilateral primary osteoarthritis of hip; N40.0 Benign prostatic hyperplasia without lower urinary tract symptoms; D69.6 Thrombocytopenia, unspecified; E03.9 Hypothyroidism, unspecified; K74.60 Unspecified cirrhosis of liver; M10.9 Gout, unspecified; Z95.0 Presence of cardiac pacemaker; R41.82 Altered mental status, unspecified; I48.2 Chronic atrial fibrillation; Z95.1 Presence of aortocoronary bypass graft; E87.6 Hypokalemia; Z66 Do not resuscitate; T17.918A Gastric contents in respiratory tract, part unspecified causing other injury, initial encounter
CPT/HCPCS: 36415; 36556; 36569; 71045; 74230; 74470; 76937; 78315; 80048; 80053; 80076; 80202; 82330; 82550; 82553; 82948; 83605; 83735; 83880; 83970; 84100; 84134; 84478; 84484; 85025; 85610; 85651; 86140; 87040; 88305; 93005; 96365; 96366; 99284; A9503; C1751; C1769; G0378; J0692; J1650; J1940; J2001; J3370; J3480; J7030; J7050